=== PATIENT | male | born 1950 | race Caucasian/White ===

== ENCOUNTER 2025-02-03 18:31 | Observation (INO) | payer MEDICARE, SELFPAY ==
--- OUTSIDE RECORDS SUMMARY | 2025-01-26 04:00 | XMS_ITS | Encounter Summary ---
Author Name [facility] Address [address] [place] [address] Care Team Providers Care Manager Process Name Role Phone KARLATHERONKELLE Primary Care Provider Unavailabl e Insurance Providers: All historical and current Section Date Range: From patient's date of to the date document was created. This section includes the names of all active insurance providers for the patient. Insurance Provider Type of Coverage Plan Name Start of Policy Coverage End of Policy Coverage Group Number Member ID Insurance Provider's Telephone Number Policy Terry's Name Patient's Relationship to Policy Terry [facility] (WNR) MEDICARE ADVANTAGE [facility] (WNR) Sep 17, 2020 [facility] [id number] HOLLIE TATE PATIENT Selected Encounter This section includes the information on record at [place] for the Encounter. Date/Time Encounter Type Encounter Description Reason Pro vider Source January 26, 2025 08:00 AM Outpatient Encounter PRIMARY CARE/MEDICINE E Encounter Template Text not used by [place] Plan of Treatment: Future Appointments (+ 6 months) and Future Tests (+/- 45 days) The Plan of Treatment section includes future care activities for the patient from all [place] treatmentfacilities. This section includes future appointments and future orders which are active, pending or scheduled. Future Appointments This section includes appointments that were scheduled to occur 6 months from the date of the Encounter, up to a maximum of 20 appointments. The data comes from all [place] treatment facilities. Appointment Date/Time Appointment Type Appointme nt Facility Name Feb 16, 2025 08:00 AM AMBULATORY - NONE [facility] Jul 27, 2025 08:00 AM AMBULATORY - NONE [facility] Active, Pending, and Scheduled Orders This section includes a listing of several types of active, pending, and scheduled orders, including clinic medications orders, diagnostic test orders, procedure orders and consult orders; where the start date of the order is 45 days before the date of the Encounter or 45 days after the date of theEncounter. The data comes from all [place] treatment facilities. Test Date/Time Test Type Test Details Facility Name January 16, 2025 12:00 AM Laboratory - Chemi stry Order URINALYSIS URINE SP ONCE [facility] Lab Results: +/- 30 days of the encounter This section includes the Chemistry and Hematology Lab Results on record with [place] for the patient. Radiology Reports and Pathology Reports are provided separately, in subsequent sections. Lab Results This section contains the Chemistry/Hematology Results that were resulted 30 days before or 30 daysafter the date of the Encounter. Date/Time Source Result Type Result - Unit Interpretation Reference Range Specimen Type Comment January 19, 2025 08:[address] [facility] COMPREHENSIVE METABOLIC PANEL PLASMA Specimen Type: PLASMA Comment: GLUCOSE The ADA recommends a fasting glucose of 99 mg/dL as the GLUCOSE upper limit of normal. TP Per package insert reference range for recumbent is 6.0 to 7.8 TP g/dL. Plasma samples will generally have higher values (about TP 0.2 to 0.4 g/dL higher) due to presence of fibrinogen. TRIG REFERENCE RANGE: BORDERLINE HIGH: 150-199 mg/dL HIGH: 200-499 TRIG mg/dL VERY HIGH: >=500 mg/dL CHOL REF RANGE: BORDERLINE HIGH: 200-239 mg/dL HIGH: >=240 mg/dL HDLC Values >60 are a negative risk factor for heart disease. DLDL REF RANGE: NEAR OR ABOVE OPTIMAL: 100-129 mg/dL BORDERLINE DLDL HIGH: 130-159 mg/dL HIGH: 160-189 mg/dL VERY HIGH: >=190 Ordering Provider: KELLE ACOSTA Report Released Date/Time: January 19, 2025 08:01 AM Reporting Lab: [facility] [id number] [facility] [id number] Performing Lab: [address] [phone] ALBUMIN 4.0 g/dL 3.5-4.8 ALKALINE PHOSPHATASE 69 U/L 40-150 ALT/SGPT 32 U/L 0-55 AST/SGOT 33 U/L 10-40 BUN 10.1 mg/dL 8.4-25.7 CALCIUM 9.3 mg/dL 8.6-10.3 CREATININE 1.0 mg/dL 0.7-1.3 CO2 25 mmol/L 22-30 GLUCOSE 112 mg/dL H 74-99 PROTEIN, TOTAL 6.4 g/dL 6.4-8.3 SODIUM 133 mmol/L L 134-144 CHLORIDE 100 mmol/L 99-112 BILIRUBIN, TOTAL 1.2 mg/dL 0.2-1.2 POTASSIUM 5.4 mmol/L H 3.5-5.1 ANION GAP 13 mmol/L 10-20 EGFR (CALCULATED) 78 January 19, 2025 08:[address] [facility] CBC BLOOD Specimen Type: BLOOD No comment entered. Ordering Provider: KELLE ACOSTA Report Released Date/Time: January 19, 2025 08:01 AM Reporting Lab: [address] [phone] Performing Lab: [address] [phone] WBC COUNT 3.9 10*3/uL 3.6-11.0 RBC COUNT 4.48 10*6/uL 4.47-5.83 HGB 14.2 g/dL 13.6-17.4 HCT 41.3 40.0-51.0 MCV 92.1 fL 80.0-96.0 MCH 31.7 pg H 27.0-31.0 MCHC 34.4 g/dL 31.5-36.5 PLT 134 10*3/uL L 150-400 LYMPHS % 23.6 21.0-51.0 MONOCYTES % 11.0 H 4.0-8.0 NUCLEATED RBC/100WBC 0.3 /100{WBCs} RDW 14.1 11.2-15.8 NEUTROPHIL % 63.2 54.0-78.0 EOSINOPHIL % 1.6 0.0-3.0 BASOPHIL % 0.6 0.0-3.0 ABSOLUTE LYMPHOCYTE COUNT 0.9 10*3/uL 0. 8-5.0 ABSOLUTE NEUTROPHIL COUNT 2.5 10*3/uL 1. 9-8.6 ABSOLUTE BASOPHIL COUNT 0.0 10*3/uL 0.0- 0.3 ABSOLUTE MONOCYTE COUNT 0.4 10*3/uL 0.1- 0.9 ABSOLUTE EOSINOPHIL COUNT 0.1 10*3/uL 0. 0-0.3 MPV 9.2 fL 7.4-11.4 January 19, 2025 08:[address] [facility] HEMOGLOBIN A1C BLOOD Specimen Type: B LOOD Comment: Values obtained from A1C measurements can vary. For typical A1C assays, a reported value of 7.0 could actually be between 6.72 and 7.28 if measured by a reference method. A reported value of 9.0 could actually be between 8.73 and 9.27. Ref: http://www.ngsp.org/CAPdata.asp Ordering Provider: KELLE ACOSTA Report Released Date/Time: January 19, 2025 08:01 AM Reporting Lab: [address] [phone] Performing Lab: [address] [address] HEMOGLOBIN A1C 4.8 3.6-5.7 January 19, 2025 08:[address] [facility] PROSTATE SPECIFIC ANTIGEN SERUM Speci men Type: SERUM Comment: TPSA Testing males >= 70 y/o is not recommended if there is a TPSA history of previously normal PSA testing. Assay performed on TPSA Unyqe using CMIA methodology. Patient results TPSA determined by assays using different manufacturers or methods TPSA may not be comparable. Ordering Provider: KELLE ACOSTA Report Released Date/Time: January 19, 2025 08:01 AM Reporting Lab: [address] [phone] Performing Lab: [address] [phone] PROSTATE SPECIFIC ANTIGEN 1.533 ng/mL 0. 000-6.500 January 19, 2025 08:[address] [facility] TSH PLASMA Specimen Type: PLASMA Comment: GLUCOSE The ADA recommends a fasting glucose of 99 mg/dL as the GLUCOSE upper limit of normal. TP Per package insert reference range for recumbent is 6.0 to 7.8 TP g/dL. Plasma samples will generally have higher values (about TP 0.2 to 0.4 g/dL higher) due to presence of fibrinogen. TRIG REFERENCE RANGE: BORDERLINE HIGH: 150-199 mg/dL HIGH: 200-499 TRIG mg/dL VERY HIGH: >=500 mg/dL CHOL REF RANGE: BORDERLINE HIGH: 200-239 mg/dL HIGH: >=240 mg/dL HDLC Values >60 are a negative risk factor for heart disease. DLDL REF RANGE: NEAR OR ABOVE OPTIMAL: 100-129 mg/dL BORDERLINE DLDL HIGH: 130-159 mg/dL HIGH: 160-189 mg/dL VERY HIGH: >=190 Ordering Provider: KELLE ACOSTA Report Released Date/Time: January 19, 2025 08:01 AM Reporting Lab: [address] [phone] Performing Lab: [address] [address] TSH 2.835 u[IU]/mL 0.350-4.940 January 19, 2025 08:[address] [facility] LIPID PROFILE PLASMA Specimen Type: P LASMA Comment: GLUCOSE The ADA recommends a fasting glucose of 99 mg/dL as the GLUCOSE upper limit of normal. TP Per package insert reference range for recumbent is 6.0 to 7.8 TP g/dL. Plasma samples will generally have higher values (about TP 0.2 to 0.4 g/dL higher) due to presence of fibrinogen. TRIG REFERENCE RANGE: BORDERLINE HIGH: 150-199 mg/dL HIGH: 200-499 TRIG mg/dL VERY HIGH: >=500 mg/dL CHOL REF RANGE: BORDERLINE HIGH: 200-239 mg/dL HIGH: >=240 mg/dL HDLC Values >60 are a negative risk factor for heart disease. DLDL REF RANGE: NEAR OR ABOVE OPTIMAL: 100-129 mg/dL BORDERLINE DLDL HIGH: 130-159 mg/dL HIGH: 160-189 mg/dL VERY HIGH: >=190 Ordering Provider: KELLE ACOSTA Report Released Date/Time: January 19, 2025 08:01 AM Reporting Lab: [address] [phone] Performing Lab: [address] [address] CHOLESTEROL 105 mg/dL 0-199 LDL CHOLESTEROL 40 mg/dL 0-99 HDL CHOLESTEROL 53 mg/dL >40 TRIGLYCERIDE 34 mg/dL 0-149 Vital Signs: All taken on the encounter date This section contains inpatient and outpatient Vital Signs collected on the date of the Encounter. Date/Time Temperature Pulse Blood Pressure Respiratory Rate SP02 Pain Height Weight Body Mass Index Source January 26, 2025 08:00 AM 98.1 95 160/110 18 96 0 232 34 YURIY CLARITA [facility] Encounter Notes: All associated encounter notes This section contains the clinical notes associated to the Encounter. Date/Time Encounter Note(s) Provider Source January 27, 2025 06:51 AM DISCHARGE NOTE: LOCAL TITLE: AFTER VISIT SUMMARY NOTE STANDARD TITLE: DISCHARGE NOTE DICT DATE: JANUARY 26, 2025@08:00 ENTRY DATE: JANUARY 27, 2025@06:51:58 DICTATED BY: BHUMIKA BELTRÁN COSIGNER: URGENCY: STATUS: COMPLETED If the patient did not receive a copy of the after-visit summary or had a virtual visit, a copy of the after-visit summary will be mailed. The after-visit summary includes information pertaining to the patient's encounter, including diagnoses, vital signs, medications, and new orders, as well as a list of any any upcoming appointments and information regarding the patient's ongoing care. The patient's medications were reviewed with the patient by the provider and were provided to the patient as an updated list of medications. The patient was instructed to inform the provider of any medication changes or discrepancies that were noted. Otherwise, the patient was instructed to continue the medications as prescribed. A copy of the after-visit summary provided to the patient is available in [facility]. SCANNED DOCUMENT SIGNATURE NOT REQUIRED Electronically Filed: 01/27/2025 by: BHUMIKA BOOGIE [facility]
--- OUTSIDE RECORDS SUMMARY | 2025-01-26 04:00 | XMS_ITS | Encounter Summary ---
Author Name [facility] [place] [facility] [place] [facility] [place] [place] Address [address] [place] [id number] Care Team Providers Care Exercise Scientist Name Role Phone KELLE ACOSTA Primary Care Provider Unavailabl e Insurance Providers: [...] Name Patient's Relationship to Policy Terry SEEMA [facility] (WNR) MEDICARE ADVANTAGE [facility] (WNR) Sep 17, 2020 [facility] [id number] HOLLIE TATE PATIENT Selected Encounter This section includes the information on record at [place] for the Encounter. Date/Time Encounter Type Encounter Description Reason Provider Source January 26, 2025 08:00 AM OFFICE O/P EST MOD 30 MIN PRIMARY CARE/MEDICINE ICD-10-CM I25.10 [facility] heart disease of [place] coronary artery w/o KELLE Chen Encounter Template Text not used by [place] Assessments - Encounter Diagnoses This section includes the primary and secondary diagnoses documented for the Encounter. Date/Time Primary/Secondary Diagnosis Diagnosis Name Provider Source January 26, 2025 12:15 PM PRIMARY [facility] heart disease of [place] coronary artery w/o KELLE Chen CB January 26, 2025 12:15 PM SECONDARY Encounter for immunization CONCEPCION ARREDONDO [facility] January 26, 2025 12:15 PM SECONDARY Essential (primary) hypertension KELLE ACOSTA [facility] January 26, 2025 12:15 PM SECONDARY Hyperlipidemia, unspecified KELLE ACOSTA [facility] Plan of Treatment: Future Appointments (+ 6 months) and Future Tests (+/- 45 days) The Plan of Treatment section includes [facility] care activities for the [facility] [place] [facility] This section includes future appointments and future orders which are active, pending or scheduled. Future Appointments This section includes appointments that were scheduled to occur 6 months from the date of the Encounter, up to a maximum of 20 appointments. The data comes from all [place] treatment facilities. Appointment Date/Time Appointment Type Appointme nt Facility Name Feb 16, 2025 08:00 AM AMBULATORY - NONE BRENDAN Boucher [facility] Jul 27, 2025 08:00 AM AMBULATORY - NONE [facility] Active, Pending, and Scheduled Orders This section includes a listing of several types of active, pending, and scheduled orders, including clinic medications orders, diagnostic test orders, procedure orders and consult orders; where the start date of the order is 45 days before the date of the Encounter or 45 days after the date of theEncounter. The data comes from all [place] treatment facilities. Test Date/Time Test Type Test Details Facility Name January 16, 2025 12:00 AM Laboratory - Chemi dolly Order URINALYSIS URINE SP ONCE [facility] Lab Results: +/- 30 days of the encounter This section includes the Chemistry and Hematology Lab Results on record with [place] for the patient. Radiology Reports and Pathology Reports are provided separately, in subsequent sections. Lab Results This section contains the Chemistry/Hematology Results that were resulted 30 days before or 30 daysafter the date of the Encounter. Date/Time Source Result Type Result - Unit Interpretation Reference Range Specimen Type Comment January 19, 2025 08:02 AM [facility] COMPREHENSIVE METABOLIC PANEL PLASMA Specimen Type: PLASMA [...] January 19, 2025 08:01 AM Reporting Lab: [address] [id number] Performing Lab: [address] [address] ALBUMIN 4.0 g/dL 3.5-4.8 ALKALINE PHOSPHATASE 69 [...] (CALCULATED) 78 January 19, 2025 08:02 AM [facility] CBC BLOOD Specimen Type: BLOOD No comment entered. Ordering Provider: KELLE ACOSTA Report Released Date/Time: January 19, 2025 08:01 AM Reporting Lab: [address] [phone] Performing Lab: [address] [address] WBC COUNT 3.9 10*3/uL 3.6-11.0 RBC COUNT [...] fL 7.4-11.4 January 19, 2025 08:02 AM [facility] HEMOGLOBIN A1C BLOOD Specimen Type: B LOOD [...] January 19, 2025 08:01 AM Reporting Lab: [address] [phone] Performing Lab: [address] [address] HEMOGLOBIN A1C 4.8 3.6-5.7 January 19, 2025 08:02 AM [facility] PROSTATE SPECIFIC ANTIGEN SERUM Speci men Type: SERUM Comment: TPSA Testing males >= 70 y/o is not recommended if there is a TPSA history of previously normal PSA testing. Assay performed on TPSA SocialRep using CMIA methodology. Patient results TPSA determined by assays using different manufacturers or methods TPSA may not be comparable. Ordering Provider: KELLE ACOSTA Report Released Date/Time: January 19, 2025 08:01 AM Reporting Lab: [place] [id number] Performing Lab: [place] [id number] PROSTATE SPECIFIC ANTIGEN 1.533 ng/mL 0. 000-6.500 January 19, 2025 08:02 AM [facility] TSH PLASMA Specimen Type: PLASMA Comment: GLUCOSE [...] January 19, 2025 08:01 AM Reporting Lab: [address] [address] Performing Lab: [place] [id number] TSH 2.835 u[IU]/mL 0.350-4.940 January 19, 2025 08:02 AM [facility] LIPID PROFILE PLASMA Specimen Type: P LASMA [...] January 19, 2025 08:01 AM Reporting Lab: [address] [phone] Performing Lab: [facility] [id number] [place] [phone] CHOLESTEROL 105 mg/dL 0-199 LDL CHOLESTEROL 40 mg/dL 0-99 HDL CHOLESTEROL 53 mg/dL >40 TRIGLYCERIDE 34 mg/dL 0-149 Immunizations: All administered on the encounter date This section contains immunizations associated to the Encounter. Immunization Series Date Issued Administered By Site Reaction Lot Number [id number] Code Drug Wholesale Parts Salesperson Comment(s) Source RSV, BIVALENT, PROTEIN SUBUNIT RSVPREF, DILUENT RECONSTITUTED , 0.5 ML, PF January 26, 2025 JUAN DAVID ARREDONDO LEFT DELTO ID [id number] [employer] ADMINISTERE D AT [place] Social History: Smoking Status (Most current) and Tobacco Use (All prior to encounter date) This section includes the most current, and the historical, smoking and tobacco- related health factors from the [place] facility where the Encounter took place. Current Smoking Status This section includes the most current smoking, or tobacco-related health factor, from the [place] facility where the Encounter took place. Date/Time Current Smoking Status Comment Dangelo ity Jul 29, 2024 08:30 AM VA-TOBACCO NEVER USED [facility] Tobacco Use History This section includes a history of the smoking, or tobacco-related health factors, that were collected on or before the date of the Encounter. The data comes from the [place] facility where the Encounter took place. Date/Time Smoking Status/Tobacco Use Comment F acility Jul 31, 2023 03:30 PM VA-TOBACCO NEVER USED [facility] May 17, 2022 08:00 AM VA-TOBACCO NEVER USED [facility] May 17, 2021 09:30 AM VA-TOBACCO NEVER USED [facility] January 15, 2019 10:09 AM VA-TOBACCO NEVER USED [facility] Encounter Notes: All associated encounter notes This section contains the clinical notes associated to the Encounter. Date/Time Encounter Note(s) Provider Source January 26, 2025 08:46 AM NURSING MEDICATION MGT NOTE: LOCAL TITLE: MEDICATION ADMINISTRATION NOTE (T) STANDARD TITLE: NURSING MEDICATION MGT NOTE DATE OF NOTE: JANUARY 26, 2025@08:46 ENTRY DATE: JANUARY 26, 2025@08:46:52 AUTHOR: CONCEPCION ARREDONDO EXP COSIGNER: URGENCY: STATUS: COMPLETED Immunization Documentation: Administered: RSV, BIVALENT, PROTEIN SUBUNIT RSVPREF, DILUENT RECONSTITUTED, 0.5 ML, PF Date Administered: January 26, 2025 08:00 Wholesale Parts Salesperson: [employer] Lot: [id number] Exp Date: Jan 14, 2026 ND: [id number] Admin Route/Site: INTRAMUSCULAR/LEFT DELTOID Dosage: 0.5mL Vaccine Information Statement(s): RSV (RESPIRATORY SYNCYTIAL VIRUS) VACCINE VIS Oct 17, 2024 (TRINIDADIAN) Order By: Policy Administered By: Concepcion Arredondo /jen/ CONCEPCION ARREDONDO LICENSED PRACTICAL NURSE Signed: 01/26/2025 08:47 [facility] January 26, 2025 08:27 AM NURSING NOTE: LOCAL TITLE: NURSING NOTE STANDARD TITLE: NURSING NOTE DATE OF NOTE: JANUARY 26, 2025@08:27 ENTRY DATE: JANUARY 26, 2025@08:28:08 AUTHOR: CONCEPCION ARREDONDO EXP COSIGNER: URGENCY: STATUS: COMPLETED EKG completed per order, results reviewed by pcp /jen/ CONCEPCION ARREDONDO LICENSED PRACTICAL NURSE Signed: 01/26/2025 08:29 [facility] January 26, 2025 08:05 AM INTERNAL MEDICINE OUTPATIENT NOTE: LOCAL TITLE: PRIMARY CARE OUTPATIENT NOTE (T) STANDARD TITLE: INTERNAL MEDICINE OUTPATIENT NOTE DATE OF NOTE: JANUARY 26, 2025@08:05 ENTRY DATE: JANUARY 26, 2025@08:05:55 AUTHOR: KELLE ACOSTA EXP COSIGNER: URGENCY: STATUS: COMPLETED In-person Note 74yo Reason for Visit: Here for follow up visit with his daughter. Daughter notes he is more forgetful. He states he takes his pills everyday, will sometimes forget the second dose. Meds filled last in January 2024. He states in past month his breathing has become more labored. He had 5 vessel by pass 14 years ago and hasn't seen cardiology since. 5 Active Problems PROBLEM LAST MOD PROVIDER Benign prostatic hyperplasia 07/29/2024 KELLE ACOSTA Hyperlipidemia 05/17/2022 KELLE ACOSTA Shoulder pain 01/15/2019 [facility] Coronary arteriosclerosis 07/29/2024 [facility] History of 5 vessel CABG Benign essential hypertension 01/15/2019 [facility] REVIEW OF SYSTEMS: (denies the following unless indicated otherwise): mood concerns headache fatigue/weight loss dysphagia/hoarseness chest pain dyspnea abdominal pain difficult or bloody elimination PATIENT ALLERGIES DETAILED ALLERGIES/ADVERSE REACTIONS No Known Allergies AMRS - MEDS (REC SUCCINCT) Active and Recently Inpatient, Outpatient and Clinic Medications (including Supplies): Active Outpatient Medications Status ========= 1) ATORVASTATIN CALCIUM 20MG TAB TAKE ONE TABLET BY ACTIVE MOUTH EVERY DAY FOR HIGH CHOLESTEROL 2) LABETALOL HCL 100MG TAB TAKE ONE TABLET BY MOUTH ACTIVE TWICE A DAY FOR HIGH BLOOD PRESSURE (WITH FOOD) Active Non-VA Medications Status ========= 1) Non-VA ASPIRIN 81MG EC TAB 81MG MOUTH EVERY DAY ACTIVE 2) Non-VA ATORVASTATIN CALCIUM 40MG TAB 40MG MOUTH EVERY ACTIVE DAY 4 Total Medications Report Released Date/Time: January 19, 2025@18:32 Provider: KELLE ACOSTA Specimen: SERUM. [facility] [id number] Specimen Collection Date: January 19, 2025@08:02 Test name Result units Ref. range Site Code PROSTATE SPECIFIC ANTIGEN 1.533 ng/mL 0.000 - 6.500 [541] Comment: TPSA Testing males >= 70 y/o is not recommended if there is a TPSA history of previously normal PSA testing. Assay performed on TPSA SocialRep using CMIA methodology. Patient results TPSA determined by assays using different manufacturers or methods TPSA may not be comparable. Report Released Date/Time: January 19, 2025@17:58 Provider: KELLE ACOSTA Specimen: BLOOD. [facility] [id number] Specimen Collection Date: January 19, 2025@08:02 Test name Result units Ref. range Site Code HEMOGLOBIN A1C 4.8 % 3.6 - 5.7 [541] Eval: Values obtained from A1C measurements can vary. For typical A1C assays, a Eval: reported value of 7.0 could actually be between 6.72 and 7.28 if measured Eval: by a reference method. A reported value of 9.0 could actually be between Eval: 8.73 and 9.27. Ref: https://ngsp.org/CAPdata.asp WBC COUNT 3.9 K/cmm 3.6 - 11.0 [541] RBC COUNT 4.48 M/cmm 4.47 - 5.83 [541] HGB 14.2 g/dL 13.6 - 17.4 [541] HCT 41.3 % 40.0 - 51.0 [541] MCV 92.1 fL 80.0 - 96.0 [541] MCH 31.7 H pg 27.0 - 31.0 [541] MCHC 34.4 g/dL 31.5 - 36.5 [541] RDW 14.1 % 11.2 - 15.8 [541] PLT 134 L K/cmm 150 - 400 [541] MPV 9.2 fL 7.4 - 11.4 [541] NEUTROPHIL % 63.2 % 54.0 - 78.0 [541] LYMPHS % 23.6 % 21.0 - 51.0 [541] MONOCYTES % 11.0 H % 4.0 - 8.0 [541] EOSINOPHIL % 1.6 % 0.0 - 3.0 [541] BASOPHIL % 0.6 % 0.0 - 3.0 [541] ABSOLUTE NEUTROPHIL COUNT 2.5 K/cmm 1.9 - 8.6 [541] ABSOLUTE LYMPHOCYTE COUNT 0.9 K/cmm 0.8 - 5.0 [541] ABSOLUTE MONOCYTE COUNT 0.4 K/cmm 0.1 - 0.9 [541] ABSOLUTE EOSINOPHIL COUNT 0.1 K/cmm 0.0 - 0.3 [541] ABSOLUTE BASOPHIL COUNT 0.0 K/cmm 0.0 - 0.3 [541] NUCLEATED RBC/100WBC 0.3 /100 WBC None Established - None Established [541] Comment: Values obtained from A1C measurements can vary. For typical A1C assays, a reported value of 7.0 could actually be between 6.72 and 7.28 if measured by a reference method. A reported value of 9.0 could actually be between 8.73 and 9.27. Ref: http://www.ngsp.org/CAPdata.asp Report Released Date/Time: January 19, 2025@18:27 Provider: KELLE ACOSTA Specimen: PLASMA. [facility] [id number] Specimen Collection Date: January 19, 2025@08:02 Test name Result units Ref. range Site Code GLUCOSE 112 H mg/dL 74 - 99 [541] SODIUM 133 L mmol/L 134 - 144 [541] POTASSIUM 5.4 H mmol/L 3.5 - 5.1 [541] CHLORIDE 100 mmol/L 99 - 112 [541] CO2 25 mmol/L 22 - 30 [541] BUN 10.1 mg/dL 8.4 - 25.7 [541] CREATININE 1.0 mg/dL 0.7 - 1.3 [541] CALCIUM 9.3 mg/dL 8.6 - 10.3 [541] EGFR (CALCULATED) 78 mL/min/1.73m2 BSA [541] Eval: eGFR was calculated using the CKD-EPI 2020 equation. No reference range Eval: is defined. Clinical judgement based on patient condition is advised. Eval: eGFR results >60 are imprecise. Many variables affect the calculated Eval: result. Interpretation of eGFR results >60 must be monitored over time. ANION GAP 13 mmol/L 10 - 20 [541] AST/SGOT 33 U/L 10 - 40 [541] ALT/SGPT 32 U/L 0 - 55 [541] ALKALINE PHOSPHATASE 69 U/L 40 - 150 [541] BILIRUBIN, TOTAL 1.2 mg/dL 0.2 - 1.2 [541] PROTEIN, TOTAL 6.4 g/dL 6.4 - 8.3 [541] ALBUMIN 4.0 g/dL 3.5 - 4.8 [541] CHOLESTEROL 105 mg/dL 0 - 199 [541] LDL CHOLESTEROL 40 mg/dL 0 - 99 [541] HDL CHOLESTEROL 53 mg/dL Ref: >=40 [541] TRIGLYCERIDE 34 mg/dL 0 - 149 [541] TSH 2.835 uIU/mL 0.350 - 4.940 [541] Comment: GLUCOSE The ADA recommends a fasting [...] mg/dL HIGH: 160-189 mg/dL VERY HIGH: >=190 PHYSICAL EXAM: Vital Signs: T: 98.1 F [36.7 C] (01/26/2025 08:00) P: 95 (01/26/2025 08:00) R: 18 (01/26/2025 08:00) BP: 160/110 (01/26/2025 08:00) Pain: 0 (01/26/2025 08:00) Height: 69.5 in [176.5 cm] (01/15/2019 10:23) Weight: 232 lb [105.23 kg] (01/26/2025 08:00) Pulse Ox: 96% (01/26/2025 08:00) General: SOB with activity, takes several minutes to recover Head, Ears, Eyes, Nose, and Throat: Neck: no bruit, no JVD Chest/Lungs: clear Cardiovascular: RRR Gastrointestinal: abdomen distended, nontender Extremities: 3+ edema to thighs ASSESSMENT/PLAN: reviewed labs with BP cuff issued to to monitor BP daily. discussed SOB result of strain on heart due to not taking BP meds and unable to pump effectively. He MUST take betablocker twice a day every day. add on lasix daily to help with fluid overload. Lasix to be overnighted He has not been taking statin for prevention of CV event, cholesterol however is at goal. he should be taking nightly sttin EKG with NSR RTC in 2-3 weeks to ensure edema is improving. daughter will ensure he is taking daily meds. next visit will order echo and re-consult cardiology. should SOB increase will need to go to ER. HEALTH MAINTENANCE/CLINICAL REMINDERS: MEDICATION RECONCILIATION Medication Reconciliation report reviewed and discussed with patient/caregiver. VA prescription medications, non-VA prescription medications, OTC and herbal medications reviewed: Patient/caregiver verifies that the list is complete and accurate and voices understanding. Patient/caregiver in possession of printed medication list. FOLLOW-UP: 2-3 weeks I am the Staff Provider. TOTAL TIME SPENT: Spent 45 minutes in care of this patient today including review of records, exam, and placing orders. /jen/ KELLE A KARLA NURSE PRACTITIONER Signed: 01/26/2025 12:16 [facility]STA [facility] January 26, 2025 07:51 AM PRIMARY CARE NURSI STEPHANIE NOTE: LOCAL TITLE: OUTPATIENT NURSING INTAKE NOTE (T) STANDARD TITLE: PRIMARY CARE NURSING NOTE DATE OF NOTE: JANUARY 26, 2025@07:51 ENTRY DATE: JANUARY 26, 2025@07:51:34 AUTHOR: CONCEPCION ARREDONDO COSIGNER: URGENCY: STATUS: COMPLETED Hemoglobin A1C Results: Collection DT Specimen Test Name Result Units Ref Range 01/19/2025 08:02 BLOOD HEMOGLOBIN A1C 4.8 % 3.6 - 5.7 Comment: Values obtained from A1C measurements can vary. For typical A1C Comment: assays, a reported value of 7.0 could actually be between 6.72 and Comment: 7.28 if measured by a reference method. A reported value of 9.0 Comment: could actually be between 8.73 and 9.27. Ref: Comment: http://www.ngsp.org/CAPdata.asp 01/29/2024 08:09 BLOOD HEMOGLOBIN A1C 5.1 % 3.6 - 5.7 Comment: Values obtained from A1C measurements can vary. For typical A1C Comment: assays, a reported value of 7.0 could actually be between 6.72 and Comment: 7.28 if measured by a reference method. A reported value of 9.0 Comment: could actually be between 8.73 and 9.27. Ref: Comment: http://www.ngsp.org/CAPdata.asp 07/24/2023 10:39 BLOOD HEMOGLOBIN A1C 5.0 % 3.6 - 5.7 Comment: Values obtained from A1C measurements can vary. For typical A1C Comment: assays, a reported value of 7.0 could actually be between 6.72 and Comment: 7.28 if measured by a reference method. A reported value of 9.0 Comment: could actually be between 8.73 and 9.27. Ref: Comment: http://www.ngsp.org/CAPdata.asp Comment: Scan agrees with automated differential Comment: No NRBCs observed on scanning Review Allergies Allergies reviewed and updated per protocol. ALLERGIES/ADVERSE REACTIONS No Known Allergies Have you fallen in the last 30 days? NO MEDICATION LIST REVIEW REPORT Patient states no change in documented OTC/Herbals at this visit. 1. Has the patient been feeling sad or distressed? No 2. Has the patient been having personal or family problems? No 3. Has the patient been experiencing worry and/or stress? No 4. Has the patient been having problems with drugs and/or alcohol? No 5. [place] [facility] pocket card was provided to patient. No/patient declined [facility] not documented this visit. Clinical Reminders Activity Homelessness/Food Insecurity Screen: In the past 2 months, have you been living in stable housing that you own, rent, or stay in as part of a household? Yes - Living in stable housing. Are you worried or concerned that in the next 2 months you may NOT have stable housing that you own, rent, or stay in as part of a household? No - Not worried about housing near future The reports the following: Within the past 12 months, you worried whether your food would run out before you got money to buy more. Never true Within the past 12 months, the food you bought just didn't last and you didn't have money to get more. Never true Advance Directive Education Screen: Patient received information regarding Advance Directives: No - Patient declined information at this time. Patient Education Documentation: LEARNING NEEDS ASSESSMENT: The patient/family/significant other reports no changes in learning needs. /jen/ CONCEPCION ARREDONDO LICENSED PRACTICAL NURSE Signed: 01/26/2025 08:06 CONCEPCION ARREDONDO [facility]
--- OUTSIDE RECORDS SUMMARY | 2025-01-30 05:16 | XMS_ITS | Encounter Summary ---
Author Name [facility] Organization [facility] Address [address] [place] [id number] Care Team Providers Care Residential Case Manager Name Role Phone KELLE ACOSTA Primary Care [...] Name Patient's Relationship to Policy Terry SEEMA MCR (WNR) MEDICARE ADVANTAGE [facility] (WNR) Sep 17, 2020 [facility] [id number] [phone] HOLLIE TATE PATIENT Selected Encounter This section includes the information on record at [place] for the Encounter. Date/Time Encounter Type Encounter Description Reason Pro vider Source January 30, 2025 09:16 AM Outpatient Encounter TELEPHONE TRIAGE IHE Encounter Template Text not used by [place] Plan of Treatment: Future Appointments (+ 6 months) and Future Tests (+/- 45 days) The Plan of Treatment section includes future care activities for the patient from all [place] treatmentfacilities. This section includes future appointments and future orders which are active, pending or scheduled. Future Appointments This section includes appointments that were scheduled to occur 6 months from the date of the Encounter, up to a maximum of 20 appointments. The data comes from all [place] treatment facilities. Appointment Date/Time Appointment Type Appointme nt Facility Name Feb 16, 2025 08:00 AM AMBULATORY - NONE BRENDAN Boucher [facility] Jul 27, 2025 08:00 AM AMBULATORY - [...] of theEncounter. The data comes from all [place] treatment facilities. Test Date/Time Test Type Test Details Facility Name January 16, 2025 12:00 AM Laboratory - Chemi stry Order URINALYSIS URINE SP ONCE [facility] Lab Results: +/- 30 days of the encounter This section includes the Chemistry and Hematology Lab Results on record with [place] for the patient. Radiology Reports and Pathology Reports are provided separately, in subsequent sections. Lab Results This section contains the Chemistry/Hematology Results that were resulted 30 days before or 30 daysafter the date of the Encounter. Date/Time Source Result Type Result - Unit Interpretation Reference Range Specimen Type Comment January 19, 2025 08:02 AM [facility] COMPREHENSIVE METABOLIC PANEL PLASMA Specimen Type: [...] January 19, 2025 08:01 AM Reporting Lab: [facility] [address] [facility] [address] Performing Lab: [address] [address] ALBUMIN 4.0 g/dL 3.5-4.8 ALKALINE PHOSPHATASE 69 [...] (CALCULATED) 78 January 19, 2025 08:02 AM [facility] CBC BLOOD Specimen Type: BLOOD No comment entered. Ordering Provider: KELLE ACOSTA Report Released Date/Time: January 19, 2025 08:01 AM Reporting Lab: [facility] [address] [facility] [address] Performing Lab: [facility] [address] [facility] [address] WBC COUNT 3.9 10*3/uL 3.6-11.0 RBC COUNT [...] fL 7.4-11.4 January 19, 2025 08:02 AM [facility] HEMOGLOBIN A1C BLOOD Specimen Type: B [...] January 19, 2025 08:01 AM Reporting Lab: [address] [address] Performing Lab: [address] [address] HEMOGLOBIN A1C 4.8 3.6-5.7 January 19, 2025 08:02 AM [facility] PROSTATE SPECIFIC ANTIGEN SERUM Speci men Type: SERUM Comment: TPSA Testing males >= 70 y/o is not recommended if there is a TPSA history of previously normal PSA testing. Assay performed on TPSA iCrossing using CMIA methodology. Patient results TPSA determined by assays using different manufacturers or methods TPSA may not be comparable. Ordering Provider: KELLE ACOSTA Report Released Date/Time: January 19, 2025 08:01 AM Reporting Lab: [address] [address] Performing Lab: [address] [address] PROSTATE SPECIFIC ANTIGEN 1.533 ng/mL 0. 000-6.500 January 19, 2025 08:02 AM [facility] TSH PLASMA Specimen Type: PLASMA Comment: [...] January 19, 2025 08:01 AM Reporting Lab: [address] [address] Performing Lab: [address] [address] TSH 2.835 u[IU]/mL 0.350-4.940 January 19, 2025 08:02 AM [facility] LIPID PROFILE PLASMA Specimen Type: P [...] January 19, 2025 08:01 AM Reporting Lab: [address] [address] Performing Lab: [address] [address] CHOLESTEROL 105 mg/dL 0-199 LDL CHOLESTEROL 40 mg/dL 0-99 HDL CHOLESTEROL 53 mg/dL >40 TRIGLYCERIDE 34 mg/dL 0-149 Encounter Notes: All associated encounter notes This section contains the clinical notes associated to the Encounter. Date/Time Encounter Note(s) Provider Source January 30, 2025 09:17 AM PHARMACY NOTE: LOCAL TITLE: PHARMACY CONTACT CENTER NOTE STANDARD TITLE: PHARMACY NOTE DATE OF NOTE: JANUARY 30, 2025@09:17 ENTRY DATE: JANUARY 30, 2025@09:17:40 AUTHOR: SONYA VILLA COSIGNER: URGENCY: STATUS: COMPLETED PHARMACIST PRESCRIPTION REFILL EXTENSION: Decision to extend medication(s) listed below is APPROVED per protocol review. Refill extension was pharmacist reviewed per [place] [id number] Pharmacy Contact Center Protocol for the following medications: [id number] ATORVASTATIN CALCIUM 20MG TAB 90 S> 01-30 3 90 The following were reviewed per protocol: Patient has been seen by the prescriber in the past 12 months, and has not missed two or more consecutive appointments since the last visit: Yes Indication per medication: CV prevention Pertinent Labs have been reviewed and are within established guidelines: Yes Labs: Lipid Panel: CHOL: 105 (01/19/25 08:02) PLASMA HDL: 53 (01/19/25 08:02) PLASMA LDL: 40 (01/19/25 08:02) PLASMA [id number] (01/19/25 08:02) PLASMA Liver Panel: ALBUMIN: 4.0 (01/19/25 08:02) PLASMA ALKPHOS: 69 (01/19/25 08:02) PLASMA ALT/SGPT: 32 (01/19/25 08:02) PLASMA AST/SGOT: 33 (01/19/25 08:02) PLASMA BILI DIR: <0.1 (03/10/21 09:12) PLASMA BILI T: 1.2 (01/19/25 08:02) PLASMA T PROTEIN:6.4 (01/19/25 08:02) PLASMA Requested medication is prescribed for a chronic condition and an indication is documented for the medication. Additionally: Medical record (provider's progress note) does not indicate the medication was to be discontinued Medication requested is not on the [facility] refills extension medication exclusions list /es/ SONYA VILLA,PHARM D [address] PHARMACIST Signed: 01/30/2025 09:18 SONYA VILLA [facility]
[2025-02-03] VITALS (8 sets, daily range): BP systolic 159–179; BP diastolic 82–106; PULSE 53–130; TEMP 36.4; O2SAT 91–97; BMI 34.0; BMI 32.3
--- OUTSIDE RECORDS SUMMARY | 2025-02-03 13:35 | XMS_ITS | Continuity of Care Document ---
Author Name [facility] Organization [facility] Care Team Providers Care Pigskin Trimmer Name Role Phone [facility] Unavailable Unavailable Problems Combined list of problems from Department of [facility] and [facility] facilities. It does not include entries that were removed or entered in error. Problem Status Onset Date Problem Type Date of Resolution Comments Source Benign essential hypertension Active Condition [facility] Benign prostatic hyperplasia Active Condition [facility] Coronary artery disease Active Condition Jul 29, 2024 Entered By: AME ACOSTA A Comment: History of 5 vessel CABG [facility] Hyperlipidemia (SCT [id number]) Active Condition [facility] Shoulder pain Active Condition [facility] Diagnosis: ICD-10-CM I25.10 Athscl heart disease [place] coronary artery w/o ang pctrs Active Diagnosis [facility] Diagnosis: ICD-10-CM H52.223 Regular astigmatism, bilateral Active Diagnosis [facility] Diagnosis: ICD-10-CM Y93.9 Activity, unspecified Active Diagnosis [facility] Diagnosis: ICD-10-CM I10 Essential (primary) hypertension Active Diagnosis [facility] Diagnosis: ICD-10-CM E78.5 Hyperlipidemia, unspecified Active Diagnosis [facility] Medications Combined list of outpatient medications from Department of [facility] and [facility] facilities.Medications provided include 1) outpatient medications from the last 15 months, and 2) patient-reported medications. Medication Details Route Status Patient Instructions Prescription Expires Prescription Number Last Dispense Date Ordering Provider Order Date Order Qty Source ASPIRIN 81MG TAB,EC TAKE ONE TABLET BY MOUTH EVERY DAY ORAL ACTIVE SORAIDA ACOSTA BOBY A 2020 [facility] N [place] 20MG TAB TAKE ONE TABLET BY MOUTH EVERY DAY FOR HIGH CHOLESTE ROL ORAL ACTIVE 01/31/2026 [id number] SORAIDA AOCSTA BOBY A 2024 90 [facility] N [place] 20MG TAB TAKE ONE TABLET BY MOUTH EVERY DAY FOR HIGH CHOLESTE ROL ORAL DISCONT INUED 01/29/2025 [id number] 4 KARLARE BOBY A 2023 90 [facility] [place] [place] 40MG TAB TAKE ONE TABLET BY MOUTH EVERY DAY ORAL ACTIVE KARLARE BOBY A 2021 [facility] FUROSEM[facility] 20MG TAB TAKE ONE TABLET BY MOUTH IN THE MORNING FOR VISIBLE WATER RETENTIO N ORAL ACTIVE 01/27/2026 [id number] KARLA,RE BOBY A 2024 90 [facility] LABETALOL HCL 100MG TAB TAKE ONE TABLET BY MOUTH TWICE A DAY FOR HIGH BLOOD PRESSURE (WITH FOOD) ORAL ACTIVE 01/27/2026 [id number] 5 KARLA,RE BOBY A 2024 180 [facility] LABETALOL HCL 100MG TAB TAKE ONE TABLET BY MOUTH TWICE A DAY FOR HIGH BLOOD PRESSURE (WITH FOOD) ORAL DISCONT INUED 01/29/2025 [id number] 4 KARLARE BOBY A 2023 180 [facility] Immunizations Combined list of available immunizations from the Department of Defense and Veterans Affairs facilities. Immunization Series Date Given Administered By Site Reaction Lot Number CVX Code Drug Superintendent Division Status Comments Source RSV, BIVALENT, PROTEIN SUBUNIT RSVPREF, DILUENT RECONSTITUTED , 0.5 ML, PF 2024 JUAN DAVID NATARAJAN LEFT DELTO ID [id number] 305 complet ed [place] [facility] INFLUENZA, HIGH-DOSE, TRIVALENT, PF 2023 JUAN DAVID NATARAJAN LEFT DELTO ID [id number] 135 complet ed [facility] [place], [facility] INFLUENZA, HIGH-DOSE, QUADRIVALENT 2022 KAYA CREWS RIGHT DELTO ID [id number] 197 complet ed [facility] [place], [facility] PNEUMOCOCCAL POLYSACCHARID E PPV23 2021 33 complet ed [facility] OC ZOSTER RECOMBINANT 2021 187 complet ed [facility] OC ZOSTER RECOMBINANT 2020 187 complet ed [facility] PNEUMOCOCCAL CONJUGATE PCV 13 1 2018 133 complet ed HISTORICA L INFORMATI ON - FROM OTHER REGISTRY, [facility] PNEUMOCOCCAL CONJUGATE PCV 13 2018 133 complet ed [facility] TDAP 2018 115 complet ed Paperwork received. [facility] Results Combined list of recent chemistry, hematology and other laboratory results from Department of Defense and Veterans Affairs, ranging from 15 months to all on record, depending upon the facility. Order Name Results Value Reference Range Date Interpretation Specimen Comments Source COMPREHEN SIVE METABOLIC PANEL ALBUMIN [MASS/VOLUM E] IN SERUM OR PLASMA 4.0 g/dL 3.5 - 4.8 01/19 Specimen Type: PLASMA Comment: GLUCOSE The ADA [...] 160-189 mg/dL VERY HIGH: >=190 Ordering Provider: JAYCEE ACOSTA CCA Report Released Date/Time: January 19, 2025 08:01 AM Reporting Lab: [address] [address] Performing Lab: [address] [address] [facility] COMPREHEN SIVE METABOLIC PANEL ALKALINE PHOSPHATASE [ENZYMATIC ACTIVITY/VO LUME] IN SERUM OR PLASMA 69 U/L 40 - 150 01/19 Specimen Type: PLASMA Comment: GLUCOSE The ADA [...] 160-189 mg/dL VERY HIGH: >=190 Ordering Provider: JAYCEE ACOSTA CCA A Report Released Date/Time: January 19, 2025 08:01 AM Reporting Lab: [place] [id number] Performing Lab: [place] [id number] [place] [address] COMPREHEN SIVE METABOLIC PANEL ALANINE AMINOTRANSF ERASE [ENZYMATIC ACTIVITY/VO LUME] IN SERUM OR PLASMA 32 U/L 0 - 55 01/19 Specimen Type: PLASMA Comment: GLUCOSE The ADA [...] 160-189 mg/dL VERY HIGH: >=190 Ordering Provider: JAYCEE ACOSTA CCA A Report Released Date/Time: January 19, 2025 08:01 AM Reporting Lab: [place] [id number] Performing Lab: [place] [id number] [facility] COMPREHEN SIVE METABOLIC PANEL ASPARTATE AMINOTRANSF ERASE [ENZYMATIC ACTIVITY/VO LUME] IN SERUM OR PLASMA 33 U/L 10 - 40 01/19 Specimen Type: PLASMA Comment: GLUCOSE The ADA [...] 160-189 mg/dL VERY HIGH: >=190 Ordering Provider: JAYCEE ACOSTA CCA Report Released Date/Time: January 19, 2025 08:01 AM Reporting Lab: [address] [address] Performing Lab: [address] [address] [facility] METABOLIC PANEL UREA NITROGEN [MASS/VOLUM E] IN SERUM OR PLASMA 10.1 mg/dL 8.4 - 25.7 01/19 Specimen Type: PLASMA Comment: GLUCOSE The ADA [...] 160-189 mg/dL VERY HIGH: >=190 Ordering Provider: JAYCEE ACOSTA CCA Report Released Date/Time: January 19, 2025 08:01 AM Reporting Lab: [place] [id number] Performing Lab: [place] [id number] [facility] COMPREHEN SIVE METABOLIC PANEL CALCIUM [MASS/VOLUM E] IN SERUM OR PLASMA 9.3 mg/dL 8.6 - 10.3 01/19 Specimen Type: PLASMA Comment: GLUCOSE The ADA [...] 160-189 mg/dL VERY HIGH: >=190 Ordering Provider: JAYCEE ACOSTA CCA Report Released Date/Time: January 19, 2025 08:01 AM Reporting Lab: [place] [id number] Performing Lab: [place] [id number] COMPREHEN SIVE METABOLIC PANEL CREATININE [MASS/VOLUM E] IN SERUM OR PLASMA 1.0 mg/dL 0.7 - 1.3 01/19 Specimen Type: PLASMA Comment: GLUCOSE The ADA [...] 160-189 mg/dL VERY HIGH: >=190 Ordering Provider: JAYCEE ACOSTA CCA A Report Released Date/Time: January 19, 2025 08:01 AM Reporting Lab: [address] [address] Performing Lab: [place] [id number] [facility] COMPREHEN SIVE METABOLIC PANEL CARBON DIOXIDE, TOTAL [MOLES/VOLU ME] IN SERUM OR PLASMA 25 mmol/L 22 - 30 01/19 Specimen Type: PLASMA Comment: GLUCOSE The ADA [...] 160-189 mg/dL VERY HIGH: >=190 Ordering Provider: JAYCEE ACOSTA CCA Report Released Date/Time: January 19, 2025 08:01 AM Reporting Lab: [address] [address] Performing Lab: [address] [address] [facility] COMPREHEN SIVE METABOLIC PANEL GLUCOSE [MASS/VOLUM E] IN SERUM OR PLASMA 112 mg/dL 74 - 99 01/19 H Specimen Type: PLASMA Comment: GLUCOSE The ADA [...] 160-189 mg/dL VERY HIGH: >=190 Ordering Provider: JAYCEE ACOSTA CCA A Report Released Date/Time: January 19, 2025 08:01 AM Reporting Lab: [address] [address] Performing Lab: [place] [id number] [facility] COMPREHEN SIVE METABOLIC PANEL PROTEIN [MASS/VOLUM E] IN SERUM OR PLASMA 6.4 g/dL 6.4 - 8.3 01/19 Specimen Type: PLASMA Comment: GLUCOSE The ADA [...] 160-189 mg/dL VERY HIGH: >=190 Ordering Provider: JAYCEE ACOSTA CCA A Report Released Date/Time: January 19, 2025 08:01 AM Reporting Lab: [address] [address] Performing Lab: [address] [address] [facility] COMPREHEN SIVE METABOLIC PANEL SODIUM [MOLES/VOLU ME] IN SERUM OR PLASMA 133 mmol/L 134 - 144 01/19 L Specimen Type: PLASMA Comment: GLUCOSE The ADA [...] 160-189 mg/dL VERY HIGH: >=190 Ordering Provider: JAYCEE ACOSTA CCA Report Released Date/Time: January 19, 2025 08:01 AM Reporting Lab: [place] [id number] Performing Lab: [place] [id number] [facility] METABOLIC PANEL CHLORIDE [MOLES/VOLU ME] IN SERUM OR PLASMA 100 mmol/L 99 - 112 01/19 Specimen Type: PLASMA Comment: GLUCOSE The ADA [...] 160-189 mg/dL VERY HIGH: >=190 Ordering Provider: JAYCEE ACOSTA CCA Report Released Date/Time: January 19, 2025 08:01 AM Reporting Lab: [place] [id number] Performing Lab: [place] [id number] [place] [address] COMPREHEN SIVE METABOLIC PANEL BILIRUBIN.T OTAL [MASS/VOLUM E] IN SERUM OR PLASMA 1.2 mg/dL 0.2 - 1.2 01/19 Specimen Type: PLASMA Comment: GLUCOSE The ADA [...] 160-189 mg/dL VERY HIGH: >=190 Ordering Provider: JAYCEE ACOSTA CCA Report Released Date/Time: January 19, 2025 08:01 AM Reporting Lab: [place] [id number] Performing Lab: [address] COMPREHEN SIVE METABOLIC PANEL POTASSIUM [MOLES/VOLU ME] IN SERUM OR PLASMA 5.4 mmol/L 3.5 - 5.1 01/19 H Specimen Type: PLASMA Comment: GLUCOSE The ADA [...] 160-189 mg/dL VERY HIGH: >=190 Ordering Provider: JAYCEE ACOSTA CCA Report Released Date/Time: January 19, 2025 08:01 AM Reporting Lab: [address] [address] Performing Lab: [address] [address] [facility] COMPREHEN SIVE METABOLIC PANEL ANION GAP IN SERUM OR PLASMA 13 mmol/L 10 - 20 01/19 Specimen Type: PLASMA Comment: GLUCOSE The ADA [...] 160-189 mg/dL VERY HIGH: >=190 Ordering Provider: JAYCEE ACOSTA CCA Report Released Date/Time: January 19, 2025 08:01 AM Reporting Lab: [address] [address] Performing Lab: [address] [address] [facility] COMPREHEN SIVE METABOLIC PANEL GLOMERULAR FILTRATION RATE/1.73 SQ M.PREDICTED [VOLUME RATE/AREA] IN SERUM, PLASMA OR BLOOD BY CREATININE- BASED FORMULA (CKD-EPI 2020) 78 01/19 Specimen Type: PLASMA Comment: GLUCOSE The ADA [...] 160-189 mg/dL VERY HIGH: >=190 Ordering Provider: JAYCEE ACOSTA CCA A Report Released Date/Time: January 19, 2025 08:01 AM Reporting Lab: [place] [id number] Performing Lab: [place] [id number] CBC LEUKOCYTES [#/VOLUME] IN BLOOD BY AUTOMATED COUNT 3.9 10*3/u L 3.6 - 11.0 01/19 Specimen Type: BLOOD No comment entered. Ordering Provider: JAYCEE ACOSTA CCA A Report Released Date/Time: January 19, 2025 08:01 AM Reporting Lab: [place] [id number] Performing Lab: [place] [id number] CBC ERYTHROCYTE S [#/VOLUME] IN BLOOD BY AUTOMATED COUNT 4.48 10*6/u L 4.47 - 5.83 01/19 Specimen Type: BLOOD No comment entered. Ordering Provider: JAYCEE ACOSTA CCA A Report Released Date/Time: January 19, 2025 08:01 AM Reporting Lab: [place] [id number] Performing Lab: [place] [id number] [place] [address] CBC HEMOGLOBIN [MASS/VOLUM E] IN BLOOD 14.2 g/dL 13.6 - 17.4 01/19 Specimen Type: BLOOD No comment entered. Ordering Provider: JAYCEE ACOSTA CCA A Report Released Date/Time: January 19, 2025 08:01 AM Reporting Lab: [place] [id number] Performing Lab: [address] [address] [facility] CBC HEMATOCRIT [VOLUME FRACTION] OF BLOOD BY AUTOMATED COUNT 41.3 40.0 - 51.0 01/19 Specimen Type: BLOOD No comment entered. Ordering Provider: JAYCEE ACOSTA CCA A Report Released Date/Time: January 19, 2025 08:01 AM Reporting Lab: [address] [address] Performing Lab: [place] [id number] [facility] CBC MCV [ENTITIC VOLUME] BY AUTOMATED COUNT 92.1 fL 80.0 - 96.0 01/19 Specimen Type: BLOOD No comment entered. Ordering Provider: JAYCEE ACOSTA CCA A Report Released Date/Time: January 19, 2025 08:01 AM Reporting Lab: [place] [id number] Performing Lab: [place] [id number] [place] [address] CBC MCH [ENTITIC MASS] BY AUTOMATED COUNT 31.7 pg 27.0 - 31.0 01/19 H Specimen Type: BLOOD No comment entered. Ordering Provider: JAYCEE ACOSTA CCA A Report Released Date/Time: January 19, 2025 08:01 AM Reporting Lab: [place] [id number] Performing Lab: [place] [id number] [facility] CBC MCHC [MASS/VOLUM E] BY AUTOMATED COUNT 34.4 g/dL 31.5 - 36.5 01/19 Specimen Type: BLOOD No comment entered. Ordering Provider: JAYCEE ACOSTA CCA A Report Released Date/Time: January 19, 2025 08:01 AM Reporting Lab: [address] [address] Performing Lab: [place] [id number] [facility] CBC PLATELETS [#/VOLUME] IN BLOOD BY AUTOMATED COUNT 134 10*3/u L 150 - 400 01/19 L Specimen Type: BLOOD No comment entered. Ordering Provider: JAYCEE ACOSTA CCA A Report Released Date/Time: January 19, 2025 08:01 AM Reporting Lab: [address] [address] Performing Lab: [address] [address] [facility] CBC LYMPHOCYTES /100 LEUKOCYTES IN BLOOD BY AUTOMATED COUNT 23.6 21.0 - 51.0 01/19 Specimen Type: BLOOD No comment entered. Ordering Provider: JAYCEE ACOSTA CCA A Report Released Date/Time: January 19, 2025 08:01 AM Reporting Lab: [address] [address] Performing Lab: [place] [id number] [facility] CBC MONOCYTES/1 00 LEUKOCYTES IN BLOOD BY AUTOMATED COUNT 11.0 4.0 - 8.0 01/19 H Specimen Type: BLOOD No comment entered. Ordering Provider: JAYCEE ACOSTA CCA A Report Released Date/Time: January 19, 2025 08:01 AM Reporting Lab: [place] [id number] Performing Lab: [place] [id number] [place] [address] CBC NUCLEATED ERYTHROCYTE S/100 LEUKOCYTES [RATIO] IN BLOOD BY MANUAL COUNT 0.3 /100{W BCs} 01/19 Specimen Type: BLOOD No comment entered. Ordering Provider: JAYCEE ACOSTA CCA A Report Released Date/Time: January 19, 2025 08:01 AM Reporting Lab: [address] [address] Performing Lab: [place] [id number] [place] [address] CBC ERYTHROCYTE DISTRIBUTIO N WIDTH [RATIO] BY AUTOMATED COUNT 14.1 11.2 - 15.8 01/19 Specimen Type: BLOOD No comment entered. Ordering Provider: JAYCEE ACOSTA CCA A Report Released Date/Time: January 19, 2025 08:01 AM Reporting Lab: [place] [id number] Performing Lab: [place] [id number] [place] [address] CBC NEUTROPHILS /100 LEUKOCYTES IN BLOOD BY AUTOMATED COUNT 63.2 54.0 - 78.0 01/19 Specimen Type: BLOOD No comment entered. Ordering Provider: JAYCEE ACOSTA CCA A Report Released Date/Time: January 19, 2025 08:01 AM Reporting Lab: [place] [id number] Performing Lab: [place] [id number] [place] [address] CBC EOSINOPHILS /100 LEUKOCYTES IN BLOOD BY AUTOMATED COUNT 1.6 0.0 - 3.0 01/19 Specimen Type: BLOOD No comment entered. Ordering Provider: JAYCEE ACOSTA CCA A Report Released Date/Time: January 19, 2025 08:01 AM Reporting Lab: [place] [id number] Performing Lab: [place] [id number] CBC BASOPHILS/1 00 LEUKOCYTES IN BLOOD BY AUTOMATED COUNT 0.6 0.0 - 3.0 01/19 Specimen Type: BLOOD No comment entered. Ordering Provider: JAYCEE ACOSTA CCA A Report Released Date/Time: January 19, 2025 08:01 AM Reporting Lab: [place] [id number] Performing Lab: [place] [phone] [place] [address] CBC LYMPHOCYTES [#/VOLUME] IN BLOOD BY AUTOMATED COUNT 0.9 10*3/u L 0.8 - 5.0 01/19 Specimen Type: BLOOD No comment entered. Ordering Provider: JAYCEE ACOSTA CCA A Report Released Date/Time: January 19, 2025 08:01 AM Reporting Lab: [place] [id number] Performing Lab: [place] [id number] [place] [address] CBC NEUTROPHILS [#/VOLUME] IN BLOOD 2.5 10*3/u L 1.9 - 8.6 01/19 Specimen Type: BLOOD No comment entered. Ordering Provider: JAYCEE ACOSTA CCA A Report Released Date/Time: January 19, 2025 08:01 AM Reporting Lab: [place] [id number] Performing Lab: [place] [id number] [facility] CBC BASOPHILS [#/VOLUME] IN BLOOD BY AUTOMATED COUNT 0.0 10*3/u L 0.0 - 0.3 01/19 Specimen Type: BLOOD No comment entered. Ordering Provider: JAYCEE ACOSTA CCA A Report Released Date/Time: January 19, 2025 08:01 AM Reporting Lab: [place] [id number] Performing Lab: [place] [id number] CBC MONOCYTES [#/VOLUME] IN BLOOD BY AUTOMATED COUNT 0.4 10*3/u L 0.1 - 0.9 01/19 Specimen Type: BLOOD No comment entered. Ordering Provider: JAYCEE ACOSTA CCA A Report Released Date/Time: January 19, 2025 08:01 AM Reporting Lab: [place] [id number] Performing Lab: [address] CBC EOSINOPHILS [#/VOLUME] IN BLOOD BY AUTOMATED COUNT 0.1 10*3/u L 0.0 - 0.3 01/19 Specimen Type: BLOOD No comment entered. Ordering Provider: JAYCEE ACOSTA CCA A Report Released Date/Time: January 19, 2025 08:01 AM Reporting Lab: [place] [id number] Performing Lab: [address] CBC PLATELET MEAN VOLUME [ENTITIC VOLUME] IN BLOOD BY AUTOMATED COUNT 9.2 fL 7.4 - 11.4 01/19 Specimen Type: BLOOD No comment entered. Ordering Provider: JAYCEE ACOSTA CCA A Report Released Date/Time: January 19, 2025 08:01 AM Reporting Lab: [place] [id number] Performing Lab: [place] [id number] HEMOGLOBI N A1C HEMOGLOBIN A1C/HEMOGLO BIN.TOTAL IN BLOOD 4.8 3.6 - 5.7 01/19 Specimen Type: BLOOD Comment: Values obtained from A1C measurement s can vary. For typical A1C assays, a reported value of 7.0 could actually be between 6.72 and 7.28 if measured by a reference method. A reported value of 9.0 could actually be between 8.73 and 9.27. Ref: http://www. ngsp.org/[place] Pdata.asp Ordering Provider: JAYCEE ACOSTA CCA Report Released Date/Time: January 19, 2025 08:01 AM Reporting Lab: [place] [id number] Performing Lab: [place] [id number] [facility] PROSTATE SPECIFIC ANTIGEN PROSTATE SPECIFIC AG [MASS/VOLUM E] IN SERUM OR PLASMA 1.533 ng/mL 0.000 - 6.500 01/19 Specimen Type: SERUM Comment: TPSA Testing males >= 70 y/o is not recommended if there is a TPSA history of previously normal PSA testing. Assay performed on TPSA Everlater using CMIA methodology . Patient results TPSA determined by assays using different manufacture rs or methods TPSA may not be comparable. Ordering Provider: JAYCEE ACOSTA CCA Report Released Date/Time: January 19, 2025 08:01 AM Reporting Lab: [place] [id number] Performing Lab: [place] [id number] [facility] TSH THYROTROPIN [UNITS/VOLU ME] IN SERUM OR PLASMA BY DETECTION LIMIT <= 0.005 MIU/L 2.835 u[IU]/ mL 0.350 - 4.940 01/19 Specimen Type: PLASMA Comment: GLUCOSE The ADA [...] 160-189 mg/dL VERY HIGH: >=190 Ordering Provider: JAYCEE ACOSTA CCA Report Released Date/Time: January 19, 2025 08:01 AM Reporting Lab: [place] [id number] Performing Lab: [place] [id number] [facility] LIPID PROFILE CHOLESTEROL [MASS/VOLUM E] IN SERUM OR PLASMA 105 mg/dL 0 - 199 01/19 Specimen Type: PLASMA Comment: GLUCOSE The ADA [...] 160-189 mg/dL VERY HIGH: >=190 Ordering Provider: JAYCEE ACOSTA CCA Report Released Date/Time: January 19, 2025 08:01 AM Reporting Lab: [place] [id number] Performing Lab: [place] [phone] [facility] LIPID PROFILE CHOLESTEROL IN LDL [MASS/VOLUM E] IN SERUM OR PLASMA BY DIRECT ASSAY 40 mg/dL 0 - 99 01/19 Specimen Type: PLASMA Comment: GLUCOSE The ADA [...] 160-189 mg/dL VERY HIGH: >=190 Ordering Provider: JAYCEE ACOSTA CCA Report Released Date/Time: January 19, 2025 08:01 AM Reporting Lab: [place] [id number] Performing Lab: [place] [phone] [facility] LIPID PROFILE CHOLESTEROL IN HDL [MASS/VOLUM E] IN SERUM OR PLASMA 53 mg/dL 40 01/19 Specimen Type: PLASMA Comment: GLUCOSE The ADA [...] 160-189 mg/dL VERY HIGH: >=190 Ordering Provider: JAYCEE ACOSTA CCA Report Released Date/Time: January 19, 2025 08:01 AM Reporting Lab: [address] [address] Performing Lab: [place] [id number] [facility] LIPID PROFILE TRIGLYCERID E [MASS/VOLUM E] IN SERUM OR PLASMA 34 mg/dL 0 - 149 01/19 Specimen Type: PLASMA Comment: GLUCOSE The ADA [...] 160-189 mg/dL VERY HIGH: >=190 Ordering Provider: JAYCEE ACOSTA CCA A Report Released Date/Time: January 19, 2025 08:01 AM Reporting Lab: [place] [address] Performing Lab: [address] COMPREHEN SIVE METABOLIC PANEL ALBUMIN [MASS/VOLUM E] IN SERUM OR PLASMA 4.1 g/dL 3.2 - 4.8 01/28 Specimen Type: PLASMA Comment: TRIGLYCERID E REF RANGE: NORMAL <150 mg/dL BORDERLINE HIGH: 150-199 TRIGLYCERID E mg/dL HIGH: 200-499 mg/dL VERY HIGH: >=500 mg/dL CREATININE eGFR was calculated using the CKD-EPI 2020 equation. Ordering Provider: JAYCEE ACOSTA CCA A Report Released Date/Time: Jul 31, 2023 04:00 PM Reporting Lab: [place] [address] Performing Lab: [address] COMPREHEN SIVE METABOLIC PANEL ALKALINE PHOSPHATASE [ENZYMATIC ACTIVITY/VO LUME] IN SERUM OR PLASMA 54 U/L 46 - 116 01/28 Specimen Type: PLASMA Comment: TRIGLYCERID E REF RANGE: NORMAL <150 mg/dL BORDERLINE HIGH: 150-199 TRIGLYCERID E mg/dL HIGH: 200-499 mg/dL VERY HIGH: >=500 mg/dL CREATININE eGFR was calculated using the CKD-EPI 2020 equation. Ordering Provider: JAYCEE ACOSTA CCA A Report Released Date/Time: Jul 31, 2023 04:00 PM Reporting Lab: [place] [id number] Performing Lab: [place] [id number] [facility] COMPREHEN SIVE METABOLIC PANEL ALANINE AMINOTRANSF ERASE [ENZYMATIC ACTIVITY/VO LUME] IN SERUM OR PLASMA 56 U/L 10 - 45 01/28 H Specimen Type: PLASMA Comment: TRIGLYCERID E REF RANGE: NORMAL <150 mg/dL BORDERLINE HIGH: 150-199 TRIGLYCERID E mg/dL HIGH: 200-499 mg/dL VERY HIGH: >=500 mg/dL CREATININE eGFR was calculated using the CKD-EPI 2020 equation. Ordering Provider: JAYCEE ACOSTA CCA A Report Released Date/Time: Jul 31, 2023 04:00 PM Reporting Lab: [place] [id number] Performing Lab: [address] COMPREHEN SIVE METABOLIC PANEL ASPARTATE AMINOTRANSF ERASE [ENZYMATIC ACTIVITY/VO LUME] IN SERUM OR PLASMA 51 U/L 0 - 33.9 01/28 H Specimen Type: PLASMA Comment: TRIGLYCERID E REF RANGE: NORMAL <150 mg/dL BORDERLINE HIGH: 150-199 TRIGLYCERID E mg/dL HIGH: 200-499 mg/dL VERY HIGH: >=500 mg/dL CREATININE eGFR was calculated using the CKD-EPI 2020 equation. Ordering Provider: JAYCEE ACOSTA CCA A Report Released Date/Time: Jul 31, 2023 04:00 PM Reporting Lab: [place] [id number] Performing Lab: [place] [id number] [place] [address] COMPREHEN SIVE METABOLIC PANEL UREA NITROGEN [MASS/VOLUM E] IN SERUM OR PLASMA 5 mg/dL 9 - 01/28 L Specimen Type: PLASMA Comment: TRIGLYCERID E REF RANGE: NORMAL <150 mg/dL BORDERLINE HIGH: 150-199 TRIGLYCERID E mg/dL HIGH: 200-499 mg/dL VERY HIGH: >=500 mg/dL CREATININE eGFR was calculated using the CKD-EPI 2020 equation. Ordering Provider: JAYCEE ACOSTA CCA A Report Released Date/Time: Jul 31, 2023 04:00 PM Reporting Lab: [facility] [id number] Performing Lab: [id number] [place] [address] COMPREHEN SIVE METABOLIC PANEL CALCIUM [MASS/VOLUM E] IN SERUM OR PLASMA 9.1 mg/dL 8.7 - 10.4 01/28 Specimen Type: PLASMA Comment: TRIGLYCERID E REF RANGE: NORMAL <150 mg/dL BORDERLINE HIGH: 150-199 TRIGLYCERID E mg/dL HIGH: 200-499 mg/dL VERY HIGH: >=500 mg/dL CREATININE eGFR was calculated using the CKD-EPI 2020 equation. Ordering Provider: JAYCEE ACOSTA CCA A Report Released Date/Time: Jul 31, 2023 04:00 PM Reporting Lab: [place] [id number] Performing Lab: [address] COMPREHEN SIVE METABOLIC PANEL CREATININE [MASS/VOLUM E] IN SERUM OR PLASMA 1.0 mg/dL 0.70 - 1.30 01/28 Specimen Type: PLASMA Comment: TRIGLYCERID E REF RANGE: NORMAL <150 mg/dL BORDERLINE HIGH: 150-199 TRIGLYCERID E mg/dL HIGH: 200-499 mg/dL VERY HIGH: >=500 mg/dL CREATININE eGFR was calculated using the CKD-EPI 2020 equation. Ordering Provider: JAYCEE ACOSTA CCA A Report Released Date/Time: Jul 31, 2023 04:00 PM Reporting Lab: [place] [id number] Performing Lab: [place] [id number] COMPREHEN SIVE METABOLIC PANEL [place] DIOXIDE, TOTAL [MOLES/VOLU ME] IN SERUM OR PLASMA 30 mmol/L - 01/28 Specimen Type: PLASMA Comment: TRIGLYCERID E REF RANGE: NORMAL <150 mg/dL BORDERLINE HIGH: 150-199 TRIGLYCERID E mg/dL HIGH: 200-499 mg/dL VERY HIGH: >=500 mg/dL CREATININE eGFR was calculated using the CKD-EPI 2020 equation. Ordering Provider: JAYCEE ACOSAT CCA A Report Released Date/Time: Jul 31, 2023 04:00 PM Reporting Lab: [place] [id number] Performing Lab: [place] [id number] COMPREHEN SIVE METABOLIC PANEL GLUCOSE [MASS/VOLUM E] IN SERUM OR PLASMA 92 mg/dL 74 - 106 01/28 Specimen Type: PLASMA Comment: TRIGLYCERID E REF RANGE: NORMAL <150 mg/dL BORDERLINE HIGH: 150-199 TRIGLYCERID E mg/dL HIGH: 200-499 mg/dL VERY HIGH: >=500 mg/dL CREATININE eGFR was calculated using the CKD-EPI 2020 equation. Ordering Provider: JAYCEE ACOSTA CCA A Report Released Date/Time: Jul 31, 2023 04:00 PM Reporting Lab: [place] [id number] Performing Lab: [place] [id number] [place] [address] COMPREHEN SIVE METABOLIC PANEL PROTEIN [MASS/VOLUM E] IN SERUM OR PLASMA 6.7 g/dL 6.4 - 8.5 01/28 Specimen Type: PLASMA Comment: TRIGLYCERID E REF RANGE: NORMAL <150 mg/dL BORDERLINE HIGH: 150-199 TRIGLYCERID E mg/dL HIGH: 200-499 mg/dL VERY HIGH: >=500 mg/dL CREATININE eGFR was calculated using the CKD-EPI 2020 equation. Ordering Provider: JAYCEE ACOSTA CCA A Report Released Date/Time: Jul 31, 2023 04:00 PM Reporting Lab: [place] [id number] Performing Lab: [place] [id number] [place] [address] COMPREHEN SIVE METABOLIC PANEL SODIUM [MOLES/VOLU ME] IN SERUM OR PLASMA 134 mmol/L 136 - 148 01/28 L Specimen Type: PLASMA Comment: TRIGLYCERID E REF RANGE: NORMAL <150 mg/dL BORDERLINE HIGH: 150-199 TRIGLYCERID E mg/dL HIGH: 200-499 mg/dL VERY HIGH: >=500 mg/dL CREATININE eGFR was calculated using the CKD-EPI 2020 equation. Ordering Provider: JAYCEE ACOSTA CCA A Report Released Date/Time: Jul 31, 2023 04:00 PM Reporting Lab: [place] [id number] Performing Lab: [place] [id number] [facility] COMPREHEN SIVE METABOLIC PANEL CHLORIDE [MOLES/VOLU ME] IN SERUM OR PLASMA 100 mmol/L 98 - 107 01/28 Specimen Type: PLASMA Comment: TRIGLYCERID E REF RANGE: NORMAL <150 mg/dL BORDERLINE HIGH: 150-199 TRIGLYCERID E mg/dL HIGH: 200-499 mg/dL VERY HIGH: >=500 mg/dL CREATININE eGFR was calculated using the CKD-EPI 2020 equation. Ordering Provider: JAYCEE ACOSTA CCA A Report Released Date/Time: Jul 31, 2023 04:00 PM Reporting Lab: [place] [address] Performing Lab: [address] COMPREHEN SIVE METABOLIC PANEL BILIRUBIN.T OTAL [MASS/VOLUM E] IN SERUM OR PLASMA 0.7 mg/dL 0.3 - 1.2 01/28 Specimen Type: PLASMA Comment: TRIGLYCERID E REF RANGE: NORMAL <150 mg/dL BORDERLINE HIGH: 150-199 TRIGLYCERID E mg/dL HIGH: 200-499 mg/dL VERY HIGH: >=500 mg/dL CREATININE eGFR was calculated using the CKD-EPI 2020 equation. Ordering Provider: JAYCEE ACOSTA CCA A Report Released Date/Time: Jul 31, 2023 04:00 PM Reporting Lab: [place] [address] Performing Lab: [address] COMPREHEN SIVE METABOLIC PANEL POTASSIUM [MOLES/VOLU ME] IN SERUM OR PLASMA 5.0 mmol/L 3.5 - 5.1 01/28 Specimen Type: PLASMA Comment: TRIGLYCERID E REF RANGE: NORMAL <150 mg/dL BORDERLINE HIGH: 150-199 TRIGLYCERID E mg/dL HIGH: 200-499 mg/dL VERY HIGH: >=500 mg/dL CREATININE eGFR was calculated using the CKD-EPI 2020 equation. Ordering Provider: JAYCEE ACOSTA CCA A Report Released Date/Time: Jul 31, 2023 04:00 PM Reporting Lab: [place] [id number] Performing Lab: [address] COMPREHEN SIVE METABOLIC PANEL ANION GAP IN SERUM OR PLASMA 9.0 mmol/L 10 - 20 01/28 L Specimen Type: PLASMA Comment: TRIGLYCERID E REF RANGE: NORMAL <150 mg/dL BORDERLINE HIGH: 150-199 TRIGLYCERID E mg/dL HIGH: 200-499 mg/dL VERY HIGH: >=500 mg/dL CREATININE eGFR was calculated using the CKD-EPI 2020 equation. Ordering Provider: JAYCEE ACOSTA CCA A Report Released Date/Time: Jul 31, 2023 04:00 PM Reporting Lab: [place] [address] Performing Lab: [place] [id number] METABOLIC PANEL GLOMERULAR FILTRATION RATE/1.73 SQ M.PREDICTED [VOLUME RATE/AREA] IN SERUM, PLASMA OR BLOOD BY CREATININE- BASED FORMULA (CKD-EPI 2020) 79 mL/min 01/28 Specimen Type: PLASMA Comment: TRIGLYCERID E REF RANGE: NORMAL <150 mg/dL BORDERLINE HIGH: 150-199 TRIGLYCERID E mg/dL HIGH: 200-499 mg/dL VERY HIGH: >=500 mg/dL CREATININE eGFR was calculated using the CKD-EPI 2020 equation. Ordering Provider: JAYCEE ACOSTA CCA A Report Released Date/Time: Jul 31, 2023 04:00 PM Reporting Lab: [place] [id number] Performing Lab: [address] LIPID PROFILE CHOLESTEROL [MASS/VOLUM E] IN SERUM OR PLASMA 168 mg/dL 135 - 200 01/28 Specimen Type: PLASMA Comment: TRIGLYCERID E REF RANGE: NORMAL <150 mg/dL BORDERLINE HIGH: 150-199 TRIGLYCERID E mg/dL HIGH: 200-499 mg/dL VERY HIGH: >=500 mg/dL CREATININE eGFR was calculated using the CKD-EPI 2020 equation. Ordering Provider: JAYCEE ACOSTA CCA A Report Released Date/Time: Jul 31, 2023 04:00 PM Reporting Lab: [place] [id number] Performing Lab: [place] [id number] LIPID PROFILE CHOLESTEROL IN LDL [MASS/VOLUM E] IN SERUM OR PLASMA BY DIRECT ASSAY 64.0 mg/dL 0 - 110 01/28 Specimen Type: PLASMA Comment: TRIGLYCERID E REF RANGE: NORMAL <150 mg/dL BORDERLINE HIGH: 150-199 TRIGLYCERID E mg/dL HIGH: 200-499 mg/dL VERY HIGH: >=500 mg/dL CREATININE eGFR was calculated using the CKD-EPI 2020 equation. Ordering Provider: JAYCEE ACOSTA CCA A Report Released Date/Time: Jul 31, 2023 04:00 PM Reporting Lab: [place] [address] Performing Lab: [address] LIPID PROFILE CHOLESTEROL IN HDL [MASS/VOLUM E] IN SERUM OR PLASMA 80 mg/dL 40 - 60 01/28 H Specimen Type: PLASMA Comment: TRIGLYCERID E REF RANGE: NORMAL <150 mg/dL BORDERLINE HIGH: 150-199 TRIGLYCERID E mg/dL HIGH: 200-499 mg/dL VERY HIGH: >=500 mg/dL CREATININE eGFR was calculated using the CKD-EPI 2020 equation. Ordering Provider: JAYCEE ACOSTA CCA A Report Released Date/Time: Jul 31, 2023 04:00 PM Reporting Lab: [place] [id number] Performing Lab: [address] LIPID PROFILE TRIGLYCERID E [MASS/VOLUM E] IN SERUM OR PLASMA 75 mg/dL 0 - 149 01/28 Specimen Type: PLASMA Comment: TRIGLYCERID E REF RANGE: NORMAL <150 mg/dL BORDERLINE HIGH: 150-199 TRIGLYCERID E mg/dL HIGH: 200-499 mg/dL VERY HIGH: >=500 mg/dL CREATININE eGFR was calculated using the CKD-EPI 2020 equation. Ordering Provider: JAYCEE ACOSTA CCA A Report Released Date/Time: Jul 31, 2023 04:00 PM Reporting Lab: [place] [id number] Performing Lab: [address] HEMOGLOBI N A1C HEMOGLOBIN A1C/HEMOGLO BIN.TOTAL IN BLOOD 5.1 3.6 - 5.7 01/28 Specimen Type: BLOOD Comment: Values obtained from A1C measurement s can vary. For typical A1C assays, a reported value of 7.0 could actually be between 6.72 and 7.28 if measured by a reference method. A reported value of 9.0 could actually be between 8.73 and 9.27. Ref: http://www. ngsp.org/[place] Pdata.asp Ordering Provider: JAYCEE ACOSTA CCA A Report Released Date/Time: Jul 31, 2023 04:00 PM Reporting Lab: [place] [id number] Performing Lab: [place] [id number] CBC LEUKOCYTES [#/VOLUME] IN BLOOD BY AUTOMATED COUNT 3.4 10*3/u L 3.6 - 11.0 01/28 L Specimen Type: BLOOD No comment entered. Ordering Provider: JAYCEE ACOSTA CCA A Report Released Date/Time: Jul 31, 2023 04:00 PM Reporting Lab: [place] [id number] Performing Lab: [address] CBC ERYTHROCYTE S [#/VOLUME] IN BLOOD BY AUTOMATED COUNT 5.00 10*6/u L 4.47 - 5.83 01/28 Specimen Type: BLOOD No comment entered. Ordering Provider: JAYCEE ACOSTA CCA A Report Released Date/Time: Jul 31, 2023 04:00 PM Reporting Lab: [place] [id number] Performing Lab: [address] CBC HEMOGLOBIN [MASS/VOLUM E] IN BLOOD 15.9 g/dL 13.6 - 17.4 01/28 Specimen Type: BLOOD No comment entered. Ordering Provider: JAYCEE ACOSTA CCA A Report Released Date/Time: Jul 31, 2023 04:00 PM Reporting Lab: [place] [address] Performing Lab: [address] CBC HEMATOCRIT [VOLUME FRACTION] OF BLOOD BY AUTOMATED COUNT 46.2 40.0 - 51.0 01/28 Specimen Type: BLOOD No comment entered. Ordering Provider: JAYCEE ACOSTA CCA A Report Released Date/Time: Jul 31, 2023 04:00 PM Reporting Lab: [place] [id number] Performing Lab: [place] [phone] [place] [address] CBC MCV [ENTITIC VOLUME] BY AUTOMATED COUNT 92.4 fL 80.0 - 96.0 01/28 Specimen Type: BLOOD No comment entered. Ordering Provider: JAYCEE ACOSTA CCA A Report Released Date/Time: Jul 31, 2023 04:00 PM Reporting Lab: [place] [id number] Performing Lab: [place] [phone] [place] [address] CBC MCH [ENTITIC MASS] BY AUTOMATED COUNT 31.7 pg 27.0 - 31.0 01/28 H Specimen Type: BLOOD No comment entered. Ordering Provider: JAYCEE ACOSTA CCA A Report Released Date/Time: Jul 31, 2023 04:00 PM Reporting Lab: [place] [id number] Performing Lab: [place] [phone] [place] [address] CBC MCHC [MASS/VOLUM E] BY AUTOMATED COUNT 34.3 g/dL 31.5 - 36.5 01/28 Specimen Type: BLOOD No comment entered. Ordering Provider: JAYCEE ACOSTA CCA A Report Released Date/Time: Jul 31, 2023 04:00 PM Reporting Lab: [place] [id number] Performing Lab: [place] [phone] [place] [address] CBC PLATELETS [#/VOLUME] IN BLOOD BY AUTOMATED COUNT 131 10*3/u L 150 - 400 01/28 L Specimen Type: BLOOD No comment entered. Ordering Provider: JAYCEE ACOSTA CCA A Report Released Date/Time: Jul 31, 2023 04:00 PM Reporting Lab: [address] [address] Performing Lab: [place] [id number] [facility] CBC LYMPHOCYTES /100 LEUKOCYTES IN BLOOD BY AUTOMATED COUNT 41.6 21.0 - 51.0 01/28 Specimen Type: BLOOD No comment entered. Ordering Provider: JAYCEE ACOSTA CCA A Report Released Date/Time: Jul 31, 2023 04:00 PM Reporting Lab: [address] [address] Performing Lab: [phone] [place] [address] CBC MONOCYTES/1 00 LEUKOCYTES IN BLOOD BY AUTOMATED COUNT 9.9 4.0 - 8.0 01/28 H Specimen Type: BLOOD No comment entered. Ordering Provider: JAYCEE ACOSTA CCA A Report Released Date/Time: Jul 31, 2023 04:00 PM Reporting Lab: [address] [address] Performing Lab: [place] [id number] CBC NUCLEATED ERYTHROCYTE S/100 LEUKOCYTES [RATIO] IN BLOOD BY MANUAL COUNT 0.4 /100{W BCs} 01/28 Specimen Type: BLOOD No comment entered. Ordering Provider: JAYCEE ACOSTA CCA A Report Released Date/Time: Jul 31, 2023 04:00 PM Reporting Lab: [address] [address] Performing Lab: [place] [phone] [place] [address] CBC ERYTHROCYTE DISTRIBUTIO N WIDTH [RATIO] BY AUTOMATED COUNT 14.5 11.2 - 15.8 01/28 Specimen Type: BLOOD No comment entered. Ordering Provider: JAYCEE ACOSTA CCA A Report Released Date/Time: Jul 31, 2023 04:00 PM Reporting Lab: [address] [address] Performing Lab: [phone] [place] [address] CBC NEUTROPHILS /100 LEUKOCYTES IN BLOOD BY AUTOMATED COUNT 45.6 54.0 - 78.0 01/28 L Specimen Type: BLOOD No comment entered. Ordering Provider: JAYCEE ACOSTA CCA A Report Released Date/Time: Jul 31, 2023 04:00 PM Reporting Lab: [address] [address] Performing Lab: [address] [address] [facility] CBC EOSINOPHILS /100 LEUKOCYTES IN BLOOD BY AUTOMATED COUNT 2.3 0.0 - 3.0 01/28 Specimen Type: BLOOD No comment entered. Ordering Provider: JAYCEE ACOSTA CCA A Report Released Date/Time: Jul 31, 2023 04:00 PM Reporting Lab: [place] [id number] Performing Lab: [place] [id number] CBC BASOPHILS/1 00 LEUKOCYTES IN BLOOD BY AUTOMATED COUNT 0.6 0.0 - 3.0 01/28 Specimen Type: BLOOD No comment entered. Ordering Provider: JAYCEE ACOSTA CCA A Report Released Date/Time: Jul 31, 2023 04:00 PM Reporting Lab: [place] [address] Performing Lab: [address] CBC LYMPHOCYTES [#/VOLUME] IN BLOOD BY AUTOMATED COUNT 1.4 10*3/u L 0.8 - 5.0 01/28 Specimen Type: BLOOD No comment entered. Ordering Provider: JAYCEE ACOSTA CCA A Report Released Date/Time: Jul 31, 2023 04:00 PM Reporting Lab: [place] [id number] Performing Lab: [place] [id number] CBC NEUTROPHILS [#/VOLUME] IN BLOOD 1.6 10*3/u L 1.9 - 8.6 01/28 L Specimen Type: BLOOD No comment entered. Ordering Provider: JAYCEE ACOSTA CCA A Report Released Date/Time: Jul 31, 2023 04:00 PM Reporting Lab: [place] [id number] Performing Lab: [place] [id number] CBC BASOPHILS [#/VOLUME] IN BLOOD BY AUTOMATED COUNT 0.0 10*3/u L 0.0 - 0.3 01/28 Specimen Type: BLOOD No comment entered. Ordering Provider: JAYCEE ACOSTA CCA A Report Released Date/Time: Jul 31, 2023 04:00 PM Reporting Lab: [place] [id number] Performing Lab: [place] [id number] [facility] CBC MONOCYTES [#/VOLUME] IN BLOOD BY AUTOMATED COUNT 0.3 10*3/u L 0.1 - 0.9 01/28 Specimen Type: BLOOD No comment entered. Ordering Provider: JAYCEE ACOSTA CCA A Report Released Date/Time: Jul 31, 2023 04:00 PM Reporting Lab: [place] [id number] Performing Lab: [place] [id number] [facility] CBC EOSINOPHILS [#/VOLUME] IN BLOOD BY AUTOMATED COUNT 0.1 10*3/u L 0.0 - 0.3 01/28 Specimen Type: BLOOD No comment entered. Ordering Provider: JAYCEE ACOSTA CCA A Report Released Date/Time: Jul 31, 2023 04:00 PM Reporting Lab: [place] [id number] Performing Lab: [place] [id number] [place] [address] CBC PLATELET MEAN VOLUME [ENTITIC VOLUME] IN BLOOD BY AUTOMATED COUNT 7.4 fL 7.4 - 11.4 01/28 Specimen Type: BLOOD No comment entered. Ordering Provider: JAYCEE ACOSTA CCA A Report Released Date/Time: Jul 31, 2023 04:00 PM Reporting Lab: [place] [id number] Performing Lab: [place] [id number] Vital Signs Combined list of inpatient and outpatient Vital Signs from Department of Defense and Veterans Affairs, ranging from 12 months to all on record, depending upon the facility. Vital Sign Value Date Comments Source SYSTOLIC BLOOD PRESSURE 160 01/26/2025 08:00:51 [facility] DIASTOLIC BLOOD PRESSURE 110 01/26/2025 08:00:51 [facility] PULSE OXIMETRY 96 01/26/2025 08:00:51 [place] [facility] WEIGHT 232 01/26/2025 08:00:51 [facility] BMI 34 kg/m2 01/26/2025 08:00:51 [facility] PAIN 0 01/26/2025 08:00:51 [facility] TEMPERATURE 98.1 01/26/2025 08:00:51 [facility] PULSE 95 01/26/2025 08:00:51 [place] RESPIRATION 18 01/26/2025 08:00:51 [facility] SYSTOLIC BLOOD PRESSURE 158 07/29/2024 08:16:18 [facility] DIASTOLIC BLOOD PRESSURE 88 07/29/2024 08:16:18 [facility] PULSE OXIMETRY 95 07/29/2024 08:16:18 [facility] 208 07/29/2024 08[facility]16:18 [facility] BMI 30 kg/m2 07/29/2024 08:16:18 [facility] PAIN 0 07/29/2024 08:16:18 [facility] TEMPERATURE 98.3 07/29/2024 08:16:18 [facility] PULSE 69 07/29/2024 08:16:18 [facility] RESPIRATION 16 07/29/2024 08:16:18 [facility] Encounters Combined list of: 1) Encounters from Department of Veterans Affairs facilities going backup to the last 18 months, not all [place] inpatient encounters are included; 2) Encounters from the Department of Defense facilities going backup to 280 months. 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 Outpatient Encounter [id number] 07/29 [facility] EST MOD 30 MIN [id number] Diagnos is: ICD-10- CM I10 Essenti al (primar y) hyperte nsion KARLA,THERON ECCA A 07/29 [facility] [facility] En[facility] [id number] 10/14 [facility] En[facility] [id number] Diagnos is: ICD-10- CM Y93.9 Activit y, unspeci AMITA Eller K 10/15 [place] [facility] COMPRE [place] 1/ [id number] Diagnos is: ICD-10- CM 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 Social History Type Response Date Comment Sourc e Tobacco smoking status NHIS VA-TOBACCO NEVER USED 07/29/20 [facility] History of tobacco use VA-TOBACCO NEVER USED 07/31/2023 [facility] History of tobacco use VA-TOBACCO NEVER USED 05/17/2022 [facility] History of tobacco use VA-TOBACCO NEVER USED 05/17/2021 [facility] History of tobacco use VA-TOBACCO NEVER USED 01/15/2019 [facility] Plan of Care List of future care activities from Department of Veterans Affairs facilities. Additional future care activities may be listed in the Assessment and Plan section. Date/Time Care Activity Care Activity Detail Facili ty 02/16/2025 AMBULATORY - NONE AMBULATORY - NONE [facility]
--- NOTE | 2025-02-03 18:59 | ECG_ITS ---
[facility] Test Date: 2025-02-03 Pat Name: HOLLIE TATE Department: Room: - Gender: Male Obstetrician/Gynecologist: : 1950 Requested By: [id number] Order Number: [id number] Reading MD: JEWEL CHAN M.D. Measurements Intervals [place] Rate: 87 P: -20363 CT: -42878 QRS: 10 QRSD: 196 T: 172 QT: 462 QTc: 506 Interpretive Statements Atrial flutter with aberrant conduction, or ventricular premature complexes 2450 Right bundle branch block 3532 Lateral myocardial infarction, probably recent [address] depression, consistent with subendocardial injury 9150 abnormal ECG Compared to ECG 11/03/2018 19:08:24 Atrial flutter has replaced sinus rhythm Ventricular premature complex(es) now present Aberrant conduction of supraventricular beat(s) now present Right bundle-branch block now present Myocardial infarct finding now present ST (T wave) deviation now present Electronically Signed On 02-04-2025 21:41:09 EDT by JEWEL CHAN M.D.
--- NOTE | 2025-02-03 19:04 | ED.GENADUL1 ---
HPI HPI - General Adult General Chief complaint: Extremity Problem, Nontraumatic Stated complaint: BILATERAL SWOLLEN LEGS, HIGH BP Time Seen by Provider: 02/03/25 18:53 Mode of arrival: walk-in History of Present Illness HPI narrative: The patient is a 74-year-old male who presents to the emergency department today for evaluation concerns for lower extremity edema and shortness of breath. He is somewhat a vague historian but believes over the past month he has had worsening exertional dyspnea and peripheral edema. He states he saw his primary care provider within the last week and was started on low-dose of Lasix of 20 mg daily. He states he has not noticed much difference in his lower extremity swelling. He does endorse some orthopnea and feeling bloated. He reports exertional dyspnea with walking minimal distance in his home no fever/chills or cough/cold symptoms. Denies any history of CHF. He does endorse a history of CAD with subsequent CABG in 2010. No history of arrhythmia/not on any anticoagulation. Related Data Home Medications ?Medication ?Instructions ?Recorded ?Confirmed aspirin 81 mg capsule 81 mg PO DAILY 02/03/25 02/03/25 atorvastatin 40 mg tablet 40 mg PO DAILY 02/03/25 02/03/25 furosemide 20 mg tablet (Lasix) 20 mg PO DAILY 02/03/25 02/03/25 labetalol 100 mg tablet 100 mg PO BID 02/03/25 02/03/25 Allergies Allergy/AdvReac Type Severity Reaction Status Date / Time No Known Drug Allergies Allergy Verified 02/03/25 18:38 Review of Systems ROS Status of ROS 10 or more systems reviewed and unremarkable except as noted in history and below PFSH PFSH Social History Little interest or pleasure in doing things: not at all Feeling down, depressed, or hopeless: not at all Exam Narrative Exam Narrative: Constituational: Awake/ alert, no apparent distress, well hydrated HENMT: normocephalic, external ears normal, moist oral mucous membranes and oropharynx normal Eyes: EOMI and conjunctivae normal Neck: + JVD Chest: inspection of chest normal Respiratory: Normal respiratory effort, diminished breath sounds to posterior lower lobes no rhonchi or wheezing Cardio: regular rate and irregular rhythm GI: soft to palpation and non-tender Back: nontender MSK: +3-4 pitting edema to B/L LE, +NVI Skin: no rashes or petechiae Neuro: no focal deficits Psych: mental status grossly normal Constitutional Vital Signs, click to edit/add: Last Vital Signs Temp 97.5 F L 02/03/25 18:39 Pulse 94 H 02/03/25 18:39 Resp 20 02/03/25 18:39 BP 165/106 H 02/03/25 19:29 Pulse Ox 97 02/03/25 18:39 O2 Del Method Room Air 02/03/25 18:39 Course Vital Signs Vital signs: Vital Signs Temperature 97.5 F L 02/03/25 18:39 Pulse Rate 94 H 02/03/25 18:39 Respiratory Rate 02/03/25 18:39 Blood Pressure 178/100 H 02/03/25 18:39 Pulse Oximetry 97 02/03/25 18:39 Oxygen Delivery Method Room Air 02/03/25 18:39 Temperature 97.5 F L 02/03/25 18:39 Pulse Rate 94 H 02/03/25 18:39 Respiratory Rate 02/03/25 18:39 Blood Pressure 165/106 H 02/03/25 19:29 Pulse Oximetry 97 02/03/25 18:39 Oxygen Delivery Method Room Air 02/03/25 18:39 Medical Decision Making MDM Narrative Medical decision making narrative: Patient is a nontoxic-appearing 74-year-old male who presented to the emergency department today for evaluation concerns for peripheral edema and exertional dyspnea. Initial examination patient appears obviously volume expanded as evidenced by peripheral edema, orthopnea, JVD. Historically he had endorsed exertional dyspnea with ambulation of 3 to 4 feet which has been ongoing over the past month. No improvement over the past few days with taking Lasix historically. Otherwise does not obviously appear to be exhibiting any ischemic symptoms EKG does show A-fib/? A flutter with PVCs. Patient with no reported history of atrial arrhythmia. Troponin X 1. Chest x-ray does show some pulmonary vascular congestion. BNP 9366. Patient did receive supportive measures of IVP Lasix x 1 dose and single dose of therapeutic Lovenox x 1. Labs otherwise stable and showed no significant leukocytosis, anemia, thrombocytopenia. Electrolytes including renal and hepatic function stable. Normal coags. Clinical impression new onset CHF and A-fib with controlled ventricular rate. Spoke with Malena (ARCHITECTURE DRAFTER?hospitalist) 1951 patient's condition, labs, image results, treatments provided by the emergency department -> left the patient for admission. Discussed the above findings and recommendations with the patient and his family who was present at the bedside. All are agreeable with the plan to be mated for further care of the above. Medical Records Medical records reviewed: Yes I reviewed the patient's medical records Lab Data Lab results reviewed: Yes I reviewed the patient's lab results Labs: Lab Results 02/03/25 Range/Units 18:57 WBC 5.0 (4.0-11.0) 10^3/uL RBC 4.46 L (4.70-6.10) 10^6/uL Hgb 14.0 (14.0-18.0) g/dL Hct 42.4 (42.0-54.0) % MCV 95.1 H (80.0-94.0) fL MCH 31.4 (25.9-34.0) pg MCHC 33.0 (29.9-35.2) g/dL RDW 12.8 (11.0-15.0) % Plt Count 124 L (150-450) 10^3/uL MPV 10.6 (9.5-13.5) fL Neut % (Auto) 61.1 (43.0-75.0) % Lymph % (Auto) 29.3 (20.5-60.0) % Wayne % (Auto) 6.4 (1.7-12.0) % Eos % (Auto) 2.6 (0.9-7.0) % Baso % (Auto) 0.4 (0.2-2.0) % Neut # (Auto) 3.1 (1.4-6.5) 10^3/uL Lymph # (Auto) 1.5 (1.2-3.8) 10^3/uL [place] # (Auto) 0.3 (0.3-0.8) 10^3/uL Eos # (Auto) 0.1 (0.0-0.7) 10^3/uL Baso # (Auto) 0.0 (0.0-0.1) 10^3/uL Abs Immat Gran (auto) 0.01 (0.00-0.03) 10^3/uL Imm/Tot Granulo (auto) 0.2 (0.0-0.5) % PT 12.1 H (9.0-11.6) sec INR 1.16 APTT 26.8 (22.3-36.2) sec Sodium 139 (136-145) mmol/L Potassium 4.2 (3.5-5.1) mmol/L Chloride 100 (98-107) mmol/L Carbon Dioxide 31.2 (21.0-32.0) mmol/L Anion Gap 12.0 BUN 17.0 (7.0-18.0) mg/dL Creatinine 1.35 H (0.70-1.30) mg/dL Est GFR ( Amer) >60 (>=60 mL/min/1.73m^2) Est GFR (Non-Af Amer) 52 L (>=60 mL/min/1.73m^2) BUN/Creatinine Ratio 12.6 Glucose 111 H (74-106) mg/dL Calcium 9.1 (8.5-10.1) mg/dL Total Bilirubin 1.0 (0.2-1.0) mg/dL AST 25 (15-37) U/L ALT 29 (16-63) U/L Alkaline Phosphatase 74 (46-116) U/L Troponin I High Sens 35.8 (4.0-76.1) pg/mL NT-Pro-B Natriuret Pep 9366.0 H* (<=1800.0) pg/mL Total Protein 6.8 (6.4-8.2) g/dL Albumin 3.9 (3.4-5.0) g/dL Globulin 2.9 g/dL Albumin/Globulin Ratio 1.3 Imaging Data Chest x-ray: Attestation: I have reviewed the pertinent imaging results. Radiologist's impression: Mild pulmonary vascular congestion ECG Data Attestation: I personally reviewed and interpreted this ECG as follows: (A-fib/a flutter with PVCs HR 87, No STEMI) Discharge Plan Discharge Chief Complaint: Extremity Problem, Nontraumatic Clinical Impression: Acute exacerbation of CHF (congestive heart failure), Atrial fibrillation, new onset Patient Disposition: Admitted As Inpatient Time of Disposition Decision: 19:50
[2025-02-03 19:07] LABS: Basophils Percent Auto 0.4 % (0.2-2.0); Eosinophils Absolute Auto 0.1 10^3/uL (0.0-0.7); Eosinophils Percent Auto 2.6 % (0.9-7.0); Hematocrit 42.4 % (42.0-54.0); Immature Granulocytes Abs Auto 0.01 10^3/uL (0.00-0.03); Immature Granulocytes Pct Auto 0.2 % (0.0-0.5); Lymphocytes Absolute Auto 1.5 10^3/uL (1.2-3.8); Lymphocytes Percent Auto 29.3 % (20.5-60.0); Mean Corpuscular Hemoglobin 31.4 pg (25.9-34.0); Mean Corpuscular Volume 95.1 fL (80.0-94.0); Mean Platelet Volume 10.6 fL (9.5-13.5); Monocytes Absolute Auto 0.3 10^3/uL (0.3-0.8); Monocytes Percent Auto 6.4 % (1.7-12.0); Neutrophils Absolute Auto 3.1 10^3/uL (1.4-6.5); Neutrophils Percent Auto 61.1 % (43.0-75.0); Platelet Count 124 10^3/uL (150-450); Red Blood Count 4.46 10^6/uL (4.70-6.10); Red Cell Distribution Width 12.8 % (11.0-15.0)
[2025-02-03 19:19] LABS: INR 1.16; Partial Thromboplastin Time 26.8 sec (22.3-36.2); Prothrombin Time 12.1 sec (9.0-11.6)
[2025-02-03 19:27] LABS: Alanine Aminotransferase 29 U/L (16-63); Albumin Globulin Ratio 1.3; Albumin Level 3.9 g/dL (3.4-5.0); Alkaline Phosphatase 74 U/L (46-116); Aspartate Amino Transferase 25 U/L (15-37); BUN Creatinine Ratio 12.6; Calcium 9.1 mg/dL (8.5-10.1); Carbon Dioxide 31.2 mmol/L (21.0-32.0); Chloride 100 mmol/L (98-107); Estimated GFR (African America >60 (>=60 mL/min/1.73m^2); Estimated GFR (Non-African Ame 52 (>=60 mL/min/1.73m^2); Globulin 2.9 g/dL; Glucose 111 mg/dL (74-106); Potassium 4.2 mmol/L (3.5-5.1); Sodium 139 mmol/L (136-145); Total Protein 6.8 g/dL (6.4-8.2); Troponin I High Sensitivity 35.8 pg/mL (4.0-76.1)
[2025-02-03] MEDS: ENOXAPARIN SODIUM 120 MG/0.8 ML SYRINGE 105 MG SUBQ (19:55)
[2025-02-03] MEDS: FUROSEMIDE 40 MG/4 ML VIAL IVP (19:55)
[2025-02-03] MEDS: FOLIC ACID 1 MG TABLET PO (21:33)
[2025-02-03] MEDS: MULTIVITAMIN TABLET 1 TAB PO (21:33)
[2025-02-03] MEDS: LISINOPRIL 5 MG TABLET PO (21:33)
[2025-02-03] MEDS: SPIRONOLACTONE 25 MG TABLET PO (21:33)
[2025-02-03] MEDS: CARVEDILOL 3.125 MG TABLET PO (21:33)
[2025-02-03] MEDS: THIAMINE HCL 200 MG/2 ML VIAL 100 MG IM (21:35)
[2025-02-03 21:41] LABS: INR 1.17; Prothrombin Time 12.2 sec (9.0-11.6)
[2025-02-03 21:49] LABS: Troponin I High Sensitivity 37.3 pg/mL (4.0-76.1)
[2025-02-03 21:50] LABS: Ethanol <3 mg/dL
[2025-02-04] VITALS (19 sets, daily range): BP systolic 123–164; BP diastolic 71–84; PULSE 43–90; TEMP 36.2–36.6; O2SAT 91–95
[2025-02-04 05:39] LABS: Basophils Percent Auto 0.5 % (0.2-2.0); Eosinophils Absolute Auto 0.1 10^3/uL (0.0-0.7); Eosinophils Percent Auto 2.1 % (0.9-7.0); Hematocrit 40.3 % (42.0-54.0); Hemoglobin 13.2 g/dL (14.0-18.0); Immature Granulocytes Abs Auto 0.01 10^3/uL (0.00-0.03); Immature Granulocytes Pct Auto 0.2 % (0.0-0.5); Lymphocytes Absolute Auto 1.2 10^3/uL (1.2-3.8); Lymphocytes Percent Auto 29.1 % (20.5-60.0); Mean Corpuscular HGB Conc 32.8 g/dL (29.9-35.2); Mean Corpuscular Hemoglobin 30.6 pg (25.9-34.0); Mean Corpuscular Volume 93.5 fL (80.0-94.0); Mean Platelet Volume 10.9 fL (9.5-13.5); Monocytes Absolute Auto 0.4 10^3/uL (0.3-0.8); Monocytes Percent Auto 9.5 % (1.7-12.0); Neutrophils Absolute Auto 2.5 10^3/uL (1.4-6.5); Neutrophils Percent Auto 58.6 % (43.0-75.0); Platelet Count 106 10^3/uL (150-450); Red Blood Count 4.31 10^6/uL (4.70-6.10); Red Cell Distribution Width 12.7 % (11.0-15.0); White Blood Count 4.2 10^3/uL (4.0-11.0)
[2025-02-04 05:57] LABS: INR 1.25; Partial Thromboplastin Time 34.5 sec (22.3-36.2)
[2025-02-04 05:59] LABS: Phosphorus 4.2 mg/dL (2.6-4.7)
[2025-02-04 06:24] LABS: Alanine Aminotransferase 30 U/L (16-63); Albumin Globulin Ratio 1.3; Albumin Level 3.6 g/dL (3.4-5.0); Alkaline Phosphatase 72 U/L (46-116); Anion Gap 16.7; Aspartate Amino Transferase 22 U/L (15-37); BUN Creatinine Ratio 11.7; Bilirubin Total 1.3 mg/dL (0.2-1.0); Calcium 9.4 mg/dL (8.5-10.1); Carbon Dioxide 27.5 mmol/L (21.0-32.0); Chloride 99 mmol/L (98-107); Estimated GFR (African America >60 (>=60 mL/min/1.73m^2); Estimated GFR (Non-African Ame 51 (>=60 mL/min/1.73m^2); Globulin 2.7 g/dL; Glucose 97 mg/dL (74-106); Magnesium 1.8 mg/dL (1.8-2.4); Potassium 4.2 mmol/L (3.5-5.1); Sodium 139 mmol/L (136-145); Thyroid Stimulating Hormone 3.368 uIU/mL (0.358-3.740); Total Protein 6.3 g/dL (6.4-8.2); Troponin I High Sensitivity 35.3 pg/mL (4.0-76.1)
--- NOTE | 2025-02-04 06:37 | CA_ITS ---
Patient Name: HOLLIE TATE MR#: [id number] : 1950 Exam Date: 02/04/2025 Ordering Doctor: DR EKTA CHO . ECHOCARDIOGRAM REPORT PROCEDURE: CA ECHO DOPPLER COMPLETE INDICATIONS: Dyspnea, elevated BNP, CABG, hypertension COMPARISON: None. DESCRIPTION: COMPLETE ECHOCARDIOGRAM Real-time transthoracic echocardiography with 2D, M-mode, spectral and color flow Doppler performed. QUALITY: Technical quality was good. LEFT VENTRICLE: Normal chamber size. Moderate concentric left ventricular hypertrophy. The septum is abnormal and motion likely due to bundle branch block. Systolic function is mildly reduced. Moderately thickened septal wall. LV EF: Mildly reduced left ventricular ejection fraction, (45%). DIASTOLIC: Not adequately assessed due to heart rhythm. ATRIAL SEPTUM: LEFT ATRIUM: Severe dilatation. RIGHT ATRIUM: Moderate dilatation. RIGHT VENTRICLE: Mild chamber dilatation. Mildly decreased right ventricular systolic function. TRICUSPID VALVE: Normal mobility and thickness. No stenosis with trivial regurgitation. Doppler studies reveal mildly (35-45) elevated right sided pressures. RVSP 37 mmHg MITRAL VALVE: Normal mobility and thickness. No evidence of mitral valve stenosis. Mild mitral annular calcification. Mild mitral regurgitation. AORTIC VALVE: Normal trileaflet appearance. Mildly calcified aortic valve. Normal leaflet mobility. No evidence of aortic valve stenosis. Mild aortic regurgitation. AORTIC ROOT: Normal diameter and appearance, measuring 3.6 cm. Ascending aorta is normal in size. PULMONIC VALVE: Normal thickness and mobility. No stenosis. Trivial regurgitation. PERICARDIUM: No evidence of pericardial effusion. IVC: Not well visualized. PLEURA: CONCLUSION: 1. Moderate concentric left ventricular hypertrophy with mildly reduced systolic function. LVEF is estimated at 45%. 2. Mildly dilated right ventricle with mildly reduced systolic function. 3. Moderate to severe biatrial dilatation. 4. Mild mitral and aortic regurgitation. 5. Mildly elevated right-sided pressures. Adult Echocardiography Procedure Report Left Ventricle LVEDD (3.7 - 5.6 cm): 5.12 cm LVESD (2.2 - 4.0 cm): 4.54 cm LVIVS thickness (0.6 - 1.2 cm): 1.51 cm LVPW thickness (0.5 - 1.0 cm): 1.24 cm LVOT Max Gradient: 1.37 mm[Hg], 1.73 mm[Hg] LVOT Area (cm2): 0.62 m/s Peak Velocity (LVOT): 0.59 m/s, 0.66 m/s LVOT Diameter 2.49 cm Left Atrium LA Volume Index (2D A2C): 54.54 ml/m2 Left Atrium Systolic Dimension: 5.07 cm Mitral Valve Mitral Valve E-Wave Peak Velocity: 0.83 m/s Right Ventricle Aorta AO Root Diam: 3.63 cm Ascending Ao Diam: 2.93 cm Aortic Valve AoV Area (Peak Jemal): 2.34 cm2, 1.81 cm2, 3.07 cm2 Peak Velocity(Antegrade Flow): 1.57 m/s, 1.04 m/s, 1.26 m/s Peak Gradient(Antegrade Flow): 9.80 mm[Hg], 4.31 mm[Hg], 6.33 mm[Hg] Tricuspid Valve Peak Velocity (Regurgitant Flow): 2.70 m/s Pulmonic Valve Peak Velocity: 0.64 m/s Peak Gradient: 1.63 mm[Hg], 1.96 mm[Hg], 1.36 mm[Hg] Right Atrium Right Atrium Systolic Pressure: 50.48 ml, 50.48 ml Dictated by: Matthew Jeter M.D. on 02/04/2025 at 19:08 Approved by: Matthew Jeter M.D. on 02/04/2025 at 19:17
--- NOTE | 2025-02-04 06:39 | P.HP_ITS ---
HPI H&P: HPI History of Present Illness Chief complaint: BILATERAL SWOLLEN LEGS, HIGH BP, chf afib Narrative: Patient is seen and evaluated in the emergency room increasing swelling in his legs and shortness of breath. Recently started on oral Lasix by PCP, no improvement in swelling or shortness of breath. Denies chest pain or pressure, no episodes of diaphoresis does describe orthopnea When I saw patient up in the medical surgical floor, resting comfortably in bed only complaint related to the swelling in his lower extremities and shortness of breath Opioid HPI Opioid Management Most Recent Pain and Opioid Data: Last Pain Assessment 02/03/25, 21:42 Last ORT Total Score 0 02/03/25, 20:35 Last ORT Risk Category Low Risk 02/03/25, 20:35 Review of Systems ROS Status of ROS 10 or more systems reviewed and unremark able except as noted in history and below [facility] Medical History (Updated 02/04/25 @ 08:19 by Ricardo Flores MD) CAD (coronary artery disease) ?I25.10 - Atherosclerotic heart disease of [place] coronary artery without angina pectoris (ICD-10) Hypercholesteremia ?E78.00 - Pure hypercholesterolemia, unspecified (ICD-10) Hypertension ?I10 - Essential (primary) hypertension (ICD-10) Surgical History (Updated 02/03/25 @ 21:10 by Zayra Davey RN) S/P CABG x 5 ?Z95.1 - Presence of aortocoronary bypass graft (ICD-10) Family History (Updated 02/03/25 @ 21:10 by Zayra Davey RN) Mother Heart disease Social History (Updated 02/03/25 @ 21:10 by Zayra Davey RN) Within the past year, how often did you have a drink containing alcohol: 4 or more times a week Smoking status: Never smoker Second hand tobacco smoke exposure: No Non-prescribed substance use: denies use Known occupational exposures/hazards: No Highest level of school completed/degree received: high school graduate Do you want help with school or training: No Little interest or pleasure in doing things: not at all Feeling down, depressed, or hopeless: not at all Feel stressed/tense/nervous/anxious/difficulty sleeping: not at all Meds Home Medications and Allergies Home Medications ?Medication ?Instructions ?Recorded ?Confirmed ?Type aspirin 81 mg capsule 81 mg PO DAILY 02/03/2501/16 History atorvastatin 40 mg tablet 40 mg PO DAILY 02/03/2501/16 History furosemide 20 mg tablet (Lasix) 20 mg PO DAILY 5 02/03/25 History labetalol 100 mg tablet 100 mg PO BID 02/03/2502/03 History Allergies Allergy/AdvReac Type Severity Reaction Status Date / Time No Known Drug Allergies Allergy Verified 02/03/25 18:38 Exam Constitutional Vital Signs, click to edit/add: Last Vital Signs Temp 97.2 F L 02/04/25 04:18 Pulse 88 02/04/25 06:02 Resp 18 02/04/25 04:18 BP 164/82 H 02/04/25 04:18 Pulse Ox 95 02/04/25 04:18 O2 Del Method Room Air 02/04/25 04:18 Documenting provider has reviewed patient's vital signs: yes Common normals: no apparent distress Chest Common normals: inspection of chest normal Respiratory Auscultation: rales (Rales in lower quarter lung lopez) Cardio Rate: tachycardic Rhythm: abnormal rhythm GI Common normals: Normal to inspection, nondistended, normoactive bowel sounds present, soft to palpation and non-tender Extremity Common normals: abnormal to inspection (3+ edema bilateral lower extremities without calf tenderness) Neuro Common normals: oriented x3, CN's II-XII intact bilaterally and moves all extremities Results Labs Labs: Short CBC 02/03/25 02/04/25 Range/Units 18:57 05:16 WBC 5.0 4.2 (4.0-11.0) 10^3/uL Hgb 14.0 13.2 L (14.0-18.0) g/dL Hct 42.4 40.3 L (42.0-54.0) % Plt Count 124 L 106 L (150-450) 10^3/uL BMP 02/03/25 02/04/25 18:57 05:16 Sodium 139 139 Potassium 4.2 4.2 Chloride 100 99 Carbon Dioxide 31.2 27.5 BUN 17.0 16.0 Creatinine 1.35 H 1.37 H Glucose 111 H 97 Calcium 9.1 9.4 Liver Function 05/20/25 05/21/25 Range/Units 18:57 05:16 Total Bilirubin 1.0 1.3 H (0.2-1.0) mg/dL AST 25 22 (15-37) U/L ALT 29 30 (16-63) U/L Alkaline Phosphatase 74 72 (46-116) U/L Albumin 3.9 3.6 (3.4-5.0) g/dL Assessment and Plan Assessment and Plan (1) Atrial fibrillation, new onset: (2) Acute exacerbation of CHF (congestive heart failure): (3) CAD (coronary artery disease): (4) Hypercholesteremia: (5) Hypertension: (6) Alcohol abuse: (7) Thrombocytopenia: (8) Elevated serum creatinine: (9) Hyperbilirubinemia: Plan Admission findings: Tachycardia, uncontrolled hypertension, elevated BNP, elevated creatinine, thrombocytopenia, chest x-ray consistent with the acute systolic heart failure extremities consistent with acute diastolic heart failure with EKG findings of atrial fibrillation, new onset Acute combined congestive heart failure possibly secondary to acute onset of atrial fibrillation-anticoagulate with Eliquis, check echocardiogram, diurese with Bumex drip today, no significant improvement with IV Lasix Alcohol abuse-patient placed on CIWA scale, as needed Librium Iron deficiency anemia likely related to alcohol abuse with decreased intake Thrombocytopenia likely secondary to bone marrow suppression from alcohol abuse-monitor Hyperbilirubinemia-likely secondary to the alcohol abuse-no abdominal tenderness Hypertension-adjusting medications, changed to metoprolol for better heart rate coverage added lisinopril for heart failure and blood pressure control Coronary artery disease secondary to hypercholesterolemia status post bypass 2010-no chest pain, checking echocardiogram Admission status: Patient with the acute onset of acute combined congestive heart failure likely related to acute new onset atrial fibrillation with rapid ventricular response, no improvement with diuresis given in ER, medically n ecessary treatment will span 2 midnights. Inpatient status.
--- NOTE | 2025-02-04 07:30 | ECG_ITS ---
[facility] Test Date: 2025-02-04 Pat Name: HOLLIE TATE Department: Room: 2181 Gender: Male [place] Technician: : 1950 Requested By: [id number] Order Number: [id number] Reading MD: JEWEL CHAN M.D. Measurements Intervals [place] Rate: 84 P: OR: QRS: 163 QRSD: 193 T: -14 QT: 448 QTc: 530 Interpretive Statements ATRIAL FLUTTER WITH ABERRANT CONDUCTION OR VENTRICULAR PREMATURE COMPLEXES RIGHT BUNDLE BRANCH BLOCK AND POSSIBLE RIGHT VENTRICULAR HYPERTROPHY [RBBB, 1.5 mV R IN V1, RAD] LEFT POSTERIOR FASCICULAR BLOCK [QRS AXIS > 109, INFERIOR Q] Compared to ECG 02/03/2025 18:47:32 Left posterior fascicular block now present No significant changes Electronically Signed On 02-04-2025 21:44:49 EDT by JEWEL CHAN M.D.
[2025-02-04] MEDS: ATORVASTATIN CALCIUM 40 MG TABLET PO (08:27)
[2025-02-04] MEDS: BUMETANIDE 10 MG in 0.9 % SODIUM CHLORIDE 160 ML 20 MG IV (08:27)
[2025-02-04] MEDS: METOPROLOL TARTRATE 50 MG TABLET PO ×2 (08:27→21:01)
[2025-02-04] MEDS: LISINOPRIL 5 MG TABLET PO (08:28)
[2025-02-04] MEDS: APIXABAN 5 MG TABLET PO ×2 (08:28→21:01)
[2025-02-04] MEDS: THIAMINE MONONITRATE (VIT B1) 100 MG TABLET PO (08:28)
[2025-02-04] MEDS: MULTIVITAMIN TABLET 1 TAB PO (08:28)
[2025-02-04] MEDS: FOLIC ACID 1 MG TABLET PO (08:28)
[2025-02-04] MEDS: ASPIRIN 81 MG TABLET.DR PO (08:28)
--- NOTE | 2025-02-04 08:28 | CM.NOTE ---
Rounds made with Dr. Flores, discussed with pt lab findings and reason for admission. Dr. Flores will start patient on Bumex drip today, no discharge.
[2025-02-04 09:41] LABS: Troponin I High Sensitivity 35.4 pg/mL (4.0-76.1)
--- NOTE | 2025-02-04 10:16 | SWNOTE1 ---
SW met with pt in room. Daughter and granddaughter in room as well. Pt is temporarily living with daughters with plans of transition to condo within next 30 days. Pt is independent, still driving, does not use any DME. Pt has no anticipated dc needs. SW to follow as needed.
--- NOTE | 2025-02-04 11:11 | CM.NOTE ---
Important message From [employer] discussed with pt, pt verbalizes understanding and signs paper. Original given to pt and copy placed on pt's chart.
[2025-02-04 16:19] LABS: Bilirubin Urine NEGATIVE (NEGATIVE); Blood Urine NEGATIVE (NEGATIVE); Clarity Urine CLEAR (CLEAR); Color Urine LT. YELLOW (YELLOW); Glucose Urine UA NEGATIVE (NEGATIVE); Ketones Urine NEGATIVE (NEGATIVE); Leukocyte Esterase Urine SMALL (NEGATIVE); Nitrite Urine NEGATIVE (NEGATIVE); Protein Urine NEGATIVE (NEG/TRACE); Specific Gravity Urine <=1.005 (1.005-1.025); Urobilinogen Urine 0.2 EU/dL (0.2-1.0)
[2025-02-04 16:25] LABS: Urine Microscopic Indicated YES
[2025-02-04 16:31] LABS: Amphetamine Screen Urine NEGATIVE (NEGATIVE); Barbiturates Screen Urine NEGATIVE (NEGATIVE); Benzodiazepines Screen Urine NEGATIVE (NEGATIVE); Buprenorphine Screen Urine NEGATIVE (NEGATIVE); Cannabinoid Screen Urine NEGATIVE (NEGATIVE); Cocaine Screen Urine NEGATIVE (NEGATIVE); Methadone Screen Urine NEGATIVE (NEGATIVE); Methamphetamines Screen Urine NEGATIVE (NEGATIVE); Opiate Screen Urine NEGATIVE (NEGATIVE); Oxycodone Screen Urine NEGATIVE (NEGATIVE); Phencyclidine Screen Urine NEGATIVE (NEGATIVE); Tricyclic Antidepressant Urine NEGATIVE (NEGATIVE)
[2025-02-04 16:33] LABS: Bacteria Urine SMALL #/HPF (NONE SEEN); Cast Seen? NONE SEEN #/LPF (NONE SEEN); Crystals Seen? None Seen #/HPF (None Seen); Mucus Urine NONE SEEN (NONE SEEN); RBC Urine 0-2 #/HPF (0-2); Squamous Epithelial Cell Urine RARE #/LPF (NONE/RARE); Urine Culture Indicated YES-FRMC
[2025-02-04] MEDS: CEFDINIR 300 MG CAPSULE 600 MG PO (19:04)
[2025-02-05] VITALS (19 sets, daily range): BP systolic 116–158; BP diastolic 63–79; PULSE 52–91; TEMP 36.3–36.7; O2SAT 90–95
[2025-02-05 05:21] LABS: Basophils Percent Auto 0.5 % (0.2-2.0); Eosinophils Absolute Auto 0.1 10^3/uL (0.0-0.7); Eosinophils Percent Auto 2.5 % (0.9-7.0); Hemoglobin 13.9 g/dL (14.0-18.0); Immature Granulocytes Abs Auto 0.01 10^3/uL (0.00-0.03); Immature Granulocytes Pct Auto 0.2 % (0.0-0.5); Lymphocytes Absolute Auto 1.3 10^3/uL (1.2-3.8); Lymphocytes Percent Auto 30.1 % (20.5-60.0); Mean Corpuscular HGB Conc 33.1 g/dL (29.9-35.2); Mean Corpuscular Hemoglobin 31.2 pg (25.9-34.0); Mean Corpuscular Volume 94.4 fL (80.0-94.0); Mean Platelet Volume 10.7 fL (9.5-13.5); Monocytes Absolute Auto 0.5 10^3/uL (0.3-0.8); Monocytes Percent Auto 10.8 % (1.7-12.0); Neutrophils Absolute Auto 2.4 10^3/uL (1.4-6.5); Neutrophils Percent Auto 55.9 % (43.0-75.0); Platelet Count 124 10^3/uL (150-450); Red Blood Count 4.45 10^6/uL (4.70-6.10); Red Cell Distribution Width 12.9 % (11.0-15.0); White Blood Count 4.4 10^3/uL (4.0-11.0)
[2025-02-05 05:33] LABS: Alanine Aminotransferase 25 U/L (16-63); Albumin Globulin Ratio 1.3; Albumin Level 3.6 g/dL (3.4-5.0); Alkaline Phosphatase 70 U/L (46-116); Anion Gap 13.6; Aspartate Amino Transferase 21 U/L (15-37); BUN Creatinine Ratio 11.5; Bilirubin Total 1.2 mg/dL (0.2-1.0); Calcium 9.1 mg/dL (8.5-10.1); Carbon Dioxide 32.1 mmol/L (21.0-32.0); Chloride 99 mmol/L (98-107); Estimated GFR (African America 56 (>=60 mL/min/1.73m^2); Estimated GFR (Non-African Ame 46 (>=60 mL/min/1.73m^2); Globulin 2.7 g/dL; Glucose 86 mg/dL (74-106); Potassium 3.7 mmol/L (3.5-5.1); Sodium 141 mmol/L (136-145); Total Protein 6.3 g/dL (6.4-8.2)
[2025-02-05 05:45] LABS: Troponin I High Sensitivity 30.8 pg/mL (4.0-76.1)
--- NOTE | 2025-02-05 08:01 | P.PN_ITS ---
Progress Note: Subjective Subjective Interval history: Patient still with significant dyspnea with any activity, still feels tightness in his legs, cannot really say he feels better yet Exam Constitutional Vital Signs, click to edit/add: Last Vital Signs Temp 97.7 F 02/05/25 04:00 Pulse 76 02/05/25 06:00 Resp 20 02/05/25 04:00 BP 158/78 H 02/05/25 04:00 Pulse Ox 90 L 02/05/25 04:00 O2 Del Method Room Air 02/05/25 04:00 Documenting provider has reviewed patient's vital signs: yes Common normals: no apparent distress Chest Common normals: inspection of chest normal Respiratory Common normals: normal respiratory effort, no retractions and no use of accessory muscles Auscultation: rales (Rales in lower quarter lung lopez -may be slightly improved) Cardio Rate: tachycardic Rhythm: abnormal rhythm GI Common normals: Normal to inspection, nondistended, normoactive bowel sounds present, soft to palpation and non-tender Extremity Common normals: abnormal to inspection (3+ edema bilateral lower extremities wi thout calf tenderness -sl improved) Neuro Common normals: oriented x3, CN's II-XII intact bilaterally and moves all extremities Progress Note: Objective Labs Labs: Short CBC 02/05/25 Range/Units 04:39 WBC 4.4 (4.0-11.0) 10^3/uL Hgb 13.9 L (14.0-18.0) g/dL Hct 42.0 (42.0-54.0) % Plt Count 124 L (150-450) 10^3/uL BMP 02/05/25 04:39 Sodium 141 Potassium 3.7 Chloride 99 Carbon Dioxide 32.1 H BUN 17.0 Creatinine 1.48 H Glucose 86 Calcium 9.1 Liver Function 02/05/25 Range/Units 04:39 Total Bilirubin 1.2 H (0.2-1.0) mg/dL AST 21 (15-37) U/L ALT 25 (16-63) U/L Alkaline Phosphatase 70 (46-116) U/L Albumin 3.6 (3.4-5.0) g/dL Urine 02/03/25 Range/Units 16:00 Urine Color Lt. yellow (YELLOW) Urine Clarity Clear (CLEAR) Urine pH 6.0 (5.0-9.0) Ur Specific [place] <=1.005 A (1.005-1.025) Urine Protein Negative (NEG/TRACE) mg/dL Urine Glucose (UA) Negative (NEGATIVE) mg/dL Progress Note: A&P Assessment and Plan (1) Atrial fibrillation, new onset: (2) Acute exacerbation of CHF (congestive heart failure): (3) CAD (coronary artery disease): (4) Hypercholesteremia: (5) Hypertension: (6) Alcohol abuse: (7) Thrombocytopenia: (8) Elevated serum creatinine: (9) Hyperbilirubinemia: Plan Admission findings: Tachycardia, uncontrolled hypertension, elevated BNP, elevated creatinine, thrombocytopenia, chest x-ray consistent with the acute systolic heart failure extremities consistent with acute diastolic heart failure with EKG findings of atrial fibrillation, new onset Acute combined congestive heart failure-with reduced ejection fraction with biatrial enlargement secondary to acute onset of atrial fibrillation- anticoagulate with Eliquis, echo with slightly reduced ejection fraction of 45%, increase beta-franchesca, increase lisinopril, consult to cardiology repeat Bumex drip but with elevation in BUN we will do it over the longer period of time, BNP is improved Alcohol abuse-patient placed on CIWA scale, as needed Librium-stable no withdrawal symptoms Iron deficiency anemia likely related to alcohol abuse with decreased intake Thrombocytopenia likely secondary to bone marrow suppression from alcohol [id number] improved Hyperbilirubinemia-likely secondary to the alcohol abuse-no abdominal tenderness stable Hypertension-adjusting medications, as outlined above Acute UTI-positive white blood cells in urine sample and leukocyte Estrace- started on p.o. antibiotics yesterday Coronary artery disease secondary to hypercholesterolemia status post bypass 2011-no chest pain, checking echocardiogram with ejection fraction 45% increased atrial size I would suspect they have Wi-Fi Admission status: Patient with the acute onset of acute combined congestive heart failure likely related to acute new onset atrial fibrillation with rapid ventricular response, no improvement with diuresis given in ER, medically necess dre treatment will span 2 midnights. Inpatient status.
--- NOTE | 2025-02-05 08:19 | CM.NOTE ---
Rounds made with Dr. Flores. Dr. Flores reviews plan of care for the day. Awaiting Cardiology Consult today. No discharge today.
[2025-02-05] MEDS: MULTIVITAMIN TABLET 1 TAB PO (09:49)
[2025-02-05] MEDS: LISINOPRIL 5 MG TABLET 10 MG PO (09:49)
[2025-02-05] MEDS: BUMETANIDE 10 MG in 0.9 % SODIUM CHLORIDE 160 ML IV (09:49)
[2025-02-05] MEDS: CEFDINIR 300 MG CAPSULE 600 MG PO (09:49)
[2025-02-05] MEDS: APIXABAN 5 MG TABLET PO (09:49)
[2025-02-05] MEDS: ATORVASTATIN CALCIUM 20 MG TABLET PO (09:49)
[2025-02-05] MEDS: ASPIRIN 81 MG TABLET.DR PO (09:49)
[2025-02-05] MEDS: THIAMINE MONONITRATE (VIT B1) 100 MG TABLET PO (09:50)
[2025-02-05] MEDS: FOLIC ACID 1 MG TABLET PO (09:50)
[2025-02-05] MEDS: METOPROLOL TARTRATE 50 MG TABLET 75 MG PO ×2 (10:17→20:11)
--- NOTE | 2025-02-05 18:10 | P.DS_ITS ---
DS: Providers Provider Date of admission: 02/03/25 20:27 Primary care physician: Ricardo Flores MD Consults: 02/04/25 06:35 Consult to Pharmacy Routine Consulting Provider: Reason for consultation: Please Curtiss me when Med Rec is Updated Has provider been notified: No Occupational Therapy Eval and Treat Routine Reason for consultation: Only if needed for Rehab Has provider been notified: No Physical Therapy Eval and Treat Routine Reason for consultation: Eval and Treat Has provider been notified: No 02/04/25 06:37 Consult to Cardiology Routine Reason for consultation: new onset afib, chf Has provider been notified: No DS: Diagnosis Discharge Diagnosis (1) Atrial fibrillation, new onset: (2) Acute exacerbation of CHF (congestive heart failure): (3) CAD (coronary artery disease): (4) Hypercholesteremia: (5) Hypertension: (6) Alcohol abuse: (7) Thrombocytopenia: (8) Elevated serum creatinine: (9) Hyperbilirubinemia: Plan Admission findings: Tachycardia, uncontrolled hypertension, elevated BNP, elevated creatinine, thrombocytopenia, chest x-ray consistent with the acute systolic heart failure extremities consistent with acute diastolic heart failure with EKG findings of atrial fibrillation, new onset Acute combined congestive heart failure-with reduced ejection fraction with biatrial enlargement secondary to acute onset of atrial fibrillation- anticoagulate with Eliquis, echo with slightly reduced ejection fraction of 45%, increase beta-franchesca, increase lisinopril, consult to cardiology repeat Bumex drip but with elevation in BUN we will do it over the longer period of time, BNP is improved Alcohol abuse-patient placed on CIWA scale, as needed Librium-stable no withdrawal symptoms Iron deficiency anemia likely related to alcohol abuse with decreased intake Thrombocytopenia likely secondary to bone marrow suppression from alcohol uwfvv-yrebiaz-mlcomsyi improved Hyperbilirubinemia-likely secondary to the alcohol abuse-no abdominal tenderness stable Hypertension-adjusting medications, as outlined above Acute UTI-positive white blood cells in urine sample and leukocyte Estrace- started on p.o. antibiotics yesterday Coronary artery disease secondary to hypercholesterolemia status post bypass 2011-no chest pain, checking echocardiogram with ejection fraction 45% increased atrial size I would suspect they have Wi-Fi Admission status: Patient with the acute onset of acute combined congestive heart failure likely related to acute new onset atrial fibrillation with rapid ventricular response, no improvement with diuresis given in ER, medically necessary treatment will span 2 midnights. Inpatient status. ? DS: Summary Hospital Course Hospital Course: Patient evaluated in the emergency room with increasing cough and shortness of breath and peripheral edema, he started having some shortness of breath at rest but still mostly with activity, was given low-dose Lasix by his PCP, swelling and shortness of breath persisted so he presented to the emergency room found to have acute combined congestive heart failure secondary to acute atrial fibrillation with rapid ventricular response, echocardiogram was obtained which showed reduced to fraction fraction resulting in the categorization of acute combined congestive heart failure with reduced ejection fraction. Medications were adjusted including beta-blockers and DANAY inhibitors, consultation with cardiology and recommended because of the reduced ejection fraction and the new onset atrial fibrillation that he could benefit from cardioversion and transferred to a tertiary care facility. Discussed with family and they requested being transferred to [facility] in [facility]. Only other thing that was found was an acute UTI, mild thrombocytopenia but that was improving today, BNP was also improving today. Currently finishing up a 20-hour Bumex drip. Patient will be transferred to [facility] for continued interventional cardiac procedures depending on how well he does overnight. Time Spent with Patient Time attestation: Total time spent providing and/or coordinating discharge services: Exam Constitutional Vital Signs, click to edit/add: Last Vital Signs Temp 97.3 F L 02/05/25 16:38 Pulse 66 02/05/25 18:00 Resp 18 02/05/25 16:38 BP 121/69 02/05/25 16:38 Pulse Ox 91 L 02/05/25 16:38 O2 Del Method Room Air 02/05/25 16:38 Documenting provider has reviewed patient's vital signs: yes Common normals: no apparent distress Chest Common normals: inspection of chest normal Respiratory Common normals: normal respiratory effort, no retractions and no use of accessory muscles Auscultation: rales (Rales in lower quarter lung lopez -may be slightly i mproved) Cardio Rate: tachycardic Rhythm: abnormal rhythm GI Common normals: Normal to inspection, nondistended, normoactive bowel sounds present, soft to palpation and non-tender Extremity Common normals: abnormal to inspection (3+ edema bilateral lower extremities without calf tenderness -sl improved) Neuro Common normals: oriented x3, CN's II-XII intact bilaterally and moves all extremities DS: Data Data Completed and Pending Labs on day of discharge: Labs from last 24 hours 02/05/25 04:39 WBC 4.4 RBC 4.45 L Hgb 13.9 L Hct 42.0 MCV 94.4 H MCH 31.2 MCHC 33.1 RDW 12.9 Plt Count 124 L MPV 10.7 Neut % (Auto) 55.9 Lymph % (Auto) 30.1 [place] % (Auto) 10.8 Eos % (Auto) 2.5 Baso % (Auto) 0.5 Neut # (Auto) 2.4 Lymph # (Auto) 1.3 [place] # (Auto) 0.5 Eos # (Auto) 0.1 Baso # (Auto) 0.0 Abs Immat Gran (auto) 0.01 Imm/Tot Granulo (auto) 0.2 Sodium 141 Potassium 3.7 Chloride 99 Carbon Dioxide 32.1 H Anion Gap 13.6 BUN 17.0 Creatinine 1.48 H Est GFR ( Amer) 56 L Est GFR (Non-Af Amer) 46 L BUN/Creatinine Ratio 11.5 Glucose 86 Calcium 9.1 Total Bilirubin 1.2 H AST 21 ALT 25 Alkaline Phosphatase 70 Troponin I High Sens 30.8 NT-Pro-B Natriuret Pep 8699.0 H* Total Protein 6.3 L Albumin 3.6 Globulin 2.7 Albumin/Globulin Ratio 1.3 Preliminary micro results at discharge 02/03/25 16:00 Urine Culture - Preliminary Urine,Clean Catch Pending - Specimen sent to [facility] Discharge Plan Discharge Disposition: [facility]
[2025-02-05] MEDS: ENOXAPARIN SODIUM 100 MG/ML SYRINGE SUBQ (20:11)
--- NOTE | 2025-02-05 22:54 | PC.NURSE ---
report given to [facility]. Pt taken off telemetry and placed on transports monitors. [facility] RNCarmela, was called and report was given. RN attempted to call patient's daughter, but phone went to voicemail and unable to leave a message.
--- OUTSIDE RECORDS SUMMARY | 2025-02-09 11:43 | XMS_ITS ---
Author Organization [facility] in [place] Address [address] [place] [address] Care Team Providers Care Transit Vehicle Inspector Name Role Phone Phillip Coy DO Primary Care Provider UnavailSaw Drummond Unavailable [phone] REASON FOR VISIT ua cx Medications Medication SIG (Take, Route, Frequency, Duration) Notes Start Date End Date Status Magnesium 400 MG take one tablet Oral ly BID for 30 days 02/17/2025 Active Ciprofloxacin HCl 500 MG 1 tablet Orally BID for 10 days 02/17/2025 Active Encounters Encounter Location Date Provider Diagnosis [facility] [address] [place] [address] 02/09/2025 Saw Flores Plan Of Treatment Medication Medication Name Sig Start Date Stop Date Notes Magnesium 400 MG take one tablet Oral ly BID for 30 days 02/17/2025 Ciprofloxacin HCl 500 MG 1 tablet Orally BID for 10 days 0 02/17/2025 Next Appt Details Provider Name:Saw Flores, 03:30:00 PM, [address] [place], [address], Progress Notes * Isauro TATE WDOB: [birth year] (74 yo M)Acc No.[id number]:02/09/2025 Patient: Isabella GERTRUDISNEFTALIIsauro Cervantes :1950 A ge:74 Y S ex:Male Address:[address], [facility] [address] * Refills Start Ciprofloxacin HCl Tablet, 500 MG, Orally, 20 Tablet, 1 tablet, BID, 10 days, Refills=0 Start Magnesium Tablet, 400 MG, Orally, 60 Tablet, take one tablet, BID, 30 days, Refills=11 * true * Date: Generated for Nish toro/Suellen/Naldo on: 0 02/20/2025 12:09 PM EDT
--- OUTSIDE RECORDS SUMMARY | 2025-02-13 03:43 | XMS_ITS | Continuity of Care Document ---
Author Organization [facility] Address [address] [place] [address] Phone Care Team Providers Care Bench Repair Technician Name Role Phone Ricardo Flores MD Attending Provider Leonid Gaspar DO Admit Provider Holly Crandall RN Other Provider Unavailable Isabella Brooks DO Other Provider Genny Mcmillan MD Other Provider Charles Medina MD Other Provider Elizabeth Weller MD Other Provider Bryce Norwood MD Other Provider Mabel Ziegler APRN Other Provider Alanis Murillo MD Other Provider An Wilson MD Other Provider Ida Loja MD Other Provider Abby Lopez [facility] Other Provider Topher Jewell DO Attending Provider [phone] Tenisha Banks APRN Primary Care Provider Care Teams Patient Care Team Team Status: Active Member Role Status Dates Tenisha Banks APRN [employer] Primary Care Provider Activ e Visit Care Team Team Status: Inactive Member Role Status Dates Ricardo Flores MD Attending Provider Active Sta rt: February 04, 2025 End: February 04, 2025 Visit Care Team Team Status: Inactive Member Role Status Dates Leonid Gaspar DO Admit Provider Active Start: February 05, 2025 End: February 10, 2025 Holly Crandall RN Other Provider Active Star t: February 05, 2025 End: February 10, 2025 Holly Crandall RN Other Provider Active Star t: February 05, 2025 End: February 10, 2025 Isabella Brooks DO Other Provider Active Start : February 05, 2025 End: February 10, 2025 Genny Mcmillan MD Other Provider Active Start: February 05, 2025 End: February 10, 2025 Charles Medina MD Other Provider Active Start: February 05, 2025 End: February 10, 2025 Elizabeth Weller MD Other Provider Active St art: February 05, 2025 End: February 10, 2025 Bryce Norwood MD Other Provider Active Start: February 05, 2025 End: February 10, 2025 Mabel Ziegler APRN Other Provider Active Start : February 05, 2025 End: February 10, 2025 Alanis Murillo MD Other Provider Active Start: M ay 2024 End: February 10, 2025 An Wilson MD Other Provider Active Start: February 05, 2025 End: February 10, 2025 Ida Loja MD Other Provider Active Start: M ay 2024 End: February 10, 2025 Abby Lopez [facility]- Other Provider Active Sta rt: February 05, 2025 End: February 10, 2025 Topher Jewell DO Attending Provider Active Start: February 05, 2025 End: February 10, 2025 Tenisha Banks APRN [employer] Primary Care Provider Activ e Start: February 05, 2025 End: February 10, 2025 Chief Complaint and Reason for Visit Chief Complaint Admit Date Unknown February 04, 2025 4:00p m Congestive Heart Failure February 05, 2025 11:17pm Reason for Visit Admit Date ARLET (acute kidney injury) February 05, 2025 11:17pm Alcohol dependence February 05, 2025 11:17 pm Atrial flutter February 05, 2025 11:17 pm Bacteriuria February 05, 2025 11:17 pm CKD (chronic kidney disease) February 05, 025 11:17pm Hydronephrosis February 05, 2025 11:17 pm Hypokalemia February 05, 2025 11:17 pm Hypomagnesemia February 05, 2025 11:17 pm Pulmonary hypertension February 05, 2025 11 :17pm Systolic heart failure February 05, 2025 11 :17pm Health Concerns Concerns A [facility] screening has identified you as FRAIL or AT RISK FOR FRAILTY. This puts you at a higher risk for infection, illness, falls, and other injuries. Here are four ways to help you reduce your risk of frailty: 1. IDENTIFY EARLY SIGNS OF FRAILTY Discuss contributing factors and concerns with your doctor 2. BE ACTIVE Walking and light strengthening exercises will help reduce weakness 3. EAT WELL Aim for three healthy meals a day that are high in protein 4. THINK POSITIVE Keep your mind active by being sociable and continuing to learn References: Stay Strong: Four Ways to Beat the Frailty Risk [email or web address]/[email or web address]-cgt-zspxihjpdj/yxqc-lbdhfc-jrot- ways- xg-cweu-hbg-fra ilty-risk Allergies, Adverse Reactions, Alerts No known allergies Social History Smoking Status Status Start Date End Date Date of Observa tion Never smoked tobacco (finding) February 06, 2025 2:28pm Observation Status Observation Response Date of Response Patient Sex Male February 10, 2025 7 :04pm Assigned Sex Male 1950 Family History Relationship Condition Age at Onset Recorded Date/T evita father Malignant neoplasm Unknown Problems Active Problems Medical Problem Onset Date Status ARLET (acute kidney injury) Active Hydronephrosis Active Alcohol dependence Active Bacteriuria Active Atrial flutter Active Pulmonary hypertension Active Systolic heart failure Active CKD (chronic kidney disease) Act altaf Gross hematuria Active Bladder outlet obstruction Activ e Hypokalemia Active Hypomagnesemia Active Medications Medication Status Dose Units Route Directions Qty Days St art Date Stop Date End Date Instructions Aspirin 81 mg tablet Active 81 MG PO Daily February 06, 2025 12:00a m On Hold: Hold this until you get all of the urology work done on your bladder and prostate. Atorvastatin 40 mg tablet Active 40 MG PO Daily February 06, 2025 12:00a m Furosemide 20 mg tablet Discont inued 20 MG PO Daily February 06, 2025 12:00a m February 10, 2025 2:14p m Labetalol 100 mg tablet Discont inued 100 MG PO Twice daily February 06, 2025 12:00a m February 10, 2025 2:14p m Furosemide 40 mg Tablet Active 40 MG PO Daily at 0800 30 February 10, 2025 12:00a m Carvedilol 25 mg Tablet Active 25 MG PO Twice daily with meals 60 February 10, 2025 12:00a m Spironolacto ne 50 mg Tablet Active 50 MG PO Daily 30 February 10, 2025 12:00a m Tamsulosin 0.4 mg Capsule Active 0.4 MG PO Daily 30 February 10, 2025 12:00a m Apixaban (Eliquis) 5 mg Tablet Active 5 MG PO Twice daily 60 February 10, 2025 12:00a m Start taking this after you have seen Urology for prostate treatment. Magnesium 250 mg tablet Active 250 MG PO Daily 90 90 February 10, 2025 12:00a m Procedures Procedure Date Performed Status Urine Culture February 04, 2025 completed XR chest 1V portable February 06, 2025 8:50am compl eted US renal BI February 06, 2025 8:50am completed US venous duplex LE BI February 06, 2025 8:50am com pleted Relevant Diagnostic Tests and/or Laboratory Data Laboratory Results Test Date/Time Result Interpretation Reference Range Result Comment Performing Site Corrected White Blood Count February 09, 2025 7:05am 4.1 10*3/uL 4.1-10.5 [facility] [id number] [address] [facility] [address] Uncorrected WBC Count February 09, 2025 7:05am 4.1 10*3/uL 4.1-10.5 [facility] [id number] [address] [facility] [address] Red Blood Count February 09, 2025 7:05am 4.21 10*6/uL 3.90-5.60 [facility] [id number] [address] [facility] [address] Hemoglobin February 09, 2025 7:05am 13.0 g/dL 13.0-17.0 [facility] [id number] [address] [facility] [address] Hematocrit February 09, 2025 7:05am 38.4 % Below low normal 38.8-50.0 [facility] [id number] [address] [facility] [address] Mean Corpuscular Volume February 09, 2025 7:05am 91.2 fL 83.5-101 [facility] [id number] [address] [facility] [address] Mean Corpuscular Hemoglobin February 09, 2025 7:05am 30.9 pg 27.5-35.2 [facility] [id number] [address] [facility] [address] Mean Corpuscular Hemoglobin Concent February 09, 2025 7:05am 33.8 g/dL 32.5-35.6 [facility] [id number] [address] [facility] [address] Red Cell Distribution Width February 09, 2025 7:05am 13.6 % 12.0-14.8 [facility] [id number] [address] [facility] [address] Platelet Count February 09, 2025 7:05am 91 10*3/uL Below low normal 150-450 [facility] [id number] [address] [facility] [address] Mean Platelet Volume February 09, 2025 7:05am 8.7 fL 6.6-10.1 [facility] [id number] [address] [facility] [address] Neutrophils (%) (Auto) February 09, 2025 7:05am 57.5 % . [facility] [id number] [address] [facility] [address] Lymphocytes (%) (Auto) February 09, 2025 7:05am 27.7 % . [facility] [id number] [address] [facility] [address] Monocytes (%) (Auto) February 09, 2025 7:05am 9.9 % . [facility] [id number] [address] [facility] [address] Eosinophils (%) (Auto) February 09, 2025 7:05am 3.9 % . [facility] [id number] [address] [place] 0213970 Basophils (%) (Auto) February 09, 2025 7:05am 1.0 % . [facility] [id number] [address] [place] 0213970 Nucleated RBC Relative Count (auto) February 09, 2025 7:05am 0.1 /100{WBC} 0-0.5 [facility] [id number] [address] [place] 0213970 Neutrophils # (Auto) February 09, 2025 7:05am 2.3 10*3/uL 1.8-7.7 [facility] [id number] [address] [place], [place] [address] Lymphocytes # (Auto) February 09, 2025 7:05am 1.1 10*3/uL 1.00-4.8 [facility] [id number] [address] [place] 0213970 Monocytes # (Auto) February 09, 2025 7:05am 0.4 10*3/uL 0.0-0.8 [facility] [id number] [address] [place] 0213970 Eosinophils # (Auto) February 09, 2025 7:05am 0.2 10*3/uL 0.0-0.45 [facility] [id number] [address] [place] 02[address]70 Basophils # (Auto) February 09, 2025 7:05am 0.0 10*3/uL 0.0-0.2 [facility] [id number] [address] [place] [address]70 Urine Color February 06, 2025 11:20am Colorless Yellow [facility] [id number] [address] [place], [place] [address] Urine Appearance February 06, 2025 11:20am Clear Clear [facility] [id number] [address] [place], [place] [address] Urine Specific Pavilion February 06, 2025 11:20am 1.007 1.001-1.03 0 [facility] [id number] [address] [place], [place] [address] Urine pH February 06, 2025 11:20am 7.0 5.0-9.0 [facility] [id number] [address] [facility] [address] Urine Leukocyte Esterase February 06, 2025 11:20am Negative Negative [facility] [id number] [address] [facility] [address] Urine Nitrite February 06, 2025 11:20am Negative Negative [facility] [id number] [address] [facility] [address] Urine Protein February 06, 2025 11:20am Negative mg/dL Negative [facility] [id number] [address] [facility] [address] Urine Glucose (UA) February 06, 2025 11:20am Normal mg/dL Normal [facility] [id number] [address] [facility] [address] Urine Ketones February 06, 2025 11:20am Negative Negative [facility] [id number] [address] [facility] [address] Urine Urobilinogen February 06, 2025 11:20am Normal mg/dL Normal [facility] [id number] [address] [facility] [address] Urine Bilirubin February 06, 2025 11:20am Negative Negative [facility] [id number] [address] [facility] [address] Urine Occult Blood February 06, 2025 11:20am Negative Negative [facility] [id number] [address] [place] [address] Glucose Level February 10, 2025 7:07am 86 mg/dL 70-100 ADA recommended reference rangeRandom Glucose Reference Range is dependent on time and content of last meal. Glucose of more than 200 mg/dL in a nonstressed, ambulatory subject supports the diagnosis of Diabetes Mellitus. [facility] [id number] [address] [place] [address] Blood Urea Nitrogen February 10, 2025 7:07am 21 mg/dL 7-25 [facility] [id number] [address] [place] 02[address]70 Creatinine February 10, 2025 7:07am 1.23 mg/dL 0.70-1.30 [facility] [id number] [address] [facility] [address] Estimated GFR (CKD-EPI) February 10, 2025 7:07am > 60.0 mL/Min [facility] [id number] [address] [facility] [address] Sodium Level February 10, 2025 7:07am 139 mmol/L 136-145 [facility] [id number] [address] [facility] [address] Potassium Level February 10, 2025 2:56pm 3.5 mmol/L 3.5-5.1 [facility] [id number] [address] [facility] [address] Chloride Level February 10, 2025 7:07am 97 mmol/L Below low normal 98-107 [facility] [id number] [address] [facility] [address] Carbon Dioxide Level February 10, 2025 7:07am 36.1 mmol/L Above high normal 21.0-31.0 [facility] [id number] [address] [facility] [address] Anion Gap February 10, 2025 7:07am 9.0 mEq/L 6.0-15.0 [facility] [id number] [address] [facility] [address] Calcium Level February 10, 2025 7:07am 8.6 mg/dL 8.6-10.3 [facility] [id number] [address] [facility] [address] Phosphorus Level February 08, 2025 6:36am 4.1 mg/dL 2.5-4.5 [facility] [id number] [address] [facility] [address] Magnesium Level February 10, 2025 2:56pm 1.9 mg/dL 1.9-2.7 [facility] [id number] [address] [facility] [address] Total Protein February 07, 2025 5:42am 6.0 g/dL Below low normal 6.4-8.9 [facility] [id number] [address] [facility] [address] Albumin February 07, 2025 5:42am 4.0 g/dL 3.5-5.7 [facility] [id number] [address] [facility] [address] Globulin February 07, 2025 5:42am 2.0 g/dL [facility] [id number] [address] [facility] [address] Albumin/Globu sapphire Ratio February 07, 2025 5:42am 2.0 [facility] [id number] [address] [place], [place] [address] Total Bilirubin February 07, 2025 5:42am 1.2 mg/dL Above high normal 0.3-1.0 [facility] [id number] [address] [place] [address] Direct Bilirubin February 06, 2025 4:25am 0.30 mg/dL Above high normal 0.03-0.18 [facility] [id number] [address] [place] [address] Indirect Bilirubin February 06, 2025 4:25am 1.0 mg/dL [facility] [id number] [address] [place], [place] [address] Aspartate Amino Transf (AST/SGOT) February 07, 2025 5:42am 18 U/L 13-39 [facility] [id number] [address] [place], [place] [address] Alanine Aminotransfer ase (ALT/SGPT) February 07, 2025 5:42am 15 U/L 7-52 [facility] [id number] [address] [place] [address] Alkaline Phosphatase February 07, 2025 5:42am 57 U/L 34-104 [facility] [id number] [address] [place], [place] [address] Troponin I High Sensitivity February 06, 2025 9:33am 26 ng/L Above high normal 0-20 The Troponin units of report have been changed to meet the Chest Pain Accreditation requirement, element EC5.M1l2. Troponin units are changed from pg/ml to ng/L. Also, the decimal is removed and results are in whole numbers. [facility] [id number] [address] [place] [address] B-Type Natriuretic Peptide February 07, 2025 5:42am 706.0 pg/mL Above high normal 5-100 [facility] [id number] [address] [place], [place] [address] Cholesterol Level February 06, 2025 4:25am 110 mg/dL Below low normal 140-200 Chol less than 200 mg/dl low riskChol 201-239 mg/dl borderline riskChol 240 mg/dl and greater high risk [facility] [id number] [address] [facility] [address] HDL Cholesterol February 06, 2025 4:25am 48 mg/dL 23-92 HDL CHOL ATP-III CLASSIFICATION Cardiovascular RiskHDL > or equal to 60 mg/dL LOWHDL < 40 mg/dL HIGH [facility] [id number] [address] [place] [address] Triglycerides Level February 06, 2025 4:25am 42 mg/dL 0-149 TRIG ATP III CLASSIFICATIONTR IG less than 150 mg/dL NormalTRIG 150-199 mg/dL Borderline highTRIG 200-500 mg/dL High TRIG greater than 500 mg/dL Very highStandard traceable to the Center for Disease Conrtrol and Prevention (CDC) test method. [facility] [id number] [address] [place] [address] LDL Cholesterol, Calculated February 06, 2025 4:25am 54 mg/dL 0-100 LDL ATP III CLASSIFICATIONLD L less than 100 mg/dL OptimalLDL 100-129 mg/dL Near or above optimalLDL 130-159 mg/dL Borderline highLDL 160-189 mg/dL HighLDL greater than 189 mg/dL Very high [facility] [id number] [address] [place] [address] VLDL Cholesterol February 06, 2025 4:25am 8 mg/dL [facility] [id number] [address] [place], [place] [address] Cholesterol/H DL Ratio February 06, 2025 4:25am 2.3 <5.0 [facility] [id number] [address] [place] [address] Pharmacy Creatinine Clearance (Chem February 10, 2025 7:07am 58.23 [facility] [id number] [address] [place] [address] Hepatitis A IgM Antibody February 06, 2025 9:33am Negative Negative A negative anti-HAV IgM result suggests no recent orcurrent HAV infection. [facility] 00 Hepatitis B Core IgM Antibody February 06, 2025 9:33am Negative Negative [facility] 00 Hepatitis B Surface Antigen February 06, 2025 9:33am Negative Negative [facility] 00 Hepatitis C Antibody (EIA) February 06, 2025 9:33am Non reactive Non Reactive [facility] 00 Hepatitis C RNA (PCR) IU/mL February 06, 2025 9:33am N/A [facility] 00 Hepatitis C RNA (PCR) copies log10 February 06, 2025 9:33am N/A [facility] 00 Hepatitis C Interpretatio n February 06, 2025 9:33am Comment . Not infected with HCV unless early or acute infection issuspected (which may be delayed in an immunocompromise dindividual), or other evidence exists to indicate HCVinfection.Per formed at: [facility] [id number] Director: Ian Paulson PhD, Phone: [phone] [facility] Microbiology Results Procedure Source Result Collection Date/Time Result Date/Time Result Comment Performing Site Urine Culture Urine Klebsiella oxytoca February 04, 2025 4:00pm February 07, 2025 8:57am [facility] [id number] [address] [place], [place] [address] Diagnostic Imaging Reports Author Harshal Tejada [facility] Report Date/Time February 06, 2025 2:55p m [facility] [place] [address] [place] [address] XRay Report Signed Patient: Isauro Saldivar MR#: [id number] : 1950 Acct:[id number] Age/Sex: 74 / M ADM Date: 5 Loc: Room: [address] [place] [address] Type: ADM IN Attending Dr: Vonda Kasper MD Copies to: Vonda Kasper MD~ Ordering Provider: Vonda Kasper MD Date of Service: 02/06/25 XR/XR chest 1V portable: Cough SINGLE VIEW CHEST CLINICAL HISTORY: Cough COMPARISON: None FINDINGS: Sternotomy wires. Mildly prominent cardiac silhouette with mild perihilar congestion. Hazy opacity left lung base. Elevation right hemidiaphragm likely related right basilar atelectasis or scarring. No pneumothorax XR/XR chest 1V portable IMPRESSION: ELEVATION RIGHT HEMIDIAPHRAGM. OTHERWISE MILD PATCHY BIBASILAR ATELECTASIS AND OR SCARRING. Impression dictated by: Harshal Tejada M.D. 02/06/2025 2:55 PM Dictation Location: [facility]--23 Transcribed By: ARETHA 02/06/251454 Dictated By: Harshal Tejada MD 02/06/251453 Signed By: <Electronically signed by Harshal Tejada MD in OV> 02/06/251454 Author Marko Scott [facility] Report Date/Time February 06, 2025 3:58p m [facility] [place] [address] Ultrasound Report Signed Patient: Isauro Saldivar MR#: [id number] : 1950 Acct:[id number] Age/Sex: 74 / M ADM Date: 5 Loc: Room: [address] [place] [address] Type: ADM IN Attending Dr: Vonda Kasper MD Ordering Provider: Vonda Kasper MD Date of Service: 02/06/25 US/US renal BI: ARLET r/o obstructive uropathy Copies to: Vonda Kasper MD~ US renal BI 02/06/2025 8:52 AM SIGNS AND SYMPTOMS: ^ARLET r/o obstructive uropathy COMPARISON: None. FINDINGS: Right kidney measures 11.21 cm x 6.12 cm x 6.28 cm . There is hydronephrosis Left kidney measures 11.61 cm x 5.79 cm x 6.21 cm . There is hydronephrosis The urinary bladder demonstrates multiple diverticula. No free fluid is seen in the pelvis. Before voiding, the bladder measures 13.06 cm x 7.28 cm x 10.28 cm , which corresponds to an estimated volume of 511.76 mL . The ureters are dilated bilaterally, right greater than left measuring up to 1.2 cm in dimension on the right distally. US/US renal BI IMPRESSION: Bilateral hydronephrosis and hydroureter is noted. Bladder demonstrates multiple bladder diverticula. Impression dictated by: Marko Scott M.D. 02/06/2025 3:58 PM Dictation Location: [facility]--24 Tech: Zena Dutta Transcribed By: ARETHA 02/06/25 1558 Dictated By: Marko Scott II, MD 02/06/25 1550 Signed By: <Electronically signed by Marko Scott II, MD in OV> 02/06/25 1558 Author Randall Cerna [facility] Report Date/Time February 07, 2025 10:42 am [facility] [place] [address] Ultrasound Report Signed Patient: Isauro Saldivar MR#: [id number] : 1950 Acct:[id number] Age/Sex: 74 / M ADM Date: 5 Loc: Room: [address] [place] [address] Type: ADM IN Attending Dr: Vonda Kasper MD Ordering Provider: Vonda Kasper MD Date of Service: 02/06/25 US/US venous duplex LE BI: Edema r/o DVT Copies to: Vonda Kasper MD~ BILATERAL LOWER EXTREMITY VENOUS DUPLEX INDICATION: Swollen legs PROCEDURE: Color-flow duplex scanning is used to interrogate the deep venous system of the right and left lower extremities. The common femoral vein, femoral vein and popliteal vein show good compressibility with normal proximal and distal augmentation. The posterior tibial and peroneal veins are compressible. US/US venous duplex LE BI IMPRESSION: NO EVIDENCE FOR DEEP VEIN THROMBOSIS OR PROXIMAL SUPERFICIAL THROMBOPHLEBITIS INTHE RIGHT OR LEFT LOWER EXTREMITY. Impression dictated by: Randall Cerna M.D. 02/07/2025 10:42 AM Dictation Location: [place] [address] Tech: Zena Dutta Transcribed By: ARETHA 02/07/25 1042 Dictated By: Randall Cerna MD 02/07/25 1042 Signed By: <Electronically signed by MD Randall Cerna in OV> 02/07/25 1042 Vital Signs Vital Reading Result Reference Range Collection Date/Time Height 69 [in_i] February 06, 2025 4:07pm Weight 92.30 kg February 10, 2025 6:03am Body Temperature 97.6 [degF] 97.6-99.0 February 10, 2 025 7:40am Heart Rate 60 /min 60-100 February 10, 2025 4:00pm Respiratory rate 18 /min 12-24 February 10, 2 025 4:00pm Oxygen saturation by Pulse oximetry 95 % 95-10 0 February 10, 2025 4:00pm BP Systolic 138 mm[Hg] 100-140 February 10, 2025 4:00pm BP Diastolic 78 mm[Hg] 60-100 February 10, 2025 4:00pm Advance Directives Advance Directive Response Recorded Date/ Time Advance Directives No February 05 5:28pm Insurance Providers Guarantor Isauro Saldivar Address [address] [facility] [phone] Contact Info. Home Phone: Payer Policy Id Coverage Id Subscriber's Name Subscriber Id Effective Date Expiration Date [place] [facility] PFFS [id number] Isauro Saldivar [id number] Encounters Encounter Location(s) Arrival/Admit Date Discharge/Depart Date Provider(s) Departed Referred [facility] February 04, 2025 4:00pm February 04, 2025 4:01pm Ike Wright MD Discharged Inpatient [facility] [place] [facility] February 05, 2025 11:17pm February 10, 2025 7:03pm Topher Jewell DO Recent Diagnosis Onset Date Admit Date ARLET (acute kidney injury) February 052024 11:17pm Alcohol dependence February 05 11:17pm Atrial flutter February 05, 2025 1 1:17pm Bacteriuria February 05, 2025 1 1:17pm CKD (chronic kidney disease) February 05, 2025 11:17pm Hydronephrosis February 05, 2025 1 1:17pm Hypokalemia February 05, 2025 1 1:17pm Hypomagnesemia February 05, 2025 1 1:17pm Pulmonary hypertension February 05, 2025 11:17pm Systolic heart failure February 05, 2025 11:17pm Functional Status Observation Response Date Recorded Dressing Patient at Baseline February 10 7:01pm Eating Patient at Baseline February 10 7:01pm Bathing Patient at Baseline February 10 7:01pm Disability Status Patient at Baseline February 10, 2025 7:01pm Functional Status Assessments Mental Status Observation Response Date Recorded Cognitive Status Patient at Baseline February 10, 2 025 7:01pm Cognitive/Mental Status Assessments Assessments Diagnosis Onset Date Resolution Status Admit Date ARLET (acute kidney injury) acute February 05, 2025 11:17pm Alcohol dependence acute February 052024 11:17pm Atrial flutter acute February 05, 2025 11:17pm Bacteriuria acute February 05 11:17pm CKD (chronic kidney disease) acute February 05, 2025 11:17pm Hydronephrosis acute February 05, 2025 11:17pm Hypokalemia acute February 05 11:17pm Hypomagnesemia acute February 05, 2025 11:17pm Pulmonary hypertension acute Ma y 2024 11:17pm Systolic heart failure acute Ma y 2024 11:17pm Plan of Treatment Future Tests Future scheduled test information is unavailable Pending Tests Pending diagnostic test information is unavailable Future Visits Future appointment information is unavailable Referrals to Other Providers Reason for Referral Referral Start Date Provider Provider Contact Information Provider Address You have been scheduled for a follow up appointment for the following date and time, please call to reschedule if needed. [facility] Work Phone: [facility]5 [facility] [address] [facility] [address] Elizabeth Weller MD Email: [email or web address] Work Phone: [address] [place] [address] [address] [facility] [id number] Previously scheduled appointment. Tenisha Banks APRN CHANGE DIRECTOR Work Phone: [facility] [address] [facility] [id number] Future Procedures Procedure Name Ordered Date Scheduled Date Admit Status Order February 06, 2025 12:18am February 052024 11:35pm Consult to Cardiology February 06, 2025 12:18am February 06, 2025 12:18am Consult to Case Management February 05, 2025 11:49p m February 05, 2025 11:49pm Discharge Order February 10, 2025 2:12pm February 10, 2025 2:12pm Future Medications Future medication information is unavailable Patient Instructions Instruction Admit Date Heart failure in adults - Amy james instructions Know your Meds Drugs, Alcohol & Your Well-Being February 05, 2025 11:17pm Goals Acute Goals Author Authored Date Maintain/increase activity l evels * Understands factors that may lead to activity intolerance * Helps perform self care activities * Maintains maximum range of motion * Increase/regain muscle mass and strength * Maintains VS WNL during activity * Maintain intact skin integrity Updated: 10/30/2022 [facility] February 10, 2025 7:03pm Exhibit optimal tissue perfu wilda * Exhibits adequate oxygenation and ventilation * Exhibits adequate cardiac output * Regains stable cardiac rhythm * Maintains optimal activity level * Maintains balanced intake and output [facility] February 06, 2025 6:06am Fall Prevention 2022 [facility] February 10, 2025 7:03pm Hospital Discharge Instructions Additional Instructions Maintain and perform routine care to carr catheter-- keep in until seen by urology-- may use leg bag as tolerated Consultation Note Author Elizabeth Weller [facility] Note Date/Time February 06, 2025 2:33p m [facility] [address] [place] [address] Cardiology Consult Note Signed Patient: Isauro Saldivar MR#: [id number] : 1950 Acct:[id number] Age/Sex: 74 / M Adm Date: 5 Loc: Room: [address] [place] [address] Type: ADM IN Attending Dr: Vonda Kasper MD Copies to: MD Elizabeth Beaulieu MD Rafik Massouh, MD~ Cardiology HPI History of Present Illness Consult Date: 02/06/25 Reason for Consult: Cardiac consultation requested for evaluation of congestive heart failure and atrial fibrillation HPI: Mr. Saldivar is a 74 year old male whom I am seeing for the first time. Patientreport history of 5 vessel bypass surgery in 2010 in [place]. Patient presented to [facility] complaining of few weeks complaining of increasing shortness of breath and lower extremity edema. [facility] with the [place] but ultimately ended up in [facility] where apparently an echocardiogram was done and suggest ejection fraction around 45% with severe biatrial enlargement patient was transferred over here for further care. Patient denies chest pain. He report after his bypass surgery he followed with his knife glazer few times and has not seen any cardiology for follow-up in years. He has not had any recent ischemic evaluation. At the time of evaluation the patient report he is feelingbetter. His lower extremity edema has improved. The patient report excessive alcohol use drinking 6 beers a day. He denies previous history of DTs. Review of Systems Review of Systems Review of systems: Review of symptoms unremarkable except 1 mentioned above in including weight gain, shortness of breath and bilateral lower extremity edema [facility] Medical History CAD (coronary artery disease) Alcohol dependence HLD (hyperlipidemia) CABG (coronary artery bypass graft) planned 5 vessel in 2010 HTN (hypertension) Family History Father Cancer Social History Smoking Status: Never smoker Substance Use Type: Alcohol (4-6 beers daily) Substance Abuse Comment: 4-6 beers/day Meds Medications and Allergies Allergies No Known Allergies Allergy (Verified 02/05/25 23:49) Home Medications aspirin 81 mg tablet 81 mg PO DAILY 02/06/25 [History Confirmed 02/06/25] atorvastatin 40 mg tablet 40 mg PO DAILY 02/06/25 [History Confirmed 02/06/25] furosemide 20 mg tablet 20 mg PO DAILY 02/06/25 [History Confirmed 02/06/25] labetalol 100 mg tablet 100 mg PO BID 02/06/25 [History Confirmed 02/06/25] Exam Physical Exam Vital Signs: Temp Pulse Resp BP Pulse Ox O2 Del Method 97.8 F 75 20 101/64 96 Room Air 02/06/25 11:58 02/06/25 11:58 02/06/25 11:58 02/06/25 13:18 02/06/25 11:58 02/06/25 11:58 Const General: cooperative, comfortable, no acute distress and well developed HEENT Head: atraumatic Mouth: oral mucosae normal Eyes General: appearance normal, both eyes and all related structures Pupils: PERRL Neck Neck: normal visual inspection, supple and no lymphadenopathy noted Neck mass: No Thyroid: thyroid normal Carotids: normal carotid upstroke Chest Chest palpation & inspection: normal inspection of the chest Resp Effort & Inspection: normal respiratory effort Auscultation: clear to auscultation bilaterally Cardio Palpation: normal PMI Rate: regular rate Rhythm: regular rhythm and abnormal rhythm irregularly irregular Heart Sounds: S1 normal, S2 normal and murmur systolic II/ GI Palpation: soft and no hepatosplenomegaly Percussion: normal to percussion Auscultation: normal bowel sounds Skin General: no rashes or lesions noted and dry skin Neuro General: patient alert, patient awake, patient oriented x3, tone normal and moves all extremities Extrem General: full ROM, capillary refill normal, no clubbing, cyanosis or edema and edema Laterality: bilaterally Severity: 2+ Psych Mental Status: mental status grossly normal Results - Cardiology Labs 02/06/25 04:25 02/06/25 04:25 Lab results: Cardiac Enzymes 02/06/25 Range/Units 04:25 AST 22 (13-39) U/L Lipids 02/06/25 Range/Units 04:25 Triglycerides 42 (0-149) mg/dL Cholesterol 110 L (140-200) mg/dL HDL Cholesterol 48 (23-92) mg/dL Cholesterol/HDL Ratio 2.3 (<5.0) CBC 02/06/25 Range/Units 04:25 RBC 4.40 (3.90-5.60) x10E6/uL Hgb 14.0 (13.0-17.0) g/dL Hct 40.2 (38.8-50.0) % Plt Count 120 L (150-450) x10E3/uL Neut # (Auto) 2.1 (1.8-7.7) x10E3/uL Lymph # (Auto) 1.5 (1.00-4.8) x10E3/uL Cochran # (Auto) 0.5 (0.0-0.8) x10E3/uL Eos # (Auto) 0.2 (0.0-0.45) x10E3/uL Baso # (Auto) 0.0 (0.0-0.2) x10E3/uL Comprehensive Metabolic Panel 02/06/25 Range/Units 04:25 Sodium 139 (136-145) mmol/L Potassium 3.5 (3.5-5.1) mmol/L Chloride 95 L (98-107) mmol/L Carbon Dioxide 35.6 H (21.0-31.0) mmol/L BUN 18 (7-25) mg/dL Creatinine 1.58 H (0.70-1.30) mg/dL Glucose 85 (70-100) mg/dL Calcium 9.3 (8.6-10.3) mg/dL Direct Bilirubin 0.30 H (0.03-0.18) mg/dL Indirect Bilirubin 1.0 mg/dL AST 22 (13-39) U/L ALT 17 (7-52) U/L Alkaline Phosphatase 58 (34-104) U/L Total Protein 6.3 L (6.4-8.9) gm/dL Albumin 4.0 (3.5-5.7) gm/dL Intake and Output 02/05/25 02/06/25 02/06/25 23:59 07:59 15:59 Intake Total 150 / 150 Output Total 1999 Balance -1850 / -1850 Intake: Oral 150 / 150 Output: Urine 1999 Other: Weight 97 kg 97.1 kg Date of Last Bowel Movement 02/05/25 02/05/25 02/05/25 Patient Weight 02/06/25 23:59 Weight 97.1 kg EKG Interpretations EKG Attestation EKG: I reviewed this ECG and interpreted as documented below: (Atrial fibrillation flutter with a right bundle branch block) A&P - Cardiology (1) Systolic heart failure: Code(s): I50.20 - Unspecified systolic (congestive) heart failure Plan Assessment 1. Clinical picture of acute systolic heart failure LVEF reported to be 45% by recent echo at [facility] 2. Atrial fibrillation likely to be longstanding considering recent echo reported severe dilatation of the left atria 3. Coronary artery disease prior 5 vessel bypass surgery back in 2010 in [facility] 4. Excessive alcohol use 5. Mixed hyperlipidemia 6. Hypertension 7. Obesity 8. Patient creatinine is 1.58 Plan 1. Agree with current management including Coreg hydralazine and nitrate for heart failure therapy. If renal function improves will add DANAY and Jardiance 2. Continue IV diuresis with close monitoring of renal function 3. Will repeat his echocardiogram and BNP in a.m. 4. I counseled the patient regarding the need to stop drinking 5. Patient meet the criteria for anticoagulation risk, benefit and alternative discussed with him at length he understood and agreed he is not a candidate for Coumadin considering his alcohol use we will start one of the DOACs will start Eliquis and discontinue Lovenox 6. Will need ischemic evaluation with heart failure improved Documented By: Elizabeth Weller MD 02/06/25 1421 Signed By: <Electronically signed by MD Elizabeth Weller> 02/06/25 1433 Discharge Summary Note Author Topher Jewell [facility] Note Date/Time February 10, 2025 4:11p m [facility] [address] [place] [address] Discharge Summary Signed Patient: Isauro Saldivar MR#: [id number] : 1950 Acct:[id number] Age/Sex: 74 / M Adm Date: 5 Loc: Room: [address] [place] [address]: Topher Jewell DO Copies to: MD Topher Beaulieu DO Rebecca Nelson, APRN, CHANGE DIRECTOR~ Providers Date of Discharge: 02/10/25 Discharging Provider: Topher Jewell Primary Care Provider: Tenisha Banks Consults: 02/05/25 23:49 Consult to Case Management Routine Comment: Reason for Consult: Pharmacist Intern-General 02/06/25 00:18 Consult to Cardiology Routine Comment: Consulting Provider: [facility] Reason For Exam: new onset A-fib/flutter, CHF Has Provider Been Notified: Yes Date of Notification: 02/06/25 Time of Notification: 00:58 Discharge Diagnosis (1) Pulmonary hypertension: (2) Bladder outlet obstruction: (3) ARLET (acute kidney injury): (4) Alcohol dependence: (5) Gross hematuria: (6) Atrial flutter: Final Diagnosis Final Discharge Diagnosis: as per list above. Summary Hospital Course Hospital course: This is a 74-year-old man with a history of a 5 vessel coronary artery bypass graft surgery in the year 2010 in [place]. He presented to the [facility] with increasing shortness of breath and worsening lower extremity edema. [facility] At [facility] and echocardiogram was done that showed an ejection action 45% with severe biatrial enlargement. He was then transferred over to [facility]. The patient does drink alcohol very heavily. During hospital stay he was monitored but did not show signs of acute alcohol withdrawal. He was counseled to stop drinking alcohol. At [facility] cardiology was consulted. Echocardiogram here shows ejection fraction of 50 to 55% with 60 RSVP consistent with severe pulmonary hypertension. He hasmild valvular aortic stenosis, mild mitral regurgitation, mild tricuspid regurgitation, and in atrial fibrillation. The atrial fibrillation is a new diagnosis for this patient. While he was in the hospital for the new atrial fibrillation he was started on Eliquis. He did develop an acute kidney injury. His creatinine jorge from 1.58 up to 2.06. He was found to have massive bladder urinary retention. A Carr catheterwas placed. After the Carr catheter was placed he did develop hematuria. Therefore aspirin 81 mg daily and Eliquis were held. After the Carr catheter was placed his creatinine improved rapidly to 1.63, and then 1.31, and then 1.23. This was going on while he was receiving Lasix to remove his lower extremity edema. While he was here his weight did improve from 97 kg down to 92.3 kg. His cardiology assessment at the time of discharge was as follows: 1. Clinical picture of heart failure appears to be more right-sided. Componentof his edema is related to obstructive uropathy 2. Atrial flutter likely to be longstanding considering echo demonstrated bilateral enlargement 3. Coronary artery disease prior 5 vessel bypass surgery back in 2010 in [facility] 4. Excessive alcohol use 5. Mixed hyperlipidemia 6. Hypertension 7. Obesity 8. Acute on chronic kidney disease but continues to have significant volume overload appears due to bladder neck obstruction and urinary retention improving 9. Mild aortic stenosis Cardiology says that he meets the criteria for anticoagulation risk,, and given his alcohol use he is not a good candidate for Coumadin. Therefore cardiology recommends Eliquis. He needs to take the Carr catheter home with him and see urology in the office. After his hematuria has stopped and urology has done anyprocedures then Eliquis can be used. In the long run he will follow-up with cardiology in their office and consider cardioversion and ischemic evaluation onthe outpatient basis in their office. Condition Condition at Discharge: Stable Status at Discharge Functional status at discharge: uses cane/walker Overall status at discharge: patient is progressing back to baseline Time Spent with Patient Time spent providing/coordinating discharge services (# min): 44 Discharge Plan Discharge Plan Patient Disposition: Home Activity: No Activity Restriction Diet: Low-Sodium Additional Instructions: Maintain and perform routine care to carr catheter-- keep in until seen by urology-- may use leg bag as tolerated Instructions: Heart failure in adults - Discharge instructions, Know your Meds,Drugs, Alcohol & Your Well-Being Prescriptions: New furosemide 40 mg Tablet 40 mg PO DAILY.8A 30 Days Qty: 30 12RF carvedilol 25 mg Tablet 25 mg PO BID.WITH.MEALS 30 Days Qty: 60 12RF spironolactone 50 mg Tablet 50 mg PO DAILY 30 Days Qty: 30 12RF tamsulosin 0.4 mg Capsule 0.4 mg PO DAILY 30 Days Qty: 30 0RF Eliquis 5 mg Tablet 5 mg PO BID Qty: 60 0RF Rx Instructions: Start taking this after you have seen Urology for prostate treatment. magnesium 250 mg tablet 250 mg PO DAILY 90 Days Qty: 90 0RF Continued atorvastatin 40 mg tablet 40 mg PO DAILY Held aspirin 81 mg tablet 81 mg PO DAILY Hold Instructions: Hold this until you get all of the urology work done on your bladder and prostate. Discontinued furosemide 20 mg tablet 20 mg PO DAILY labetalol 100 mg tablet 100 mg PO BID Follow Up: [facility] [Outside] - 02/16/25 12:20 pm (You have been scheduled for a follow up appointment for the following date and time, please call to reschedule if needed.) Elizabeth Weller MD [Active Staff] - 04/02/25 2:30 pm Tenisha Banks APRN, LUMBER PLANER-C [Primary Care Provider] - 02/16/25 8:00 am (Previously scheduled appointment. ) Continuity of Care Document Health Concerns: A [facility] screening has identified you as FRAIL or AT RISK FOR FRAILTY. This puts you at a higher risk for infection, illness, falls,and other injuries. Here are four ways to help you reduce your risk of frailty: 1. IDENTIFY EARLY SIGNS OF FRAILTY Discuss contributing factors and concerns with your doctor 2. BE ACTIVE Walking and light strengthening exercises will help reduce weakness 3. EAT WELL Aim for three healthy meals a day that are high in protein 4. THINK POSITIVE Keep your mind active by being sociable and continuing to learn References: Stay Strong: Four Ways to Beat the Frailty Riskhttps://www.[email or web address]/health/naqbnhld-haq-gnpscedzis/grge-trjckr-r our-w ygx-st-rzhg-hit-msaiifz-ocpr Exam Physical Exam Vital Signs: Temp Pulse Resp BP Pulse Ox O2 Del Method 97.6 F 66 18 146/76 H 93 L Room Air 02/10/25 07:40 02/10/25 07:40 02/10/25 07:40 02/10/25 07:40 02/10/25 07:40 02/10/25 07:40 Narrative: Sitting upright in bed. Watching television. : Carr catheter drains urine which is now a light red. Hematuria is clearingup. No gross clots. Pulm: Diminished in the bases bilaterally. No wheezing. Cardiac: Regular rate and rhythm. No rubs gallops auscultation B-Nexa GI: Bowelsounds are normal. Abdomen is soft and nontender to palpation. Lower extremities: Does have massive 2+ pitting edema from his kneecaps down to his ankles bilaterally but it is clear that this is improved about 60% here during the hospital stay. Diagnostic Studies Completed and Pending Studies Pending studies at discharge: 02/10/25 15:00 Magnesium [CHEM] Timed Potassium [CHEM] Timed Labs on day of discharge: 02/10/25 07:07: PHA Creatinine Clear 58.23, Sodium 139, Potassium 3.1 L, Chloride 97 L, Carbon Dioxide 36.1 H, Anion Gap 9.0, BUN 21, Creatinine 1.23, Est GFR (CKD- EPI) > 60.0, Glucose 86, Calcium 8.6 Documented By: Topher Jewell DO 1414 Signed By: <Electronically signed by Topher Jewell DO> 02/10/25 1611 History & Physical Note Author Elinor Ziegler [facility] Note Date/Time February 06, 2025 2:47a m [facility] [address] [place] [address] Hospitalist H&P Signed Patient: Isauro Saldivar MR#: [id number] : 1950 Acct:[id number] Age/Sex: 74 / M Adm Date: 5 Loc: Room: [address] [place] [address] Type: ADM IN Attending Dr: Leonid Gaspar DO Copies to: MD Leonid Beaulieu, DO Elinor Ziegler, PATIENT'S LIBRARIAN~ HPI DATE OF EXAMINATION: 02/05/25 CHIEF COMPLAINT: both legs are swollen, new onset a-fib, chf HISTORY OF PRESENT ILLNESS: Mr. Saldivar is a 74-year-old male with a PMH of HTN, HLD, 5 vessel CABG in 2010, daily beer drinker 4 -6 a day the presented to [facility] emergency room because both of his legs were swollen and his daughter made him go. He states that he goes to [place] in [place]. His daughter called and to the [place] physician about his leg swelling and they started him on a tiny water pill. Says it was not doing much, he did not notice much of a change in his leg swelling. He does complain of orthopnea, has a cough that is sometimes productive. He denies chest pain, palpitations, shortness of breath, fever or chills, nausea or vomiting. He has never smoked, denies illicit drug use. [facility] chart review- Arrived to [facility] ER for BLE edema and shortness of breath. He received lasix in the ER without much diuresis. Started on a bumex drip x 2 days on the medical floor. Echo on 02/04/25 with an EF 45%, moderate concentric left ventricular hypertrophy, septum abnormal and motion likely due to BBB, moderately thickened septal wall, RVSP 37mmHg, mild right ventricle chamber dilation, mildly decreased right ventricular systolic function, trivial TR, mild MR, mild AR, moderate to severe biatrial dilation. Hewas started on weight based enoxaparin 100mg bid, metoprolol bid. BNP 9366. BUN 12, creatinine 1.35. UA with small amount of leukocytes, 5-10 WBCs, small amt ofbacteria- culture is pending. Drug screen negative. Transferred here to [facility] for cardiology services. Review of Systems Review of Systems Review of systems: A 10 point review of systems was obtained, negative unless noted in the HPI or below. [facility] Medical History (Updated 02/06/25 @ 00:34 by Nola Dias RN) CAD (coronary artery disease) Alcohol dependence HLD (hyperlipidemia) CABG (coronary artery bypass graft) planned 5 vessel in 2010 HTN (hypertension) Family History (Updated 02/06/25 @ 00:30 by Elinor Ziegler APRN) Father Cancer Social History Smoking Status: Never smoker Substance Use Type: Alcohol (4-6 beers daily) Meds Medications and Allergies Allergies No Known Allergies Allergy (Verified 02/05/25 23:49) Home Medications aspirin 81 mg tablet 81 mg PO DAILY 02/06/25 [History Confirmed 02/06/25] atorvastatin 40 mg tablet 40 mg PO DAILY 02/06/25 [History Confirmed 02/06/25] furosemide 20 mg tablet 20 mg PO DAILY 02/06/25 [History Confirmed 02/06/25] labetalol 100 mg tablet 100 mg PO BID 02/06/25 [History Confirmed 02/06/25] Exam Physical Exam Narrative: CONST- Appears well -developed and well nourished. HEAD - Normocephalic and atraumatic EENT-Sclera nonicteric, conjunctive are non-erythemic, moist oral mucosa, pharynx clear NECK-Supple, no cervical lymphadenopathy CARDIAC-normal rate, irregular rhythm, S1 & S2. PULM-diminished without wheeze or rhonchi, RA, no accessory muscle use or cough noted ABD - Soft. Bowel sounds are normal. Softly distended. No tenderness EXTREM- +4 pitting edema BLE calves, ankles and feet, nonpitting edema to trunk and thighs, nontender SKIN- W/D good turgor, scattered ecchymosis MS- MAEX4 spontaneously with equal with equal strength NEURO- A&Ox3 speech clear and tongue midline, equal facial symmetry, no focal motor deficits PSYCH-Mood, affect, and behavior appropriate Assessment & Plan Assessment/Plan (1) Atrial flutter: (2) Systolic heart failure: (3) Alcohol dependence: Plan Systolic heart failure- Echo results from [facility] on chart- EF 45% New onset A-flutter- rate controlled - Consult cardiology - Continue weight based enoxaparin- 100mg bid - Reported little output with Furosemide, can continue Bumex drip for now - EKG - Daily weights, strict I&O - CBC, BMP, hepatic panel, Mag in am - Continue metoprolol 75mg po bid Alcohol dependence - CIWA scale as needed - Thiamine, MVI, folic acid HLD CAD HTN DVT PPx e noxaparin Diet order h eart healthy CODE STATUS f ull code IP vs OBS Justification Based on differential dx, clinical care plan, and risk of adverse events, if untreated, in my clinical judgement this patient requires an acute care setting as: INPATIENT because of an expectation of an over 2 midnight stay. Estimated length of stay (# of days): 3 Documented By: Elinor Ziegler APRN 02/05/25 2348 Signed By: <Electronically signed by MINESH Ziegler> 02/06/25 0045 <Electronically signed by Leonid Gaspar DO> 02/06/25 0247 Progress Note Author Vonda Kasper [facility] Note Date/Time February 06, 2025 8:58a m [facility] [address] [place] [address] Hospitalist Progress Note Signed Patient: Isauro Saldivar MR#: [id number] : 1950 Acct:[id number] Age/Sex: 74 / M Adm Date: 5 Loc: 3T Room: [address] [place] [address] Type: ADM IN Attending Dr: Vonda Kasper MD Copies to: ~ Date of Service: 02/06/2025 Subjective Subjective Narrative: No chest pain, no shortness of breath at rest. Minimal with exertion. No abdominal pain, nausea or vomiting. Exam Physical Exam Vital Signs: Temp Pulse Resp BP Pulse Ox O2 Del Method 97.4 F L 84 20 177/80 H 100 Room Air 02/06/25 08:00 02/06/25 08:06 02/06/25 08:00 02/06/25 08:00 02/06/25 08:00 02/06/25 08:00 Narrative: [pt is awake and alert. oriented to place, time and person HEENT: [employer] conjunctiva and NL buccal mucosa Neck: Supple, no tenderness Endocrine: No Thyromegaly. Vascular: No JVD or carotid bruit. Lymphatic: No cervical lymphadenopathy. Chest: Fine crackles Heart RRR, no extra sound or murmur. Abd: Soft, no tenderness, no rebound and no rigidity. Increase abd girth therefore clinically I could not exclude the possibility of intra abd mass or organomegaly. LE: No cyanosis or clubbing, no varices. +2 pitting edema and hyperpigmentation of both legs Neuro: A A O. Nl speech, comprehension and attention. Nl and symetrical motor and tone examination through out. []] Objective Lab Results 02/06/25 04:25 02/06/25 04:25 Meds Allergies and Active Meds Allergies No Known Allergies Allergy (Verified 02/05/25 23:49) Active Meds: Active Medications Generic Name Dose Route Start Last Admin Trade Name Freq PRN Reason Stop Dose Admin Acetaminophen 650 mg 02/06/25 00:18 Acetaminophen 325 Mg Tablet PO 02/06/26 00:17 Q6HR PRN Pain Scale 1 - 3 or fever Aspirin 81 mg 02/06/25 09:00 Aspirin 81 Mg Tablet. PO 02/06/26 08:59 DAILY [facility] Atorvastatin Calcium 40 mg 02/06/25 09:00 Atorvastatin 40 Mg Tablet PO 02/06/26 08:59 DAILY [facility] Enoxaparin Sodium 100 mg 02/06/25 10:00 Enoxaparin 100 Mg/Ml Syringe SUBCUT 02/06/26 09:59 Q12HR.10A.10P [facility] Folic Acid 1 mg 02/06/25 09:00 Folic Acid 1 Mg Tablet PO 02/06/26 08:59 DAILY [facility] Metoprolol Tartrate 25 mg/ 75 mg 02/06/25 09:00 Metoprolol Tartrate 50 mg PO 02/06/26 08:59 BID [facility] Multivitamins 1 tab 02/06/25 09:00 Multivitamin 1 Tab Tablet PO 02/06/26 08:59 DAILY [facility] Ondansetron HCl 4 mg 02/06/25 00:18 Ondansetron 4 Mg/2 Ml Vial IV-PUSH 02/06/26 00:17 Q6H PRN Nausea And Vomiting Sodium Chloride 0 ml 02/06/25 06:00 02/06/25 06:30 Sodium Chloride 0.9 % 10 Ml Syringe IV-PUSH 02/06/26 05:59 Not Given QSHIFT [facility] A&P - Hospitalist Assessment/Plan (1) Atrial flutter: (2) Systolic heart failure: (3) Alcohol dependence: Plan Acute on chronic systolic heart failure-cardiomyopathy echo results from [facility] on chart- EF 45% New onset A-flutter- rate controlled - Consult cardiology - Continue weight based enoxaparin- 100mg bid. Chads Vasc score is at least 3. - Continue diuretics - Continue beta-franchesca - Hold off on some of the cardiomyopathy GDMT due to kidney failure. Kidney failure stage III, unknown baseline Requested UA and ultrasound rule out obstructive uropathy. Rule out RBC or proteinuria in the urine. Monitor kidney function Lower extremities edema secondary to above Requested venous study rule out DVT Alcohol dependence, 6-8 beers daily - CIWA scale as needed -MVI, folic acid. Thiamine intravenously 200 twice daily. HLD CAD, history of CABG HTN DVT PPx e noxaparin Diet order h eart healthy CODE STATUS f ull code Documented By: Vonda Kasper MD 02/06/25 0854 Signed By: <Electronically signed by Vonda Kasper MD> 02/06/25 0858 Progress Note Author Vonda Kasper [facility] Note Date/Time February 07, 2025 9:02a m [facility] [address] [place] [address] Hospitalist Progress Note Signed Patient: Isauro Saldivar MR#: [id number] : 1950 Acct:[id number] Age/Sex: 74 / M Adm Date: 5 Loc: 3T Room: [address] [place] [address] Type: ADM IN Attending Dr: Vonda Kasper MD Copies to: ~ Date of Service: 02/07/2025 Subjective Subjective Narrative: Patient is feeling better. Less shortness of breath. No cough or congestion. Exam Physical Exam Vital Signs: Temp Pulse Resp BP Pulse Ox O2 Del Method 97.6 F 84 18 130/66 98 Room Air 02/07/25 04:13 02/07/25 04:13 02/07/25 04:13 02/07/25 04:13 02/07/25 04:13 02/07/25 04:13 Narrative: [pt is awake and alert. oriented to place, time and person HEENT: [employer] conjunctiva and NL buccal mucosa Neck: Supple, no tenderness Endocrine: No Thyromegaly. Vascular: No JVD or carotid bruit. Lymphatic: No cervical lymphadenopathy. Chest: Fine crackles Heart RRR, no extra sound or murmur. Abd: Soft, no tenderness, no rebound and no rigidity. Increase abd girth therefore clinically I could not exclude the possibility of intra abd mass or organomegaly. LE: No cyanosis or clubbing, no varices. +2 pitting edema and hyperpigmentation of both legs Neuro: A A O. Nl speech, comprehension and attention. Nl and symetrical motor and tone examination through out. []] Objective Lab Results 02/07/25 05:41 02/07/25 05:42 Meds Allergies and Active Meds Allergies No Known Allergies Allergy (Verified 02/05/25 23:49) Active Meds: Active Medications Generic Name Dose Route Start Last Admin Trade Name Freq PRN Reason Stop Dose Admin Acetaminophen 650 mg 02/06/25 00:18 Acetaminophen 325 Mg Tablet PO 02/06/26 00:17 Q6HR PRN Pain Scale 1 - 3 or fever Apixaban 5 mg 02/06/25 21:00 02/06/25 21:36 Apixaban 5 Mg Tablet PO 02/06/26 20:59 5 mg BID JE Administration Aspirin 81 mg 02/06/25 09:00 02/06/25 09:35 Aspirin 81 Mg Tablet.Dr PO 02/06/26 08:59 81 mg DAILY JE Administration Atorvastatin Calcium 40 mg 02/06/25 09:00 02/06/25 09:35 Atorvastatin 40 Mg Tablet PO 02/06/26 08:59 40 mg DAILY JE Administration Carvedilol 25 mg 02/06/25 11:15 02/06/25 17:10 Carvedilol 25 Mg Tablet PO 02/06/26 11:14 25 mg BID.WITH.MEALS JE Administration Folic Acid 1 mg 02/06/25 09:00 02/06/25 09:34 Folic Acid 1 Mg Tablet PO 02/06/26 08:59 1 mg DAILY JE Administration Furosemide 20 mg 02/07/25 16:00 Furosemide 40 Mg/4 Ml Vial IV-PUSH 02/07/26 15:59 BID@0800,1600 [facility] Hydralazine HCl 25 mg 02/06/25 09:05 02/06/25 21:36 Hydralazine 25 Mg Tablet PO 02/06/26 09:04 25 mg TID JE Administration Ceftriaxone Sodium 1 gm in 50 mls @ 100 mls/hr 02/07/25 09:00 Rocephin IV Q24H JE Isosorbide Dinitrate 10 mg 02/06/25 22:00 02/06/25 21:36 Isosorbide Dinitrate 10 Mg Tablet PO 02/06/26 21:59 10 mg TID JE Administration Multivitamins 1 tab 02/06/25 09:00 02/06/25 09:34 Multivitamin 1 Tab Tablet PO 02/06/26 08:59 1 tab DAILY JE Administration Ondansetron HCl 4 mg 02/06/25 00:18 Ondansetron 4 Mg/2 Ml Vial IV-PUSH 02/06/26 00:17 Q6H PRN Nausea And Vomiting Potassium Chloride 20 meq 02/07/25 08:54 Potassium Chloride Er 20 Meq Tab.Er.Prt PO 02/07/25 08:55 ONCE ONE Sodium Chloride 0 ml 02/06/25 06:00 02/07/25 06:25 Sodium Chloride 0.9 % 10 Ml Syringe IV-PUSH 02/06/26 05:59 10 ml QSHIFT JE Administration Spironolactone 25 mg 02/06/25 09:05 02/06/25 09:35 Spironolactone 25 Mg Tablet PO 02/06/26 09:04 25 mg DAILY JE Administration Thiamine HCl 200 mg 02/07/25 09:00 Thiamine 200 Mg/2 Ml Vial IV-PUSH 02/07/26 08:59 BID [facility] A&P - Hospitalist Assessment/Plan (1) Atrial flutter: (2) Systolic heart failure: (3) Alcohol dependence: (4) Hydronephrosis: (5) CKD (chronic kidney disease): (6) ARLET (acute kidney injury): (7) Bacteriuria: (8) Hypomagnesemia: (9) Hypokalemia: Plan Acute on chronic systolic heart failure-cardiomyopathy echo results from [facility] on chart- EF 45% New onset A-flutter- rate controlled - Patient was seen by knife glazer. Please refer to Dr. Weller's note for details - Continue weight based enoxaparin- 100mg bid. Chads Vasc score is at least 3. Switched to Eliquis by cardiology. - Continue diuretics - Continue beta-franchesca - Hold off on some of the cardiomyopathy GDMT due to kidney failure. ARLET on kidney failure stage III, bilateral hydronephrosis seen on ultrasound. UA is bland. No RBC or protein. No evidence to suggest acute glomerulonephritis Ultrasound showed bilateral hydronephrosis. I suspect that the patient may have bladder distention or prostate disease Requested PVR. If the PVR is high we will insert Carr catheter. If PVR is low would like consult to urology. Bacteriuria with no significant WBC in the urine. 3 days of antibiotic. Lower extremities edema secondary to above Requested venous study rule out DVT that came back negative for DVT. Continue gentle diuresis. Alcohol dependence, 6-8 beers daily - CIWA scale as needed -MVI, folic acid. Thiamine intravenously 200 twice daily. HLD CAD, history of CABG HTN DVT PPx e noxaparin, switch to Eliquis. Diet order h eart healthy CODE STATUS f ull code Documented By: Vonda Kasper MD 02/07/25 0857 Signed By: <Electronically signed by Vonda Kasper MD> 02/07/25 0902 Progress Note Author Vonda Kasper [facility] Note Date/Time February 10, 2025 7:03p m [facility] [address] [place] [address] Progress Note Signed Patient: Isauro Saldivar MR#: [id number] : 1950 Acct:[id number] Age/Sex: 74 / M Adm Date: 5 Loc: Room: [address] [place] [address] Type: ADM IN Attending Dr: Vonda Kasper MD Copies to: ~ Date of Service: 02/07/2025 Progress Narrative Note PROGRESS NOTE Progress Note: Patient had postvoid residual of 450. Will insert Carr catheter. Hopefully that will relieve his hydronephrosis and kidney failure If no improvement of kidney failure by tomorrow we will seek nephrology and/or urology. Documented By: Vonda Kasper MD 02/07/25 1015 Signed By: <Electronically signed by Vonda Kasper MD> 02/07/25 1015 Progress Note Author Elizabeth Weller [facility] Note Date/Time February 07, 2025 3:33p m [facility] [address] [place] [address] Cardiology Progress Note Signed Patient: Isauro Saldivar MR#: [id number] : 1950 Acct:[id number] Age/Sex: 74 / M Adm Date: 5 Loc: Room: [address] [place] [address] Type: ADM IN Attending Dr: Vonda Kasper MD Copies to: ~ Date of Service: 02/07/2025 Subjective Interval history: Patient feels better but remains mildly short of breath. Remains in atrial flutter Exam Physical Exam Vital Signs: Temp Pulse Resp BP Pulse Ox O2 Del Method 97.6 F 67 18 110/58 L 94 L Room Air 02/07/25 13:58 02/07/25 13:58 02/07/25 13:58 02/07/25 13:58 02/07/25 13:58 02/07/25 13:58 HEENT Head: atraumatic Mouth: oral mucosae normal Eyes General: appearance normal, both eyes and all related structures Pupils: PERRL Neck Neck: normal visual inspection, supple and no lymphadenopathy noted Neck mass: No Thyroid: thyroid normal Carotids: normal carotid upstroke Chest Chest palpation & inspection: normal inspection of the chest Resp Effort & Inspection: normal respiratory effort Auscultation: clear to auscultation bilaterally Cardio Palpation: normal PMI Rhythm: abnormal rhythm irregularly irregular Heart Sounds: S1 normal, S2 normal and murmur systolic II/ Skin General: no rashes or lesions noted and dry skin Extrem General: full ROM, capillary refill normal, no clubbing, cyanosis or edema and edema Laterality: bilaterally Severity: 2+ Objective Labs 02/07/25 05:41 02/07/25 05:42 Labs: Laboratory Results - last 24 hr 02/06/25 02/07/25 02/07/25 09:33 05:41 05:42 Corrected WBC 3.3 L Uncorrected WBC Count 3.3 L RBC 4.13 Hgb 12.9 L Hct 37.3 L MCV 90.3 MCH 31.1 MCHC 34.5 RDW 13.8 Plt Count 109 L MPV 8.8 Neut % (Auto) 51.6 Lymph % (Auto) 33.7 Cochran % (Auto) 10.4 Eos % (Auto) 3.5 Baso % (Auto) 0.8 Nucleat RBC Rel Count 0.1 Neut # (Auto) 1.7 L Lymph # (Auto) 1.1 Cochran # (Auto) 0.3 Eos # (Auto) 0.1 Baso # (Auto) 0.0 PHA Creatinine Clear 34.66 Sodium 139 Potassium 3.4 L Chloride 94 L Carbon Dioxide 36.8 H Anion Gap 11.6 BUN 24 Creatinine 2.06 H Est GFR (CKD-EPI) 32.973 Glucose 86 Calcium 9.4 Total Bilirubin 1.2 H AST 18 ALT 15 Alkaline Phosphatase 57 B-Natriuretic Peptide 706.0 H Total Protein 6.0 L Albumin 4.0 Globulin 2.0 Albumin/Globulin Ratio 2.0 Hepatitis A IgM Ab Negative Hep Bs Antigen Negative Hep B Core IgM Ab Negative Hepatitis C Ab (EIA) Non reactive HCV RNA (PCR) IU/mL N/A HCV RNA PCR nuclear spectroscopist log10 N/A Hepatitis C Interp Comment A&P - Cardiology (1) Systolic heart failure: Code(s): I50.20 - Unspecified systolic (congestive) heart failure Plan Assessment 1. Pictures of heart failure. I reviewed the echocardiogram suggestive of ejection fraction at 50-55%. With severe pulmonary hypertension. The picture appear more consistent with right-sided heart failure. 2. Atrial flutter likely to be longstanding considering echo demonstrated bilateral enlargement 3. Coronary artery disease prior 5 vessel bypass surgery back in 2010 in [facility] 4. Excessive alcohol use 5. Mixed hyperlipidemia 6. Hypertension 7. Obesity 8. Acute on chronic kidney disease but continues to have significant volume overload with component of cardiorenal syndrome 9. Mild aortic stenosis Plan 1. Considering it appears that the patient had more right-sided heart failure than left-sided and considering borderline low blood pressure and worsening renal function I will discontinue hydralazine and nitrate to allow effective diuresis 2. Continue IV diuresis with close monitoring of renal function 3. I reviewed echocardiogram 4. I counseled the patient regarding the need to stop drinking 5. Patient meet the criteria for anticoagulation risk, benefit and alternative discussed with him at length he understood and agreed he is not a candidate for Coumadin considering his alcohol use we will start one of the DOACs will start Eliquis and discontinue Lovenox 6. Will need ischemic evaluation 7. Consider renal consultation considering worsening renal function Documented By: Elizabeth Weller MD 02/07/25 1528 Signed By: <Electronically signed by MD Elizabeth Weller> 02/07/25 1533 Progress Note Author Vonda Kasper [facility] Note Date/Time February 08, 2025 9:20a m [facility] [address] [place] [address] Hospitalist Progress Note Signed Patient: Isauro Saldivar MR#: [id number] : 1950 Acct:[id number] Age/Sex: 74 / M Adm Date: 5 Loc: Room: [address] [place] [address] Type: ADM IN Attending Dr: Vonda Kasper MD Copies to: ~ Date of Service: 02/08/2025 Subjective Subjective Narrative: Patient had Carr catheter and drained about a liter of urine. Subsequently patient started having hematuria. Persistent hematuria as of this morning. Exam Physical Exam Vital Signs: Temp Pulse Resp BP Pulse Ox O2 Del Method 97.7 F 84 18 157/79 H 93 L Room Air 02/07/25 20:00 02/08/25 04:40 02/08/25 04:40 02/08/25 04:40 02/08/25 04:40 02/08/25 04:40 Narrative: [pt is awake and alert. oriented to place, time and person HEENT: [employer] conjunctiva and NL buccal mucosa Neck: Supple, no tenderness Endocrine: No Thyromegaly. Vascular: No JVD or carotid bruit. Lymphatic: No cervical lymphadenopathy. Chest: Fine crackles Heart IRRR, no extra sound or murmur. Abd: Soft, no tenderness, no rebound and no rigidity. Increase abd girth therefore clinically I could not exclude the possibility of intra abd mass or organomegaly. LE: No cyanosis or clubbing, no varices. +2 pitting edema and hyperpigmentation of both legs Neuro: A A O. Nl speech, comprehension and attention. Nl and symetrical motor and tone examination through out. []] Objective Lab Results 02/07/25 05:41 02/08/25 06:36 Meds Allergies and Active Meds Allergies No Known Allergies Allergy (Verified 02/05/25 23:49) Active Meds: Active Medications Generic Name Dose Route Start Last Admin Trade Name Emi PRN Reason Stop Dose Admin Acetaminophen 650 mg 02/06/25 00:18 Acetaminophen 325 Mg Tablet PO 02/06/26 00:17 Q6HR PRN Pain Scale 1 - 3 or fever Apixaban 5 mg 02/06/25 21:00 02/07/25 21:30 Apixaban 5 Mg Tablet PO 02/06/26 20:59 5 mg BID JE Administration Aspirin 81 mg 02/06/25 09:00 02/07/25 09:57 Aspirin 81 Mg Tablet.Dr PO 02/06/26 08:59 81 mg DAILY JE Administration Atorvastatin Calcium 40 mg 02/06/25 09:00 02/07/25 09:56 Atorvastatin 40 Mg Tablet PO 02/06/26 08:59 40 mg DAILY JE Administration Carvedilol 25 mg 02/06/25 11:15 02/07/25 16:23 Carvedilol 25 Mg Tablet PO 02/06/26 11:14 25 mg BID.WITH.MEALS JE Administration Folic Acid 1 mg 02/06/25 09:00 02/07/25 09:57 Folic Acid 1 Mg Tablet PO 02/06/26 08:59 1 mg DAILY JE Administration Furosemide 20 mg 02/07/25 16:00 02/07/25 16:22 Furosemide 40 Mg/4 Ml Vial IV-PUSH 02/07/26 15:59 20 mg BID@0800,1600 JE Administration Ceftriaxone Sodium 1 gm in 50 mls @ 100 mls/hr 02/07/25 09:30 02/07/25 09:56 Rocephin IV 100 mls/hr Q24H JE Administration Multivitamins 1 tab 02/06/25 09:00 02/07/25 09:57 Multivitamin 1 Tab Tablet PO 02/06/26 08:59 1 tab DAILY JE Administration Ondansetron HCl 4 mg 02/06/25 00:18 Ondansetron 4 Mg/2 Ml Vial IV-PUSH 02/06/26 00:17 Q6H PRN Nausea And Vomiting Sodium Chloride 0 ml 02/06/25 06:00 02/08/25 06:31 Sodium Chloride 0.9 % 10 Ml Syringe IV-PUSH 02/06/26 05:59 10 ml QSHIFT JE Administration Spironolactone 25 mg 02/06/25 09:05 05/24/25 09:57 Spironolactone 25 Mg Tablet PO 02/06/26 09:04 25 mg DAILY JE Administration Tamsulosin HCl 0.4 mg 02/07/25 10:30 02/07/25 13:57 Tamsulosin 0.4 Mg Cap.Er.24h PO 02/07/26 10:29 0.4 mg DAILY JE Administration Thiamine HCl 200 mg 02/07/25 09:45 02/07/25 21:30 Thiamine 200 Mg/2 Ml Vial IV-PUSH 02/07/26 09:44 200 mg BID JE Administration A&P - Hospitalist Assessment/Plan (1) Atrial flutter: (2) Systolic heart failure: (3) Alcohol dependence: (4) Hydronephrosis: (5) CKD (chronic kidney disease): (6) ARLET (acute kidney injury): (7) Bacteriuria: (8) Hypomagnesemia: (9) Hypokalemia: Plan Acute on chronic systolic heart failure-cardiomyopathy echo results from [facility] on chart- EF 45%. Repeat echocardiogram here showed his EF is 50 to 55%. New onset A-flutter- rate controlled - Patient was seen by knife glazer. Please refer to Dr. Weller's note for details - Continue weight based enoxaparin- 100mg bid. Chads Vasc score is at least 3. Switched to Eliquis by cardiology. - Continue diuretics - Continue beta-franchesca - Hold off on some of the cardiomyopathy GDMT due to kidney failure. ARLET on kidney failure stage III, bilateral hydronephrosis seen on ultrasound. Kidney function improved after Carr catheter insertion draining more than a liter. UA is bland. No RBC or protein. No evidence to suggest acute glomerulonephritis Ultrasound showed bilateral hydronephrosis. I suspect that the patient may have bladder distention or prostate disease Carr catheter was inserted and a liter of urine was drained out. I started patient on Flomax. Patient would need a comprehensive urological evaluation that could be done in the outpatient setting. May need to have a cystoscopy, prostate exam, prostate evaluation and others. Recommend to keep Carr catheter for the next 2 weeks until seen by urology in the outpatient setting. Bacteriuria with no significant WBC in the urine. 3 days of antibiotic. Hematuria which is likely secondary to Carr catheter insertion. On presentation his UA did not have any RBC. Hold Eliquis until his hematuria resolved sepsis Monitor H&H. Lower extremities edema secondary to above Requested venous study rule out DVT that came back negative for DVT. Continue gentle diuresis. Alcohol dependence, 6-8 beers daily - CIWA scale as needed -MVI, folic acid. Thiamine intravenously 200 twice daily. HLD CAD, history of CABG HTN DVT PPx e noxaparin, switch to Eliquis. Diet order h eart healthy CODE STATUS f ull code Documented By: Vonda Kasper MD 02/08/25916 Signed By: <Electronically signed by Vonda Kasper MD> 02/08/25919 Progress Note Author Elizabeth Weller [facility] Note Date/Time February 08, 2025 1:06p m [facility] [address] [place] [address] Cardiology Progress Note Signed Patient: Isauro Saldivar MR#: [id number] : 1950 Acct:[id number] Age/Sex: 74 / M Adm Date: 5 Loc: Room: [address] [place] [address] Type: ADM IN Attending Dr: Vonda Kasper MD Copies to: ~ Date of Service: 02/08/2025 Subjective Interval history: Patient feels better. Shortness of breath has improved. Renal function improving. Reasonable diuresis but still have edema Exam Physical Exam Vital Signs: Temp Pulse Resp BP Pulse Ox O2 Del Method 97.9 F 83 18 135/72 94 L Room Air 02/08/25 10:02/08/25 10:02/08/25 10:02/08/25 10:00 02/08/25 10:00 02/08/25 10:00 Eyes General: appearance normal, both eyes and all related structures Pupils: PERRL Neck Neck: normal visual inspection, supple and no lymphadenopathy noted Neck mass: No Thyroid: thyroid normal Carotids: normal carotid upstroke Chest Chest palpation & inspection: normal inspection of the chest Resp Effort & Inspection: normal respiratory effort Auscultation: clear to auscultation bilaterally Cardio Palpation: normal PMI Rate: regular rate Rhythm: regular rhythm and abnormal rhythm irregularly irregular Heart Sounds: S1 normal, S2 normal and murmur systolic II/ GI Palpation: soft and no hepatosplenomegaly Percussion: normal to percussion Auscultation: normal bowel sounds Skin General: no rashes or lesions noted and dry skin Objective Labs 02/07/25 05:41 02/08/25 06:36 Labs: Laboratory Results - last 24 hr 02/08/25 06:36 PHA Creatinine Clear 43.77 Sodium 141 Potassium 3.3 L Chloride 97 L Carbon Dioxide 34.8 H Anion Gap 12.5 BUN 25 Creatinine 1.63 H Est GFR (CKD-EPI) 43.669 Glucose 91 Calcium 9.1 Phosphorus 4.1 Magnesium 2.0 A&P - Cardiology (1) Systolic heart failure: Code(s): I50.20 - Unspecified systolic (congestive) heart failure Plan Assessment 1. Pictures of heart failure. I reviewed the echocardiogram suggestive of ejection fraction at 50-55%. With severe pulmonary hypertension. The picture appear more consistent with right-sided heart failure. 2. Atrial flutter likely to be longstanding considering echo demonstrated bilateral enlargement 3. Coronary artery disease prior 5 vessel bypass surgery back in 2010 in [facility] 4. Excessive alcohol use 5. Mixed hyperlipidemia 6. Hypertension 7. Obesity 8. Acute on chronic kidney disease but continues to have significant volume overload with component of cardiorenal syndrome. Renal function improving 9. Mild aortic stenosis Plan 1. Considering it appears that the patient had more right-sided heart failure than left-sided and considering borderline low blood pressure and renal function I discontinued hydralazine and nitrate to allow effective diuresis 2. Continue IV diuresis with close monitoring of renal function 3. I reviewed echocardiogram with the patient 4. I counseled the patient regarding the need to stop drinking 5. Patient meet the criteria for anticoagulation risk, benefit and alternative discussed with him at length he understood and agreed he is not a candidate for Coumadin considering his alcohol use we will continue Eliquis 6. Will need ischemic evaluation 7. Continue to monitor renal function Documented By: Elizabeth Weller MD 02/08/25 4789 Signed By: <Electronically signed by MD Elizabeth Weller> 02/08/25 1069 Progress Note Author Elizabeth Weller [facility] Note Date/Time February 09, 2025 10:27 am [facility] [address] [place] [address] Cardiology Progress Note Signed Patient: Isauro Saldivar MR#: [id number] : 1950 Acct:[id number] Age/Sex: 74 / M Adm Date: 5 Loc: 3T Room: [address] [place] [address] Type: ADM IN Attending Dr: Topher Jewell DO Copies to: ~ Date of Service: 02/09/2025 Subjective Interval history: Patient feels better. Shortness of breath has improved. Renal function improving. Reasonable diuresis but still have edema Exam Physical Exam Vital Signs: Temp Pulse Resp BP Pulse Ox O2 Del Method 98.4 F 75 17 129/63 95 Room Air 02/09/25 09:13 02/09/25 09:13 02/09/25 09:13 02/09/25 09:13 02/09/25 09:13 02/09/25 09:13 Eyes General: appearance normal, both eyes and all related structures Pupils: PERRL Neck Neck: normal visual inspection, supple and no lymphadenopathy noted Neck mass: No Thyroid: thyroid normal Carotids: normal carotid upstroke Chest Chest palpation & inspection: normal inspection of the chest Resp Effort & Inspection: normal respiratory effort Auscultation: clear to auscultation bilaterally Cardio Palpation: normal PMI Rate: regular rate Rhythm: regular rhythm and abnormal rhythm irregularly irregular Heart Sounds: S1 normal, S2 normal and murmur systolic II/ GI Palpation: soft and no hepatosplenomegaly Percussion: normal to percussion Auscultation: normal bowel sounds Skin General: no rashes or lesions noted and dry skin Extrem General: full ROM, capillary refill normal, no clubbing, cyanosis or edema and edema Laterality: bilaterally Severity: 2+ Objective Labs 02/09/25 07:05 02/09/25 07:05 Labs: Laboratory Results - last 24 hr 02/08/25 02/09/25 14:46 07:05 Corrected WBC 4.1 Uncorrected WBC Count 4.1 RBC 4.21 Hgb 13.2 13.0 Hct 38.3 L 38.4 L MCV 91.2 MCH 30.9 MCHC 33.8 RDW 13.6 Plt Count 91 L MPV 8.7 Neut % (Auto) 57.5 Lymph % (Auto) 27.7 Cochran % (Auto) 9.9 Eos % (Auto) 3.9 Baso % (Auto) 1.0 Nucleat RBC Rel Count 0.1 Neut # (Auto) 2.3 Lymph # (Auto) 1.1 Cochran # (Auto) 0.4 Eos # (Auto) 0.2 Baso # (Auto) 0.0 PHA Creatinine Clear 54.51 Sodium 141 Potassium 3.2 L Chloride 97 L Carbon Dioxide 35.5 H Anion Gap 11.7 BUN 22 Creatinine 1.31 H Est GFR (CKD-EPI) 56.765 Glucose 86 Calcium 9.1 A&P - Cardiology (1) Systolic heart failure: Code(s): I50.20 - Unspecified systolic (congestive) heart failure Plan Assessment 1. Pictures of heart failure. I reviewed the echocardiogram suggestive of ejection fraction at 50-55%. With severe pulmonary hypertension. The picture appear more consistent with right-sided heart failure. 2. Atrial flutter likely to be longstanding considering echo demonstrated bilateral enlargement 3. Coronary artery disease prior 5 vessel bypass surgery back in 2010 in [facility] 4. Excessive alcohol use 5. Mixed hyperlipidemia 6. Hypertension 7. Obesity 8. Acute on chronic kidney disease but continues to have significant volume overload appears due to bladder neck obstruction and urinary retention 9. Mild aortic stenosis Plan 1. Considering it appears that the patient had more right-sided heart failure than left-sided and considering borderline low blood pressure and renal function I discontinued hydralazine and nitrate to allow effective diuresis 2. Continue IV diuresis with close monitoring of renal function 3. I reviewed echocardiogram with the patient 4. I counseled the patient regarding the need to stop drinking 5. Patient meet the criteria for anticoagulation risk, benefit and alternative discussed with him at length he understood and agreed he is not a candidate for Coumadin considering his alcohol use we will continue Eliquis 6. Will need ischemic evaluation 7. Renal Multaq function continue to improve Documented By: Elizabeth Weller MD 02/09/25 1026 Signed By: <Electronically signed by MD Elizabeth Weller> 02/09/25 1027 Progress Note Author Topher Jewell [facility] Note Date/Time February 09, 2025 3:16p m [facility] [address] [place] [address] Hospitalist Progress Note Signed Patient: Isauro Saldivar MR#: [id number] : 1950 Acct:[id number] Age/Sex: 74 / M Adm Date: 5 Loc: 3T Room: [address] [place] [address] Type: ADM IN Attending Dr: Topher Jewell DO Copies to: ~ Date of Service: 02/09/2025 Subjective Subjective Narrative: Is feeling better. Minimal shortness of breath at this time. He says my legs are always large. But I pointed out that there is a tremendous amount of pitting edema in his legs. The Carr catheter placed yesterday is still producing a moderate amount of hematuria. The patient is not having bladder cramping pain at this time. Exam Physical Exam Vital Signs: Temp Pulse Resp BP Pulse Ox O2 Del Method 98.4 F 57 L 17 132/73 94 L Room Air 02/09/25 09:13 02/09/25 12:35 02/09/25 12:35 02/09/25 12:35 02/09/25 12:35 02/09/25 12:35 Narrative: Sitting upright in bed. Watching television. : Carr catheter drains urine which is bright red. No gross clots. Pulm: Diminished in the bases bilaterally. No wheezing. Cardiac: Regular rate and rhythm. No rubs gallops auscultation B-Nexa GI: Bowelsounds are normal. Abdomen is soft and nontender to palpation. Lower extremities: Does have massive 3+ pitting edema from his kneecaps down to his ankles bilaterally but it is clear that this is improved some here during the hospital stay. Objective Lab Results 02/09/25 07:05 02/09/25 07:05 Meds Allergies and Active Meds Allergies No Known Allergies Allergy (Verified 02/05/25 23:49) Active Meds: Active Medications Generic Name Dose Route Start Last Admin Trade Name Freq PRN Reason Stop Dose Admin Acetaminophen 650 mg 02/06/25 00:18 Acetaminophen 325 Mg Tablet PO 02/06/26 00:17 Q6HR PRN Pain Scale 1 - 3 or fever Apixaban 5 mg 02/06/25 21:00 02/07/25 21:30 Apixaban 5 Mg Tablet PO 02/06/26 20:59 5 mg BID JE Administration Aspirin 81 mg 02/06/25 09:00 02/09/25 09:15 Aspirin 81 Mg Tablet.Dr PO 02/06/26 08:59 81 mg DAILY JE Administration Atorvastatin Calcium 40 mg 02/06/25 09:00 02/09/25 09:15 Atorvastatin 40 Mg Tablet PO 02/06/26 08:59 40 mg DAILY JE Administration Carvedilol 25 mg 02/06/25 11:15 02/09/25 09:16 Carvedilol 25 Mg Tablet PO 02/06/26 11:14 25 mg BID.WITH.MEALS JE Administration Folic Acid 1 mg 02/06/25 09:00 02/09/25 09:15 Folic Acid 1 Mg Tablet PO 02/06/26 08:59 1 mg DAILY JE Administration Furosemide 20 mg 02/07/25 16:00 02/09/25 09:18 Furosemide 40 Mg/4 Ml Vial IV-PUSH 02/07/26 15:59 20 mg BID@0800,1600 JE Administration Ceftriaxone Sodium 1 gm in 50 mls @ 100 mls/hr 02/07/25 09:30 02/09/25 09:15 Rocephin IV 100 mls/hr Q24H JE Administration Multivitamins 1 tab 02/06/25 09:00 02/09/25 09:15 Multivitamin 1 Tab Tablet PO 02/06/26 08:59 1 tab DAILY JE Administration Ondansetron HCl 4 mg 02/06/25 00:18 Ondansetron 4 Mg/2 Ml Vial IV-PUSH 02/06/26 00:17 Q6H PRN Nausea And Vomiting Sodium Chloride 0 ml 02/06/25 06:00 02/09/25 07:46 Sodium Chloride 0.9 % 10 Ml Syringe IV-PUSH 02/06/26 05:59 Not Given QSHIFT JE Spironolactone 25 mg 02/06/25 09:05 02/09/25 09:15 Spironolactone 25 Mg Tablet PO 02/06/26 09:04 25 mg DAILY JE Administration Tamsulosin HCl 0.4 mg 02/07/25 10:30 02/09/25 09:15 Tamsulosin 0.4 Mg Cap.Er.24h PO 02/07/26 10:29 0.4 mg DAILY JE Administration Thiamine HCl 100 mg 02/11/25 09:00 Thiamine 100 Mg Tablet PO 02/11/26 08:59 DAILY JE Thiamine HCl 200 mg 02/08/25 09:45 05/26/25 09:16 Thiamine 100 Mg Tablet PO 02/10/25 09:44 200 mg BID JE Administration A&P - Hospitalist Assessment/Plan (1) Atrial flutter: (2) Alcohol dependence: (3) Hydronephrosis: (4) CKD (chronic kidney disease): (5) ARLET (acute kidney injury): (6) Bacteriuria: (7) Hypomagnesemia: (8) Hypokalemia: (9) Pulmonary hypertension: Plan Acute RIGHT HEART FAILURE with SEVERE PULMONARY HYPERTENSION-cardiomyopathy echoresults from [place] on chart- EF 45%. Repeat echocardiogram here showed his EF is 50 to 55%, but RVSP is 60 mmHg which is severe pulmonary hypertension. New onset A-flutter- rate controlled - Patient was seen by knife glazer. Please refer to Dr. Weller's note for details -Agree with long-term Eliquis anticoagulation, but will hold this for 24 hours to reduce hematuria. - Continue diuretics Acute kidney injury on top of chronic kidney disease stage III, bilateral hydronephrosis seen on ultrasound. Kidney function improved after Carr catheter insertion draining more than a liter. UA is bland. No RBC or protein. No evidence to suggest acute glomerulonephritis Ultrasound showed bilateral hydronephrosis, due to the bladder obstruction I suspect that the patient may have bladder distention or prostate hypertrophy Carr catheter was inserted and a liter of urine was drained out. Newly started on Flomax. Patient would need a comprehensive urological evaluation that we will have to be done in the outpatient setting. May need to have a cystoscopy, prostate exam, prostate evaluation and others. Recommend to keep Carr catheter for the next 2 weeks until seen by urology in the outpatientsetting. Bacteriuria with no significant WBC in the urine. 3 days of antibiotic. Hematuria which is likely secondary to Carr catheter insertion. On presentation his UA did not have any RBC. Hold Eliquis until his hematuria resolved. Monitor H&H. Lower extremities edema secondary to severe pulmonary hypertension. Requested venous study rule out DVT that came back negative for DVT. Continue diuresis. Alcohol dependence, 6-8 beers daily - CIWA scale as needed -MVI, folic acid. Thiamine intravenously 200 twice daily. HLD CAD, history of CABG HTN DVT PPx Eliquis. Diet order h eart healthy CODE STATUS f ull code Documented By: Topher Jewell DO [id number] Signed By: <Electronically signed by Topher Jewell DO> 02/09/25 1516 Progress Note Author Elizabeth Weller [facility] Note Date/Time February 10, 2025 8:27a m [facility] [address] [place] [address] Cardiology Progress Note Signed Patient: Isauro Saldivar MR#: [id number] : 1950 Acct:[id number] Age/Sex: 74 / M Adm Date: 5 Loc: Room: [address] [place] [address] Type: ADM IN Attending Dr: Topher Jewell DO Copies to: ~ Date of Service: 02/10/2025 Subjective Interval history: Patient feels better. Shortness of breath has improved. Renal function improving. Marked improvement of his edema Exam Physical Exam Vital Signs: Temp Pulse Resp BP Pulse Ox O2 Del Method 97.6 F 66 18 146/76 H 93 L Room Air 02/10/25 07:40 02/10/25 07:40 02/10/25 07:40 02/10/25 07:40 02/10/25 07:40 02/10/25 07:40 Eyes General: appearance normal, both eyes and all related structures Pupils: PERRL Neck Neck: normal visual inspection, supple and no lymphadenopathy noted Neck mass: No Thyroid: thyroid normal Carotids: normal carotid upstroke Chest Chest palpation & inspection: normal inspection of the chest Resp Effort & Inspection: normal respiratory effort Auscultation: clear to auscultation bilaterally Cardio Palpation: normal PMI Rate: regular rate Rhythm: regular rhythm and abnormal rhythm irregularly irregular Heart Sounds: S1 normal, S2 normal and murmur systolic II/ GI Palpation: soft and no hepatosplenomegaly Percussion: normal to percussion Auscultation: normal bowel sounds Skin General: no rashes or lesions noted and dry skin Extrem General: full ROM, capillary refill normal, no clubbing, cyanosis or edema and edema Laterality: bilaterally Severity: pitting and 1+ Objective Labs 02/09/25 07:05 02/10/25 07:07 Labs: Laboratory Results - last 24 hr 02/09/25 02/10/25 07:05 07:07 PHA Creatinine Clear 54.51 58.23 Sodium 141 139 Potassium 3.2 L 3.1 L Chloride 97 L 97 L Carbon Dioxide 35.5 H 36.1 H Anion Gap 11.7 9.0 BUN 22 21 Creatinine 1.31 H 1.23 Est GFR (CKD-EPI) 56.765 > 60.0 Glucose 86 86 Calcium 9.1 8.6 A&P - Cardiology (1) Systolic heart failure: Code(s): I50.20 - Unspecified systolic (congestive) heart failure Plan Assessment 1. Clinical picture of heart failure appears to be more right-sided. Componentof his edema is related to obstructive uropathy 2. Atrial flutter likely to be longstanding considering echo demonstrated bilateral enlargement 3. Coronary artery disease prior 5 vessel bypass surgery back in 2010 in [facility] 4. Excessive alcohol use 5. Mixed hyperlipidemia 6. Hypertension 7. Obesity 8. Acute on chronic kidney disease but continues to have significant volume overload appears due to bladder neck obstruction and urinary retention improving 9. Mild aortic stenosis Plan 1. Switch to oral diuretics 2. Patient meet the criteria for anticoagulation risk, benefit and alternative discussed with him at length he understood and agreed he is not a candidate for Coumadin considering his alcohol use we will continue Eliquis 3. Patient can be discharged home cardiac marina 4. Follow-up outpatient for consideration for cardioversion and ischemic evaluation outpatient Documented By: Elizabeth Weller MD 02/10/25 0804 Signed By: <Electronically signed by MD Elizabeth Weller> 02/10/25 0870
--- OUTSIDE RECORDS SUMMARY | 2025-02-20 12:10 | XMS_ITS | Clinical Summary ---
Author Organization [facility] tem Address [id number] [place] [address] Care Team Providers Care Imagery Intelligence Name Role Phone Unavailable Primary Care Provider Unavailabl e Social History Tobacco Use Types Packs/Day Years Used Date Smoking Tobacco: Never Assessed Childcare Answer Date Recorded Childcare Unknown 02/26/2019 Employment Answer Date Recorded Employment Unknown 02/26/2019 Sex and Gender Information Value Date Recorded Sex Assigned at Not on file Legal Sex Male 11:29 AM EDT Gender Identity Not on file Sexual Orientation Not on file Plan of Treatment Not on file Medical Devices Not on file
--- OUTSIDE RECORDS SUMMARY | 2025-02-20 12:10 | XMS_ITS | Clinical Summary ---
Author Organization [facility] Address [address] [place] [address] Care Team Providers Care Shake Backboard Notcher Name Role Phone Unavailable Primary Care Provider Unavailabl e Social History Tobacco Use Types Packs/Day Years Used Date Smoking Tobacco: Never Assessed Sex and Gender Information Value Date Recorded Sex Assigned at Not on file Legal Sex Male 9:28 PM EDT Gender Identity Not on file Sexual Orientation Not on file Last Filed Vital Signs Vital Sign Reading Time Taken Comments Blood Pressure 138/80 10/08/2019 12:00 PM EST Pulse - - Temperature - - Respiratory Rate - - Oxygen Saturation - - Inhaled Oxygen Concentration - - Weight 90.9 kg (200 lb 6.4 oz) 10/08/2019 12:00 PM EST Height 177.8 cm (5' 10 ) 10/08/2019 12:00 PM EST Body Mass Index 28.75 10/08/2019 12:00 PM EST Plan of Treatment Not on file
--- OUTSIDE RECORDS SUMMARY | 2025-02-20 12:10 | XMS_ITS | Encounter Summary ---
Author Organization [facility] Address [address] [place] [address] Phone Care Team Providers Care Orange Picker Name Role Phone Ricardo Flores MD Primary Care Provider [phone] Encounter Details Date Type Department Care Team (Late st Contact Info) Description 02/07/2025 Scanned Document [facility] [address] [place] [address] Scanning, Generic Provider Social History Tobacco Use Types Packs/Day Years Used Date Smoking Tobacco: Never Assessed Sex and Gender Information Value Date Recorded Sex Assigned at Not on file Legal Sex Male 9:20 AM EDT Gender Identity Not on file Sexual Orientation Not on file documented as of this encounter Plan of Treatment Upcoming Encounters Date Type Department Care Team (Late st Contact Info) Description 04/02/2025 2:30 PM EDT Office Visit [place] [id number] [address] Elizabeth Weller MD [address] [facility] [address] [place] [address] documented as of this encounter Procedures Procedure Name Priority Date/Time Associated Diagnosis Comments ECHOCARDIOGRAM 02/07/2025 documented in this encounter Results * Echocardiogram (02/07/2025) Narrative 02/07/2025 Ordered by an unspecified provider. us Generic Provider Scanning CV ECHO PROCEDURES Fin al Result documented in this encounter Visit Diagnoses Not on filedocumented in this encounter Care Teams Orange Picker Relationship Specialty Start Date End Date Ricardo Flores MD [address] [place] [address] PCP - General Family Medicine 02/06/25 documented as of this encounter
--- OUTSIDE RECORDS SUMMARY | 2025-02-20 12:10 | XMS_ITS | Clinical Summary ---
Author Organization [facility] Address [address] [place] [address] Phone Care Team Providers Care Electrical Manager Name Role Phone Ricardo Flores MD Primary Care Provider [phone] Encounters Date Type Department Care Team Description 02/07/2025 Scanned Document [facility] [address] [place] [id number] Scanning, Generic Provider 02/06/2025 Scanned Document [facility] [address] [place] [phone] Scanning, Generic Provider from Last 3 Months Social History Tobacco Use Types Packs/Day Years Used Date Smoking Tobacco: Never Assessed Sex and Gender Information Value Date Recorded Sex Assigned at Not on file Legal Sex Male 9:20 AM EDT Gender Identity Not on file Sexual Orientation Not on file Plan of Treatment Upcoming Encounters Date Type Department Care Team (Late st Contact Info) Description 04/02/2025 2:30 PM EDT Office Visit [facility] [address] [facility] [address] [place] [address] Elizabeth Weller MD [address] [facility] [place] [address] Health Maintenance Due Date Last Done Comments CT Colonography 1949 Colonoscopy 1949 Colorectal Cancer Screening 1950 Creatinine Level 1949 FIT-DNA (Cologuard) 1949 FIT 1949 Lipid Panel 1950 Medicare Annual Wellness Vis it (AWV) 1949 Potassium Level 1949 Sigmoidoscopy 1949 Diabetes Screening 1967 Hepatitis C Screening 1967 Pneumococcal Vaccine (1 of 2 - PCV) 1968 DTaP/Tdap/Td Vaccines (1 - Tdap) 1971 Zoster Vaccines (1 of 2) 1999 RSV High Risk: (Elderly (60+ ) or Population) (1 - 1-dose 75+ series) 2024 COVID-19 Vaccine (1 - 2023-2 5 season) 2024 Influenza Vaccine (Season Ended) 2025 Echocardiogram 02/07/2026 02/07/2025 HIB Vaccines Aged Out No longer eligi ble based on patient's age to complete this topic HPV Vaccines Aged Out No longer eligi ble based on patient's age to complete this topic Hepatitis A Vaccines Aged Out No long er eligible based on patient's age to complete this topic Hepatitis B Vaccines Aged Out No long er eligible based on patient's age to complete this topic IPV Vaccines Aged Out No longer eligi ble based on patient's age to complete this topic Meningococcal Vaccine Aged Out No lorenzo gunnar eligible based on patient's age to complete this topic Rotavirus Vaccines Aged Out No longer eligible based on patient's age to complete this topic Procedures Procedure Name Priority Date/Time Associated Diagnosis Comments ECHOCARDIOGRAM 02/07/2025 from Last 3 Months Results * Echocardiogram (02/07/2025) Narrative 02/07/2025 Ordered by an unspecified provider. us Generic Provider Scanning CV ECHO PROCEDURES Fin al Result from Last 3 Months Insurance ANTHEM MEDICARE ADVANTAGE ANTHEM MEDICARE ADVANTAGE Care Teams Electrical Manager Relationship Specialty Start Date End Date Ricardo Flores MD [address] [place] [address] PCP - General Family Medicine 02/06/25
--- OUTSIDE RECORDS SUMMARY | 2025-02-20 12:10 | XMS_ITS | Encounter Summary ---
Author Organization [facility] Address [address] [place] [address] Phone Care Team Providers Care Kitchen Aide Name Role Phone Ricardo Flores MD Primary Care Provider [phone] Encounter Details Date Type Department Care Team (Late st Contact Info) Description 02/06/2025 Scanned Document [facility] [address] [place] [address] Scanning, Generic Provider Social History [...] Description 04/02/2025 2:30 PM EDT Office Visit [place] [id number] [facility] [address] [place] [address] Elizabeth Weller MD [address] [facility] [address] [place], [place] [id number] documented as of this encounter Visit Diagnoses Not on filedocumented in this encounter Care Teams Kitchen Aide Relationship Specialty Start Date End Date Ricardo Flores MD [address] [facility] [place] [address] PCP - General Family Medicine 02/06/25 documented as of this encounter
--- OUTSIDE RECORDS SUMMARY | 2025-02-20 12:10 | XMS_ITS | Patient Health Record ---
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 Name Role Phone Zbigniew Phillip JONES Primary Care Provider UnavailSaw Drummond [phone] Results Component Value Reference Range Notes DRUG SCREEN RAPID (URINE) Reviewed date:02/04/2025 05:57:29 PM Interpretation: Performing Lab: Notes/Report: [facility] , Cannabinoid Screen Urine NEGATIVE NEGATIVE Phencyclidine Screen Urine NEGATIVE NEGATIVE Cocaine Screen Urine NEGATIVE NEGATIVE Methamphetamines Screen Urine NEGATIVE NEGATIVE Opiate Screen Urine NEGATIVE NEGATIVE Amphetamine Screen Urine NEGATIVE NEGATIVE Benzodiazepines Screen Urine NEGATIVE NEGATIVE Tricyclic Antidepressant Urine NEGATIVE NEGATIVE Methadone Screen Urine NEGATIVE NEGATIVE Barbiturates Screen Urine NEGATIVE NEGATIVE Oxycodone Screen Urine NEGATIVE NEGATIVE Buprenorphine Screen Urine NEGATIVE NEGATIVE TCA (Trycyclic Antidepressants): 300 ng/mL AMP (Amphetamine): 500 ng/mL OPI (Opiates): 100 ng/mL JOSE J (Cocaine): 150 ng/mL OXY (Oxycodone): 100 ng/mL BZO (Benzodiazepines): 150 ng/mL BAR (Barbiturates): 200 ng/mL THC (Cannabinoids): 50 ng/mL BUP (Buprenorphine): 10 ng/mL MTD (Methadone): 200 ng/mL DRUG CLASS TEST SYSTEM CUT-OFF CONCENTRATIONS ARE mAMP (Methamphetamine): 500 ng/mL PCP (Phencyclidine): 25 ng/mL FOLLOWS: Performing Lab: see note ML - [facility] LB UA (CLEAN or CATCH) MICROSCO PIC IF INDICATE Reviewed date:02/04/2025 05:57:29 PM Interpretation: Performing Lab: Notes/Report: [facility] , Color Urine LT. YELLOW YELLOW Clarity Urine CLEAR CLEAR Specific [place] Urine <=1.005 1.005-1.025 pH Urine 6.0 5.0-9.0 Protein Urine NEGATIVE NEG/TRACE mg/dL Glucose Urine UA NEGATIVE NEGATIVE mg/dL Bilirubin Urine NEGATIVE NEGATIVE Ketones Urine NEGATIVE NEGATIVE mg/dL Blood Urine NEGATIVE NEGATIVE Nitrite Urine NEGATIVE NEGATIVE Urobilinogen Urine 0.2 0.2-1.0 EU/dL Leukocyte Esterase Urine SMALL NEGATIVE Urine Microscopic Indicated YES Performing Lab: see note ML - [facility] LB URINE MICROSCOPIC ONLY Reviewed date:02/04/2025 05:57:29 PM Interpretation: Performing Lab: Notes/Report: [facility] , WBC Urine 5-10 NONE SEEN #/HPF RBC Urine 0-2 0-2 #/HPF Bacteria Urine SMALL NONE SEEN #/HPF Mucus Urine NONE SEEN NONE SEEN Squamous Epithelial Cell Urine RARE NONE/RARE #/LPF Crystals Seen? None Seen None Seen #/HPF Cast Seen? NONE SEEN NONE SEEN #/LPF Urine Culture Indicated [place] Performing Lab: see note ML - [facility] LB Urine Culture - [facility] Reviewed date:02/09/2025 03:43:55 PM Interpretation: Performing Lab: Notes/Report: [facility] , Urine Culture - [facility] See Below For Report Urine Culture - FR Organism: 1.1 O:KLEBOX Testing performed at [facility] Count Antibiotic Interpretation DINH Status Isolated Urine Culture - [facility] [place] Culture - [place] [address], [place] [address] Urine Culture - FR Organism: 1.1 O:KLEBOX Testing performed at [facility] Count Antibiotic Interpretation DINH Status Isolated Urine Culture - FR Urine Culture - [facility] See Below For Report Urine Culture - [facility] Organism: 1.1 O:KLEBOX Testing performed at [facility] Count Antibiotic Interpretation DINH Status Isolated Urine Culture - FR Urine Culture - [facility] See Below For Report Urine Culture - [facility] Organism: 1.1 O:KLEBOX Testing performed at [facility] Count Antibiotic Interpretation DINH Status Isolated Urine Culture - FR Urine Culture - FR >100,000 Urine Culture - FR Organism: 1.1 O:KLEBOX Testing performed at [facility] Count Antibiotic Interpretation DINH Status Isolated Urine Culture - [facility] Urine Culture - [facility] See Below For Report Urine Culture - [facility] Organism: 1.1 O:KLEBOX Testing performed at [facility] Count Antibiotic Interpretation DINH Status Isolated Urine Culture - [facility] [place]rine Culture - [facility] Amikacin S F Urine Culture - [facility] Organism: 1.1 O:KLEBOX Testing performed at [facility] Count Antibiotic Interpretation DINH Status Isolated Urine Culture - [facility] [place]rine Culture - [facility] Amoxicillin/Clavula keerthi S F Urine Culture - FR Organism: 1.1 O:KLEBOX Testing performed at [facility] Count Antibiotic Interpretation DINH Status Isolated Urine Culture - [facility] [place]rine Culture - [facility] Aztreonam S F Urine Culture - [facility] Organism: 1.1 O:KLEBOX Testing performed at [facility] Count Antibiotic Interpretation DINH Status Isolated Urine Culture - [facility] [place]rine Culture - [facility] Ceftazidime S F Urine Culture - [facility] Organism: 1.1 O:KLEBOX Testing performed at [facility] Count Antibiotic Interpretation DINH Status Isolated Urine Culture - [facility] [place]rine Culture - [facility] Ceftazidime/Avibactam S F Urine Culture - [facility] Organism: 1.1 O:KLEBOX Testing performed at [facility] Count Antibiotic Interpretation DINH Status Isolated Urine Culture - [facility] [place]rine Culture - [facility] Ceftolozane/Tazobac haney S F Urine Culture - [facility] Organism: 1.1 O:KLEBOX Testing performed at [facility] Count Antibiotic Interpretation DINH Status Isolated Urine Culture - [facility] [place]rine Culture - [facility] Ciprofloxacin S F Urine Culture - [facility] Organism: 1.1 O:KLEBOX Testing performed at [facility] Count Antibiotic Interpretation DINH Status Isolated Urine Culture - [facility] [place]rine Culture - [facility] Ertapenem S F Urine Culture - [facility] Organism: 1.1 O:KLEBOX Testing performed at [facility] Count Antibiotic Interpretation DINH Status Isolated Urine Culture - [facility] [place]rine Culture - [facility] Gentamicin S F Urine Culture - [facility] Organism: 1.1 O:KLEBOX Testing performed at [facility] Count Antibiotic Interpretation DINH Status Isolated Urine Culture - [facility] [place]rine Culture - [facility] Levofloxacin S F Urine Culture - [facility] Organism: 1.1 O:KLEBOX Testing performed at [facility] Count Antibiotic Interpretation DINH Status Isolated Urine Culture - [facility] [place]rine Culture - [facility] Meropenem S F Urine Culture - [facility] Organism: 1.1 O:KLEBOX Testing performed at [facility] Count Antibiotic Interpretation DINH Status Isolated Urine Culture - [facility] [place]rine Culture - [facility] Meropenem/Vaborbact am S F Urine Culture - [facility] Organism: 1.1 O:KLEBOX Testing performed at [facility] Count Antibiotic Interpretation DINH Status Isolated Urine Culture - [facility] [place]rine Culture - [facility] Nitrofurantoin S F Urine Culture - FR Organism: 1.1 O:KLEBOX Testing performed at [facility] Count Antibiotic Interpretation DINH Status Isolated Urine Culture - [facility] [place]rine Culture - [facility] Tetracycline S F Urine Culture - [facility] Organism: 1.1 O:KLEBOX Testing performed at [facility] Count Antibiotic Interpretation DINH Status Isolated Urine Culture - [facility] [place]rine Culture - [facility] Tigecycline S F Urine Culture - [facility] Organism: 1.1 O:KLEBOX Testing performed at [facility] Count Antibiotic Interpretation DINH Status Isolated Urine Culture - [facility] [place]rine Culture - [facility] Tobramycin S F Urine Culture - [facility] Organism: 1.1 O:KLEBOX Testing performed at [facility] Count Antibiotic Interpretation DINH Status Isolated Urine Culture - [facility] [place]rine Culture - [facility] Ampicillin/Sulbactam I F Urine Culture - [facility] Organism: 1.1 O:KLEBOX Testing performed at [facility] Count Antibiotic Interpretation DINH Status Isolated Urine Culture - [facility] [place]rine Culture - [facility] Cefazolin R F Urine Culture - [facility] Organism: 1.1 O:KLEBOX Testing performed at [facility] Count Antibiotic Interpretation DINH Status Isolated Urine Culture - [facility] [place]rine Culture - [facility] Cefepime S F Urine Culture - [facility] Organism: 1.1 O:KLEBOX Testing performed at [facility] Count Antibiotic Interpretation DINH Status Isolated Urine Culture - [facility] [place]rine Culture - [facility] Ceftriaxone S F Urine Culture - [facility] Organism: 1.1 O:KLEBOX Testing performed at [facility] Count Antibiotic Interpretation DINH Status Isolated Urine Culture - [facility] [place]rine Culture - [facility] Cefuroxime S F Urine Culture - [facility] Organism: 1.1 O:KLEBOX Testing performed at [facility] Count Antibiotic Interpretation DINH Status Isolated Urine Culture - [facility] [place]rine Culture - [facility] Piperacillin/Tazoba ctam S F Urine Culture - [facility] Organism: 1.1 O:KLEBOX Testing performed at [facility] Count Antibiotic Interpretation DINH Status Isolated Urine Culture - [facility] Urine Culture - [place] Trimethoprim/Sulfa S F Urine Culture - [facility] Organism: 1.1 O:KLEBOX Testing performed at [facility] Count Antibiotic Interpretation DINH Status Isolated Urine Culture - [facility] Performing Lab: see note SEE REPORT - [employer] Manager Id information not found for OBX-specific cattle producers legend ML - [facility] LB ECG 12 lead Reviewed date:02/05/2025 08:31:49 PM Interpretation: Performing Lab: Notes/Report: Source Facility: [place] [address] Electrocardiograph Report Signed Patient: HOLLIE TATE MR#: [id number] : 1950 Acct:[id number] Age/Sex: 74 / M ADM Date: 02/03/25 Loc: MS 218-[address]: Ekta Cho M.D. Ordering Physician: Jaqui Leon NP Date of Service: 02/03/25 Procedure(s): ECG 12 lead Accession Number(s): [id number] cc: [facility] Test Date: 2025-02-03 Pat Name: HOLLIE TATE Department: Room: - Gender: Male Home Health Aide: : 1950 Requested By: [id number] Order Number: [id number] Reading MD: JEWEL JETER M.D. Measurements Intervals [place] Rate: 87 P: -97939 FL: -58585 QRS: 10 QRSD: 196 T: 172 QT: 462 QTc: 506 Interpretive Statements Atrial flutter with aberrant conduction, or ventricular premature complexes 2450 Right bundle branch block 3532 Lateral myocardial infarction, probably recent [address] depression, consistent with subendocardial injury 9150 abnormal ECG Compared to ECG 11/03/2018 19:08:24 Atrial flutter has replaced sinus rhythm Ventricular premature complex(es) now present Aberrant conduction of supraventricular beat(s) now present Right bundle-branch block now present Myocardial infarct finding now present ST (T wave) deviation now present Electronically Signed On 02-04-2025 21:41:09 EDT by JEWEL JETER M.D. Dictated By: JEWEL JETER Signed By: 02/04/252140 DD/ 46 TD/TT: Bank Sales And Service Manager: [place] [address] Electrocardiograph Report Signed Patient: MARNI TATE MR#: [id number] : 1950 Acct:[id number] Age/Sex: 74 / M ADM Date: 02/03/25 Loc: MS 218-[address]: Chuck Cho M.D. Ordering Physician: Jaqui Leon NP Date of Service: 02/03/25 Procedure(s): ECG 12 lead Accession Number(s): [id number] cc: [facility] Test Date: 2025-02-03 Pat Name: HOLLIE SÁNCHEZ Department: 94 Room: - Gender: Male Home Health Aide: : 1950 Requested By: [id number] Order Number: [id number] Reading MD: JEWEL JETER M.D. Measurements Intervals [place] Rate: 87 P: -48226 FL: -56305 QRS: 10 QRSD: 196 T: 172 QT: 462 QTc: 506 Interpretive Statements Atrial flutter with aberrant conduction, or ventricular premature complexes 2450 Right bundle br anch block 3532 Lateral myocard ial infarction, probably recent [address] depression, consistent with subendocardial injury 9150 abnormal ECG Compared to ECG 11/03/2018 19:08:24 Atrial flutter has replaced sinus rhythm Ventricular prematur e complex(es) now present Aberrant conduction of supraventricular beat(s) now present Right bundle-branch block now present Myocardial infarct finding now present ST (T wave) deviatio n now present Electronically Susy d On 02-04-2025 21:41:09 EDT by JEWEL JETER M.D. Dictated By: JEWEL JETER Signed By: 02/04/252140 DD/ 46 TD/TT: Bank Sales And Service Manager: BNP Reviewed date:02/04/2025 09:13:34 AM Interpretation: Performing Lab: Notes/Report: [facility] , NT Pro B Type Natriuretic Pept 9278.0 <=1800.0 pg/mL at 0625 RESULTS CALLED TO AKILAH BEGUM RN @BY Leatha Abarca Performing Lab: see note ML - [facility] LB CBC AUTO DIFF Reviewed date:02/04/2025 09:13:34 AM Interpretation: Performing Lab: Notes/Report: [facility] , White Blood Count 4.2 4.0-11.0 10 3/uL Red Blood Count 4.31 4.70-6.10 10 6/uL Hemoglobin 13.2 14.0-18.0 g/dL Hematocrit 40.3 42.0-54.0 % Mean Corpuscular Volume 93.5 80.0-94.0 fL Mean Corpuscular Hemoglobin 30.6 25.9-34.0 pg Mean Corpuscular HGB Conc 32.8 29.9-35.2 g/dL Red Cell Distribution Width 12.7 11.0-15.0 % Platelet Count 106 150-450 10 3/uL Mean Platelet Volume 10.9 9.5-13.5 fL Neutrophils Percent Auto 58.6 43.0-75.0 % Lymphocytes Percent Auto 29.1 20.5-60.0 % Monocytes Percent Auto 9.5 1.7-12.0 % Eosinophils Percent Auto 2.1 0.9-7.0 % Basophils Percent Auto 0.5 0.2-2.0 % Immature Granulocytes Pct Auto 0.2 0.0-0.5 % Neutrophils Absolute Auto 2.5 1.4-6.5 10 3/uL Lymphocytes Absolute Auto 1.2 1.2-3.8 10 3/uL Monocytes Absolute Auto 0.4 0.3-0.8 10 3/uL Eosinophils Absolute Auto 0.1 0.0-0.7 10 3/uL Basophils Absolute Auto 0.0 0.0-0.1 10 3/uL Immature Granulocytes Abs Auto 0.01 0.00-0.03 10 3/uL Performing Lab: see note ML - [facility] LB MAGNESIUM Reviewed date:02/04/2025 09:13:34 AM Interpretation: Performing Lab: Notes/Report: [facility] , Magnesium 1.8 1.8-2.4 mg/dL Performing Lab: see note ML - [facility] LB PHOSPHORUS Reviewed date:02/04/2025 09:13:34 AM Interpretation: Performing Lab: Notes/Report: [facility] , Phosphorus 4.2 2.6-4.7 mg/dL Performing Lab: see note ML - [facility] LB PROF 14(COMP METB) Reviewed date:02/04/2025 09:13:34 AM Interpretation: Performing Lab: Notes/Report: [facility] , Sodium 139 136-145 mmol/L Potassium 4.2 3.5-5.1 mmol/L Chloride 99 98-107 mmol/L Carbon Dioxide 27.5 21.0-32.0 mmol/L Anion Gap 16.7 Glucose 97 74-106 mg/dL Blood Urea Nitrogen 16.0 7.0-18.0 mg/dL Creatinine 1.37 0.70-1.30 mg/dL Estimated GFR ( Ирина >60 >=60 mL/min/1.73m 2 Estimated GFR (Non- Devorah 51 >=60 mL/min/1.73m 2 BUN Creatinine Ratio 11.7 Calcium 9.4 8.5-10.1 mg/dL Bilirubin Total 1.3 0.2-1.0 mg/dL Aspartate Amino Transferase 22 15-37 U/L Alanine Aminotransferase 30 16-63 U/L Alkaline Phosphatase 72 46-116 U/L Total Protein 6.3 6.4-8.2 g/dL Albumin Level 3.6 3.4-5.0 g/dL Globulin 2.7 Albumin Globulin Ratio 1.3 Performing Lab: see note ML - [facility] PTT Reviewed date:02/04/2025 09:13:34 AM Interpretation: Performing Lab: Notes/Report: [facility] , Partial Thromboplastin Time 34.5 22.3-36.2 sec Performing Lab: see note ML - [facility] LB T4 Reviewed date:02/04/2025 09:13:34 AM Interpretation: Performing Lab: Notes/Report: [facility] , T4 Thyroxine 8.10 4.50-12.10 ug/dL Performing Lab: see note ML - [facility] LB TSH Reviewed date:02/04/2025 09:13:34 AM Interpretation: Performing Lab: Notes/Report: [facility] , Thyroid Stimulating Hormone 3.368 0.358-3.740 uIU/mL Performing Lab: see note ML - [facility] LB Prothrombin Time INR Reviewed date:02/04/2025 09:13:34 AM Interpretation: Performing Lab: Notes/Report: [facility] , Prothrombin Time 13.0 9.0-11.6 sec INR 1.25 DESIRED INR: 2.5-3.5 RECURRENT THROMBOSIS 2.5-3.5 FOR PROSTHETIC HEART VALVE REPLACEMENT 2.0-3.0 CONDITIONS NOT LISTED BELOW Performing Lab: see note ML - [facility] LB Troponin I High Sensitivity Reviewed date:02/04/2025 09:13:34 AM Interpretation: Performing Lab: Notes/Report: [facility] , Troponin I High Sensitivity 35.3 4.0-76.1 pg/mL USED IN ISOLATION BUT SHOULD BE INTERPRETED IN CONJUNCTION 99TH PERCENTILE = 76.2 PG/ML WITH OTHER DIAGNOSTIC AND CLINICAL INFORMATION. CUT-OFF POINTS HAVE BEEN ESTABLISHED BASED ON THE FOURTH UNIVERSAL DEFINITION OF MYOCARDIAL INFARCTION. THE UPPER PERCENTILE OF cTnI DISTRIBUTION IN A REFERENCE POPULATION, DIAGNOSIS. HAS BEEN CONFIRMED THE DECISION THRESHOLD FOR ME REFERENCE LIMIT (URL) OF TROPONIN, DEFINED THE 99TH NOTE: HIGH-SENSITIVITY TROPONIN ASSAY IS NOT INTENDED TO BE Performing Lab: see note ML - [facility] ECG 12 lead Reviewed date:02/05/2025 08:31:49 PM Interpretation: Performing Lab: Notes/Report: Source Facility: [facility] [place] [address] [place] [address] Electrocardiograph Report Signed Patient: HOLLIE TATE MR#: [id number] : 1950 Acct:[id number] Age/Sex: 74 / M ADM Date: 02/03/25 Loc: MS 218-[address]: Ekta Cho M.D. Ordering Physician: Zayra Lopes NP Date of Service: 02/04/25 Procedure(s): ECG 12 lead Accession Number(s): [id number] cc: [facility] Test Date: 2025-02-04 Pat Name: HOLLIE TATE Department: Room: [facility] Gender: Male Home Health Aide: : 1950 Requested By: [id number] Order Number: [id number] Shawn MD: JEWEL JETER M.D. Measurements Intervals [place] Rate: 84 P: FL: QRS: 163 QRSD: 193 T: -14 QT: 448 QTc: 530 Interpretive Statements ATRIAL FLUTTER WITH ABERRANT CONDUCTION OR VENTRICULAR PREMATURE COMPLEXES RIGHT BUNDLE BRANCH BLOCK AND POSSIBLE RIGHT VENTRICULAR HYPERTROPHY [RBBB, 1.5 mV R IN V1, RAD] LEFT POSTERIOR FASCICULAR BLOCK [QRS AXIS > 109, INFERIOR Q] Compared to ECG 02/03/2025 18:47:32 Left posterior fascicular block now present No significant changes Electronically Signed On 02-04-2025 21:44:49 EDT by JEWEL JETER M.D. Dictated By: JEWEL JETER Signed By: 02/04/255 DD/ 0509 TD/TT: Bank Sales And Service Manager: [place] [address] Electrocardiograph Report Signed Patient: MARNI TATE MR#: [id number] : 1950 Acct:[id number] Age/Sex: 74 / M ADM Date: 02/03/25 Loc: MS 218- Attending Dr: Chuck Cho M.D. Ordering Physician: Zayra Lopes NP Date of Service: 02/04/25 Procedure(s): ECG 12 lead Accession Number(s): [id number] cc: [facility] Test Date: 2025-02-04 Pat Name: HOLLIE SÁNCHEZ Department: 94 Room: [facility] Gender: Male Home Health Aide: : 1950 Requested By: [id number] Order Number: [id number] Reading MD: JEWEL JETER M.D. Measurements Intervals [place] Rate: 84 P: FL: QRS: 163 QRSD: 193 T: -14 QT: 448 QTc: 530 Interpretive Statements ATRIAL FLUTTER WITH ABERRANT CONDUCTION OR VENTRICULAR PREMATURE COMPLEXES RIGHT BUNDLE BRANCH BLOCK AND POSSIBLE RIGHT VENTRICULAR HYPERTROPHY [RBBB, 1.5 mV R IN V1, RAD] LEFT POSTERIOR FASCI CULAR BLOCK [QRS AXIS > 109, INFERIOR Q] Compared to ECG 02/03/2025 18:47:32 Left posterior fasci cular block now present No significant changes Electronically Susy d On 02-04-2025 21:44:49 EDT by JEWEL JETER M.D. Dictated By: JEWEL JETER Signed By: 02/04/25 2145 DD/ 0509 TD/TT: Bank Sales And Service Manager: RAVI echo doppler complete Reviewed date:02/05/2025 08:31:49 PM Interpretation: Performing Lab: Notes/Report: Source Facility: [place] [address] Cardiology Report Signed Patient: HOLLIE TATE MR#: [id number] : 1950 Acct:[id number] Age/Sex: 74 / M ADM Date: 02/03/25 Loc: MS 218-[address]: Ekta Cho M.D. Ordering Physician: Ekta Cho M.D. Date of Service: 02/04/25 Procedure(s): RAVI echo doppler complete Accession Number(s): [id number] cc: Ekta Cho M.D. Patient Name: HOLLIE TATE MR#: [id number] : 1950 Exam Date: 02/04/2025 Ordering Doctor: DR EKTA CHO . ECHOCARDIOGRAM REPORT PROCEDURE: RAVI ECHO DOPPLER COMPLETE INDICATIONS: Dyspnea, elevated BNP, CABG, hypertension COMPARISON: None. DESCRIPTION: COMPLETE ECHOCARDIOGRAM Real-time transthoracic echocardiography with 2D, M-mode, spectral and color flow Doppler performed. QUALITY: Technical quality was good. LEFT VENTRICLE: Normal chamber size. Moderate concentric left ventricular hypertrophy. The septum is abnormal and motion likely due to bundle branch block. Systolic function is mildly reduced. Moderately thickened septal wall. LV EF: Mildly reduced left ventricular ejection fraction, (45%). DIASTOLIC: Not adequately assessed due to heart rhythm. ATRIAL SEPTUM: LEFT ATRIUM: Severe dilatation. RIGHT ATRIUM: Moderate dilatation. RIGHT VENTRICLE: Mild chamber dilatation. Mildly decreased right ventricular systolic function. TRICUSPID VALVE: Normal mobility and thickness. No stenosis with trivial regurgitation. Doppler studies reveal mildly (35-45) elevated right sided pressures. RVSP 37 mmHg MITRAL VALVE: Normal mobility and thickness. No evidence of mitral valve stenosis. Mild mitral annular calcification. Mild mitral regurgitation. AORTIC VALVE: Normal trileaflet appearance. Mildly calcified aortic valve. Normal leaflet mobility. No evidence of aortic valve stenosis. Mild aortic regurgitation. AORTIC ROOT: Normal diameter and appearance, measuring 3.6 cm. Ascending aorta is normal in size. PULMONIC VALVE: Normal thickness and mobility. No stenosis. Trivial regurgitation. PERICARDIUM: No evidence of pericardial effusion. IVC: Not well visualized. PLEURA: CONCLUSION: 1. Moderate concentric left ventricular hypertrophy with mildly reduced systolic function. LVEF is estimated at 45%. 2. Mildly dilated right ventricle with mildly reduced systolic function. 3. Moderate to severe biatrial dilatation. 4. Mild mitral and aortic regurgitation. 5. Mildly elevated right-sided pressures. Adult Echocardiography Procedure Report Left Ventricle LVEDD (3.7 - 5.6 cm): 5.12 cm LVESD (2.2 - 4.0 cm): 4.54 cm LVIVS thickness (0.6 - 1.2 cm): 1.51 cm LVPW thickness (0.5 - 1.0 cm): 1.24 cm LVOT Max Gradient: 1.37 mm[Hg], 1.73 mm[Hg] LVOT Area (cm2): 0.62 m/s Peak Velocity (LVOT): 0.59 m/s, 0.66 m/s LVOT Diameter 2.49 cm Left Atrium LA Volume Index (2D A2C): 54.54 ml/m2 Left Atrium Systolic Dimension: 5.07 cm Mitral Valve Mitral Valve E-Wave Peak Velocity: 0.83 m/s Right Ventricle Aorta AO Root Diam: 3.63 cm Ascending Ao Diam: 2.93 cm Aortic Valve AoV Area (Peak Jemal): 2.34 cm2, 1.81 cm2, 3.07 cm2 Peak Velocity(Antegrade Flow): 1.57 m/s, 1.04 m/s, 1.26 m/s Peak Gradient(Antegrade Flow): 9.80 mm[Hg], 4.31 mm[Hg], 6.33 mm[Hg] Tricuspid Valve Peak Velocity (Regurgitant Flow): 2.70 m/s Pulmonic Valve Peak Velocity: 0.64 m/s Peak Gradient: 1.63 mm[Hg], 1.96 mm[Hg], 1.36 mm[Hg] Right Atrium Right Atrium Systolic Pressure: 50.48 ml, 50.48 ml Dictated by: Jewel Jeter M.D. on 02/04/2025 at 19:08 Approved by: Jewel Jeter M.D. on 02/04/2025 at 19:17 Dictated By: JEWEL JETER Signed By: 02/04/251917 DD/ 16 TD/TT: Bank Sales And Service Manager: The [address] [address] Cardiology Report Signed Patient: MARNI TATE MR#: [id number] : 1950 Acct:[id number] Age/Sex: 74 / M ADM Date: 02/03/25 Loc: MS 218-[address]: Chuck Cho M.D. Ordering Physician: Ekta Cho M.D. Date of Service: 02/04/25 Procedure(s): CA ech o doppler complete Accession Number(s): [id number] cc: Ekta Cho M.D. Patient Name: HOLLIE TATE MR#: [id number] : 1950 Exam Date: 02/04/2025 Ordering Doctor: DR EKTA CHO . ECHOCARDIOGRAM REPORT PROCEDURE: CA ECHO DOPPLER COMPLETE INDICATIONS: Dyspnea , elevated BNP, CABG, hypertension COMPARISON: None. DESCRIPTION: COMPLET E ECHOCARDIOGRAM Real-time transthoracic echocardiography wit h 2D, M-mode, spectral and color flow Doppler performed. QUALITY: Technical quality was good. LEFT VENTRICLE: Norm al chamber size. Moderate concentric left ventricular hypertrophy. The sep boris is abnormal and motion likely due to bundle branch block. Systolic func tion is mildly reduced. Moderately thickened septal wall. LV EF: Mildly reduce d left ventricular ejection fraction, (45%). DIASTOLIC: Not adequ ately assessed due to heart rhythm. ATRIAL SEPTUM: LEFT ATRIUM: Severe dilatation. RIGHT ATRIUM: Modera te dilatation. RIGHT VENTRICLE: Mil d chamber dilatation. Mildly decreased right ventricular systolic function. TRICUSPID VALVE: Nor mal mobility and thickness. No stenosis with trivial regurgitation. Doppl er studies reveal mildly (35-45) elevated right sided pressures. RVSP 37 mmHg MITRAL VALVE: Dolly l mobility and thickness. No evidence of mitral valve stenosis. Mild aman l annular calcification. Mild mitral regurgitation. AORTIC VALVE: Normal trileaflet appearance. Mildly calcified aortic valve. Normal leaflet mobil ity. No evidence of aortic valve stenosis. Mild aortic regurgitation. AORTIC ROOT: Normal diameter and appearance, measuring 3.6 cm. Ascending aorta is normal in size. PULMONIC VALVE: Nor mal thickness and mobility. No stenosis. Trivial regurgitation. PERICARDIUM: No evid ence of pericardial effusion. IVC: Not well visualized. PLEURA: CONCLUSION: 1. Moderate concentr ic left ventricular hypertrophy with mildly reduced systolic function. L VEF is estimated at 45%. 2. Mildly dilated ri ght ventricle with mildly reduced systolic function. 3. Moderate to sever e biatrial dilatation. 4. Mild mitral and a ortic regurgitation. 5. Mildly elevated right-sided pressures. Adult Echocardiograp hy Procedure Report Left Ventricle LVEDD (3.7 - 5.6 cm) : 5.12 cm LVESD (2.2 - 4.0 cm) : 4.54 cm LVIVS thickness (0.6 - 1.2 cm): 1.51 cm LVPW thickness (0.5 - 1.0 cm): 1.24 cm LVOT Max Gradient: 1 .37 mm[Hg], 1.73 mm[Hg] LVOT Area (cm2): 0.62 m/s Peak Velocity (LVOT) : 0.59 m/s, 0.66 m/s LVOT Diameter 2.49 cm Left Atrium LA Volume Index (2D A2C): 54.54 ml/m2 Left Atrium Systolic Dimension: 5.07 cm Mitral Valve Mitral Valve E-Wave Peak Velocity: 0.83 m/s Right Ventricle Aorta AO Root Diam: 3.63 cm Ascending Ao Diam: 2 .93 cm Aortic Valve AoV Area (Peak Jemal): 2.34 cm2, 1.81 cm2, 3.07 cm2 Peak Velocity(Antegr isaias Flow): 1.57 m/s, 1.04 m/s, 1.26 m/s Peak Gradient(Antegr isaias Flow): 9.80 mm[Hg], 4.31 mm[Hg], 6.33 mm[Hg] Tricuspid Valve Peak Velocity (Regurgitant Flow): 2.70 m/s Pulmonic Valve Peak Velocity: 0.64 m/s Peak Gradient: 1.63 mm[Hg], 1.96 mm[Hg], 1.36 mm[Hg] Right Atrium Right Atrium Systoli c Pressure: 50.48 ml, 50.48 ml Dictated by: Jewel Jeter M.D. on 02/04/2025 at 19:08 Approved by: Jewel Jeter M.D. on 02/04/2025 at 19:17 Dictated By: JEWEL JETER Signed By: 02/04/251917 DD/ 16 TD/TT: Bank Sales And Service Manager: Troponin I High Sensitivity Reviewed date:02/04/2025 01:08:35 PM Interpretation: Performing Lab: Notes/Report: [facility] , Troponin I High Sensitivity 35.4 4.0-76.1 pg/mL HAS BEEN CONFIRMED THE DECISION THRESHOLD FOR ME DIAGNOSIS. 99TH PERCENTILE = 76.2 PG/ML NOTE: HIGH-SENSITIVITY TROPONIN ASSAY IS NOT INTENDED TO BE USED IN ISOLATION BUT SHOULD BE INTERPRETED IN CONJUNCTION WITH OTHER DIAGNOSTIC AND CLINICAL INFORMATION. UNIVERSAL DEFINITION OF MYOCARDIAL INFARCTION. THE UPPER CUT-OFF POINTS HAVE BEEN ESTABLISHED BASED ON THE FOURTH PERCENTILE OF cTnI DISTRIBUTION IN A REFERENCE POPULATION, REFERENCE LIMIT (URL) OF TROPONIN, DEFINED THE 99TH Performing Lab: see note ML - [facility] LB CBC AUTO DIFF Reviewed date:02/05/2025 08:31:48 PM Interpretation: Performing Lab: Notes/Report: [facility] , White Blood Count 4.4 4.0-11.0 10 3/uL Red Blood Count 4.45 4.70-6.10 10 6/uL Hemoglobin 13.9 14.0-18.0 g/dL Hematocrit 42.0 42.0-54.0 % Mean Corpuscular Volume 94.4 80.0-94.0 fL Mean Corpuscular Hemoglobin 31.2 25.9-34.0 pg Mean Corpuscular HGB Conc 33.1 29.9-35.2 g/dL Red Cell Distribution Width 12.9 11.0-15.0 % Platelet Count 124 150-450 10 3/uL Mean Platelet Volume 10.7 9.5-13.5 fL Neutrophils Percent Auto 55.9 43.0-75.0 % Lymphocytes Percent Auto 30.1 20.5-60.0 % Monocytes Percent Auto 10.8 1.7-12.0 % Eosinophils Percent Auto 2.5 0.9-7.0 % Basophils Percent Auto 0.5 0.2-2.0 % Immature Granulocytes Pct Auto 0.2 0.0-0.5 % Neutrophils Absolute Auto 2.4 1.4-6.5 10 3/uL Lymphocytes Absolute Auto 1.3 1.2-3.8 10 3/uL Monocytes Absolute Auto 0.5 0.3-0.8 10 3/uL Eosinophils Absolute Auto 0.1 0.0-0.7 10 3/uL Basophils Absolute Auto 0.0 0.0-0.1 10 3/uL Immature Granulocytes Abs Auto 0.01 0.00-0.03 10 3/uL Performing Lab: see note - [facility] LB PROF 14(COMP METB) Reviewed date:02/05/2025 08:31:49 PM Interpretation: Performing Lab: Notes/Report: [facility] , Sodium 141 136-145 mmol/L Potassium 3.7 3.5-5.1 mmol/L Chloride 99 98-107 mmol/L Carbon Dioxide 32.1 21.0-32.0 mmol/L Anion Gap 13.6 Glucose 86 74-106 mg/dL Blood Urea Nitrogen 17.0 7.0-18.0 mg/dL Creatinine 1.48 0.70-1.30 mg/dL Estimated GFR ( Ирина 56 >=60 mL/min/1.73m 2 Estimated GFR (Non- Devorah 46 >=60 mL/min/1.73m 2 BUN Creatinine Ratio 11.5 Calcium 9.1 8.5-10.1 mg/dL Bilirubin Total 1.2 0.2-1.0 mg/dL Aspartate Amino Transferase 21 15-37 U/L Alanine Aminotransferase 25 16-63 U/L Alkaline Phosphatase 70 46-116 U/L Total Protein 6.3 6.4-8.2 g/dL Albumin Level 3.6 3.4-5.0 g/dL Globulin 2.7 Albumin Globulin Ratio 1.3 Performing Lab: see note ML - [facility] LB Troponin I High Sensitivity Reviewed date:02/05/2025 08:31:49 PM Interpretation: Performing Lab: Notes/Report: [facility] , Troponin I High Sensitivity 30.8 4.0-76.1 pg/mL NOTE: HIGH-SENSITIVITY TROPONIN ASSAY IS NOT INTENDED TO BE HAS BEEN CONFIRMED THE DECISION THRESHOLD FOR ME UNIVERSAL DEFINITION OF MYOCARDIAL INFARCTION. THE UPPER 99TH PERCENTILE = 76.2 PG/ML USED IN ISOLATION BUT SHOULD BE INTERPRETED IN CONJUNCTION DIAGNOSIS. WITH OTHER DIAGNOSTIC AND CLINICAL INFORMATION. REFERENCE LIMIT (URL) OF TROPONIN, DEFINED THE 99TH PERCENTILE OF cTnI DISTRIBUTION IN A REFERENCE POPULATION, CUT-OFF POINTS HAVE BEEN ESTABLISHED BASED ON THE FOURTH Performing Lab: see note - [facility] BNP Reviewed date:02/05/2025 08:31:48 PM Interpretation: Performing Lab: Notes/Report: [facility] , NT Pro B Type Natriuretic Pept 8699.0 <=1800.0 pg/mL RESULTS CALLED TO SATURNINO ROSALES RN AT 0551 Performing Lab: see note ML - [facility] Ethanol Reviewed date:02/04/2025 09:13:34 AM Interpretation: Performing Lab: Notes/Report: [facility] , Ethanol <3 NOTE: 80 mg/dl is the legal limit for a blood alcohol level Performing Lab: see note - [facility] Troponin I High Sensitivity Reviewed date:02/04/2025 09:13:34 AM Interpretation: Performing Lab: Notes/Report: [facility] , Troponin I High Sensitivity 37.3 4.0-76.1 pg/mL HAS BEEN CONFIRMED THE DECISION THRESHOLD FOR ME REFERENCE LIMIT (URL) OF TROPONIN, DEFINED THE 99TH UNIVERSAL DEFINITION OF MYOCARDIAL INFARCTION. THE UPPER CUT-OFF POINTS HAVE BEEN ESTABLISHED BASED ON THE FOURTH USED IN ISOLATION BUT SHOULD BE INTERPRETED IN CONJUNCTION DIAGNOSIS. NOTE: HIGH-SENSITIVITY TROPONIN ASSAY IS NOT INTENDED TO BE PERCENTILE OF cTnI DISTRIBUTION IN A REFERENCE POPULATION, 99TH PERCENTILE = 76.2 PG/ML WITH OTHER DIAGNOSTIC AND CLINICAL INFORMATION. Performing Lab: see note ML - [facility] Prothrombin Time INR Reviewed date:02/04/2025 09:13:34 AM Interpretation: Performing Lab: Notes/Report: [facility] , Prothrombin Time 12.2 9.0-11.6 sec INR 1.17 2.5-3.5 RECURRENT THROMBOSIS DESIRED INR: 2.0-3.0 CONDITIONS NOT LISTED BELOW 2.5-3.5 FOR PROSTHETIC HEART VALVE REPLACEMENT Performing Lab: see note - [facility] MAGNESIUM Reviewed date:02/04/2025 09:13:34 AM Interpretation: Performing Lab: Notes/Report: [facility] , Magnesium 2.0 1.8-2.4 mg/dL Performing Lab: see note ML - [facility] Reason For Referral No Information Medications Medication SIG (Take, Route, Frequency, Duration) Notes Start Date End Date Status Magnesium 400 MG take one tablet Oral ly BID for 30 days 02/17/2025 Active Ciprofloxacin HCl 500 MG 1 tablet Orally BID for 10 days 02/17/2025 Active Encounters Encounter Location Date Provider Diagnosis [facility] [address] [facility] [place] [address] 02/09/2025 Saw Cho Plan Of Treatment Next Appt Details Provider Name:Saw Cho, 03:30:00 PM, [address] [place], [address], Insurance Providers Payer Name Payer Address Payer Phone Subscriber Number Group Number Insured Name Patient Relationship to Insured Coverage Start Date Coverage End Date SELF PAY ON PATIENT DEMOGRAPHICS Hollie Tate Self - patient is the insured 0
--- OUTSIDE RECORDS SUMMARY | 2025-02-20 13:04 | XMS_ITS | Encounter Summary ---
Author Organization [facility] Address [address] [place] [address] Phone Care Team Providers Care Rating Specialist Name Role Phone Ricardo Flores MD Primary Care Provider [phone] Encounter Details Date Type Department Care Team (Late st Contact Info) Description 02/06/2025 Scanned Document [facility] [address] [place] [address] Scanning, Generic Provider Social History [...] Description 04/02/2025 2:30 PM EDT Office Visit [place] [address] [facility] [address] [place] [address] Elizabeth Weller MD [address] [facility] [address] [place], [place] [id number] documented as of this encounter Visit Diagnoses Not on filedocumented in this encounter Care Teams Rating Specialist Relationship Specialty Start Date End Date Ricardo Flores MD [address] [facility] [place] [address] PCP - General Family Medicine 02/06/25 documented as of this encounter
--- OUTSIDE RECORDS SUMMARY | 2025-02-20 13:04 | XMS_ITS | Clinical Summary ---
Author Organization [facility] Address [address] [place] [address] Phone Care Team Providers Care Glaucoma Specialist Name Role Phone Ricardo Flores MD Primary Care Provider [phone] Encounters Date Type Department Care Team Description 02/07/2025 Scanned Document [facility] [address] [place] [phone] Scanning, Generic Provider 02/06/2025 Scanned Document [facility] [address] [place] [phone] Scanning, Generic Provider from Last 3 Months [...] Description 04/02/2025 2:30 PM EDT Office Visit [facility] [address] [facility] [address] [place] [address] Elizabeth Weller MD [address] [facility] [address] [place] [address] Health Maintenance Due Date Last [...] MEDICARE ADVANTAGE ANTHEM MEDICARE ADVANTAGE Care Teams Glaucoma Specialist Relationship Specialty Start Date End Date Ricardo Flores MD [address] [place] [address] PCP - General Family Medicine 02/06/25
--- OUTSIDE RECORDS SUMMARY | 2025-02-20 13:04 | XMS_ITS | Clinical Summary ---
Author Organization [facility] Address [address] [place] [address] Care Team Providers Care Hand Painter Name Role Phone Unavailable Primary Care Provider [...]
--- OUTSIDE RECORDS SUMMARY | 2025-02-20 13:04 | XMS_ITS | Encounter Summary ---
Author Organization [facility] Address [address] [place] [address] Phone Care Team Providers Care Bounty Hunter Name Role Phone Ricardo Flores MD Primary Care Provider [phone] Encounter Details Date Type Department Care Team (Late st Contact Info) Description 02/07/2025 Scanned Document [facility] [address] [place] [address] Scanning, Generic Provider Social History [...] Description 04/02/2025 2:30 PM EDT Office Visit [place] [id number] [address] Elizabeth Weller MD [address] [facility] [address] [place] [address] documented as of this encounter Procedures Procedure Name Priority Date/Time Associated Diagnosis Comments ECHOCARDIOGRAM 02/07/2025 documented in this encounter Results * Echocardiogram (02/07/2025) Narrative 02/07/2025 Ordered by an unspecified provider. us Generic Provider Scanning CV ECHO PROCEDURES Fin al Result documented in this encounter Visit Diagnoses Not on filedocumented in this encounter Care Teams Bounty Hunter Relationship Specialty Start Date End Date Ricardo Flores MD [address] [place] [address] PCP - General Family Medicine 02/06/25 documented as of this encounter
--- OUTSIDE RECORDS SUMMARY | 2025-02-20 13:04 | XMS_ITS | Clinical Summary ---
Author Organization [facility] tem Address [id number] [address] [place] [address] Care Team Providers Care [facility] Demonstrator Name Role Phone Unavailable Primary Care Provider [...]
== END 2025-02-05 22:35 | disposition short-term general hospital (02) ==
LOC: ER 20:05 → MS 20:30
PROVIDERS: Nurse Practitioner; Registered Nurse; Admitting Provider Family Medicine; Emergency Provider Emergency Medicine; PCP Family Medicine; Visit Provider Family Medicine
DX: I11.0 Hypertensive heart disease with heart failure (principal); I50.43 Acute on chronic combined systolic (congestive) and diastolic (congestive) heart failure; N39.0 Urinary tract infection, site not specified; I48.91 Unspecified atrial fibrillation; I25.10 Atherosclerotic heart disease of native coronary artery without angina pectoris; Z95.1 Presence of aortocoronary bypass graft; Z79.82 Long term (current) use of aspirin; Z79.899 Other long term (current) drug therapy; E78.00 Pure hypercholesterolemia, unspecified; F10.10 Alcohol abuse, uncomplicated; D69.6 Thrombocytopenia, unspecified; R79.89 Other specified abnormal findings of blood chemistry; E80.6 Other disorders of bilirubin metabolism; D50.9 Iron deficiency anemia, unspecified; R06.09 Other forms of dyspnea; B96.89 Other specified bacterial agents as the cause of diseases classified elsewhere
CPT/HCPCS: 36415; 71045; 80053; 80307; 80320; 81001; 83735; 83880; 84100; 84436; 84443; 84484; 85025; 85610; 85730; 87086; 87088; 87186; 93005; 93306; 94667; 94668; 94761; 96372; 96374; 97161; 97165; 99285; G0378; J1650; J1938; J3411

== ENCOUNTER 2025-02-25 16:27 | Outpatient (OUT) | payer MEDICARE, SELFPAY ==
[2025-02-25 17:10] LABS: Bilirubin Urine NEGATIVE (NEGATIVE); Blood Urine NEGATIVE (NEGATIVE); Clarity Urine CLEAR (CLEAR); Color Urine LT. YELLOW (YELLOW); Glucose Urine UA NEGATIVE (NEGATIVE); Ketones Urine NEGATIVE (NEGATIVE); Leukocyte Esterase Urine NEGATIVE (NEGATIVE); Nitrite Urine NEGATIVE (NEGATIVE); Protein Urine NEGATIVE (NEG/TRACE); Specific Gravity Urine 1.015 (1.005-1.025); Urobilinogen Urine 0.2 EU/dL (0.2-1.0)
[2025-02-25 18:24] LABS: Bacteria Urine TRACE #/HPF (NONE SEEN); Cast Seen? NONE SEEN #/LPF (NONE SEEN); Crystals Seen? None Seen #/HPF (None Seen); Mucus Urine NONE SEEN (NONE SEEN); RBC Urine NONE SEEN #/HPF (0-2); Squamous Epithelial Cell Urine RARE #/LPF (NONE/RARE); WBC Urine 0-2 #/HPF (NONE SEEN)
== END 2025-02-25 16:28 | disposition home or self-care (01) ==
LOC: LAB 16:31
PROVIDERS: PCP Family Medicine; Visit Provider Family Medicine
DX: N39.0 Urinary tract infection, site not specified (principal)
CPT/HCPCS: 81001; 87086

== ENCOUNTER 2025-03-06 15:09 | Inpatient (IN) | payer MEDICARE, SELFPAY ==
[2025-03-06] VITALS (59 sets, daily range): BP systolic 74–177; BP diastolic 46–108; PULSE 65–105; TEMP 36.3; O2SAT 95–98; BMI 27.1; BMI 25.5
[2025-03-06 15:18] LABS: Glucometer 110 mg/dL (74-106)
--- NOTE | 2025-03-06 15:18 | CT_ITS ---
The [address] [address] Patient Name: HOLLIE TATE MRN: [id number] date: 1950 Sex: M Assigned Patient Location: ER Current Patient Location: ER Accession/Order Number: [id number] Exam Date: 03/06/2025 15:31 Report Date: 03/06/2025 15:36 At the request of: MEREDITH BOWERS MD Procedure: CT stroke head/brain wo con Unenhanced head CTstroke alert TECHNIQUE: Contiguous axial imaging of the head. The CT exam was performed using one or more the following dose reduction techniques: Automated exposure control, adjustment of the MA and/or Kv according to patient size, or use of the iterative reconstruction technique. COMPARISON: None HISTORY: Fell. Head injury. VENTRICLES: Within normal limits ATROPHY: Similar atrophy BRAIN PARENCHYMA: Decreased density of the white matter is most consistent with chronic small vessel disease. The bilateral frontal gliosis and encephalomalacia consistent with prior trauma. HEMORRHAGE: None HERNIATION: No mass effect or herniation INFARCTION: No recent vascular distribution infarction is seen. EXTRA-AXIAL FLUID COLLECTIONS None MIDBRAIN: Unremarkable ADELA: Unremarkable MEDULLA: Unremarkable SINUSES: Unremarkable ORBITS: Grossly unremarkable MASTOIDS: Unremarkable BONY STRUCTURES Intact ADDITIONAL FINDINGS: Atherosclerosis of carotid siphons and V4 segments CT/CT stroke head/brain wo con IMPRESSION: No acute findings. Chronic changes. 3:32 PM 03/06/2025 Impression dictated by: Randall Dang M.D. 03/06/2025 3:36 PM Dictation Location: [place] [address] Electronically authenticated by: [id number] Y Date: 03/06/2025 15:36
--- NOTE | 2025-03-06 15:18 | ECG_ITS ---
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 Measurements Intervals Pe Ell Rate: 67 P: -28153 SC: -84604 QRS: -72 QRSD: 176 T: 36 QT: 484 QTc: 500 Interpretive Statements 1250 Atrial flutter 2450 Right bundle branch block 5211 Minimal voltage criteria for LVH, may be normal variant 7200 Abnormal left axis deviation 9150 abnormal ECG Compared to ECG 02/04/2025 05:09:05 Left ventricular hypertrophy now present Left-axis deviation now present Aberrant conduction of supraventricular beat(s) no longer present Left posterior fascicular block no longer present Electronically Signed On 03-06-2025 19:38:06 EDT by JEWEL CHAN M.D.
--- NOTE | 2025-03-06 15:19 | XR_ITS ---
The [address] [address] Patient Name: HOLLIE TATE MRN: [id number] date: 1950 Sex: M Assigned Patient Location: ED.MAIN Current Patient Location: ER Accession/Order Number: [id number] Exam Date: 03/06/2025 15:37 Report Date: 03/06/2025 15:38 At the request of: MEREDITH BOWERS MD Procedure: XR chest 1V Plain film chest Single view HISTORY: Fell. Head injury. COMPARISON: 02/03/2025 FINDINGS: SUPPORT DEVICES: None POSTSURGICAL CHANGES: CABG. HEART: Within normal limits PULMONARY KELSEY: Within normal limits MEDIASTINUM: Unremarkable LUNGS AND PLEURA: No acute lung process, pleural effusion or pneumothorax identified. BONY STRUCTURES: Similar degenerative changes ADDITIONAL FINDINGS moderate right hemidiaphragm elevation unchanged XR/XR chest 1V IMPRESSION: No acute process. Impression dictated by: Randall Dang M.D. 03/06/2025 3:38 PM Dictation Location: [place] [address] Electronically authenticated by: [id number] Y Date: 03/06/2025 15:38
--- NOTE | 2025-03-06 15:24 | CT_ITS ---
The [address] [address] Patient Name: HOLLIE TATE MRN: [id number] date: 1950 Sex: M Assigned Patient Location: ER Current Patient Location: ED.MAIN Accession/Order Number: [id number] Exam Date: 03/06/2025 15:38 Report Date: 03/06/2025 15:41 At the request of: MEREDITH BOWERS MD Procedure: CT cervical spine wo con CT Cervical Spine withoutcontrast TECHNIQUE: Axial imaging with 2-D and 3-D reconstruction. The CT exam was performed using one or more the following dose reduction techniques: Automated exposure control, adjustment of the MA and/or Kv according to patient size, or use of the iterative reconstruction technique. COMPARISON: 11/03/2018 HISTORY: Fell. Head injury. Loss of consciousness. POST SURGERY CHANGES: None BONY ALIGNMENT: Straightening with mild degenerative listhesis. BONY SPINAL CANAL: Patent central bony canal FRACTURE: None BONY LESIONS: None SOFT TISSUES: Unremarkable DEGENERATIVE CHANGES: Similar Extensive multilevel spondylosis and facet degeneration. LUNG APICES: Unremarkable ADDITIONAL FINDINGS: CT/CT cervical spine wo con IMPRESSION: No acute process Impression dictated by: Randall Dang M.D. 03/06/2025 3:41 PM [facility]ictation [facility] Electronically authenticated by: [id number] Y Date: 03/06/2025 15:41
[2025-03-06 15:29] LABS: Basophils Percent Auto 0.4 % (0.2-2.0); Eosinophils Absolute Auto 0.2 10^3/uL (0.0-0.7); Eosinophils Percent Auto 3.5 % (0.9-7.0); Hematocrit 43.4 % (42.0-54.0); Immature Granulocytes Abs Auto 0.03 10^3/uL (0.00-0.03); Immature Granulocytes Pct Auto 0.4 % (0.0-0.5); Lymphocytes Absolute Auto 1.5 10^3/uL (1.2-3.8); Lymphocytes Percent Auto 21.6 % (20.5-60.0); Mean Corpuscular HGB Conc 34.6 g/dL (29.9-35.2); Mean Corpuscular Hemoglobin 30.7 pg (25.9-34.0); Mean Corpuscular Volume 88.9 fL (80.0-94.0); Mean Platelet Volume 10.2 fL (9.5-13.5); Monocytes Absolute Auto 0.6 10^3/uL (0.3-0.8); Monocytes Percent Auto 8.2 % (1.7-12.0); Neutrophils Absolute Auto 4.6 10^3/uL (1.4-6.5); Neutrophils Percent Auto 65.9 % (43.0-75.0); Platelet Count 146 10^3/uL (150-450); Red Blood Count 4.88 10^6/uL (4.70-6.10); Red Cell Distribution Width 12.3 % (11.0-15.0)
--- NOTE | 2025-03-06 15:31 | ED.GENADUL1 ---
Documented by User: Krista Cuellar MD 03/08/25 08:07 HPI HPI - General Adult General Chief complaint: Altered Mental Status Stated complaint: ALTERED MENTAL STATUS Time Seen by Provider: 03/06/25 15:18 Source information: EMS report Mode of arrival: ambulance History of Present Illness HPI narrative: The patient is 74-year-old male with history of recent diagnosis of A-fib on anticoagulation, the patient is coming to the ER after he was standing up when he fell backwards, the patient does not remember that he actually fell down, the patient had passed out for 10 seconds when this happened according to the family at the bedside. The patient at the bedside does not have any acute complaint he does not remember falling backward Denies any acute symptoms of nausea vomiting dizziness or any other concern Related Data Home Medications ?Medication ?Instructions ?Recorded ?Confirmed atorvastatin 20 mg tablet (Lipitor) 40 mg PO DAILY 02/04/25 03/06/25 apixaban 5 mg tablet (Eliquis) 5 mg PO BID 03/06/25 03/06/25 carvedilol 25 mg tablet 25 mg PO Q12H 03/06/25 03/06/25 magnesium oxide 400 mg (241.3 mg 400 mg PO BID 03/06/25 03/07/25 magnesium) tablet spironolactone 50 mg tablet 50 mg PO DAILY 03/06/25 03/06/25 tamsulosin 0.4 mg capsule 0.4 mg PO DAILY 03/06/25 03/06/25 doxazosin 2 mg tablet 2 mg PO DAILY 03/07/25 03/07/25 furosemide 40 mg tablet 40 mg PO DAILY 03/07/25 03/07/25 Allergies Allergy/AdvReac Type Severity Reaction Status Date / Time No Known Drug Allergies Allergy Verified 03/06/25 15:25 Opioid HPI Opioid Management Most Recent Opioid Data: Last Pain Scale 9 Today, 07:46 Last Pain Assessment 03/07/25, 00:00 Last MAR Pain Assessment 03/06/25, 17:49 Last ORT Total Score 3 03/06/25, 23:47 Last ORT Risk Category Low Risk 03/06/25, 23:47 Ur Phencyclidine Scrn, (NEGATIVE) Negative 03/07/25, 03:40 Review of Systems ROS Status of ROS 10 or more systems reviewed and unremarkable except as noted in history and below [facility] Medical History (Updated 03/07/25 @ 11:57 by Ricardo Flores MD) Hyperbilirubinemia ?E80.6 - Other disorders of bilirubin metabolism (ICD-10) Elevated serum creatinine ?R79.89 - Other specified abnormal findings of blood chemistry (ICD-10) Thrombocytopenia ?D69.6 - Thrombocytopenia, unspecified (ICD-10) Alcohol abuse ?F10.10 - Alcohol abuse, uncomplicated (ICD-10) Atrial fibrillation, new onset ?I48.91 - Unspecified atrial fibrillation (ICD-10) Acute exacerbation of CHF (congestive heart failure) ?I50.9 - Heart failure, unspecified (ICD-10) CAD (coronary artery disease) ?I25.10 - Atherosclerotic heart disease of [place] coronary artery without angina pectoris (ICD-10) Hypercholesteremia ?E78.00 - Pure hypercholesterolemia, unspecified (ICD-10) Hypertension ?I10 - Essential (primary) hypertension (ICD-10) Surgical History (Updated 02/03/25 @ 21:10 by Zayra Davey RN) S/P CABG x 5 ?Z95.1 - Presence of aortocoronary bypass graft (ICD-10) Family History (Updated 02/03/25 @ 21:10 by Zayra Davey RN) Mother Heart disease Social History (Updated 03/06/25 @ 23:14 by Leona Casas) Within the past year, how often did you have a drink containing alcohol: 4 or more times a week Smoking status: Never smoker Second hand tobacco smoke exposure: No Non-prescribed substance use: denies use Known occupational exposures/hazards: No Highest level of school completed/degree received: high school graduate Do you want help with school or training: No Are you now , , , , never or living with a partner: don't know Little interest or pleasure in doing things: not at all Feeling down, depressed, or hopeless: not at all Feel stressed/tense/nervous/anxious/difficulty sleeping: not at all Do you think of yourself as: straight/heterosexual Gender Identity: male Exam Narrative Exam Narrative: Nurses notes and vital signs reviewed and patient is not hypoxic. General: Well-appearing and in no apparent distress. Skin: Warm, dry, no pallor noted. No rash. Head: Normocephalic, atraumatic. Neck: Supple, non-tender. Eye: Pupils are equal, round and EOMI. No scleral icterus. Ears, Nose, Mouth, and Throat: TM are clear, no nasal mucosal hypertrophy. Oral mucosa is moist, no posterior oropharynx erythema, uvula is mid-line Cardiovascular: IRRegular and Rhythm without murmur, gallop or rub. Respiratory: No accessory muscle use or respiratory distress. Lungs are clear to auscultation, no wheezing, rales or rhonchi Chest Wall: no tenderness Back: No midline thoracic or lumbar vertebral tenderness. No CVA tenderness Musculoskeletal: normal ROM, no calf or popliteal tenderness, no lower extremity edema/swelling GI: Abdomen is soft, non-distended. Normal bowel sounds. No masses appreciated. No tenderness to palpation. No rebound, guarding, or rigidity noted. Neurological: A&O x4. No cranial nerve dysfunction observed. Constitutional Vital Signs, click to edit/add: Last Vital Signs Temp 97.9 F 03/08/25 07:45 Pulse 89 03/08/25 07:45 Resp 20 03/08/25 07:45 BP 172/91 H 03/08/25 07:45 Pulse Ox 93 L 03/08/25 07:45 O2 Del Method Room Air 03/08/25 07:45 Course Vital Signs Vital signs: Vital Signs Temperature 97.4 F L 03/06/25 15:15 Pulse Rate 75 03/06/25 15:15 Respiratory Rate 16 03/06/25 15:15 Blood Pressure 177/83 H 03/06/25 15:15 Pulse Oximetry 97 03/06/25 15:15 Oxygen Delivery Method Room Air 03/06/25 15:15 Temperature 97.9 F 03/08/25 07:45 Pulse Rate 89 03/08/25 07:45 Respiratory Rate 20 03/08/25 07:45 Blood Pressure 172/91 H 03/08/25 07:45 Pulse Oximetry 93 L 03/08/25 07:45 Oxygen Delivery Method Room Air 03/08/25 07:45 Medical Decision Making MDM Narrative Medical decision making narrative: The patient EKG in the ER showing a flutter with a right bundle branch block The patient CBC and chemistry showed no acute significant pathology Ethanol level is negative CAT scan of the head showed no acute pathology as well as CT of the cervical spine and x-ray of the chest were within normal The patient CBC and chemistry showed no acute significant pathology but he did had orthostatic hypotension especially with standing up with his blood pressure dropping to the 70s systolic from 140 The patient was started on IV fluid with caution after every 500 I did evaluate the patient for any difficulty breathing and if his orthostatic changes improved The patient recently was admitted here and discharged to [facility] because of congestive heart failure and fluid overload after he was started Bumex drip and that why I do not want to overload him with fluid The patient also has pending troponin and urinalysis Lab Data Labs: Lab Results 03/06/25 03/06/25 Range/Units 15:15 18:18 WBC 7.0 (4.0-11.0) 10^3/uL RBC 4.88 (4.70-6.10) 10^6/uL Hgb 15.0 (14.0-18.0) g/dL Hct 43.4 (42.0-54.0) % MCV 88.9 (80.0-94.0) fL MCH 30.7 (25.9-34.0) pg MCHC 34.6 (29.9-35.2) g/dL RDW 12.3 (11.0-15.0) % Plt Count 146 L (150-450) 10^3/uL MPV 10.2 (9.5-13.5) fL Neut % (Auto) 65.9 (43.0-75.0) % Lymph % (Auto) 21.6 (20.5-60.0) % [place] % (Auto) 8.2 (1.7-12.0) % Eos % (Auto) 3.5 (0.9-7.0) % Baso % (Auto) 0.4 (0.2-2.0) % Neut # (Auto) 4.6 (1.4-6.5) 10^3/uL Lymph # (Auto) 1.5 (1.2-3.8) 10^3/uL [place] # (Auto) 0.6 (0.3-0.8) 10^3/uL Eos # (Auto) 0.2 (0.0-0.7) 10^3/uL Baso # (Auto) 0.0 (0.0-0.1) 10^3/uL Abs Immat Gran (auto) 0.03 (0.00-0.03) 10^3/uL Imm/Tot Granulo (auto) 0.4 (0.0-0.5) % PT 11.6 (9.0-11.6) sec INR 1.11 Sodium 139 (136-145) mmol/L Potassium 4.6 (3.5-5.1) mmol/L Chloride 100 (98-107) mmol/L Carbon Dioxide 29.5 (21.0-32.0) mmol/L Anion Gap 14.1 BUN 26.0 H (7.0-18.0) mg/dL Creatinine 1.20 (0.70-1.30) mg/dL Est GFR ( Amer) >60 (>=60 mL/min/1.73m^2) Est GFR (Non-Af Amer) 59 L (>=60 mL/min/1.73m^2) BUN/Creatinine Ratio 21.7 Glucose 120 H (74-106) mg/dL Lactate 1.0 (0.4-2.0) mmol/L Calcium 9.5 (8.5-10.1) mg/dL Magnesium 2.0 (1.8-2.4) mg/dL Total Bilirubin 1.0 (0.2-1.0) mg/dL AST 29 (15-37) U/L ALT 36 (16-63) U/L Alkaline Phosphatase 85 (46-116) U/L Troponin I High Sens 16.5 19.4 (4.0-76.1) pg/mL NT-Pro-B Natriuret Pep 1011.0 (<=1800.0) pg/mL Total Protein 7.2 (6.4-8.2) g/dL Albumin 3.9 (3.4-5.0) g/dL Globulin 3.3 g/dL Albumin/Globulin Ratio 1.2 Ethanol Quant <3 mg/dL POC Glucose 110 H (74-106) mg/dL Discharge Plan Discharge Chief Complaint: Altered Mental Status Clinical Impression: Orthostatic hypotension AMS (altered mental status) Qualifiers: Altered mental status type: unspecified Qualified Code(s): R41.82 - Altered mental status, unspecified Fall Qualifiers: Encounter type: initial encounter Qualified Code(s): W19.XXXA - Unspecified fall, initial encounter Patient Disposition: Admitted as Observation Time of Disposition Decision: 21:19 Condition: Fair Discharge Date/Time: 03/06/25 23:15 Documented by User: Reinier Beltran MD 03/06/25 21:25 HPI HPI - General Adult General Chief complaint: Altered Mental Status Stated complaint: ALTERED MENTAL STATUS Time Seen by Provider: 03/06/25 15:18 Related Data Home Medications ?Medication ?Instructions ?Recorded ?Confirmed atorvastatin 20 mg tablet (Lipitor) 40 mg PO DAILY 02/04/25 03/06/25 apixaban 5 mg tablet (Eliquis) 5 mg PO BID 03/06/25 03/06/25 carvedilol 25 mg tablet 25 mg PO Q12H 03/06/25 03/06/25 magnesium oxide 400 mg (241.3 mg 400 mg PO BID 03/06/25 03/07/25 magnesium) tablet spironolactone 50 mg tablet 50 mg PO DAILY 03/06/25 03/06/25 tamsulosin 0.4 mg capsule 0.4 mg PO DAILY 03/06/25 03/06/25 doxazosin 2 mg tablet 2 mg PO DAILY 03/07/25 03/07/25 furosemide 40 mg tablet 40 mg PO DAILY 03/07/25 03/07/25 Allergies Allergy/AdvReac Type Severity Reaction Status Date / Time No Known Drug Allergies Allergy Verified 03/06/25 15:25 Opioid HPI Opioid Management Most Recent Opioid Data: Last Pain Scale 9 Today, 07:46 Last Pain Assessment 03/07/25, 00:00 Last MAR Pain Assessment 03/06/25, 17:49 Last ORT Total Score 3 03/06/25, 23:47 Last ORT Risk Category Low Risk 03/06/25, 23:47 Ur Phencyclidine Scrn, (NEGATIVE) Negative 03/07/25, 03:40 PFSH PFSH Medical History (Updated 03/07/25 @ 11:57 by Ricardo Flores MD) Hyperbilirubinemia ?E80.6 - Other disorders of bilirubin metabolism (ICD-10) Elevated serum creatinine ?R79.89 - Other specified abnormal findings of blood chemistry (ICD-10) Thrombocytopenia ?D69.6 - Thrombocytopenia, unspecified (ICD-10) Alcohol abuse ?F10.10 - Alcohol abuse, uncomplicated (ICD-10) Atrial fibrillation, new onset ?I48.91 - Unspecified atrial fibrillation (ICD-10) Acute exacerbation of CHF (congestive heart failure) ?I50.9 - Heart failure, unspecified (ICD-10) CAD (coronary artery disease) ?I25.10 - Atherosclerotic heart disease of [place] coronary artery without angina pectoris (ICD-10) Hypercholesteremia ?E78.00 - Pure hypercholesterolemia, unspecified (ICD-10) Hypertension ?I10 - Essential (primary) hypertension (ICD-10) Surgical History (Updated 02/03/25 @ 21:10 by Zayra Davey RN) S/P CABG x 5 ?Z95.1 - Presence of aortocoronary bypass graft (ICD-10) Family History (Updated 02/03/25 @ 21:10 by Zayra Davey, RILEY) Mother Heart disease Social History (Updated 03/06/25 @ 23:14 by Leona Casas) Within the past year, how often did you have a drink containing alcohol: 4 or more times a week Smoking status: Never smoker Second hand tobacco smoke exposure: No Non-prescribed substance use: denies use Known occupational exposures/hazards: No Highest level of school completed/degree received: high school graduate Do you want help with school or training: No Are you now , , , , never or living with a partner: don't know Little interest or pleasure in doing things: not at all Feeling down, depressed, or hopeless: not at all Feel stressed/tense/nervous/anxious/difficulty sleeping: not at all Do you think of yourself as: straight/heterosexual Gender Identity: male Exam Constitutional Vital Signs, click to edit/add: Last Vital Signs Temp 97.9 F 03/08/25 07:45 Pulse 89 03/08/25 07:45 Resp 20 03/08/25 07:45 BP 172/91 H 03/08/25 07:45 Pulse Ox 93 L 03/08/25 07:45 O2 Del Method Room Air 03/08/25 07:45 Course Vital Signs Vital signs: Vital Signs Temperature 97.4 F L 03/06/25 15:15 Pulse Rate 75 03/06/25 15:15 Respiratory Rate 16 03/06/25 15:15 Blood Pressure 177/83 H 03/06/25 15:15 Pulse Oximetry 97 03/06/25 15:15 Oxygen Delivery Method Room Air 03/06/25 15:15 Temperature 97.9 F 03/08/25 07:45 Pulse Rate 89 03/08/25 07:45 Respiratory Rate 20 03/08/25 07:45 Blood Pressure 172/91 H 03/08/25 07:45 Pulse Oximetry 93 L 03/08/25 07:45 Oxygen Delivery Method Room Air 03/08/25 07:45 Medical Decision Making MDM Narrative Medical decision making narrative: The patient EKG in the ER showing a flutter with a right bundle branch block The patient CBC and chemistry showed no acute significant pathology Ethanol level is negative CAT scan of the head showed no acute pathology as well as CT of the cervical spine and x-ray of the chest were within normal The patient CBC and chemistry showed no acute significant pathology but he did had orthostatic hypotension especially with standing up with his blood pressure dropping to the 70s systolic from 140 The patient was started on IV fluid with caution after every 500 I did evaluate the patient for any difficulty breathing and if his orthostatic changes improved The patient recently was admitted here and discharged to [facility] because of congestive heart failure and fluid overload after he was started Bumex drip and that why I do not want to overload him with fluid The patient also has pending troponin and urinalysis Patient's care was transferred to [facility] at change of shift by Dr. Cuellar who performed the initial evaluation. He had a syncopal episode at home when he stood up. Workup does not reveal any intracranial injury or C-spine fracture. He is very profoundly orthostatic likely combination of his diuretic and beta-franchesca therapy. He has received a liter of IV normal saline and he is still symptomatically orthostatic. The plan is to admit him to the hospital to gently hydrate him and adjust his medications so that he does not become orthostatic while managing his heart failure. Findings were discussed with hospitalist MINESH who has accepted him. Lab Data Labs: Lab Results 03/06/25 03/06/25 Range/Units 15:15 18:18 WBC 7.0 (4.0-11.0) 10^3/uL RBC 4.88 (4.70-6.10) 10^6/uL Hgb 15.0 (14.0-18.0) g/dL Hct 43.4 (42.0-54.0) % MCV 88.9 (80.0-94.0) fL MCH 30.7 (25.9-34.0) pg MCHC 34.6 (29.9-35.2) g/dL RDW 12.3 (11.0-15.0) % Plt Count 146 L (150-450) 10^3/uL MPV 10.2 (9.5-13.5) fL Neut % (Auto) 65.9 (43.0-75.0) % Lymph % (Auto) 21.6 (20.5-60.0) % [place] % (Auto) 8.2 (1.7-12.0) % Eos % (Auto) 3.5 (0.9-7.0) % Baso % (Auto) 0.4 (0.2-2.0) % Neut # (Auto) 4.6 (1.4-6.5) 10^3/uL Lymph # (Auto) 1.5 (1.2-3.8) 10^3/uL [place] # (Auto) 0.6 (0.3-0.8) 10^3/uL Eos # (Auto) 0.2 (0.0-0.7) 10^3/uL Baso # (Auto) 0.0 (0.0-0.1) 10^3/uL Abs Immat Gran (auto) 0.03 (0.00-0.03) 10^3/uL Imm/Tot Granulo (auto) 0.4 (0.0-0.5) % PT 11.6 (9.0-11.6) sec INR 1.11 Sodium 139 (136-145) mmol/L Potassium 4.6 (3.5-5.1) mmol/L Chloride 100 (98-107) mmol/L Carbon Dioxide 29.5 (21.0-32.0) mmol/L Anion Gap 14.1 BUN 26.0 H (7.0-18.0) mg/dL Creatinine 1.20 (0.70-1.30) mg/dL Est GFR ( Amer) >60 (>=60 mL/min/1.73m^2) Est GFR (Non-Af Amer) 59 L (>=60 mL/min/1.73m^2) BUN/Creatinine Ratio 21.7 Glucose 120 H (74-106) mg/dL Lactate 1.0 (0.4-2.0) mmol/L Calcium 9.5 (8.5-10.1) mg/dL Magnesium 2.0 (1.8-2.4) mg/dL Total Bilirubin 1.0 (0.2-1.0) mg/dL AST 29 (15-37) U/L ALT 36 (16-63) U/L Alkaline Phosphatase 85 (46-116) U/L Troponin I High Sens 16.5 19.4 (4.0-76.1) pg/mL NT-Pro-B Natriuret Pep 1011.0 (<=1800.0) pg/mL Total Protein 7.2 (6.4-8.2) g/dL Albumin 3.9 (3.4-5.0) g/dL Globulin 3.3 g/dL Albumin/Globulin Ratio 1.2 Ethanol Quant <3 mg/dL POC Glucose 110 H (74-106) mg/dL Discharge Plan Discharge Chief Complaint: Altered Mental Status Clinical Impression: Orthostatic hypotension AMS (altered mental status) Qualifiers: Altered mental status type: unspecified Qualified Code(s): R41.82 - Altered mental status, unspecified Fall Qualifiers: Encounter type: initial encounter Qualified Code(s): W19.XXXA - Unspecified fall, initial encounter Patient Disposition: Admitted as Observation Time of Disposition Decision: 21:19 Condition: Fair Discharge Date/Time: 03/06/25 23:15
[2025-03-06 15:43] LABS: INR 1.11; Prothrombin Time 11.6 sec (9.0-11.6)
[2025-03-06 15:48] LABS: Troponin I High Sensitivity 16.5 pg/mL (4.0-76.1)
[2025-03-06 15:57] LABS: Ethanol <3 mg/dL
[2025-03-06 15:58] LABS: Alanine Aminotransferase 36 U/L (16-63); Albumin Globulin Ratio 1.2; Albumin Level 3.9 g/dL (3.4-5.0); Alkaline Phosphatase 85 U/L (46-116); Anion Gap 14.1; Aspartate Amino Transferase 29 U/L (15-37); BUN Creatinine Ratio 21.7; Calcium 9.5 mg/dL (8.5-10.1); Carbon Dioxide 29.5 mmol/L (21.0-32.0); Chloride 100 mmol/L (98-107); Estimated GFR (African America >60 (>=60 mL/min/1.73m^2); Estimated GFR (Non-African Ame 59 (>=60 mL/min/1.73m^2); Globulin 3.3 g/dL; Glucose 120 mg/dL (74-106); Potassium 4.6 mmol/L (3.5-5.1); Sodium 139 mmol/L (136-145); Total Protein 7.2 g/dL (6.4-8.2)
[2025-03-06] MEDS: 0.9 % SODIUM CHLORIDE 1,000 ML 1000 ML IV (17:49)
[2025-03-06] MEDS: ACETAMINOPHEN 325 MG TABLET 650 MG PO (17:49)
[2025-03-06 18:40] LABS: Troponin I High Sensitivity 19.4 pg/mL (4.0-76.1)
[2025-03-07] VITALS (11 sets, daily range): BP systolic 130–168; BP diastolic 52–86; PULSE 48–100; TEMP 36.6–37; O2SAT 90–94
[2025-03-07] MEDS: CARVEDILOL 25 MG TABLET PO ×3 (00:43→20:53)
[2025-03-07] MEDS: 0.9 % SODIUM CHLORIDE 1,000 ML 75 ML IV (00:43)
[2025-03-07] MEDS: ACETAMINOPHEN 325 MG TABLET 650 MG PO (00:43)
[2025-03-07 03:59] LABS: Bilirubin Urine NEGATIVE (NEGATIVE); Blood Urine NEGATIVE (NEGATIVE); Clarity Urine CLEAR (CLEAR); Color Urine LT. YELLOW (YELLOW); Glucose Urine UA NEGATIVE (NEGATIVE); Ketones Urine NEGATIVE (NEGATIVE); Leukocyte Esterase Urine NEGATIVE (NEGATIVE); Nitrite Urine NEGATIVE (NEGATIVE); Protein Urine NEGATIVE (NEG/TRACE); Urobilinogen Urine 0.2 EU/dL (0.2-1.0); pH Urine 5.5 (5.0-9.0)
[2025-03-07 04:02] LABS: Urine Microscopic Indicated NO
[2025-03-07 04:13] LABS: Amphetamine Screen Urine NEGATIVE (NEGATIVE); Barbiturates Screen Urine NEGATIVE (NEGATIVE); Benzodiazepines Screen Urine NEGATIVE (NEGATIVE); Buprenorphine Screen Urine NEGATIVE (NEGATIVE); Cannabinoid Screen Urine NEGATIVE (NEGATIVE); Cocaine Screen Urine NEGATIVE (NEGATIVE); Methadone Screen Urine NEGATIVE (NEGATIVE); Methamphetamines Screen Urine NEGATIVE (NEGATIVE); Opiate Screen Urine NEGATIVE (NEGATIVE); Oxycodone Screen Urine NEGATIVE (NEGATIVE); Phencyclidine Screen Urine NEGATIVE (NEGATIVE); Tricyclic Antidepressant Urine NEGATIVE (NEGATIVE)
[2025-03-07 06:38] LABS: Basophils Percent Auto 0.2 % (0.2-2.0); Eosinophils Percent Auto 0.4 % (0.9-7.0); Hematocrit 42.9 % (42.0-54.0); Hemoglobin 14.7 g/dL (14.0-18.0); Immature Granulocytes Abs Auto 0.02 10^3/uL (0.00-0.03); Immature Granulocytes Pct Auto 0.2 % (0.0-0.5); Lymphocytes Percent Auto 11.5 % (20.5-60.0); Mean Corpuscular HGB Conc 34.3 g/dL (29.9-35.2); Mean Corpuscular Hemoglobin 30.1 pg (25.9-34.0); Mean Corpuscular Volume 87.7 fL (80.0-94.0); Mean Platelet Volume 10.4 fL (9.5-13.5); Monocytes Absolute Auto 0.6 10^3/uL (0.3-0.8); Monocytes Percent Auto 7.4 % (1.7-12.0); Neutrophils Absolute Auto 6.6 10^3/uL (1.4-6.5); Neutrophils Percent Auto 80.3 % (43.0-75.0); Platelet Count 150 10^3/uL (150-450); Red Blood Count 4.89 10^6/uL (4.70-6.10); Red Cell Distribution Width 12.2 % (11.0-15.0); White Blood Count 8.2 10^3/uL (4.0-11.0)
[2025-03-07 06:55] LABS: Alanine Aminotransferase 37 U/L (16-63); Albumin Globulin Ratio 1.2; Albumin Level 3.7 g/dL (3.4-5.0); Alkaline Phosphatase 84 U/L (46-116); Anion Gap 11.8; Aspartate Amino Transferase 33 U/L (15-37); BUN Creatinine Ratio 25.2; Bilirubin Total 1.4 mg/dL (0.2-1.0); Calcium 9.1 mg/dL (8.5-10.1); Carbon Dioxide 29.8 mmol/L (21.0-32.0); Chloride 101 mmol/L (98-107); Estimated GFR (African America >60 (>=60 mL/min/1.73m^2); Estimated GFR (Non-African Ame >60 (>=60 mL/min/1.73m^2); Globulin 3.2 g/dL; Glucose 122 mg/dL (74-106); Magnesium 1.9 mg/dL (1.8-2.4); Potassium 4.6 mmol/L (3.5-5.1); Sodium 138 mmol/L (136-145); Total Protein 6.9 g/dL (6.4-8.2)
--- NOTE | 2025-03-07 07:00 | P.HP_ITS ---
HPI H&P: HPI History of Present Illness Chief complaint: ALTERED MENTAL STATUS, HYPOVOLEMIA Narrative: Patient presented to the emergency room after syncopal episode, was passed out for approximately 10 seconds, in ER found to have ENT: Fib-flutter, rapid ventricular response, and significant orthostatic hypotension. Recently admitted and discharged and sent to [facility] after found to have acute combined congestive heart failure with reduced ejection fraction due to atrial flutter/fibrillation-patient states was not converted there but not sure he understands all the details I walk into the room, patient resting comfortably in bed, no conversational dyspnea, only complaint is his upper back pain Opioid HPI Opioid Management Most Recent Pain and Opioid Data: Last Pain Scale 7 Today, 07:52 Last Pain Assessment Today, 00:00 Last MAR Pain Assessment 03/06/25, 17:49 Last ORT Total Score 3 03/06/25, 23:47 Last ORT Risk Category Low Risk 03/06/25, 23:47 Ur Phencyclidine Scrn, (NEGATIVE) Negative Today, 03:40 Review of Systems ROS Status of ROS 10 or more systems reviewed and unremark able except as noted in history and below [facility] Medical History (Updated 03/07/25 @ 11:57 by Ricardo Flores MD) Hyperbilirubinemia ?E80.6 - Other disorders of bilirubin metabolism (ICD-10) Elevated serum creatinine ?R79.89 - Other specified abnormal findings of blood chemistry (ICD-10) Thrombocytopenia ?D69.6 - Thrombocytopenia, unspecified (ICD-10) Alcohol abuse ?F10.10 - Alcohol abuse, uncomplicated (ICD-10) Atrial fibrillation, new onset ?I48.91 - Unspecified atrial fibrillation (ICD-10) Acute exacerbation of CHF (congestive heart failure) ?I50.9 - Heart failure, unspecified (ICD-10) CAD (coronary artery disease) ?I25.10 - Atherosclerotic heart disease of [place] coronary artery without angina pectoris (ICD-10) Hypercholesteremia ?E78.00 - Pure hypercholesterolemia, unspecified (ICD-10) Hypertension ?I10 - Essential (primary) hypertension (ICD-10) Surgical History (Updated 02/03/25 @ 21:10 by Zayra Davey RN) S/P CABG x 5 ?Z95.1 - Presence of aortocoronary bypass graft (ICD-10) Family History (Updated 02/03/25 @ 21:10 by Zayra Davey RN) Mother Heart disease Social History (Updated 03/06/25 @ 23:14 by Leona Casas) Within the past year, how often did you have a drink containing alcohol: 4 or more times a week Smoking status: Never smoker Second hand tobacco smoke exposure: No Non-prescribed substance use: denies use Known occupational exposures/hazards: No Highest level of school completed/degree received: high school graduate Do you want help with school or training: No Are you now , , , , never or living with a partner: don't know Little interest or pleasure in doing things: not at all Feeling down, depressed, or hopeless: not at all Feel stressed/tense/nervous/anxious/difficulty sleeping: not at all Do you think of yourself as: straight/heterosexual Gender Identity: male Meds Home Medications and Allergies Home Medications ?Medication ?Instructions ?Recorded ?Confirmed ?Type atorvastatin 20 mg tablet (Lipitor) 40 mg PO DAILY 03/06/25 History apixaban 5 mg tablet (Eliquis) 5 mg PO BID 03/06/25 History carvedilol 25 mg tablet 25 mg PO Q12H 03/06/2503/06 History magnesium oxide 400 mg (241.3 mg 400 mg PO BID 5 03/07/25 History magnesium) tablet spironolactone 50 mg tablet 50 mg PO DAILY 03/06/25 History tamsulosin 0.4 mg capsule 0.4 mg PO DAILY 03/06/25 History doxazosin 2 mg tablet 2 mg PO DAILY 03/07/2503/07 History furosemide 40 mg tablet 40 mg PO DAILY 03/07/2502/16 History Allergies Allergy/AdvReac Type Severity Reaction Status Date / Time No Known Drug Allergies Allergy Verified 03/06/25 15:25 Exam Constitutional Vital Signs, click to edit/add: Last Vital Signs Temp 98.6 F 03/07/25 03:11 Pulse 50 L 03/07/25 03:11 Resp 20 03/07/25 03:11 BP 149/80 H 03/07/25 03:11 Pulse Ox 91 L 03/07/25 03:11 O2 Del Method Room Air 03/07/25 03:11 Documenting provider has reviewed patient's vital signs: yes Common normals: no apparent distress Respiratory Common normals: normal respiratory effort, no use of accessory muscles and clear to auscultation bilaterally Auscultation: no rhonchi Cardio Common normals: regular rhythm and no murmurs; irregular rate Rate: tachycardic Rhythm: abnormal rhythm GI Common normals: Normal to inspection, nondistended, normoactive bowel sounds present Extremity Common normals: full ROM, normal capillary refill and no clubbing, cyanosis or edema Results Labs Labs: Short CBC 03/06/25 03/07/25 Range/Units 15:15 06:19 WBC 7.0 8.2 (4.0-11.0) 10^3/uL Hgb 15.0 14.7 (14.0-18.0) g/dL Hct 43.4 42.9 (42.0-54.0) % Plt Count 146 L 150 (150-450) 10^3/uL BMP 03/06/25 03/07/25 15:15 06:19 Sodium 139 138 Potassium 4.6 4.6 Chloride 100 101 Carbon Dioxide 29.5 29.8 BUN 26.0 H 29.0 H Creatinine 1.20 1.15 Glucose 120 H 122 H Calcium 9.5 9.1 Liver Function 03/06/25 03/07/25 Range/Units 15:15 06:19 Total Bilirubin 1.0 1.4 H (0.2-1.0) mg/dL AST 29 33 (15-37) U/L ALT 36 37 (16-63) U/L Alkaline Phosphatase 85 84 (46-116) U/L Albumin 3.9 3.7 (3.4-5.0) g/dL Urine 03/07/25 Range/Units 03:40 Urine Color Lt. yellow (YELLOW) Urine Clarity Clear (CLEAR) Urine pH 5.5 (5.0-9.0) Ur Specific [place] 1.010 (1.005-1.025) Urine Protein Negative (NEG/TRACE) mg/dL Urine Glucose (UA) Negative (NEGATIVE) mg/dL Assessment and Plan Assessment and Plan (1) Fall: Qualifiers: Encounter type: initial encounter Qualified Code(s): W19.XXXA - Unspecified fall, initial encounter (2) AMS (altered mental status): Qualifiers: Altered mental status type: unspecified Qualified Code(s): R41.82 - A ltered mental status, unspecified (3) Orthostatic hypotension: (4) Atrial fibrillation, new onset: (5) Acute exacerbation of CHF (congestive heart failure): (6) Acute heart failure with reduced ejection fraction and diastolic dysfunction: (7) Hypertension: (8) Hypercholesteremia: (9) CAD (coronary artery disease): Plan Admission findings: Atrial fibrillation with rapid ventricular spots with respiratory distress and uncontrolled hypertension on admission but orthostatic hypotension on testing resulting in syncopal episode Syncope due to orthostatic hypotension-recently placed on 2 different diuretics, will hold off on diuretics today. Taking p.o. so will saline lock as he does have a history of acute combined congestive heart failure. BNP not checked in ER but checked from ER blood this morning and was normal and is elevated today. Chronic combined congestive heart failure-BNP is elevated but his lung exam is clear and no peripheral edema-will saline lock but hold diuretics for today due to orthostatic hypotension as outlined above Thrombocytopenia-improved to normal Elevated BUN consistent with dehydration-monitor daily Thoracic and upper lumbar pain status post fall-check x-rays, 1 dose of Toradol, holding off on narcotics History of hypertension-maintain current medications BPH-maintain current medications Hypomagnesemia-supplement Admission status: Patient is has severe orthostatic hypotension with systolic less than 80, still with persistent symptoms this morning and drop in his systolic blood pressure from laying to sitting by 35 points, unable to do standing secondary to pain, patient failed initial observational time period, with medically necessary treatment spanning 2 midnights he will be changed to inpatient status
[2025-03-07] MEDS: TAMSULOSIN HCL 0.4 MG CAPSULE PO (09:15)
[2025-03-07] MEDS: APIXABAN 5 MG TABLET PO ×2 (09:15→20:53)
[2025-03-07] MEDS: ATORVASTATIN CALCIUM 20 MG TABLET 40 MG PO (09:15)
[2025-03-07] MEDS: KETOROLAC TROMETHAMINE 30 MG/ML VIAL 15 MG IVP (11:14)
[2025-03-07] MEDS: ACETAMINOPHEN 500 MG TABLET 1000 MG PO (20:53)
[2025-03-08] VITALS (10 sets, daily range): BP systolic 137–190; BP diastolic 65–91; PULSE 54–89; TEMP 36.6; O2SAT 91–94
[2025-03-08 05:58] LABS: Basophils Percent Auto 0.3 % (0.2-2.0); Eosinophils Absolute Auto 0.1 10^3/uL (0.0-0.7); Eosinophils Percent Auto 1.8 % (0.9-7.0); Hematocrit 42.1 % (42.0-54.0); Hemoglobin 14.6 g/dL (14.0-18.0); Immature Granulocytes Abs Auto 0.02 10^3/uL (0.00-0.03); Immature Granulocytes Pct Auto 0.3 % (0.0-0.5); Lymphocytes Absolute Auto 1.3 10^3/uL (1.2-3.8); Lymphocytes Percent Auto 19.6 % (20.5-60.0); Mean Corpuscular HGB Conc 34.7 g/dL (29.9-35.2); Mean Corpuscular Hemoglobin 30.9 pg (25.9-34.0); Mean Corpuscular Volume 89.2 fL (80.0-94.0); Mean Platelet Volume 10.5 fL (9.5-13.5); Monocytes Absolute Auto 0.6 10^3/uL (0.3-0.8); Monocytes Percent Auto 8.3 % (1.7-12.0); Neutrophils Absolute Auto 4.6 10^3/uL (1.4-6.5); Neutrophils Percent Auto 69.7 % (43.0-75.0); Platelet Count 137 10^3/uL (150-450); Red Blood Count 4.72 10^6/uL (4.70-6.10); Red Cell Distribution Width 12.2 % (11.0-15.0); White Blood Count 6.6 10^3/uL (4.0-11.0)
[2025-03-08 06:12] LABS: Alanine Aminotransferase 25 U/L (16-63); Albumin Globulin Ratio 1.2; Albumin Level 3.7 g/dL (3.4-5.0); Alkaline Phosphatase 77 U/L (46-116); Anion Gap 13.2; Aspartate Amino Transferase 26 U/L (15-37); Bilirubin Total 1.2 mg/dL (0.2-1.0); Calcium 9.2 mg/dL (8.5-10.1); Carbon Dioxide 28.2 mmol/L (21.0-32.0); Chloride 104 mmol/L (98-107); Estimated GFR (African America >60 (>=60 mL/min/1.73m^2); Estimated GFR (Non-African Ame >60 (>=60 mL/min/1.73m^2); Globulin 3.2 g/dL; Glucose 112 mg/dL (74-106); Magnesium 2.2 mg/dL (1.8-2.4); Potassium 4.4 mmol/L (3.5-5.1); Sodium 141 mmol/L (136-145); Total Protein 6.9 g/dL (6.4-8.2)
[2025-03-08 06:23] LABS: Troponin I High Sensitivity 24.2 pg/mL (4.0-76.1)
--- NOTE | 2025-03-08 07:08 | P.DS_ITS ---
DS: Providers Provider Date of admission: 03/06/25 23:15 Primary care physician: Ricardo Flores MD Consults: 03/07/25 06:57 Consult to Pharmacy Routine Consulting Provider: Reason for consultation: Please [place] me when Med Rec is Updated Has provider been notified: No Occupational Therapy Eval and Treat Routine Reason for consultation: Only if needed for Rehab Has provider been notified: No Physical Therapy Eval and Treat Routine Reason for consultation: Eval and Treat Has provider been notified: No DS: Diagnosis Discharge Diagnosis (1) Fall: Qualifiers: Encounter type: initial encounter Qualified Code(s): W19.XXXA - Unspecified fall, initial encounter (2) AMS (altered mental status): Qualifiers: Altered mental status type: unspecified Qualified Code(s): R41.82 - Altered mental status, unspecified (3) Orthostatic hypotension: (4) Atrial fibrillation, new onset: (5) Acute exacerbation of CHF (congestive heart failure): (6) Acute heart failure with reduced ejection fraction and diastolic dysfunction: (7) Hypertension: (8) Hypercholesteremia: (9) CAD (coronary artery disease): Plan Admission findings: Atrial fibrillation with rapid ventricular spots with respiratory distress and uncontrolled hypertension on admission but orthostatic hypotension on testing resulting in syncopal episode Syncope due to orthostatic hypotension-recently placed on 2 different diuretics, will hold off on diuretics today. Taking p.o. so will saline lock as he does have a history of acute combined congestive heart failure. BNP not checked in ER but checked from ER blood this morning and was normal and is elevated today. Chronic combined congestive heart failure-BNP is elevated but his lung exam is clear and no peripheral edema-will saline lock but hold diuretics for today due to orthostatic hypotension as outlined above Thrombocytopenia-improved to normal Elevated BUN consistent with dehydration-monitor daily Thoracic and upper lumbar pain status post fall-check x-rays, 1 dose of Toradol, holding off on narcotics History of hypertension-maintain current medications BPH-maintain current medications Hypomagnesemia-supplement Admission status: Patient is has severe orthostatic hypotension with systolic less than 80, still with persistent symptoms this morning and drop in his systolic blood pressure from laying to sitting by 35 points, unable to do standing secondary to pain, patient failed initial observational time period, with medically necessary treatment spanning 2 midnights he will be changed to inpatient status ? RashawnalisIsauro W 74, M?1950 MRN#? [id number] ADM MORRIS,?MS??217?-1? 5ft 10in 80.6kg BSA: 1.98m? BMI: 25.5kg/m? Acc#? [id number] Full Code Allergies No Known Drug Allergies Problems ? ONSET Acute heart failure with reduced ejection fraction and diastolic dysfunction Fall AMS (altered mental status) Orthostatic hypotension Home Meds Confirmed Prescription Monitoring Program MEDICATIONS (INSTRUCTIONS) Active apixaban [Eliquis] 5 mgPOBID atorvastatin [Lipitor] 40 mgPODAILY carvedilol 25 [id number] doxazosin 2 mgPODAILY furosemide 40 mgPODAILY magnesium oxide 400 mgPOBID spironolactone 50 mgPODAILY tamsulosin 0.4 mgPODAILY Vital Signs Today 05:31 BP *153/89?H Pulse *83? Resp *18? Temp *97.8 F? O2 Sat 94?L Delivery Room Air? *from earlier documentation Lab Results Current Visit Most Recent Hematology WBC (4.0-11.0) 6.6 10^3/uL?(+) Today 05:20 RBC (4.70-6.10) 4.72 10^6/uL?(+) Today 05:20 Hgb (14.0-18.0) 14.6 g/dL?(+) Today 05:20 Hct (42.0-54.0) 42.1 %?(+) Today 05:20 MCV (80.0-94.0) 89.2 fL?(+) Today 05:20 MCH (25.9-34.0) 30.9 pg?(+) Today 05:20 MCHC (29.9-35.2) 34.7 g/dL?(+) Today 05:20 RDW (11.0-15.0) 12.2 %?(+) Today 05:20 Plt Count (150-450) 137 10^3/uL L?(+) Today 05:20 MPV (9.5-13.5) 10.5 fL?(+) Today 05:20 Neut % (Auto) (43.0-75.0) 69.7 %?(+) Today 05:20 Lymph % (Auto) (20.5-60.0) 19.6 % L?(+) Today 05:20 [place] % (Auto) (1.7-12.0) 8.3 %?(+) Today 05:20 Eos % (Auto) (0.9-7.0) 1.8 %?(+) Today 05:20 Baso % (Auto) (0.2-2.0) 0.3 %?(+) Today 05:20 Neut # (Auto) (1.4-6.5) 4.6 10^3/uL?(+) Today 05:20 Lymph # (Auto) (1.2-3.8) 1.3 10^3/uL?(+) Today 05:20 [place] # (Auto) (0.3-0.8) 0.6 10^3/uL?(+) Today 05:20 Eos # (Auto) (0.0-0.7) 0.1 10^3/uL?(+) Today 05:20 Baso # (Auto) (0.0-0.1) 0.0 10^3/uL?(+) Today 05:20 Abs Immat Gran (auto) (0.00-0.03) 0.02 10^3/uL?(+) Today 05:20 Imm/Tot Granulo (auto) (0.0-0.5) 0.3 %?(+) Today 05:20 Coagulation PT (9.0-11.6) 11.6 sec 03/06/25 15:15 INR 1.11? 03/06/25 15:15 Chemistry Sodium (136-145) 141 mmol/L?(+) Today 05:20 Potassium (3.5-5.1) 4.4 mmol/L?(+) Today 05:20 Chloride (98-107) 104 mmol/L?(+) Today 05:20 Carbon Dioxide (21.0-32.0) 28.2 mmol/L?(+) Today 05:20 Anion Gap 13.2?(+) Today 05:20 BUN (7.0-18.0) 35.0 mg/dL H?(+) Today 05:20 Creatinine (0.70-1.30) 1.13 mg/dL?(+) Today 05:20 Est GFR ( Amer) (>=60 mL/min/1.73m^2) >60?(+) Today 05:20 Est GFR (Non-Af Amer) (>=60 mL/min/1.73m^2) >60?(+) Today 05:20 BUN/Creatinine Ratio 31.0?(+) Today 05:20 Glucose (74-106) 112 mg/dL H?(+) Today 05:20 Lactate (0.4-2.0) 1.0 mmol/L 03/06/25 15:15 Calcium (8.5-10.1) 9.2 mg/dL?(+) Today 05:20 Magnesium (1.8-2.4) 2.2 mg/dL?(+) Today 05:20 Total Bilirubin (0.2-1.0) 1.2 mg/dL H?(+) Today 05:20 AST (15-37) 26 U/L?(+) Today 05:20 ALT (16-63) 25 U/L?(+) Today 05:20 Alkaline Phosphatase (46-116) 77 U/L?(+) Today 05:20 Troponin I High Sens (4.0-76.1) 24.2 pg/mL?(+) Today 05:20 NT-Pro-B Natriuret Pep (<=1800.0) 3435.0 pg/mL H*?(+) Today 05:20 Total Protein (6.4-8.2) 6.9 g/dL?(+) Today 05:20 Albumin (3.4-5.0) 3.7 g/dL?(+) Today 05:20 Globulin 3.2 g/dL?(+) Today 05:20 Albumin/Globulin Ratio 1.2?(+) Today 05:20 Urines Urine Color (YELLOW) Lt. yellow 03/07/25 03:40 Urine Clarity (CLEAR) Clear 03/07/25 03:40 Urine pH (5.0-9.0) 5.5 03/07/25 03:40 Ur Specific [place] (1.005-1.025) 1.010 03/07/25 03:40 Urine Protein (NEG/TRACE) Negative mg/dL 03/07/25 03:40 Urine Glucose (UA) (NEGATIVE) Negative mg/dL 03/07/25 03:40 Urine Ketones (NEGATIVE) Negative mg/dL 03/07/25 03:40 Urine Occult Blood (NEGATIVE) Negative 03/07/25 03:40 Urine Nitrite (NEGATIVE) Negative 03/07/25 03:40 Urine Bilirubin (NEGATIVE) Negative 03/07/25 03:40 Urine Urobilinogen (0.2-1.0) 0.2 EU/dL 03/07/25 03:40 Ur Leukocyte Esterase (NEGATIVE) Negative 03/07/25 03:40 Toxicology Urine Opiates Screen (NEGATIVE) Negative 03/07/25 03:40 Ur Buprenorphine Scrn (NEGATIVE) Negative? 03/07/25 03:40 Ur Oxycodone Screen (NEGATIVE) Negative 03/07/25 03:40 Urine Methadone Screen (NEGATIVE) Negative 03/07/25 03:40 Ur Barbiturates Screen (NEGATIVE) Negative 03/07/25 03:40 U Tricyclic Antidepress (NEGATIVE) Negative 03/07/25 03:40 Ur Phencyclidine Scrn (NEGATIVE) Negative 03/07/25 03:40 Ur Amphetamines Screen (NEGATIVE) Negative 03/07/25 03:40 U Methamphetamines Scrn (NEGATIVE) Negative 03/07/25 03:40 U Benzodiazepines Scrn (NEGATIVE) Negative 03/07/25 03:40 Urine Cocaine Screen (NEGATIVE) Negative 03/07/25 03:40 U Cannabinoids Screen (NEGATIVE) Negative 03/07/25 03:40 Ethanol Quant <3 mg/dL 03/06/25 15:15 Miscellaneous POC Glucose (74-106) 110 mg/dL H 03/06/25 15:15 My Widget Pulse Oximetry 94 L Today Temperature 97.8 F Today Oxygen Delivery Method Room Air Today Intake, Oral Amount 240 03/07/25 Number of Bowel Movements 1 02/05/25 Pain Scale 2 Today Pulse Rate 83 Today Chest X-Ray 03/06/25 POC blood glucose 110 03/06/25 WBC (4.0-11.0) 6.6 10^3/uL Today Hgb (14.0-18.0) 14.6 g/dL Today Hct (42.0-54.0) 42.1 % Today Plt Count (150-450) 137 10^3/uL L Today Neut % (Auto) (43.0-75.0) 69.7 % Today Lymph % (Auto) (20.5-60.0) 19.6 % L Today Est GFR (Non-Af Amer) (>=60 mL/min/1.73m^2) >60 Today Creatinine (0.70-1.30) 1.13 mg/dL Today DS: Summary Time Spent with Patient Time attestation: Total time spent providing and/or coordinating discharge services: Exam Constitutional Vital Signs, click to edit/add: Last Vital Signs Temp 97.8 F 03/08/25 02:58 Pulse 83 03/08/25 02:58 Resp 18 03/08/25 02:58 BP 153/89 H 03/08/25 02:58 Pulse Ox 94 L 03/08/25 05:31 O2 Del Method Room Air 03/08/25 05:31 DS: Data Data Completed and Pending Labs on day of discharge: Labs from last 24 hours 03/08/25 03/07/25 03/06/25 05:20 06:19 15:15 WBC 6.6 RBC 4.72 Hgb 14.6 Hct 42.1 MCV 89.2 MCH 30.9 MCHC 34.7 RDW 12.2 Plt Count 137 L MPV 10.5 Neut % (Auto) 69.7 Lymph % (Auto) 19.6 L [place] % (Auto) 8.3 Eos % (Auto) 1.8 Baso % (Auto) 0.3 Neut # (Auto) 4.6 Lymph # (Auto) 1.3 [place] # (Auto) 0.6 Eos # (Auto) 0.1 Baso # (Auto) 0.0 Abs Immat Gran (auto) 0.02 Imm/Tot Granulo (auto) 0.3 Sodium 141 Potassium 4.4 Chloride 104 Carbon Dioxide 28.2 Anion Gap 13.2 BUN 35.0 H Creatinine 1.13 Est GFR ( Amer) >60 Est GFR (Non-Af Amer) >60 BUN/Creatinine Ratio 31.0 Glucose 112 H Calcium 9.2 Magnesium 2.2 Total Bilirubin 1.2 H AST 26 ALT 25 Alkaline Phosphatase 77 Troponin I High Sens 24.2 NT-Pro-B Natriuret Pep 3435.0 H* 3300.0 H* 1011.0 Total Protein 6.9 Albumin 3.7 Globulin 3.2 Albumin/Globulin Ratio 1.2 Discharge Plan Discharge Condition: Fair Discharge Medications: No Action Eliquis 5 mg tablet 5 mg PO BID carvedilol 25 mg tablet 25 mg PO Q12H magnesium oxide 400 mg (241.3 mg magnesium) tablet 400 mg PO BID spironolactone 50 mg tablet 50 mg PO DAILY tamsulosin 0.4 mg capsule 0.4 mg PO DAILY doxazosin 2 mg tablet 2 mg PO DAILY furosemide 40 mg tablet 40 mg PO DAILY atorvastatin [Lipitor] 20 mg tablet 40 mg PO DAILY Print Language: Japanese
[2025-03-08] MEDS: APIXABAN 5 MG TABLET PO (08:32)
[2025-03-08] MEDS: DOXAZOSIN MESYLATE 2 MG TABLET PO (08:32)
[2025-03-08] MEDS: TAMSULOSIN HCL 0.4 MG CAPSULE PO (08:32)
[2025-03-08] MEDS: CARVEDILOL 25 MG TABLET PO (08:33)
[2025-03-08] MEDS: FUROSEMIDE 40 MG TABLET PO (08:33)
[2025-03-08] MEDS: ATORVASTATIN CALCIUM 20 MG TABLET 40 MG PO (08:33)
[2025-03-08] MEDS: KETOROLAC TROMETHAMINE 30 MG/ML VIAL 15 MG IVP ×3 (09:44→21:16)
[2025-03-08] MEDS: DEXAMETHASONE SOD PHOS 4 MG/ML VIAL 6 MG IV (09:44)
[2025-03-08] MEDS: ORPHENADRINE 60 MG/2 ML VIAL IV (09:44)
--- NOTE | 2025-03-08 10:35 | P.PN_ITS ---
Progress Note: Subjective Subjective Interval history: Patient still with difficulty standing secondary pain in upper thoracic lower cervical spine area, x-rays from yesterday were negative Exam Constitutional Vital Signs, click to edit/add: Last Vital Signs Temp 97.9 F 03/08/25 07:45 Pulse 59 L 03/08/25 09:50 Resp 20 03/08/25 07:45 BP 154/87 H 03/08/25 09:50 Pulse Ox 93 L 03/08/25 07:45 O2 Del Method Room Air 03/08/25 07:45 Documenting provider has reviewed patient's vital signs: yes Common normals: no apparent distress Respiratory Common normals: normal respiratory effort, no use of accessory muscles and clear to auscultation bilaterally Auscultation: no rhonchi Cardio Common normals: regular rhythm and no murmurs; irregular rate Rate: tachycardic Rhythm: abnormal rhythm GI Common normals: Normal to inspection, nondistended, normoactive bowel sounds present Extremity Common normals: full ROM, normal capillary refill and no clubbing, cyanosis or edema Progress Note: Objective Labs Labs: Short CBC 03/08/25 Range/Units 05:20 WBC 6.6 (4.0-11.0) 10^3/uL Hgb 14.6 (14.0-18.0) g/dL Hct 42.1 (42.0-54.0) % Plt Count 137 L (150-450) 10^3/uL BMP 03/08/25 05:20 Sodium 141 Potassium 4.4 Chloride 104 Carbon Dioxide 28.2 BUN 35.0 H Creatinine 1.13 Glucose 112 H Calcium 9.2 Liver Function 03/08/25 Range/Units 05:20 Total Bilirubin 1.2 H (0.2-1.0) mg/dL AST 26 (15-37) U/L ALT 25 (16-63) U/L Alkaline Phosphatase 77 (46-116) U/L Albumin 3.7 (3.4-5.0) g/dL Progress Note: A&P Assessment and Plan (1) Fall: Qualifiers: Encounter type: initial encounter Qualified Code(s): W19.XXXA - Unspecified fall, initial encounter (2) AMS (altered mental status): Qualifiers: Altered mental status type: unspecified Qualified Code(s): R41.82 - Altered mental status, unspecified (3) Orthostatic hypotension: (4) Atrial fibrillation, new onset: (5) Acute exacerbation of CHF (congestive heart failure): (6) Acute heart failure with reduced ejection fraction and diastolic dysfunction: (7) Hypertension: (8) Hypercholesteremia: (9) CAD (coronary artery disease): Plan Admission findings: Atrial fibrillation with rapid ventricular response with respiratory distress and uncontrolled hypertension on admission but orthostatic hypotension on testing resulting in syncopal episode Syncope due to orthostatic hypotension-blood pressure more stable, BNP is now elevated, add back his Lasix today but will hold off on the spironolactone for now., If he is discharged today we will place Holter monitor at discharge Chronic combined congestive heart failure-see above Thrombocytopenia-improved to normal Elevated BUN consistent with dehydration-monitor daily Thoracic and upper lumbar pain status post fall-x-rays negative but patient still having pain, check CT scan thoracic and cervical spine, try muscle relaxer and [id number] Toradol, 4 doses History of hypertension-maintain current medications BPH-maintain current medications Hypomagnesemia-supplement 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
--- NOTE | 2025-03-08 18:35 | PC.NURSE ---
received call from Radiologist reading CTA/CT neck of unstable fx in neck. Dr Flores phone number given to doctor, who then called Dr Flores of CT results. Dr Flores then arrives in room to speak to patient about results. Pt states he agrees to transfer to [facility]. Stripping Machine Operator Jonathan notified and C collar obtained from ER. Patient immediately laid flat, tshirt removed gently, and collar applied.Reyes catheter inserted with return of [address] Flores calls floor back to report transfer to [facility] Dr Shukla accepting physician. Dr Flores also reports that he has notified daughter of ongoing events, and transfer being set up. Pt remained still and calm during this time.
--- NOTE | 2025-03-08 18:45 | P.DS_ITS ---
DS: Providers Provider Date of admission: 03/06/25 23:15 Primary care physician: Ricardo Flores MD Consults: 03/07/25 06:57 Consult to Pharmacy Routine Consulting Provider: Reason for consultation: Please Rickreall me when Med Rec is Updated Has provider been notified: No Occupational Therapy Eval and Treat Routine Reason for consultation: Only if needed for Rehab Has provider been notified: No Physical Therapy Eval and Treat Routine Reason for consultation: Eval and Treat Has provider been notified: No DS: Diagnosis Discharge Diagnosis (1) Fall: Qualifiers: Encounter type: initial encounter Qualified Code(s): W19.XXXA - Unspecified fall, initial encounter (2) AMS (altered mental status): Qualifiers: Altered mental status type: unspecified Qualified Code(s): R41.82 - Altered mental status, unspecified (3) Orthostatic hypotension: (4) Atrial fibrillation, new onset: (5) Acute exacerbation of CHF (congestive heart failure): (6) Acute heart failure with reduced ejection fraction and diastolic dysfunction: (7) Hypertension: (8) Hypercholesteremia: (9) CAD (coronary artery disease): Plan Admission findings: Atrial fibrillation with rapid ventricular response with respiratory distress and uncontrolled hypertension on admission but orthostatic hypotension on testing resulting in syncopal episode Syncope due to orthostatic hypotension-blood pressure more stable, BNP is now elevated, add back his Lasix today but will hold off on the spironolactone for now., If he is discharged today we will place Holter monitor at discharge Neck pain-check CT scan C-spine and T-spine, C-spine fracture at C5 noted on CT scan, unstable, transferring patient to [facility] Chronic combined congestive heart failure-see above Thrombocytopenia-improved to normal Elevated BUN consistent with dehydration-monitor daily History of hypertension-maintain current medications BPH-maintain current medications Hypomagnesemia-supplement 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, 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 therapy not assessed patient yet if not improved and stays till tomorrow have physical therapy evaluate for placement Admission status: Patient is has severe orthostatic hypotension with systolic less than 80, still with persistent symptoms this morning and drop in his systolic blood pressure from laying to sitting by 35 points, unable to do sta nding secondary to pain, patient failed initial observational time period, with medically necessary treatment spanning 2 midnights he will be changed to inpatient status DS: Summary Hospital Course Hospital Course: Patient admitted after syncopal episode, sounded orthostatic, was orthostatic in ER, given some fluids blood pressure improved, still had pain in the neck yesterday so we ordered repeat x-rays of the T-spine, that was unremarkable pain persist today and get CT scan of his C-spine and T-spine, received phone call from radiologist that he has an unstable C5 fracture and patient will be transferred to [facility] trauma service Time Spent with Patient Time attestation: Total time spent providing and/or coordinating discharge services: Exam Constitutional Vital Signs, click to edit/add: Last Vital Signs Temp 97.9 F 03/08/25 15:04 Pulse 71 03/08/25 17:39 Resp 16 03/08/25 17:39 BP 141/65 03/08/25 15:04 Pulse Ox 93 L 03/08/25 17:39 O2 Del Method Room Air 06/22/25 17:39 DS: Data Data Completed and Pending Labs on day of discharge: Labs from last 24 hours 03/08/25 05:20 WBC 6.6 RBC 4.72 Hgb 14.6 Hct 42.1 MCV 89.2 MCH 30.9 MCHC 34.7 RDW 12.2 Plt Count 137 L MPV 10.5 Neut % (Auto) 69.7 Lymph % (Auto) 19.6 L [place] % (Auto) 8.3 Eos % (Auto) 1.8 Baso % (Auto) 0.3 Neut # (Auto) 4.6 Lymph # (Auto) 1.3 [place] # (Auto) 0.6 Eos # (Auto) 0.1 Baso # (Auto) 0.0 Abs Immat Gran (auto) 0.02 Imm/Tot Granulo (auto) 0.3 Sodium 141 Potassium 4.4 Chloride 104 Carbon Dioxide 28.2 Anion Gap 13.2 BUN 35.0 H Creatinine 1.13 Est GFR ( Amer) >60 Est GFR (Non-Af Amer) >60 BUN/Creatinine Ratio 31.0 Glucose 112 H Calcium 9.2 Magnesium 2.2 Total Bilirubin 1.2 H AST 26 ALT 25 Alkaline Phosphatase 77 Troponin I High Sens 24.2 NT-Pro-B Natriuret Pep 3435.0 H* Total Protein 6.9 Albumin 3.7 Globulin 3.2 Albumin/Globulin Ratio 1.2 Discharge Plan Discharge Disposition: Xfer Acute Care Hospital Condition: Fair
[2025-03-08] MEDS: HYDRALAZINE HCL 20 MG/ML VIAL 10 MG IVP (23:03)
[2025-03-09 00:25] VITALS: BP 165/77
--- NOTE | 2025-03-09 02:10 | PC.NURSE ---
Patient found with cervical collar off and twisting in bed to get up. Patient appeared confused and stated he was uncomfortable. C-Collar reapplied and patient educated on importance of collar. Patient acknowledged understanding and calmed down. call light within reach and bed alarm on.
[2025-03-09] MEDS: KETOROLAC TROMETHAMINE 30 MG/ML VIAL 15 MG IVP (03:56)
[2025-03-09 04:00] VITALS: BP 182/73; PULSE 86; O2SAT 92
--- NOTE | 2025-03-09 04:05 | PC.NURSE ---
Transport picked up patient for transfer to [facility] room 6102. Report called to
== END 2025-03-09 04:00 | disposition short-term general hospital (02) | DRG 312 ==
LOC: ER 21:19 → MS 23:27
PROVIDERS: Emergency Medicine; Registered Nurse; Admitting Provider Family Medicine; Emergency Provider Emergency Medicine; PCP Family Medicine; Visit Provider Family Medicine
DX: I95.1 Orthostatic hypotension (principal); I50.43 Acute on chronic combined systolic (congestive) and diastolic (congestive) heart failure; S12.400A Unspecified displaced fracture of fifth cervical vertebra, initial encounter for closed fracture; R41.82 Altered mental status, unspecified; I48.91 Unspecified atrial fibrillation; I25.10 Atherosclerotic heart disease of native coronary artery without angina pectoris; E78.00 Pure hypercholesterolemia, unspecified; Z95.1 Presence of aortocoronary bypass graft; Z79.01 Long term (current) use of anticoagulants; Z79.899 Other long term (current) drug therapy; I11.0 Hypertensive heart disease with heart failure; R06.03 Acute respiratory distress; D69.6 Thrombocytopenia, unspecified; E86.0 Dehydration; M54.50 Low back pain, unspecified; M54.6 Pain in thoracic spine; N40.0 Benign prostatic hyperplasia without lower urinary tract symptoms; E83.42 Hypomagnesemia; W19.XXXA Unspecified fall, initial encounter
CPT/HCPCS: 36415; 51702; 70450; 71045; 72072; 72110; 72125; 72128; 80053; 80307; 80320; 81003; 82948; 83605; 83735; 83880; 84484; 85025; 85610; 93005; 93246; 94667; 94668; 94761; 96361; 96374; 99285; G0378; J0360; J1100; J1885; J2360

== ENCOUNTER 2025-05-12 17:48 | Inpatient (IN) | payer MEDICARE, SELFPAY ==
--- OUTSIDE RECORDS SUMMARY | 2025-02-16 04:00 | XMS_ITS | Encounter Summary ---
Author Name [facility] [place] [facility] [place] Address [address] [place] [id number] Care Team Providers Care Manager Business Information Name Role Phone KELLE ACOSTA Primary Care [...] Name Patient's Relationship to Policy Terry [facility] (WNR) MEDICARE ADVANTAGE [facility] (WNR) Sep 17, 2020 OHRWP [id number] HOLLIE TATE PATIENT Selected Encounter This section includes the information on record at [place] for the Encounter. Date/Time Encounter Type Encounter Description Reason Provider Source Feb 16, 2025 08:00 AM OFFICE O/P EST HI 40 MIN PRIMARY CARE/MEDICINE ICD-10-CM I48.91 Unspecified atrial fibrillation IVON ACOSTA Encounter Template Text not used by [place] Assessments - Encounter Diagnoses This section includes the primary and secondary diagnoses documented for the Encounter. Date/Time Primary/Secondary Diagnosis Diagnosis Name Provider Source Feb 16, 2025 12:51 PM PRIMARY Unspecified atrial fibrillation KELLE ACOSTA CB Feb 16, 2025 12:51 PM SECONDARY [place] heart disease [place] coronary artery w/o ang pctrs [facility] Feb 16, 2025 12:51 PM SECONDARY Benign prostatic hyperplasia with lower urinary tract symp [facility] Feb 16, 2025 12:51 PM SECONDARY Essential (primary) hypertension [facility] Feb 16, 2025 12:51 PM SECONDARY Other obstructive and reflux uropathy [facility] Plan of Treatment: Future Appointments (+ 6 months) and Future Tests (+/- 45 days) The Plan of Treatment section includes future care activities for the patient [facility] [place] [facility] This section includes future appointments and future orders which are active, pending or scheduled. Future Appointments This section includes appointments that were scheduled to occur 6 months from the date of the Encounter, up to a maximum of 20 appointments. The data comes from all [place] treatment facilities. Appointment Date/Time Appointment Type Appointme nt Facility Name Jul 27, 2025 08:00 AM AMBULATORY - NONE [facility] Aug 03, 2025 08:00 AM AMBULATORY - NONE BRENDAN Boucher [facility] Active, Pending, and Scheduled Orders This section includes a listing of several types of active, pending, and scheduled orders, including clinic medications orders, diagnostic test orders, procedure orders and consult orders; where the start date of the order is 45 days before the date of the Encounter or 45 days after the date of theEncounter. The data comes from all [facility] facilities. Test Date/Time Test Type Test Details Facility Name January 16, 2025 12:00 AM Laboratory - Chemi stry Order URINALYSIS URINE SP ONCE [facility] February 13, 2025 12:00 AM Laboratory - Chemi stry Order COMPREHENSIVE METABOLIC PANEL LT GREEN PLASMA SP ONCE [facility] February 13, 2025 12:00 AM Laboratory - Chemi stry Order LIPID PROFILE LT GREEN PLASMA SP ONCE [facility] February 13, 2025 12:00 AM Laboratory - Chemi stry Order CBC LAVENDER BLOOD SP ONCE [facility] February 13, 2025 12:00 AM Laboratory - Chemi stry Order HEMOGLOBIN A1C LAVENDER BLOOD SP ONCE [facility] February 13, 2025 12:00 AM Laboratory - Chemi stry Order URINALYSIS URINE SP ONCE [facility] February 13, 2025 12:00 AM Laboratory - Chemi stry Order TSH LT GREEN PLASMA SP ONCE [facility] Feb 16, 2025 12:00 AM Laboratory - Chemi stry Order COMPREHENSIVE METABOLIC PANEL LT GREEN PLASMA SP [facility] Feb 16, 2025 12:00 AM Laboratory - Chemi stry Order CBC LAVENDER BLOOD SP [facility] Feb 16, 2025 10:09 AM Consult Order S PODIATRY OUTPT [facility] Feb 16, 2025 12:51 PM Consult Order COMMUNITY CARE-CARDIOLOGY [facility] Feb 16, 2025 12:51 PM Consult Order W UROLOGY OUTPT [facility] Lab Results: +/- 30 days of the encounter This section includes the Chemistry and Hematology Lab Results on record with [facility] for the patient. Radiology Reports and Pathology Reports are provided separately, in subsequent sections. Lab Results This section contains the Chemistry/Hematology Results that were resulted 30 days before or 30 daysafter the date of the Encounter. Date/Time Source Result Type Result - Unit Interpretation Reference Range Specimen Type Comment January 19, 2025 08:02 AM [facility] COMPREHENSIVE METABOLIC PANEL PLASMA Specimen Type: [...] January 19, 2025 08:01 AM Reporting Lab: [facility] [id number] [facility] [address] Performing Lab: [address] [address] ALBUMIN 4.0 g/dL 3.5-4.8 ALKALINE PHOSPHATASE 69 [...] ANION GAP 13 mmol/L 10-20 EGFR (CALCULATED) January 19, 2025 08:02 AM [facility] CBC BLOOD Specimen Type: BLOOD No comment entered. Ordering Provider: KELLE ACOSTA Report Released Date/Time: January 19, 2025 08:01 AM Reporting Lab: [address] [address] Performing Lab: [address] [address] WBC COUNT 3.9 10*3/uL 3.6-11.0 RBC COUNT [...] fL 7.4-11.4 January 19, 2025 08:02 AM [facility] HEMOGLOBIN A1C BLOOD Specimen Type: B [...] January 19, 2025 08:01 AM Reporting Lab: [address] [address] Performing Lab: [place] [id number] HEMOGLOBIN A1C 4.8 3.6-5.7 January 19, 2025 08:02 AM [facility] PROSTATE SPECIFIC ANTIGEN SERUM Speci men Type: SERUM Comment: TPSA Testing males >= 70 y/o is not recommended if there is a TPSA history of previously normal PSA testing. Assay performed on TPSA [employer] using CMIA methodology. Patient results TPSA determined by assays using different manufacturers or methods TPSA may not be comparable. Ordering Provider: KELLE ACOSTA Report Released Date/Time: January 19, 2025 08:01 AM Reporting Lab: [address] [address] Performing Lab: [place] [id number] PROSTATE SPECIFIC ANTIGEN 1.533 ng/mL 0. 000-6.500 January 19, 2025 08:02 AM [facility] TSH PLASMA Specimen Type: PLASMA Comment: [...] January 19, 2025 08:01 AM Reporting Lab: [address] [address] Performing Lab: [address] [address] TSH 2.835 u[IU]/mL 0.350-4.940 January 19, 2025 08:02 AM [facility] LIPID PROFILE PLASMA Specimen Type: P LASCHARIS Comment: GLUCOSE The ADA recommends a fasting [...] January 19, 2025 08:01 AM Reporting Lab: [address] [address] Performing Lab: [address] [address] CHOLESTEROL 105 mg/dL 0-199 LDL CHOLESTEROL 40 mg/dL 0-99 HDL CHOLESTEROL 53 mg/dL >40 TRIGLYCERIDE 34 mg/dL 0-149 Social History: Smoking Status (Most current) and Tobacco Use (All prior to encounter date) This section includes the most current, and the historical, smoking and tobacco- related health factors from the [place] facility where the Encounter took place. Current Smoking Status This section includes the most current smoking, or tobacco-related health factor, from the [place] facility where the Encounter took place. Date/Time Current Smoking Status Comment Dangelo ity Jul 29, 2024 08:30 AM [facility]-TOBACCO NEVER USED [facility] Tobacco Use History This section includes a history of the smoking, or tobacco-related health factors, that were collected on or before the date of the Encounter. The data comes from the [place] facility where the Encounter took place. Date/Time [...] the Encounter. Date/Time Encounter Note(s) Provider Source Feb 16, 2025 08:40 AM INTERNAL MEDICINE OUTPATIENT NOTE: LOCAL TITLE: PRIMARY CARE OUTPATIENT NOTE (T) STANDARD TITLE: INTERNAL MEDICINE OUTPATIENT NOTE DATE OF NOTE: FEB 16, 2025@08:40 ENTRY DATE: FEB 16, 2025@08:41 AUTHOR: KELLE ACOSTA COSIGNER: URGENCY: STATUS: COMPLETED In-person Note 74yo Reason for Visit: Here with his daughter for follow up of recent hospitalization. He was seen here on 01/26 with noncompliance of BP meds with elevated BP and peripheral edema. He had agreed to go home and start diuretics and to go to ER with SOB. [place] notes he was taking diuretics and not getting much out. He became SOB and daughter did take him to the ER. He was found to be in atrial flutter and sent from [place] to [facility] ER. He was unable to urinate much due to obstuction and a catheter placed. He had been started on ELiquis for the atrial flutter and cardilogy then had him stop eliquis until seeing urology in case procedure for BPH needed. (Had CABG done over a decade ago and had been lost to follow up with cardiology) His weight today is down 36 ppounds from a few weeks ago but still has edema in his feet and ankles. 6 Active Problems PROBLEM LAST MOD PROVIDER Atrial fibrillation 02/16/2025 KELLE ACOSTA Benign prostatic hyperplasia 07/29/2024 KARLA,KELLE Hyperlipidemia 05/17/2022 KARLAKELLE Shoulder pain 01/15/2019 [facility] Coronary arteriosclerosis [...] MOUTH EVERY DAY FOR HIGH CHOLESTEROL 2) FUROSEMIDE 20MG TAB TAKE ONE TABLET BY MOUTH IN THE ACTIVE MORNING FOR VISIBLE WATER RETENTION 3) LABETALOL HCL 100MG TAB TAKE ONE TABLET BY MOUTH ACTIVE TWICE A DAY FOR HIGH BLOOD PRESSURE (WITH FOOD) Active Non-VA Medications Status ========= 1) Non-VA ASPIRIN 81MG EC TAB 81MG MOUTH EVERY DAY ACTIVE 2) Non-VA ATORVASTATIN CALCIUM 40MG TAB 40MG MOUTH EVERY ACTIVE DAY 5 Total Medications PHYSICAL EXAM: Vital Signs: T: 97.7 F [36.5 C] (02/16/2025 08:10) P: 66 (02/16/2025 08:10) R: 20 (02/16/2025 08:10) BP: 150/78 (02/16/2025 08:10) Pain: 0 (02/16/2025 08:10) Height: 69.5 in [176.5 cm] (01/15/2019 10:23) Weight: 194.4 lb [88.18 kg] (02/16/2025 08:10) Pulse Ox: 96% (02/16/2025 08:10) General: in no distress Head, Ears, Eyes, Nose, and Throat: Neck: Chest/Lungs: CTA Cardiovascular: underlying regular rhythm, occasional irregular beat Gastrointestinal: Extremities: pitting edema bilat to mid calf ASSESSMENT/PLAN: reviewed hospital records f/u with urology and cardiology - community care consults placed - increased lasix and spironolactone doses, he has lost almost 40 pounds but still has quite a bit of fluids present in his legs. SOB has improved. carr still in place, had some hematuria while in hospital, none since discharge. discussed once carr out can change lasix to am as he is currently taking at bedtime. consult placed for eliquis meds updated- new meds ordered, reviewed meds with daughter. is currently holding eliquis due to potential urinary procedure, he does see urology today podiatry consult placed for hygienic care of nails- daughter has not been able to trim nails and take care of callouses, he is now on blood thinner so marina to consult podiatry HEALTH MAINTENANCE/CLINICAL REMINDERS: MEDICATION RECONCILIATION Medication Reconciliation report reviewed and discussed with patient/caregiver. VA prescription medications, non-VA prescription medications, OTC and herbal medications reviewed: Patient/caregiver verifies that the list is complete and accurate and voices understanding. Patient/caregiver in possession of printed medication list. FOLLOW-UP: 6 months with labs I am the Staff Provider. TOTAL TIME SPENT: Spent 48 minutes in care of this patient today including review of records, exam, and placing orders. /jen/ KELLE ACOSTA NURSE PRACTITIONER Signed: 02/16/2025 12:51 [facility] Feb 16, 2025 08:12 AM PRIMARY CARE NURSI STEPHANIE NOTE: LOCAL TITLE: OUTPATIENT NURSING INTAKE NOTE (T) STANDARD TITLE: PRIMARY CARE NURSING NOTE DATE OF NOTE: FEB 16, 2025@08:12 ENTRY DATE: FEB 16, 2025@08:12:30 AUTHOR: HELGA RODRIGUEZ COSIGNER: URGENCY: STATUS: COMPLETED Hemoglobin A1C Results: [...] 30 days? NO MEDICATION LIST REVIEW REPORT Patient's Active Medications were reviewed at this visit. Patient states no change in documented OTC/Herbals at this visit. 1. Has the patient been feeling sad or distressed? No 2. Has the patient been having personal or family problems? No 3. Has the patient been experiencing worry and/or stress? No 4. Has the patient been having problems with drugs and/or alcohol? No 5. Crisis Line pocket card was provided to patient. No/patient declined [facility] not documented this visit. /jen/ HELGA RODRIGUEZ REGISTERED NURSE Signed: 02/16/2025 08:15 HELGA RODRIGUEZ OC
--- OUTSIDE RECORDS SUMMARY | 2025-02-17 04:41 | XMS_ITS ---
Author Name [facility] [place] [facility] [place] Address [address] [place] [address] Care Team Providers Care Image Archivist Name Role Phone KELLE ACOSTA Primary Care Provider Unavaildeepti e Insurance Providers: All historical and current [...] [id number] HOLLIE TATE PATIENT Selected Encounter This section includes the information on record at [place] for the Encounter. Date/Time Encounter Type Encounter Description Reason Provider Source Feb 17, 2025 08:41 AM [facility] OL DIG ASSMT&MGMT 11-20 CLINICAL PHARMACY ICD-10-CM Z51.81 Encounter for therapeutic drug level monitoring SIM MOREJON E Encounter Template Text not used by [place] Assessments - Encounter Diagnoses This section includes the primary and secondary diagnoses documented for the Encounter. Date/Time Primary/Secondary Diagnosis Diagnosis Name Provider Source Feb 17, 2025 08:51 AM PRIMARY Encounter for therapeutic drug level monitoring SIM MOREJON [facility] Plan of Treatment: Future Appointments (+ 6 months) and Future Tests (+/- 45 days) The Plan of Treatment section includes future care activities for the patient from all [place] [facility] This section includes future appointments and future orders which are active, pending or scheduled. Future Appointments This section includes appointments that were scheduled to occur 6 months from the date of the Encounter, up to a maximum of 20 appointments. The data comes from all [place] treatment facilities. Appointment Date/Time Appointment Type Appointme nt Facility Name Jul 27, 2025 08:00 AM AMBULATORY - NONE [facility] Aug 03, 2025 08:00 AM AMBULATORY - NONE BRENDAN Boucher [facility] Active, Pending, and Scheduled Orders This section includes a listing of several types of active, pending, and scheduled orders, including clinic medications orders, diagnostic test orders, procedure orders and consult orders; where the start date of the order is 45 days before the date of the Encounter or 45 days after the date of theEncounter. The data comes from all [place] treatment facilities. Test Date/Time Test Type Test Details Facility Name January 16, 2025 12:00 AM Laboratory - Chemi stry Order URINALYSIS URINE SP ONCE [facility] February 13, 2025 12:00 AM Laboratory - Chemi stry Order COMPREHENSIVE METABOLIC PANEL LT GREEN PLASMA SP ONCE [facility] February 13, 2025 12:00 AM Laboratory - Chemi stry Order LIPID PROFILE LT GREEN PLASMA SP ONCE [facility] February 13, 2025 12:00 AM Laboratory - Chemi stry Order HEMOGLOBIN A1C LAVENDER BLOOD SP ONCE [facility] February 13, 2025 12:00 AM Laboratory - Chemi stry Order CBC LAVENDER BLOOD SP ONCE [facility] February 13, 2025 12:00 AM Laboratory - Chemi stry Order URINALYSIS URINE SP ONCE [facility] February 13, 2025 12:00 AM Laboratory - Chemi stry Order TSH LT GREEN PLASMA SP ONCE [facility] Feb 16, 2025 12:00 AM Laboratory - Chemi stry Order COMPREHENSIVE METABOLIC PANEL LT GREEN PLASMA SP [facility] Feb 16, 2025 12:00 AM Laboratory - Chemi stry Order CBC LAVENDER BLOOD SP [facility] Feb 16, 2025 10:09 AM Consult Order S PODIATRY OUTPT Cons [employer] [facility] Feb 16, 2025 12:51 PM Consult Order COMMUNITY CARE-CARDIOLOGY Cons [employer] Feb 16, 2025 12:51 PM Consult Order W UROLOGY OUTPT Cons [employer] [facility] Lab Results: +/- 30 days of the encounter This section includes the Chemistry and Hematology Lab Results on record with [place] for the patient. Radiology Reports and Pathology Reports are provided separately, in subsequent sections. Lab Results This section contains the Chemistry/Hematology Results that were resulted 30 days before or 30 daysafter the date of the Encounter. Date/Time Source Result Type Result - Unit Interpretation Reference Range Specimen Type Comment January 19, 2025 08:02 AM [facility] COMPREHENSIVE METABOLIC PANEL PLASMA Specimen Type: PLASMA [...] January 19, 2025 08:01 AM Reporting Lab: [facility] [id number] [place] [address] Performing Lab: [facility] [id number] [place] [address] ALBUMIN 4.0 g/dL 3.5-4.8 ALKALINE PHOSPHATASE 69 [...] (CALCULATED) 78 January 19, 2025 08:02 AM [facility] CBC BLOOD Specimen Type: BLOOD No comment entered. Ordering Provider: KELLE ACOSTA Report Released Date/Time: January 19, 2025 08:01 AM Reporting Lab: [address] [address] Performing Lab: [address] [address] WBC COUNT 3.9 10*3/uL 3.6-11.0 RBC COUNT [...] fL 7.4-11.4 January 19, 2025 08:02 AM [facility] HEMOGLOBIN A1C BLOOD Specimen Type: B LOOD [...] January 19, 2025 08:01 AM Reporting Lab: [address] [address] Performing Lab: [address] [address] HEMOGLOBIN A1C 4.8 3.6-5.7 January 19, 2025 08:02 AM [facility] PROSTATE SPECIFIC ANTIGEN SERUM Speci men Type: SERUM Comment: TPSA Testing males >= 70 y/o is not recommended if there is a TPSA history of previously normal PSA testing. Assay performed on TPSA [employer] using CMIA methodology. Patient results TPSA determined by assays using different manufacturers or methods TPSA may not be comparable. Ordering Provider: KELLE ACOSTA Report Released Date/Time: January 19, 2025 08:01 AM Reporting Lab: [address] [address] Performing Lab: [address] [address] PROSTATE SPECIFIC ANTIGEN 1.533 ng/mL 0. 000-6.500 January 19, 2025 08:02 AM [facility] TSH PLASMA Specimen Type: PLASMA Comment: GLUCOSE [...] January 19, 2025 08:01 AM Reporting Lab: [address] [address] Performing Lab: [address] [address] TSH 2.835 u[IU]/mL 0.350-4.940 January 19, 2025 08:02 AM [facility] LIPID PROFILE PLASMA Specimen Type: P MCKAY Comment: GLUCOSE The ADA recommends a fasting [...] January 19, 2025 08:01 AM Reporting Lab: [address] [address] Performing Lab: [address] [address] CHOLESTEROL 105 mg/dL 0-199 LDL CHOLESTEROL 40 mg/dL 0-99 HDL CHOLESTEROL 53 mg/dL >40 TRIGLYCERIDE 34 mg/dL 0-149 Encounter Notes: All associated encounter notes This section contains the clinical notes associated to the Encounter. Date/Time Encounter Note(s) Provider Source Feb 17, 2025 08:42 AM PHARMACY CONSULT: LOCAL TITLE: PRIOR AUTHORIZATION DRUG REQUEST CONSULT NOTE (C) STANDARD TITLE: PHARMACY CONSULT DATE OF NOTE: FEB 17, 2025@08:42 ENTRY DATE: FEB 17, 2025@08:43:02 AUTHOR: SHANTEL MOREJON COSIGNER: URGENCY: STATUS: COMPLETED 2. Approved indefinitely The medical record has been reviewed with regard to this prior authorization drug request. Medication requested: APIXABAN 5MG TAB Medication indication: atrial fibrillation Medical history relevant to this request: 74 YO male diagnosed wih afib and ordered apixaban. 5/5 labs reviewed. H&H Scr and LFTs are WNL. PLT are low but >50. Apixaban 5mg BID is appropriate. Patient needs to agree to VA monitoring and VA labs for DOACs. Labs are due within 3 months and then as needed at least every 6 months for established patients with yearly evaluation for risk vs benefit analysis, which is done for all HIGH risk patient safety medications. [facility] will contact patient for education and to dispense apixaban. The request is approved - No formulary-preferred alternative Time spent on encounter = 30 minutes /jen/ SHANTEL MOREJON CLINICAL FACILITIES MANAGER Signed: 02/17/2025 08:51 SHANTEL MOREJON [facility]
--- OUTSIDE RECORDS SUMMARY | 2025-02-17 08:18 | XMS_ITS | Encounter Summary ---
Author Name [facility] of [place] [place]) Organization [facility] [place] Address [address] [place] [address] Care Team Providers Care Client Solutions Manager Name Role Phone KELLE ACOSTA Primary [...] Name Patient's Relationship to Policy Terry [facility] (WNR) MEDICARE ADVANTAGE [facility] (WNR) Sep 17, 2020 [facility] [id number] HOLLIE TATE PATIENT Selected Encounter This section includes the information on record at [place] for the Encounter. Date/Time Encounter Type Encounter Description Reason Pro vider Source Feb 17, 2025 12:18 PM Outpatient Encounter ADMIN PAT ACTIVTIES (MASNONCT) IHE Encounter Template Text not used by MD Plan of Treatment: Future Appointments (+ 6 months) and Future Tests (+/- 45 days) The Plan of Treatment section includes future care activities for the patient from all [place] treatmentfacilities. This section includes future appointments and future orders which are active, pending or scheduled. Future Appointments This section includes appointments that were scheduled to occur 6 months from the date of the Encounter, up to a maximum of 20 appointments. The data comes from all [place] treatment facilities. Appointment Date/Time Appointment Type Appointme nt Facility Name Jul 27, 2025 08:00 AM AMBULATORY - NONE [facility] Aug 03, 2025 08:00 AM AMBULATORY - NONE BRENDAN Boucher [facility] Active, Pending, and Scheduled Orders This section includes a listing of several types of active, pending, and scheduled orders, including clinic medications orders, diagnostic test orders, procedure orders and consult orders; where the start date of the order is 45 days before the date of the Encounter or 45 days after the date of theEncounter. The data comes from all [facility] facilities. Test Date/Time Test Type Test Details Facility Name January 16, 2025 12:00 AM Laboratory - Chemi stry Order URINALYSIS URINE SP ONCE [facility] February 13, 2025 12:00 AM Laboratory - Chemi stry Order COMPREHENSIVE METABOLIC PANEL LT GREEN PLASMA SP ONCE [facility] February 13, 2025 12:00 AM Laboratory - Chemi stry Order LIPID PROFILE LT GREEN PLASMA SP ONCE [facility] February 13, 2025 12:00 AM Laboratory - Chemi stry Order CBC LAVENDER BLOOD SP ONCE [facility] February 13, 2025 12:00 AM Laboratory - Chemi stry Order HEMOGLOBIN A1C LAVENDER BLOOD SP ONCE [facility] February 13, 2025 12:00 AM Laboratory - Chemi stry Order URINALYSIS URINE SP ONCE [facility] February 13, 2025 12:00 AM Laboratory - Chemi stry Order TSH LT GREEN PLASMA SP ONCE [facility] Feb 16, 2025 12:00 AM Laboratory - Chemi stry Order COMPREHENSIVE METABOLIC PANEL LT GREEN PLASMA SP [facility] Feb 16, 2025 12:00 AM Laboratory - Chemi stry Order CBC LAVENDER BLOOD SP [facility] Feb 16, 2025 10:09 AM Consult Order S PODIATRY OUTPT Cons [employer] [facility] Feb 16, 2025 12:51 PM Consult Order COMMUNITY CARE-CARDIOLOGY Cons [employer] [facility] Feb 16, 2025 12:51 PM Consult Order W UROLOGY OUTPT Cons [employer] [facility] Lab Results: +/- 30 days of the encounter This section includes the Chemistry and Hematology Lab Results on record with [place] for the patient. Radiology Reports and Pathology Reports are provided separately, in subsequent sections. Lab Results This section contains the Chemistry/Hematology Results that were resulted 30 days before or 30 daysafter the date of the Encounter. Date/Time Source Result Type Result - Unit Interpretation Reference Range Specimen Type Comment January 19, 2025 08:02 AM [facility] COMPREHENSIVE METABOLIC PANEL PLASMA Specimen Type: [...] January 19, 2025 08:01 AM Reporting Lab: [place] [id number] [facility] [address] Performing Lab: [address] [address] ALBUMIN 4.0 g/dL 3.5-4.8 ALKALINE PHOSPHATASE 69 [...] January 19, 2025 08:02 AM [facility] CBC BLOOD Specimen Type: BLOOD No comment entered. Ordering Provider: KELLE ACOSTA Report Released Date/Time: January 19, 2025 08:01 AM Reporting Lab: [address] [address] Performing Lab: [address] [address] WBC COUNT 3.9 10*3/uL 3.6-11.0 RBC COUNT [...] January 19, 2025 08:02 AM [facility] HEMOGLOBIN A1C BLOOD Specimen Type: B [...] January 19, 2025 08:01 AM Reporting Lab: [address] [address] Performing Lab: [address] [address] HEMOGLOBIN A1C 4.8 3.6-5.7 January 19, 2025 08:02 AM [facility] PROSTATE SPECIFIC ANTIGEN SERUM Speci men Type: SERUM Comment: TPSA Testing males >= 70 y/o is not recommended if there is a TPSA history of previously normal PSA testing. Assay performed on TPSA [employer] using CMIA methodology. Patient results TPSA determined by assays using different manufacturers or methods TPSA may not be comparable. Ordering Provider: KELLE ACOSTA Report Released Date/Time: January 19, 2025 08:01 AM Reporting Lab: [address] [address] Performing Lab: [address] [address] PROSTATE SPECIFIC ANTIGEN 1.533 ng/mL 0. 000-6.500 January 19, 2025 08:02 AM [facility] TSH PLASMA Specimen Type: PLASMA Comment: [...] January 19, 2025 08:01 AM Reporting Lab: [address] [address] Performing Lab: [address] [address] TSH 2.835 u[IU]/mL 0.350-4.940 January 19, 2025 08:02 AM [facility] LIPID PROFILE PLASMA Specimen Type: P [...] January 19, 2025 08:01 AM Reporting Lab: [address] [address] Performing Lab: [address] [address] CHOLESTEROL 105 mg/dL 0-199 LDL CHOLESTEROL 40 mg/dL 0-99 HDL CHOLESTEROL 53 mg/dL >40 TRIGLYCERIDE 34 mg/dL 0-149 Social History: Smoking Status (Most current) and Tobacco Use (All prior to encounter date) This section includes the most current, and the historical, smoking and tobacco- related health factors from the [place] facility where the Encounter took place. Current Smoking Status This section includes the most current smoking, or tobacco-related health factor, from the [place] facility where the Encounter took place. Date/Time Current Smoking Status Comment Dangelo pedraza Jul 29, 2024 08:30 AM VA-TOBACCO NEVER USED [facility] Tobacco Use History This section includes a history of the smoking, or tobacco-related health factors, that were collected on or before the date of the Encounter. The data comes from the [place] facility where the Encounter took place. Date/Time Smoking Status/Tobacco Use Comment F acleonard Jul 31, 2023 03:30 PM VA-TOBACCO NEVER USED [facility] May 17, 2022 08:00 AM VA-TOBACCO NEVER USED [facility] May 17, 2021 09:30 AM VA-TOBACCO NEVER USED [facility] January 15, 2019 10:09 AM VA-TOBACCO NEVER USED [facility] Encounter Notes: All associated encounter notes This section contains the clinical notes associated to the Encounter. Date/Time Encounter Note(s) Provider Source Feb 17, 2025 12:18 PM ADMINISTRATIVE NOT E: LOCAL TITLE: SCHEDULING CONTACT ATTEMPT NOTE STANDARD TITLE: ADMINISTRATIVE NOTE DATE OF NOTE: FEB 17, 2025@12:18 ENTRY DATE: FEB 17, 2025@12:18:24 AUTHOR: DIANA KRAUSE EXP COSIGNER: URGENCY: STATUS: COMPLETED A scheduling contact attempt was made on 02/17/2025 via telephone for a Return to Clinic Order appointment in the Primary Care clinic . This is my 1st attempt. /es/ DIANA KRAUSE ADVANCED MSA Signed: 02/17/2025 12:18 DIANA KRAUSE CB Feb 17, 2025 12:18 PM LETTERS: LOCAL TITLE: SCHEDULING CONTACT ATTEMPT LETTER STANDARD TITLE: LETTERS DATE OF NOTE: FEB 17, 2025@12:18 ENTRY DATE: FEB 17, 2025@12:18:58 AUTHOR: DIANA KRAUSE EXP COSIGNER: URGENCY: STATUS: COMPLETED [facility] [address] [place] [address] [place] [address] [place], The Primary Care Clinic has received a request to schedule you for a Return to Clinic Order appointment. We attempted to contact you via telephone on and we were unable to reach you. This is our 2nd attempt to reach you. It is important that you contact us by Feb to schedule your appointment. Please call us at [phone] at extension [phone] between the hours of 0800 AM to 400 PM EST, Sunday through Sunday to schedule your appointment. If you already made an appointment, please disregard this notification. We look forward to your call and thank you for your service. [address] [address] DIANA KRAUSE [facility]
--- OUTSIDE RECORDS SUMMARY | 2025-05-01 10:43 | XMS_ITS ---
Author Organization [facility] [place] Address [address] [place] [address] Care Team Providers Care Valve Seater Operator Name Role Phone Saw Flores Primary Care Provider REASON FOR VISIT fell Encounters Encounter Location Date Provider Diagnosis [facility] [address] [facility] [place] [address] 05/01/2025 Saw Mark Plan Of Treatment Next Appt Details Provider Name:Saw Flores, 08:30:00 AM, [address] [facility] [facility], [place], [address], Progress Notes * Isauro TATE WDOB: [birth year] (74 yo M)Acc No.[id number]:05/01/2025 Patient: Isabella CABAJOSS Isauro Mason :1950 A ge:74 Y S ex:Male Address: [address] [facility] [address] * true * Date: Generated for Printi ng/Faxing/eTransmitting on: 0 05/12/2025 06:34 PM EDT
--- OUTSIDE RECORDS SUMMARY | 2025-05-04 05:00 | XMS_ITS | Encounter Summary ---
Author Name [facility] Address [address] [place] [address] Care Team Providers Care Dice Person Name Role Phone KELLE ACOSTA Primary Care [...] Name Patient's Relationship to Policy Terry SEEMA [facility] (WNR) MEDICARE ADVANTAGE [facility] (WNR) Sep 17, 2020 [id number] [phone] HOLLIE TATE PATIENT Selected Encounter This section includes the information on record at [place] for the Encounter. Date/Time Encounter Type Encounter Description Reason Pro vider Source May 04, 2025 09:00 AM Outpatient Encounter TELEPHONE PRIMARY CARE [facility] Encounter Template Text not used by [place] Plan of Treatment: Future Appointments (+ 6 months) and Future Tests (+/- 45 days) The Plan of Treatment section includes future care activities for the patient from all [facility] treatment[facility]ilities. This section includes future appointments and future orders which are active, pending or scheduled. Future Appointments This section includes appointments that were scheduled to occur 6 months from the date of the Encounter, up to a maximum of 20 appointments. The data comes from all [place] treatment facilities. Appointment Date/Time Appointment Type Appointme nt Facility Name Jul 27, 2025 08:00 AM AMBULATORY - NONE [facility] Aug 03, 2025 08:00 AM AMBULATORY - NONE BRENDAN Boucher [facility] Active, Pending, and Scheduled Orders This section includes a listing of several types of active, pending, and scheduled orders, including clinic medications orders, diagnostic test orders, procedure orders and consult orders; where the start date of the order is 45 days before the date of the Encounter or 45 days after the date of theEncounter. The data comes from all [place] treatment facilities. Test Date/Time Test Type Test Details Facility Name May 04, 2025 12:00 AM Laboratory - Chemi stry Order CREATININE (W EGFR) LT GREEN PLASMA [facility] May 04, 2025 12:00 AM Laboratory - Chemi stry Order CBC LAVENDER BLOOD [facility] May 04, 2025 09:09 AM Consult Order PROSTHETIC S REQUEST Cons Layout [facility] Encounter Notes: All associated encounter notes This section contains the clinical notes associated to the Encounter. 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 Will place consult for guardian alert as requested. /jen/ HATTIE DE SOUZA REGISTERED NURSE Signed: 05/04/2025 09:05 Receipt Acknowledged By: 05/04/2025 18:19 /jen/ MICHAEL ALTAMIRANO PHYSICIAN for HATTIE THEODORE [facility]
--- OUTSIDE RECORDS SUMMARY | 2025-05-04 06:38 | XMS_ITS | Encounter Summary ---
Author Name [facility] [place] Address [address] [place] [address] Care Team Providers Care Mobile Phone Salesperson Name Role Phone KELLE ACOSTA Primary Care [...] Name Patient's Relationship to Policy Terry SEEMA [facility] (WNR) MEDICARE ADVANTAGE [facility] (WNR) Sep 17, 2020 OHRWP 0 [id number] HOLLIE TATE PATIENT Selected Encounter This section includes the information on record at [place] for the Encounter. Date/Time Encounter Type Encounter Description Reason Provider Source May 04, 2025 10:38 AM [facility] ASSMT/REASSESSM ENT TELEPHONE PRIMARY CARE ICD-10-CM Z74.1 Need for assistance with personal care IRENE GRIFFIN Encounter Template Text not used by [place] Assessments - Encounter Diagnoses This section includes the primary and secondary diagnoses documented for the Encounter. Date/Time Primary/Secondary Diagnosis Diagnosis Name Provider Source May 04, 2025 10:38 AM PRIMARY Need for assistance with personal care IRENE GRIFFIN CBCHLOE Plan of Treatment: Future Appointments (+ 6 months) and Future Tests (+/- 45 days) The Plan of Treatment section includes future care activities for the patient from [facility] [place] [facility] This section includes future appointments and future orders which are active, pending or scheduled. Future Appointments This section includes appointments that were scheduled to occur 6 months from the date of the Encounter, up to a maximum of 20 appointments. The data comes from all [place] treatment [facility]. Appointment Date/Time Appointment Type Appointme nt Facility Name Jul 27, 2025 08:00 AM AMBULATORY - NONE [facility] Aug 03, 2025 08:00 AM AMBULATORY - NONE [facility] Active, Pending, and Scheduled Orders This section includes a listing of several types of active, pending, and scheduled orders, including clinic medications orders, diagnostic test orders, procedure orders and consult orders; where the start date of the order is 45 days before the date of the Encounter or 45 days after the date of theEncounter. The data comes from all [facility]. Test Date/Time Test Type Test Details Facility Name May 04, 2025 12:00 AM Laboratory - Chemi stry Order CREATININE (W EGFR) LT GREEN PLASMA [facility] May 04, 2025 12:00 AM Laboratory - Chemi stry Order CBC LAVENDER BLOOD [facility] May 04, 2025 09:09 AM Consult Order PROSTHETIC S REQUEST Cons Paediatrician's Choice [facility] Social History: Smoking Status (Most current) and Tobacco Use (All prior to encounter date) This section includes the most current, and the historical, smoking and tobacco- related health factors from the [place] facility where the Encounter took place. Current Smoking Status This section includes the most current smoking, or tobacco-related health factor, from the [place] facility where the Encounter took place. Date/Time Current Smoking Status Comment Facil ity Jul 29, 2024 08:30 AM VA-TOBACCO NEVER USED [facility] Tobacco Use History This section includes a history of the smoking, or tobacco-related health factors, that were collected on or before the date of the Encounter. The data comes from the [place] facility where the Encounter took place. Date/Time [...] Encounter Note(s) Provider Source May 04, 2025 10:38 AM SOCIAL WORK NOTE: LOCAL TITLE: SOCIAL WORK COMPREHENSIVE ASSESSMENT (T) STANDARD TITLE: SOCIAL WORK NOTE DATE OF NOTE: MAY 04, 2025@10:38 ENTRY DATE: MAY 04, 2025@10:42:52 AUTHOR: IRENE GRIFFIN COSIGNER: URGENCY: STATUS: COMPLETED SOCIAL WORK COMPREHENSIVE ASSESSMENT Previously recorded information from the [employer] database: Social Work - Triage Assessment 02/10/2025 Soc Work Referral Source-Family No 'Social Work Presenting Issue(s)' data found REASON FOR REFERRAL: [facility] PATIENT DEMOGRAPHICS: Sex: MALE Age: 74 Ethnicity/Race: RACE UNKNOWN Zoroastrianism preference: None Marital status: Primary language: Iranian Service connection status: 10% [place] service: Branch of service: [employer] Years served: 1969 to 1971 Active Combat/POW/MST/War Zone: Era Insurance information: Medicare EMERGENCY CONTACT/NEXT OF KIN: Primary NOK: MERLINE PARKER Relation: DAUGHTER [id number] [place], [place] [address] PERTINENT MEDICAL/MENTAL HEALTH INFORMATION: Diagnosis: has diagnosis of AF, pulmonary hypertension, hyperlipidemia, CAD and others. Active problems: A Atrial fibrillation (SCT [id number]) (ICD-10-CM I48.91) 02/16/2025 KARLATHERONKELLE A A Pulmonary hypertension (SCT [id number]) (ICD-10-CM I27.20) 02/16/2025 KARLAKELLE A A Benign Prostatic Hypertrophy with Outflow Obstruction (SCT [id number]) (ICD-10-CM N40.1) 02/16/2025 KARLAKELLE A A Hyperlipidemia (SCT [id number]) (ICD-10-CM E78.5) 05/17/2022 KARLAKELLE A A Shoulder pain (SCT [id number]) (ICD-10-CM M25.511) 01/15/2019 JORGE RAPHAEL A Coronary artery disease (SCT [id number]) (ICD-10-CM I25.10) 07/29/2024 JORGE RAPHAEL [+] A Benign essential hypertension (SCT [id number]) (ICD-10-CM I10.) 01/15/2019 JORGE RAPHAEL SOCIAL SUPPORTS/LIVING ARRANGEMENTS: Social Supports: Adult children/child Family Living Arrangements: House Patient lives alone. Does the patient perceive current living situation as adequate? Yes EDUCATION/EMPLOYMENT STATUS: Education Level: Other: Unknown Employment Status: Retired INCOME/FINANCIAL STATUS: Has income from: Service-connected compensation [employer] benefits Total household income: Unknown UNDERSTANDING OF NEED FOR SOCIAL WORK CASE MANAGEMENT: Adequate understanding Family Participates in decision-making Patient Family MENTAL STATUS: PSYCHOSOCIAL PROBLEMS: Functional status Mascot needs assistance with bathing, dressing, toileting, grooming and feeding. Case mix level is ? PSYCHOSOCIAL ACUITY RATING: Access to Care: Level 1 - Patient generally has all personal needs met. Economics: Level 1 - Patient generally has all personal needs met. Housing: Level 1 - Patient generally has all personal needs met. Psychological Status: Level 1 - Patient generally has all personal needs met. Social Supports: Level 1 - Patient generally has all personal needs met. Functional Status: Level 2 - Patient has minor concerns with functional status. SOCIAL WORK CASE MANAGEMENT LEVEL: Level 2 - Supportive Patient has a minor problem with access to care, economics, housing, psychological status, social support or functional status. Monthly-quarterly contact as clinically indicated to ensure sufficient support to meet case management goals. ASSESSMENT: Phone call to 's daughter, Prabha, per [facility] HH request. Mascot is a 74 year-old 10% [place] male. Mascot has diagnosis of AF, pulmonary hypertension, hyperlipidemia, CAD and others. Daughter informed [facility] recommended ANIMAL IMPERSONATOR services as they will end their services soon. Daughter reports is in agreement to ANIMAL IMPERSONATOR services. SW provided education on Home and Community Based Services focusing on ANIMAL IMPERSONATOR services. Daughter is requesting to proceed with ANIMAL IMPERSONATOR services. SW completed CMT. needs assistance with bathing, dressing, toileting, grooming, and feeding. Case Mix level is G. Daughter is requesting 12 hours of ANIMAL IMPERSONATOR services per week. KAYY provided education on the authorization process and informed this policy writer typist will update her once consult is approved and staffing is identified. KAYY inquired as to completion of Advance Directives; KAYY informed this policy writer typist can assist with completing if interested. Mascot has not completed. Daughter inquired as to [facility] and the admission process. SW answered questions and informed of facility wait list. SW provided website to obtain application and facility admission contacts. Mascot served in the [employer] from [phone]. Mascot has Medicare. Family provides all transportation. Daughter denies financial concerns and reports receives [place] pension and shelter income. is LTC copay exempt due to [place]. SW will remain available to as needed. SOCIAL WORK CASE MANAGEMENT FOLLOW-UP PLAN AND INTERVENTIONS: Value: Remain safe in home Goal: To provide ADL and IADL assistance so that can remain in his home. Intervention: SW completed Case Mix and will complete ANIMAL IMPERSONATOR consult. 27 minutes /es/ JANICE THOMAS CLINICAL NEUROPSYCHOLOGIST Signed: 05/04/2025 11:17 [facility]
--- OUTSIDE RECORDS SUMMARY | 2025-05-04 06:59 | XMS_ITS | Encounter Summary ---
Author Name [facility] [place] Address [address] [place] [address] Care Team Providers Care Joint Maker Machine Name Role Phone KELLE ACOSTA Primary Care [...] Name Patient's Relationship to Policy Terry SEEMA [facility] (WNR) MEDICARE ADVANTAGE [facility] (WNR) Sep 17, 2020 [facility] [id number] HOLLIE TATE PATIENT Selected Encounter This section includes the information on record at [place] for the Encounter. Date/Time Encounter Type Encounter Description Reason Provider Source May 04, 2025 10:59 AM Outpatient Encounter PRIMARY CARE/MEDICINE IRENE FARMER Encounter Template Text not used by [place] Plan of Treatment: Future Appointments (+ 6 months) and Future Tests (+/- 45 days) The Plan of Treatment section includes future care activities for the patient from all [place] treatmentfacilities. This section includes future appointments and future orders which are active, pending or scheduled. Future Appointments This section includes appointments that were scheduled to occur 6 months from the date of the Encounter, up to a maximum of 20 appointments. The data comes from all [place] treatment facilities. Appointment Date/Time Appointment Type Appointme nt Facility Name Jul 27, 2025 08:00 AM AMBULATORY - NONE [facility] Aug 03, 2025 08:00 AM AMBULATORY - NONE [facility] Active, Pending, and Scheduled Orders This section includes a listing of several types of active, pending, and scheduled orders, including clinic medications orders, diagnostic test orders, procedure orders and consult orders; where the start date of the order is 45 days before the date of the Encounter or 45 days after the date of theEncounter. The data comes from all [place] treatment facilities. Test Date/Time Test Type Test Details Facility Name May 04, 2025 12:00 AM Laboratory - Chemi stry Order CREATININE (W EGFR) LT GREEN PLASMA [facility] May 04, 2025 12:00 AM Laboratory - Chemi stry Order CBC LAVENDER BLOOD [facility] May 04, 2025 09:09 AM Consult Order PROSTHETIC S REQUEST Cons On Site Wastewater Systems Technician's Choice [facility] Encounter Notes: All associated encounter notes This section contains the clinical notes associated to the Encounter. Date/Time Encounter Note(s) Provider Source May 04, 2025 10:59 AM GERIATRIC MEDICINE NOTE: LOCAL TITLE: PERSONAL CARE SERVICES CASE MIX TOOL STANDARD TITLE: GERIATRIC MEDICINE NOTE DATE OF NOTE: MAY 04, 2025@10:59:26 ENTRY DATE: MAY 04, 2025@10:59:26 AUTHOR: IRENE FARMER EXP COSIGNER: URGENCY: STATUS: COMPLETED HCBS Case Mix & Budget Tool (CASE MIX) Date Given: 05/04/2025 Clinician: Irene Farmer Location: [facility] : Hollie Tate SSN: [id number] : [birth year] ([birth year]) Gender: Man Type of Evaluation: Initial Anticipated Start Date: 05/04/2025 Anticipated Length of Service: 12 months Case Mix Level: G ADL Category: High Questions and Answers: Q1. DRESSING *3 Cannot dress yourself and somebody dresses you. Q2. GROOMING *2 Needs and get daily help from another person. Q3. BATHING *4 Need and get help washing and drying your body. Q4. EATING *2 Need and get help in cutting food, buttering bread or arranging food. Q5. BED MOBILITY *2 Always need and get help to sit up. Q6. TRANSFERRING *2 Need one other person to help you. Q7. WALKING 1 Can walk with help of a cane, walker, crutch, or push wheelchair. Q8. BEHAVIOR 1 Occasional staff intervention / anxious, irritable, lethargic, demanding / responds to cues. Q9. COMMUNICATION 0 Understood. Q10. TOILETING *2 Have accidents sometimes, but not more than once a week. Q11. MDS HC 2.0/CPS Cognitive Skill for Daily Decision Making 1 Modified [place] - some difficulty in new situations only. Q12. MDS 2.0/CPS: Short Term Memory (recall of what was learned or known) 0 Short-term memory okay- seems/appears to recall after 5 minutes Q13. SPECIAL TREATMENTS 2 One or more [place] such as: 9. Wound Care/Decubiti Q14. CLINICAL MONITORING 1 1-2 shifts a day Q15. SPECIAL NURSING No Q16. NEUROMUSCULAR DIAGNOSIS No COMMENTS is a 74 year-old 10% [place] male. has diagnosis of AF, hypertension, CAD and others. [place] is requesting LABOR DELIVERY RN services to assist him in the home. SOURCES 2. Informant, 3. Medical Record /es/ JANICE THOMAS CLINICAL BOILER ERECTOR Signed: 05/04/2025 11:17 IRENE FARMER [facility]
--- OUTSIDE RECORDS SUMMARY | 2025-05-05 04:15 | XMS_ITS | Encounter Summary ---
Author Name [facility] [place] Address [address] [place] [address] Care Team Providers Care Associate Professor Of Sociology Name Role Phone KELLE ACOSTA Primary Care [...] Name Patient's Relationship to Policy Terry SEEMA [facility] (WNR) MEDICARE ADVANTAGE [facility] (WNR) Sep 17, 2020 OHRWP 0 [id number] HOLLIE TATE PATIENT Selected Encounter This section includes the information on record at [place] for the Encounter. Date/Time Encounter Type Encounter Description Reason Provider Source May 05, 2025 08:15 AM Outpatient Encounter ADMIN PAT ACTIVTIES (MASNONCT) ICD-10-CM Y93.9 Activity, unspecified IRENE GRIFFIN Encounter Template Text not used by [place] Assessments - Encounter Diagnoses This section includes the primary and secondary diagnoses documented for the Encounter. Date/Time Primary/Secondary Diagnosis Diagnosis Name Provider Source May 05, 2025 10:44 AM PRIMARY Activity, unspecified [facility] Plan of Treatment: Future Appointments (+ 6 months) and Future Tests (+/- 45 days) The Plan of Treatment section includes future care activities for the patient [facility] [place] [facility] This section includes future appointments and future orders which are active, pending or scheduled. Future Appointments This section includes appointments that were scheduled to occur 6 months from the date of the Encounter, up to a maximum of 20 appointments. The data comes from all [place] treatment facilities. Appointment Date/Time Appointment Type Appointme nt Facility Name Jul 27, 2025 08:00 AM AMBULATORY - NONE [facility] Aug 03, 2025 08:00 AM AMBULATORY - NONE [facility] Active, Pending, and Scheduled Orders This section includes a listing of several types of active, pending, and scheduled orders, including clinic medications orders, diagnostic test orders, procedure orders and consult orders; where the start date of the order is 45 days before the date of the Encounter or 45 days after the date of theEncounter. The data comes from all [facility]. Test Date/Time Test Type Test Details Facility Name May 04, 2025 12:00 AM Laboratory - Chemi stry Order CREATININE (W EGFR) LT GREEN PLASMA [facility] May 04, 2025 12:00 AM Laboratory - Chemi stry Order CBC LAVENDER BLOOD [facility] May 04, 2025 09:09 AM Consult Order PROSTHETIC S REQUEST Cons Post Commander's Choice [facility] Social History: Smoking Status (Most current) and Tobacco Use (All prior to encounter date) This section includes the most current, and the historical, smoking and tobacco- related health factors from the [place] facility where the Encounter took place. Current Smoking Status This section includes the most current smoking, or tobacco-related health factor, from the [place] facility where the Encounter took place. Date/Time Current Smoking Status Comment Facil ity Jul 29, 2024 08:30 AM VA-TOBACCO NEVER USED [facility] Tobacco Use History This section includes a history of the smoking, or tobacco-related health factors, that were collected on or before the date of the Encounter. The data comes from the [place] facility where the Encounter took place. Date/Time [...] Encounter. Date/Time Encounter Note(s) Provider Source May 05, 2025 08:15 AM SOCIAL WORK NOTE: LOCAL TITLE: SOCIAL WORK PROGRESS NOTE STANDARD TITLE: SOCIAL WORK NOTE DATE OF NOTE: MAY 05, 2025@08:15 ENTRY DATE: MAY 05, 2025@08:15:41 AUTHOR: IRENE GRIFFIN EXP COSIGNER: URGENCY: STATUS: COMPLETED Phone call to [facility] kajeet Bin [phone] who reports staffing availability. KAYY sent referral via encrypted email to Malena Malone <[email or web address]>. KAYY requested SOC once identified. Phone call to 's daughterPrabha, to inform of approval of 12 hours per week of WATER OPERATOR services. KAYY informed [facility] will be providing [place] care and will be contacting them to schedule an assessment. SW encouraged daughter to call with any additional needs. Phone from Malena kajeet Bin who reports SOC of 05/06/25. KAYY will update consult. 25 minutes /es/ JANICE THOMAS CLINICAL HOT SAW OPERATOR Signed: 05/05/2025 10:44 [facility]
--- OUTSIDE RECORDS SUMMARY | 2025-05-06 04:15 | XMS_ITS | Encounter Summary ---
Author Name [facility] [place] Organization [place] Address [address] [place] [address] Care Team Providers Care Fleet Technician Name Role Phone KELLE ACOSTA Primary Care [...] Name Patient's Relationship to Policy Terry SEEMA [facility] (WNR) MEDICARE ADVANTAGE [facility] (WNR) Sep 17, 2020 [facility] [id number] HOLLIE TATE PATIENT Selected Encounter This section includes the information on record at [place] for the Encounter. Date/Time Encounter Type Encounter Description Reason Pro vider Source May 06, 2025 08:15 AM Outpatient Encounter COMMUNITY CARE CONSULT IHE Encounter Template Text not used by [place] Plan of Treatment: Future Appointments (+ 6 [...] 20 appointments. The data comes from all [place] treatment facilities. Appointment Date/Time Appointment Type Appointme nt Facility Name Jul 27, 2025 08:00 AM AMBULATORY - NONE [facility] Aug 03, 2025 08:00 AM AMBULATORY - NONE [facility] Active, Pending, and Scheduled Orders This section includes a listing of several types of active, pending, and scheduled orders, including clinic medications orders, diagnostic test orders, procedure orders and consult orders; where the start date of the order is 45 days before the date of the Encounter or 45 days after the date of theEncounter. The data comes from all [place] treatment facilities. Test Date/Time Test Type Test Details Facility Name May 04, 2025 12:00 AM Laboratory - Chemi stry Order CREATININE (W EGFR) LT GREEN PLASMA [facility] May 04, 2025 12:00 AM Laboratory - Chemi stry Order CBC LAVENDER BLOOD [facility] May 04, 2025 09:09 AM Consult Order PROSTHETIC S REQUEST Cons Coil Tester's Choice [facility] Encounter Notes: All associated encounter notes This section contains the clinical notes associated to the Encounter. Date/Time Encounter Note(s) Provider Source May 06, 2025 08:15 AM NONVA CONSULT: LOCAL TITLE: NON VA CARE CONSULT RESULT NOTE STANDARD TITLE: NONVA CONSULT DATE OF NOTE: MAY 06, 2025@08:15 ENTRY DATE: MAY 06, 2025@08:15:29 AUTHOR: HALEY HALEY EXP COSIGNER: URGENCY: STATUS: COMPLETED The following Non VA Care consult has been completed. NON VA Care Consult Results [facility] Comment: Home Health Aid. Approved up to 12 hours/weekly with [facility] ([place]) for 180 days; auth sent to Agency/[facility] Portal. /jen/ HALEY HALEY ASSEMBLY DETAILER Signed: 05/06/2025 08:18 HALEY HALEY [facility]
--- OUTSIDE RECORDS SUMMARY | 2025-05-06 11:15 | XMS_ITS | Encounter Summary ---
Author Organization [facility] Address [address] [place] [address] Care Team Providers Care Screening Specialist Name Role Phone Phillip Coy MD Primary Care Provider [phone] Reason for Visit * Reason Comments Post-op Encounter Details Date Type Department Care Team (Late st Contact Info) Description 05/06/2025 11:15 AM EDT Office Visit [facility] Surgery Clinic [address] [place] [address] Fatou Rider, [employer] [address] [place] [address] Closed displaced fracture of fifth cervical vertebra with routine healing, unspecified fracture morphology, subsequent encounter (Primary Dx); Degenerative cervical spinal stenosis Social History Tobacco Use Types Packs/Day Years Used Date Smoking Tobacco: Never Smokeless Tobacco: Never Alcohol Use Standard Drinks/Week Comments Yes 28 (1 standard drink = 0.6 oz pu re alcohol) 4 beers per day [facility] Utilities Answer Date Recorded In the past 12 months has [employer], oil, or water [employer] threatened to shut off services in your home? No 03/09/2025 Humiliation, Afraid, Rape, a nd Kick questionnaire Answer Date Recorded Within the last year, have y ou been afraid of your partner or ex-partner? Patient unable to answer 05/06/2025 Emotionally Abused Not on file 05/06/2025 Physically Abused Not on file 05/06/2025 Sexually Abused Not on file 05/06/2025 Overall Financial Resource Strain (CARDIA) Answe r Date Recorded How hard is it for you to pa y for the very basics like food, housing, medical care, and heating? Not hard at all 03/09/2025 PHQ-2 Answer Date Recorded Patient Health Questionnaire-2 Score 0 05/06/2025 Transportation Answer Date Recorded In the past 12 months, has l ack of transportation kept you from medical appointments or from getting medications? No 03/09/2025 Lack of Transportation (Non-Medical) Not on file 03/09/2025 Housing Stability Vital Sign Answer Darron e Recorded In the last 12 months, was t here a time when you were not able to pay the mortgage or rent on time? No 03/09/2025 Number of Times Moved in the Last Year Not on fi le 03/09/2025 At any time in the past 12 m [facility], were you homeless or living in a long-term (including now)? No 03/09/2025 Hunger Vital Sign Answer Date Recorded Within the past 12 months, y ou worried that your food would run out before you got the money to buy more. Never true 03/09/20 25 Ran Out of Food in the Last Year Not on file 03/09/2025 Sex and Gender Information Value Date Recorded Sex Assigned at Male 03/12/2025 4:12 PM EDT Legal Sex Male 9:55 PM EDT Gender Identity Male 03/12/2025 4:12 PM EDT Sexual Orientation Choose not to disclose 2024 4:12 PM EDT documented as of this encounter Last Filed Vital Signs Vital Sign Reading Time Taken Comments Blood Pressure 110/68 05/06/2025 11:05 AM EDT Pulse 92 05/06/2025 11:05 AM EDT Temperature 36.2 C (97.2 F) 05/06/2025 11:05 AM EDT Respiratory Rate - - Oxygen Saturation - - Inhaled Oxygen Concentration - - Weight 76.7 kg (169 lb) 05/06/2025 11:05 AM EDT Height 175.3 cm (5' 9 ) 05/06/2025 11:05 AM EDT Body Mass Index 24.96 05/06/2025 11:05 AM EDT documented in this encounter Functional Status documented as of this encounter Patient Instructions * Attachments The following attachments cannot be sent through Care Everywhere. * Fall Prevention in the Home Adult (Turkmen) documented in this encounter Progress Notes * Fatou Rider CNP - 05/06/2025 11:15 AM EDT NEUROSURGERY NOTE SUBJECTIVE: Chief complaint: Postoperative visit for C3-C7 laminectomies, C3-C7 posterior instrumented fusion on 03/11/[address] Shukla for cervical spinal stenosis as well as C5 fracture. History of present illness: Interview of his history, on 03/06/2025, he had sustained a fall from standing related to syncope. He was admitted to a local hospital with presumed diagnosis of orthostatic hypotension. He apparentlyhad been having some neck pain during that admission and underwent CT of his cervical spine, which showed a C5-C6 fracture dislocation. He was transferred to [facility] for further evaluation and treatment. MRI cervical spine demonstrated multilevel degenerative changes, including severe canal canal and foraminal stenosis, with epidural hemorrhage and cord signal change. He did seem to have some worsening upper extremity strength since his initial evaluation at [facility] on 03/09/2025. He underwent decompressive and stabilization surgery on 03/11/2025. After surgery, his deltoid strength seemed to be weaker, as did his elbow flexion strength, particularly on the left side. Hand and lower extremity strength seem to remain intact. He also had some urinary retention during the course of his hospital stay. Reyes catheter had to be reinserted. He also had some cardiac sinus pauses during the course of his hospital stay and decrease in ejection fraction. Cardiology had considered a possible cardiac catheterization, though this was ultimately placed on hold as his upper extremity strength seemed to decrease in the few days since his initial evaluation. He ultimately did not have a cardiac catheterization. Cardiology recommended resuming his Eliquis as soon as feasible. He was started on aspirin for his history of coronary artery disease. He is to follow-up with cardiology as an outpatient. Currently, he denies neck or arm pain. Still feels that his arms are somewhat weak, particularly onthe left, though no different since his hospitalization. Denies numbness or tingling. Denies difficulties with his legs. Denies difficulties with bowel or bladder. He did have a recent fall. Ambulatory with rolling walker. Completed inpatient rehabilitation at [facility]. Review of systems: As in HPI. Medical History[1] Surgical History[2] Social History[3] Family History[4] OBJECTIVE: Medications: aspirin atorvastatin carvedilol doxazosin furosemide magnesium oxide melatonin simvastatin tamsulosin Current Medications[5] Allergies: Allergies[6] Exam: Exam performed and reviewed, changes as below. Vitals reviewed: No intake/output data recorded. No intake/output data recorded. Exam reviewed and updated. Accompanied by daughter today. Constitutional: In no apparent distress. Chest: Chest expansion symmetrical. Respirations regular and nonlabored. Extremities without edema. Skin warm and dry without pallor. Posterior neck incision well-approximated without edema, erythema, drainage. Neuro: GCS 15/15. Attention and memory mildly impaired. No dysarthria or aphasia. Sensation: Intact to light touch C5-T1 and L2-S1 dermatomes bilaterally. Musculoskeletal: Deltoid right 4-/5, left 2-3/5. Biceps right 4/5, left 4-/5. Triceps right 4+/5, left 4/5. Finger flexors 4+/5, finger abductors 4+/5. Hip flexors 5/5 bilaterally. Knee flexors and extensors 5/5 bilaterally. Ankle dorsal flexors 5/5 bilaterally. Ankle plantar flexors 5/5 bilaterally. Muscle tone without hyper or hypotonicity. Muscle bulk appropriate for age. Ambulatory with rolling walker. St. Johns J collar removed. Labs: No visits with results within 30 Day(s) from this visit. Latest known visit with results is: No results displayed because visit has over 200 results. Imaging: XR cervical spine 2 or 3 views 03/12/2025 Narrative HISTORY: A 74-year-old male with the history of the cervical spinal fusion. Postoperative evaluation of the hardware. TECHNIQUE: Cervical spine: AP and lateral views, 2 views COMPARISON: Comparison is made with the preoperative MRI examination of the cervical spine of 03/09/[address] scan of the cervical spine off 11/03/2018. FINDINGS: There is a surgical posterior spinal fusion from C3 to C7 with pedicular threaded screws and rods. Hardware appears satisfactory in position in AP and lateral views. Vertebral heights are normal. There are diffuse and advanced disc degenerative changes in the entire cervical spine. No spondylolisthesis is identified. No significant prevertebral soft tissue abnormality is seen. Impression 1. Surgical posterior spinal fusion from C3 to C7 with fixation screws and rods. Hardware appears satisfactory in position. Electronically signed: Chalo Butler. MR cervical spine wo contrast 03/09/2025 Narrative MR CERVICAL SPINE WO CONTRAST: 03/09/2025 PROVIDED HISTORY: * 74 years old Male * Spine fracture, cervical, traumatic * Evalute C5 fracture COMPARISON: None. TECHNIQUE: Multiplanar multisequence cervical spine protocol MR performed. Examination performed without the administration of contrast. FINDINGS: Motion degraded examination. Fracture of the posterior elements of C5, with involvement of the spinous process, and facet joints bilaterally, with osseous detail better evaluated on outside hospital CT cervical spine. Circumferential epidural collection extending from approximately C2 through the partially visualized thoracic spine measuring up to 6 mm in maximal thickness and causing extensive scalloping of the thecal sac, which combined with multifocal spondylotic changes resulting in high-grade spinal canal stenosis throughout the cervical spine with relative preservation at the craniocervical junction to approximately C2-C3 (where there is moderate/severe stenosis). Evaluation for underlying cord signal abnormality is limited due to motion artifact. Edema is noted in the paraspinal musculature and soft tissues extending from C2 through C6 along the course of the intraspinous ligaments and nuchal ligaments. Prevertebral edema measuring up to 8 mm in thickness from approximately C2 through the upper thoracic spine. Evaluation of the neural foramina extremely limited due to motion artifact. Multifocal degenerative changes resulting in high-grade foraminal stenosis at C2-C3 on the right, C3-C4 bilaterally, right C4-C5. At least mild/moderate foraminal stenosis throughout the remainder of the cervical spine within limitations of significant motion artifact Edema like signal along the inferior endplate of C4, possibly degenerative in nature versus posttraumatic, but no definite evidence of fracture of the C4 vertebral body. Edema like signal and angulation of the left C4 inferior articular process, may represent occult fracture (sagittal series 4, image 14). Minimal edema like signal along the left C3 articular process. Remainder of vertebrae appear to be intact. Degenerative changes around the craniocervical junction without definite evidence of disruption of the ligamentous stabilizers. Narrowing of the right vertebral artery from approximately C4-C6 in region of trauma, without definite loss of the flow void. No acute abnormality in the visualized intracranial compartment. Impression 1. Motion degraded examination. 2. C5 posterior element fracture, as more completely evaluated on outside hospital CT of 03/08/2025, with suggestion of additional C4 left inferior articular process fracture and associated disruption of the posterior ligamentous complex. 3. Extensive circumferential epidural collection possibly a combination of edema and/or hemorrhage throughout the cervical and partially visualized upper thoracic spinal, resulting in high-grade spinal canal stenosis from approximately C2-C3 to C7. Evaluation for cord signal abnormality limited due to excessive motion artifact. 4. Edema like signal in the dorsal paravertebral soft tissues with likely injury of the interspinous and nuchal ligaments. Associated prevertebral edema extending from C2 through the visualized upper thoracic spine. 5. C4 inferior endplate focal edema, possible developing degenerative change, versus posttraumatic sequelae, though no definite fracture line. THIS REPORT CONTAINS AN URGENT RESULT AND/OR RECOMMENDATION, WHICH REQUIRES THE ATTENTION OF THE LICENSED CAREGIVER RESPONSIBLE FOR THIS PATIENT. THEREFORE, I SPECIFICALLY DESIGNATED THIS REPORT TO BE TELEPHONED BY THE RADIOLOGY DEPARTMENT. FINDINGS WERE INSTRUCTED TO BE CALLED TO THE CLINICAL SERVICE ON 03/10/2025 7:01 AM Electronically signed: Karthik Jo. Impression: Degenerative cervical spinal stenosis status post PCDF C3-C7 on 03/11/[address] Shukla. C5-C6 fracture dislocation status post PCDF C3-C7. Plan: Discontinue St. Johns J collar. May increase activity as tolerated. Follow-up in about 3 months with x-rays cervical spine AP and lateral same day prior to appointmentto evaluate hardware and alignment. Follow-up sooner if new or worsening problems. [1] Past Medical History: Diagnosis Date Atrial fibrillation (CMS/HCC) BPH (benign prostatic hyperplasia) CAD (coronary artery disease) Dyslipidemia Heart failure (CMS/HCC) Hypertension [2] Past Surgical History: Procedure Laterality Date CERVICAL FUSION Bilateral 03/11/2025 C3-7, Dr. Shukla CORONARY ARTERY BYPASS GRAFT [3] Social History Tobacco Use Smoking status: Never Smokeless tobacco: Never Vaping Use Vaping status: Never Used Substance Use Topics Alcohol use: Yes Alcohol/week: 28.0 standard drinks of alcohol Types: 28 Cans of beer per week Comment: 4 beers per day Drug use: Never [4] Family History Problem Relation Name Age of Onset Coronary artery disease Mother [5] Current Outpatient Medications: apixaban (Eliquis) 5 mg tablet, Take 1 tablet (5 mg) by mouth two times daily. Do not start before March 19, 2025., Disp: , Rfl: aspirin 81 mg EC tablet, Take 1 tablet (81 mg) by mouth in the morning for 93 doses., Disp: , Rfl: atorvastatin (Lipitor) 40 mg tablet, Take 40 mg by mouth in the morning., Disp: , Rfl: carvedilol (Coreg) 25 mg tablet, Take 25 mg by mouth with breakfast and with evening meal. (Patienttaking differently: Take 12.5 mg by mouth with breakfast and with evening meal.), Disp: , Rfl: doxazosin (Cardura) 2 mg tablet, Take 2 mg by mouth at bedtime., Disp: , Rfl: furosemide (Lasix) 40 mg tablet, Take 40 mg by mouth in the morning., Disp: , Rfl: magnesium oxide (Mag-Ox) 400 mg tablet, Take 400 mg by mouth two times daily., Disp: , Rfl: melatonin 5 mg tablet, Take 5 mg by mouth at bedtime., Disp: , Rfl: simvastatin (Zocor) 20 mg tablet, Take 20 mg by mouth at bedtime. (Patient not taking: Reported on 04/22/2025), Disp: , Rfl: tamsulosin (Flomax) 0.4 mg 24 hr capsule, Take 0.4 mg by mouth in the morning., Disp: , Rfl: [6] No Known Allergies documented in this encounter Plan of Treatment Upcoming Encounters Date Type Department Care Team (Late st Contact Info) Description 06/29/2025 9:20 AM EDT Office Visit [facility] Cardiology [address] [place] [address] Kevin Coronado MD [address] [place] [address] [phone] 08/11/2025 11:15 AM EST Follow-Up [facility] Surgery Clinic [address] [place] [phone] Fatou Rider CNP [address] [place] [phone] Scheduled Orders Name Type Priority Associated Diagnoses Orde r Schedule XR cervical spine 2 or 3 views Imaging Routine Closed displaced fracture of fifth cervical vertebra with routine healing, unspecified fracture morphology, subsequent encounter Degenerative cervical spinal stenosis Expected: 08/06/2025, Expires: 05/06/2026 documented as of this encounter Visit Diagnoses Diagnosis Closed displaced fracture of fifth cervical vertebra with routine healing, unspecified fracture morphology, subsequent encounter- Primary Degenerative cervical spinal stenosis Spinal stenosis in cervical region documented in this encounter Care Teams Screening Specialist Relationship Specialty Start Date End Date Phillip Coy MD [address] [place] [address] PCP - General 03/09/25 documented as of this encounter
--- OUTSIDE RECORDS SUMMARY | 2025-05-11 07:02 | XMS_ITS ---
Author Organization [facility] [place] Address [address] [place] [address] Care Team Providers Care Loading Dock Helper Name Role Phone Saw Flores Primary Care Provider REASON FOR VISIT Fall- LMTCB w/daughter x2 Encounters Encounter Location Date Provider Diagnosis [facility] [address] [place] [address] 05/11/2025 Saw Flores Plan Of Treatment Next Appt Details Provider Name:Saw Flores, 08:30:00 AM, [address] [place], [address], Progress Notes * Isauro TATE WDOB: [birth year] (74 yo M)Acc No.[id number]:05/11/2025 UNLOCKED PROGRESS NOTE Patient: Isabella CHAVEZHelen Isauro Mason :1950 A ge:74 Y S ex:Male Address:[facility] [address] [facility] [address] * * Date:
[2025-05-12] VITALS (22 sets, daily range): BP systolic 65–134; BP diastolic 45–82; PULSE 66–80; TEMP 36.6–36.7; O2SAT 94–99; BMI 23.6; BMI 23.2
--- OUTSIDE RECORDS SUMMARY | 2025-05-12 03:53 | XMS_ITS | Continuity of Care Document ---
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 It does not include entries that were removed or entered in error. Problem Status Onset Date Problem Type Date of Resolution Comments Source Atrial fibrillation Active Condition [facility] Benign essential hypertension Active Condition 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 Coronary artery disease Active Condition Jul 29, 2024 Entered By: AME ACOSTA A Comment: History of 5 vessel CABG [facility] Hyperlipidemia (SCT [id number]) Active Condition [facility] Pulmonary hypertension Active Condition [facility] Shoulder pain Active Condition [facility] Diagnosis: ICD-10-CM Y93.9 Activity, unspecified Active Diagnosis [facility] Diagnosis: ICD-10-CM Z74.1 Need for assistance with personal care Active Diagnosis [facility] Diagnosis: ICD-10-CM Z51.81 Encounter for therapeutic drug level monitoring [facility] Diagnosis: ICD-10-CM I48.91 Unspecified atrial fibrillation Active Diagnosis [facility] Diagnosis: ICD-10-CM I25.10 Athscl heart disease of [place] coronary artery w/o ang pctrs Active Diagnosis [facility] Diagnosis: ICD-10-CM H52.223 Regular astigmatism, bilateral Active Diagnosis [facility] Diagnosis: ICD-10-CM I10 Essential (primary) hypertension Active Diagnosis [facility] Diagnosis: ICD-10-CM E78.5 Hyperlipidemia, unspecified Active Diagnosis [facility] Medications Combined list of outpatient medications from Department [facility] and [facility] facilities.Medications provided include 1) outpatient medications from the last 15 months, and 2) patient-reported medications. Medication Details Route Status Patient Instructions Prescription Expires Prescription Number Last Dispense Date Ordering Provider Order Date Order Qty Source APIXABAN 5MG TAB TAKE ONE TABLET BY MOUTH TWICE A DAY FOR PREVENTI ON OF BLOOD CLOTS DIRECTED BY THE [facility] EXT.[id number]) ORAL ACTIVE 03/04/2026 [id number] 5 Selvin HERNANDEZ R 2024 60 [facility] ATORVASTATI N CA 20MG TAB TAKE ONE TABLET BY MOUTH EVERY DAY FOR HIGH CHOLESTE ROL ORAL ACTIVE 01/31/2026 [id number] 5 KARLA,RE BOBY A 2024 90 [facility] ATORVASTATI N CA 20MG TAB TAKE ONE TABLET BY MOUTH EVERY DAY FOR HIGH CHOLESTE ROL ORAL DISCONT INUED 01/29/2025 [id number] 4 KARLA,RE BOBY A 2023 90 [facility] ATORVASTATI N CA 40MG TAB TAKE ONE TABLET BY MOUTH EVERY DAY ORAL ACTIVE KARLA,RE BOBY A 2021 [facility] CARVEDILOL 25MG TAB TAKE ONE TABLET BY MOUTH TWICE A DAY FOR RAPID VENTRICU LAR HEARTBEA T ORAL ACTIVE 02/17/2026 [id number] 5 KARLA,RE BOBY A 2024 180 [facility] FUROSEMIDE 20MG TAB TAKE ONE TABLET BY MOUTH IN THE MORNING FOR VISIBLE WATER RETENTIO N ORAL DISCONT INUED 01/27/2026 [id number] 5 KARLA,RE BOBY A 2024 90 [facility] FUROSEMIDE 40MG TAB TAKE ONE TABLET BY MOUTH EVERY DAY FOR EDEMA ORAL ACTIVE 02/17/2026 [id number] 5 KARLA,RE BOBY A 2024 90 [facility] LABETALOL HCL 100MG TAB TAKE ONE TABLET BY MOUTH TWICE A DAY FOR HIGH BLOOD PRESSURE (WITH FOOD) ORAL DISCONT INUED BY PROVIDE R 01/27/2026 [id number] 5 KARLA,RE BOBY A 2024 180 [facility] MAGNESIUM OXIDE 420MG TAB TAKE ONE TABLET BY MOUTH EVERY DAY FOR LOW AMOUNT OF MAGNESIU M IN THE BLOOD ORAL ACTIVE 02/17/2026 [id number] 5 KARLA,RE BOBY A 2024 100 [facility] SPIRONOLACT ONE 25MG TAB TAKE TWO TABLETS BY MOUTH EVERY DAY FOR HEART FAILURE ORAL ACTIVE 02/17/2026 [id number] 5 SORAIDA ACOSTA BOBY A 2024 180 [facility] TAMSULOSIN HCL 0.4MG CAP TAKE ONE CAPSULE BY MOUTH AT BEDTIME FOR LOWER URINARY TRACT SYMPTOMS ORAL ACTIVE 02/17/2026 [id number] 5 SORAIDA ACOSTA BOBY A 2024 90 [facility] Immunizations Combined list of available immunizations from the Department of Defense and Veterans Affairs facilities. Immunization Series Date Given Administered By Site Reaction Lot Number CVX Code Drug Test And Balance Engineer Status Comments Source RSV, BIVALENT, PROTEIN SUBUNIT RSVPREF, DILUENT RECONSTITUTED , 0.5 ML, PF 2024 JUAN DAVID NATARAJAN LEFT DELTO ID [id number] complet ed [facility], [facility] INFLUENZA, HIGH-DOSE, TRIVALENT, PF 2023 JUAN DAVID NATARAJAN LEFT DELTO ID [id number] 135 complet ed [facility] INFLUENZA, HIGH-DOSE, QUADRIVALENT 2022 KAYA CREWS RIGHT DELTO ID [id number] 197 complet ed [facility] [place], [facility] PNEUMOCOCCAL POLYSACCHARID E [id number] 2021 33 complet ed [facility] ZOSTER RECOMBINANT 2021 187 complet ed [facility] ZOSTER RECOMBINANT 2020 187 complet ed [facility] PNEUMOCOCCAL CONJUGATE PCV 13 1 2018 133 complet ed HISTORICA L INFORMATI ON - FROM OTHER REGISTRY, [facility] PNEUMOCOCCAL CONJUGATE PCV 13 2018 133 complet ed [facility] TDAP 2018 115 complet ed Paperwork received. [facility] Results Combined list of recent chemistry, hematology and other laboratory results from Department of Defense and Veterans Affairs, ranging from 15 months to all on record, depending upon the facility. Order Name Results Value Reference Range Date Interpretation Specimen Comments Source CBC LEUKOCYTES [#/VOLUME] IN BLOOD BY AUTOMATED COUNT 3.9 10*3/u L 3.6 - 11.0 01/19 Specimen Type: BLOOD No comment entered. Ordering Provider: JAYCEE ACOSTA CCA A Report Released Date/Time: January 19, 2025 08:01 AM Reporting Lab: [place] [phone] Performing Lab: [place] [phone] [facility] CBC ERYTHROCYTE S [#/VOLUME] IN BLOOD BY AUTOMATED COUNT 4.48 10*6/u L 4.47 - 5.83 01/19 Specimen Type: BLOOD No comment entered. Ordering Provider: JAYCEE ACOSTA CCA A Report Released Date/Time: January 19, 2025 08:01 AM Reporting Lab: [place] [phone] Performing Lab: [place] [id number] CBC HEMOGLOBIN [MASS/VOLUM E] IN BLOOD 14.2 g/dL 13.6 - 17.4 01/19 Specimen Type: BLOOD No comment entered. Ordering Provider: JAYCEE ACOSTA CCA A Report Released Date/Time: January 19, 2025 08:01 AM Reporting Lab: [place] [phone] Performing Lab: [place] [phone] [place] [address] CBC HEMATOCRIT [VOLUME FRACTION] OF BLOOD BY AUTOMATED COUNT 41.3 40.0 - 51.0 01/19 Specimen Type: BLOOD No comment entered. Ordering Provider: JAYCEE ACOSTA CCA A Report Released Date/Time: January 19, 2025 08:01 AM Reporting Lab: [place] [phone] Performing Lab: [place] [phone] [facility] CBC MCV [ENTITIC VOLUME] BY AUTOMATED COUNT 92.1 fL 80.0 - 96.0 01/19 Specimen Type: BLOOD No comment entered. Ordering Provider: JAYCEE ACOSTA CCA A Report Released Date/Time: January 19, 2025 08:01 AM Reporting Lab: [address] [address] Performing Lab: [place] [phone] [facility] CBC MCH [ENTITIC MASS] BY AUTOMATED COUNT 31.7 pg 27.0 - 31.0 01/19 H Specimen Type: BLOOD No comment entered. Ordering Provider: JAYCEE ACOSTA CCA A Report Released Date/Time: January 19, 2025 08:01 AM Reporting Lab: [place] [phone] Performing Lab: [place] [id number] CBC MCHC [MASS/VOLUM E] BY AUTOMATED COUNT 34.4 g/dL 31.5 - 36.5 01/19 Specimen Type: BLOOD No comment entered. Ordering Provider: JAYCEE ACOSTA CCA A Report Released Date/Time: January 19, 2025 08:01 AM Reporting Lab: [place] [phone] Performing Lab: [place] [id number] CBC PLATELETS [#/VOLUME] IN BLOOD BY AUTOMATED COUNT 134 10*3/u L 150 - 400 01/19 L Specimen Type: BLOOD No comment entered. Ordering Provider: JAYCEE ACOSTA CCA A Report Released Date/Time: January 19, 2025 08:01 AM Reporting Lab: [place] [phone] Performing Lab: [place] [id number] CBC LYMPHOCYTES /100 LEUKOCYTES IN BLOOD BY AUTOMATED COUNT 23.6 21.0 - 51.0 01/19 Specimen Type: BLOOD No comment entered. Ordering Provider: JAYCEE ACOSTA CCA A Report Released Date/Time: January 19, 2025 08:01 AM Reporting Lab: [place] [phone] Performing Lab: [place] [phone] [place] [address] CBC MONOCYTES/1 00 LEUKOCYTES IN BLOOD BY AUTOMATED COUNT 11.0 4.0 - 8.0 01/19 H Specimen Type: BLOOD No comment entered. Ordering Provider: JAYCEE ACOSTA CCA A Report Released Date/Time: January 19, 2025 08:01 AM Reporting Lab: [place] [phone] Performing Lab: [address] [phone] [facility] CBC NUCLEATED ERYTHROCYTE S/100 LEUKOCYTES [RATIO] IN BLOOD BY MANUAL COUNT 0.3 /100{W BCs} 01/19 Specimen Type: BLOOD No comment entered. Ordering Provider: JAYCEE ACOSTA CCA A Report Released Date/Time: January 19, 2025 08:01 AM Reporting Lab: [place] [phone] Performing Lab: [place] [phone] [place] [address] CBC ERYTHROCYTE DISTRIBUTIO N WIDTH [RATIO] BY AUTOMATED COUNT 14.1 11.2 - 15.8 01/19 Specimen Type: BLOOD No comment entered. Ordering Provider: JAYCEE ACOSTA CCA A Report Released Date/Time: January 19, 2025 08:01 AM Reporting Lab: [place] [phone] Performing Lab: [place] [phone] [place] [address] CBC NEUTROPHILS /100 LEUKOCYTES IN BLOOD BY AUTOMATED COUNT 63.2 54.0 - 78.0 01/19 Specimen Type: BLOOD No comment entered. Ordering Provider: JAYCEE ACOSTA CCA A Report Released Date/Time: January 19, 2025 08:01 AM Reporting Lab: [place] [phone] Performing Lab: [place] [phone] [place] [address] CBC EOSINOPHILS /100 LEUKOCYTES IN BLOOD BY AUTOMATED COUNT 1.6 0.0 - 3.0 01/19 Specimen Type: BLOOD No comment entered. Ordering Provider: JAYCEE ACOSTA CCA A Report Released Date/Time: January 19, 2025 08:01 AM Reporting Lab: [address] [phone] Performing Lab: [place] [id number] CBC BASOPHILS/1 00 LEUKOCYTES IN BLOOD BY AUTOMATED COUNT 0.6 0.0 - 3.0 01/19 Specimen Type: BLOOD No comment entered. Ordering Provider: JAYCEE ACOSTA CCA A Report Released Date/Time: January 19, 2025 08:01 AM Reporting Lab: [address] [phone] Performing Lab: [address] [address] [facility] CBC LYMPHOCYTES [#/VOLUME] IN BLOOD BY AUTOMATED COUNT 0.9 10*3/u L 0.8 - 5.0 01/19 Specimen Type: BLOOD No comment entered. Ordering Provider: JAYCEE ACOSTA CCA A Report Released Date/Time: January 19, 2025 08:01 AM Reporting Lab: [address] [phone] Performing Lab: [place] [phone] [facility] CBC NEUTROPHILS [#/VOLUME] IN BLOOD 2.5 10*3/u L 1.9 - 8.6 01/19 Specimen Type: BLOOD No comment entered. Ordering Provider: JAYCEE ACOSTA CCA A Report Released Date/Time: January 19, 2025 08:01 AM Reporting Lab: [place] [phone] Performing Lab: [place] [phone] [facility] CBC BASOPHILS [#/VOLUME] IN BLOOD BY AUTOMATED COUNT 0.0 10*3/u L 0.0 - 0.3 01/19 Specimen Type: BLOOD No comment entered. Ordering Provider: JAYCEE ACOSTA CCA A Report Released Date/Time: January 19, 2025 08:01 AM Reporting Lab: [address] [address] Performing Lab: [place] [phone] [facility] CBC MONOCYTES [#/VOLUME] IN BLOOD BY AUTOMATED COUNT 0.4 10*3/u L 0.1 - 0.9 01/19 Specimen Type: BLOOD No comment entered. Ordering Provider: JAYCEE ACOSTA CCA A Report Released Date/Time: January 19, 2025 08:01 AM Reporting Lab: [address] [phone] Performing Lab: [address] [phone] [facility] CBC EOSINOPHILS [#/VOLUME] IN BLOOD BY AUTOMATED COUNT 0.1 10*3/u L 0.0 - 0.3 01/19 Specimen Type: BLOOD No comment entered. Ordering Provider: JAYCEE ACOSTA CCA A Report Released Date/Time: January 19, 2025 08:01 AM Reporting Lab: [place] [phone] Performing Lab: [place] [phone] CBC PLATELET MEAN VOLUME [ENTITIC VOLUME] IN BLOOD BY AUTOMATED COUNT 9.2 fL 7.4 - 11.4 01/19 Specimen Type: BLOOD No comment entered. Ordering Provider: JAYCEE ACOSTA CCA A Report Released Date/Time: January 19, 2025 08:01 AM Reporting Lab: [place] [phone] Performing Lab: [place] [phone] COMPREHEN SIVE METABOLIC PANEL ALBUMIN [MASS/VOLUM [...] January 19, 2025 08:01 AM Reporting Lab: [place] [phone] Performing Lab: [place] [phone] [facility] COMPREHEN SIVE METABOLIC PANEL ALKALINE PHOSPHATASE [ENZYMATIC [...] January 19, 2025 08:01 AM Reporting Lab: [place] [phone] Performing Lab: [place] [phone] [facility] ALANINE AMINOTRANSF ERASE [ENZYMATIC ACTIVITY/VO [...] January 19, 2025 08:01 AM Reporting Lab: [place] [phone] Performing Lab: [place] [phone] [place] [address] COMPREHEN SIVE METABOLIC PANEL ASPARTATE AMINOTRANSF ERASE [...] January 19, 2025 08:01 AM Reporting Lab: [place] [phone] Performing Lab: [place] [phone] COMPREHEN SIVE METABOLIC PANEL UREA NITROGEN [MASS/VOLUM [...] January 19, 2025 08:01 AM Reporting Lab: [place] [phone] Performing Lab: [place] [phone] [facility] COMPREHEN SIVE METABOLIC PANEL CALCIUM [MASS/VOLUM E] [...] January 19, 2025 08:01 AM Reporting Lab: [address] [phone] Performing Lab: [place] [phone] [facility] COMPREHEN SIVE METABOLIC PANEL CREATININE [MASS/VOLUM E] [...] January 19, 2025 08:01 AM Reporting Lab: [place] [phone] Performing Lab: [address] COMPREHEN SIVE METABOLIC PANEL CARBON DIOXIDE, TOTAL [MOLES/VOLU ME] IN SERUM OR PLASMA 25 mmol/L 01/19 Specimen Type: PLASMA Comment: GLUCOSE The [...] January 19, 2025 08:01 AM Reporting Lab: [place] [phone] Performing Lab: [address] COMPREHEN SIVE METABOLIC PANEL GLUCOSE [MASS/VOLUM [...] January 19, 2025 08:01 AM Reporting Lab: [place] [phone] Performing Lab: [place] [phone] [facility] JANET SIVE METABOLIC PANEL PROTEIN [MASS/VOLUM E] IN [...] January 19, 2025 08:01 AM Reporting Lab: [place] [phone] Performing Lab: [place] [phone] [facility] COMPREHEN SIVE METABOLIC PANEL SODIUM [MOLES/VOLU ME] [...] January 19, 2025 08:01 AM Reporting Lab: [place] [phone] Performing Lab: [place] [phone] [facility] COMPREHEN SIVE METABOLIC PANEL CHLORIDE [MOLES/VOLU ME] [...] January 19, 2025 08:01 AM Reporting Lab: [place] [phone] Performing Lab: [place] [phone] [facility] COMPREHEN SIVE METABOLIC PANEL BILIRUBIN.T OTAL [MASS/VOLUM [...] January 19, 2025 08:01 AM Reporting Lab: [address] [address] Performing Lab: [place] [phone] [facility] COMPREHEN SIVE METABOLIC PANEL POTASSIUM [MOLES/VOLU ME] [...] January 19, 2025 08:01 AM Reporting Lab: [place] [phone] Performing Lab: [place] [phone] COMPREHEN SIVE METABOLIC PANEL ANION GAP IN SERUM OR PLASMA 13 mmol/L - 01/19 Specimen Type: PLASMA Comment: GLUCOSE The [...] January 19, 2025 08:01 AM Reporting Lab: [place] [phone] Performing Lab: [place] [phone] [facility] COMPREHEN SIVE METABOLIC PANEL GLOMERULAR FILTRATION RATE/1.73 [...] January 19, 2025 08:01 AM Reporting Lab: [address] [address] Performing Lab: [place] [phone] [facility] HEMOGLOBI N A1C HEMOGLOBIN A1C/HEMOGLO BIN.TOTAL IN [...] January 19, 2025 08:01 AM Reporting Lab: [address] [address] Performing Lab: [place] [phone] [facility] LIPID PROFILE CHOLESTEROL [MASS/VOLUM E] IN SERUM [...] January 19, 2025 08:01 AM Reporting Lab: [place] [phone] Performing Lab: [place] [phone] [facility] LIPID PROFILE CHOLESTEROL IN LDL [MASS/VOLUM E] [...] January 19, 2025 08:01 AM Reporting Lab: [place] [phone] Performing Lab: [place] [phone] [facility] LIPID PROFILE CHOLESTEROL IN HDL [MASS/VOLUM E] [...] January 19, 2025 08:01 AM Reporting Lab: [place] [phone] Performing Lab: [place] [phone] [facility] LIPID PROFILE TRIGLYCERID E [MASS/VOLUM E] IN [...] January 19, 2025 08:01 AM Reporting Lab: [place] [phone] Performing Lab: [place] [phone] PROSTATE SPECIFIC ANTIGEN PROSTATE SPECIFIC AG [MASS/VOLUM E] IN SERUM OR PLASMA 1.533 ng/mL 0.000 - 6.500 01/19 Specimen Type: SERUM Comment: TPSA Testing males >= 70 y/o is not recommended if there is a TPSA history of previously normal PSA testing. Assay performed on TPSA KidoZen using CMIA methodology . Patient results TPSA determined by assays using different manufacture rs or methods TPSA may not be comparable. Ordering Provider: JAYCEE ACOSTA CCA A Report Released Date/Time: January 19, 2025 08:01 AM Reporting Lab: [place] [phone] Performing Lab: [place] [phone] TSH THYROTROPIN [UNITS/VOLU ME] IN SERUM OR [...] January 19, 2025 08:01 AM Reporting Lab: [place] [phone] Performing Lab: [place] [phone] COMPREHEN SIVE METABOLIC PANEL ALBUMIN [MASS/VOLUM [...] Jul 31, 2023 04:00 PM Reporting Lab: [place] [phone] Performing Lab: [place] [phone] COMPREHEN SIVE METABOLIC PANEL ALKALINE PHOSPHATASE [...] Jul 31, 2023 04:00 PM Reporting Lab: [place] [phone] Performing Lab: [place] [phone] COMPREHEN SIVE METABOLIC PANEL ALANINE AMINOTRANSF ERASE [...] Jul 31, 2023 04:00 PM Reporting Lab: [place] [phone] Performing Lab: [address] COMPREHEN SIVE METABOLIC PANEL ASPARTATE AMINOTRANSF [...] Jul 31, 2023 04:00 PM Reporting Lab: [place] [phone] Performing Lab: [place] [phone] COMPREHEN SIVE METABOLIC PANEL UREA NITROGEN [MASS/VOLUM [...] Jul 31, 2023 04:00 PM Reporting Lab: [place] [phone] Performing Lab: [place] [phone] COMPREHEN SIVE METABOLIC PANEL CALCIUM [MASS/VOLUM E] [...] Jul 31, 2023 04:00 PM Reporting Lab: [place] [phone] Performing Lab: [place] [phone] [place] [address] COMPREHEN SIVE METABOLIC PANEL CREATININE [MASS/VOLUM E] IN SERUM OR PLASMA 1.0 mg/dL 0.70 - 1.30 01/28 Specimen Type: PLASMA Comment: TRIGLYCERID E REF RANGE: NORMAL <150 mg/dL BORDERLINE HIGH: 150-199 TRIGLYCERID E mg/dL HIGH: 200-499 mg/dL VERY HIGH: >=500 mg/dL CREATININE eGFR was calculated using the CKD-EPI 2020 equation. Ordering Provider: JAYCEE ACOSTA CCA Report Released Date/Time: Jul 31, 2023 04:00 PM Reporting Lab: [place] [phone] Performing Lab: [place] [phone] [place] [address] COMPREHEN SIVE METABOLIC PANEL CARBON DIOXIDE, TOTAL [MOLES/VOLU ME] IN SERUM OR PLASMA 30 mmol/L 21 - 32 01/28 Specimen Type: PLASMA Comment: TRIGLYCERID E REF RANGE: NORMAL <150 mg/dL BORDERLINE HIGH: 150-199 TRIGLYCERID E mg/dL HIGH: 200-499 mg/dL VERY HIGH: >=500 mg/dL CREATININE eGFR was calculated using the CKD-EPI 2020 equation. Ordering Provider: JAYCEE ACOSTA CCA Report Released Date/Time: Jul 31, 2023 04:00 PM Reporting Lab: [place] [phone] Performing Lab: [place] [phone] [place] [address] COMPREHEN SIVE METABOLIC PANEL GLUCOSE [MASS/VOLUM E] IN SERUM OR PLASMA 92 mg/dL 74 - 106 01/28 Specimen Type: PLASMA Comment: TRIGLYCERID E REF RANGE: NORMAL <150 mg/dL BORDERLINE HIGH: 150-199 TRIGLYCERID E mg/dL HIGH: 200-499 mg/dL VERY HIGH: >=500 mg/dL CREATININE eGFR was calculated using the CKD-EPI 2020 equation. Ordering Provider: JAYCEE ACOSTA CCA Report Released Date/Time: Jul 31, 2023 04:00 PM Reporting Lab: [place] [id number] Performing Lab: [place] [phone] [place] [address] COMPREHEN SIVE METABOLIC PANEL PROTEIN [MASS/VOLUM E] [...] Jul 31, 2023 04:00 PM Reporting Lab: [place] [phone] Performing Lab: [place] [phone] [place] [address] COMPREHEN SIVE METABOLIC PANEL SODIUM [MOLES/VOLU ME] [...] Jul 31, 2023 04:00 PM Reporting Lab: [place] [phone] Performing Lab: [place] [phone] [place] [address] COMPREHEN SIVE METABOLIC PANEL CHLORIDE [MOLES/VOLU ME] [...] Jul 31, 2023 04:00 PM Reporting Lab: [place] [phone] Performing Lab: [place] [phone] [facility] COMPREHEN SIVE METABOLIC PANEL BILIRUBIN.T OTAL [MASS/VOLUM [...] Jul 31, 2023 04:00 PM Reporting Lab: [place] [phone] Performing Lab: [place] [phone] [place] [address] COMPREHEN SIVE METABOLIC PANEL POTASSIUM [MOLES/VOLU ME] [...] Jul 31, 2023 04:00 PM Reporting Lab: [place] [phone] Performing Lab: [place] [phone] [place] [address] COMPREHEN SIVE METABOLIC PANEL ANION GAP IN [...] Jul 31, 2023 04:00 PM Reporting Lab: [place] [phone] Performing Lab: [place] [phone] [facility] COMPREHEN SIVE METABOLIC PANEL GLOMERULAR FILTRATION RATE/1.73 [...] Jul 31, 2023 04:00 PM Reporting Lab: [place] [phone] Performing Lab: [address] HEMOGLOBI N A1C HEMOGLOBIN A1C/HEMOGLO BIN.TOTAL [...] Jul 31, 2023 04:00 PM Reporting Lab: [place] [phone] Performing Lab: [place] [phone] LIPID PROFILE CHOLESTEROL [MASS/VOLUM E] IN [...] Jul 31, 2023 04:00 PM Reporting Lab: [place] [phone] Performing Lab: [place] [phone] [facility] LIPID PROFILE CHOLESTEROL IN LDL [MASS/VOLUM E] [...] Jul 31, 2023 04:00 PM Reporting Lab: [place] [phone] Performing Lab: [address] LIPID PROFILE CHOLESTEROL IN HDL [MASS/VOLUM E] IN SERUM OR PLASMA 80 mg/dL 40 - 60 01/28 H Specimen Type: PLASMA Comment: TRIGLYCERID E REF RANGE: NORMAL <150 mg/dL BORDERLINE HIGH: 150-199 TRIGLYCERID E mg/dL HIGH: 200-499 mg/dL VERY HIGH: >=500 mg/dL CREATININE eGFR was calculated using the CKD-EPI 2020 equation. Ordering Provider: JAYCEE ACOSTA CCA Report Released Date/Time: Jul 31, 2023 04:00 PM Reporting Lab: [place] [phone] Performing Lab: [place] [phone] LIPID PROFILE TRIGLYCERID E [MASS/VOLUM E] IN SERUM OR PLASMA 75 mg/dL 0 - 149 01/28 Specimen Type: PLASMA Comment: TRIGLYCERID E REF RANGE: NORMAL <150 mg/dL BORDERLINE HIGH: 150-199 TRIGLYCERID E mg/dL HIGH: 200-499 mg/dL VERY HIGH: >=500 mg/dL CREATININE eGFR was calculated using the CKD-EPI 2020 equation. Ordering Provider: JAYCEE ACOSTA CCA Report Released Date/Time: Jul 31, 2023 04:00 PM Reporting Lab: [place] [phone] Performing Lab: [place] [id number] TSH THYROTROPIN [UNITS/VOLU ME] IN SERUM OR PLASMA BY DETECTION LIMIT <= 0.005 MIU/L 2.822 u[IU]/ mL 0.55 - 4.78 01/28 Specimen Type: PLASMA Comment: TRIGLYCERID E REF RANGE: NORMAL <150 mg/dL BORDERLINE HIGH: 150-199 TRIGLYCERID E mg/dL HIGH: 200-499 mg/dL VERY HIGH: >=500 mg/dL CREATININE eGFR was calculated using the CKD-EPI 2020 equation. Ordering Provider: JAYCEE ACOSTA CCA Report Released Date/Time: Jul 31, 2023 04:00 PM Reporting Lab: [address] [phone] Performing Lab: [address] [phone] [facility], [facility] Vital Signs Combined list of inpatient and outpatient Vital Signs from Department of Defense and Veterans Affairs, ranging from 12 months to all on record, depending upon the facility. Vital Sign Value Date Comments Source SYSTOLIC BLOOD PRESSURE 150 02/16/2025 08:10:25 [facility] DIASTOLIC BLOOD PRESSURE 78 02/16/2025 08:10:25 [facility] PULSE OXIMETRY 96 02/16/2025 08:10:25 [facility] WEIGHT 194.4 02/16/2025 08:10:25 [facility] BMI 28 kg/m2 02/16/2025 08:10:25 [facility] PAIN 0 02/16/2025 08:10:25 [facility] TEMPERATURE 97.7 02/16/2025 08:10:25 [facility] PULSE 66 02/16/2025 08:10:25 [facility] RESPIRATION 20 02/16/2025 08:10:25 [facility] SYSTOLIC BLOOD PRESSURE 160 01/26/2025 08:00:51 [facility] DIASTOLIC BLOOD PRESSURE 110 01/26/2025 08:00:51 [facility] PULSE OXIMETRY 96 01/26/2025 08:00:51 [facility] WEIGHT 232 01/26/2025 08:00:51 [facility] BMI 34 kg/m2 01/26/2025 08:00:51 [facility] PAIN 0 01/26/2025 08:00:51 [facility] TEMPERATURE 98.1 01/26/2025 08:00:51 [facility] PULSE 95 01/26/2025 08:00:51 [facility] RESPIRATION 18 01/26/2025 08:00:51 [facility] SYSTOLIC BLOOD PRESSURE 158 07/29/2024 08:16:18 [facility] DIASTOLIC BLOOD PRESSURE 88 07/29/2024 08:16:18 [facility] PULSE OXIMETRY 95 07/29/2024 08:16:18 [facility] WEIGHT 208 07/29/2024 08:16:18 [facility] BMI 30 kg/m2 07/29/2024 08:16:18 [facility] PAIN 0 07/29/2024 08:16:18 [facility] TEMPERATURE 98.3 07/29/2024 08:16:18 [facility] PULSE 69 07/29/2024 08:16:18 [facility] RESPIRATION 16 07/29/2024 08:16:18 [facility] Encounters Combined list of: 1) Encounters from Department of Veterans Affairs facilities going backup to the last 18 months, not all [place] inpatient encounters are included; 2) Encounters from the Department of Defense facilities going backup to 280 months. Location Location Details Encounter Type Encounter Number Reason For Visit Attending Provider ADM Date DC Date Status Disposition Source [facility] OFFICE O/P EST LOW 20 MIN [id number] Diagnos is: ICD-10- CM E78.5 Hyperli pidemia , unspeci THERON Del Real A 01/28 MIRNA Alexis [facility] Outpatient Encounter [id number] 02/25 [place] [facility] Outpatient Encounter [id number] 07/29 [facility] Outpatient Encounter [id number] 07/29 [facility] OFFICE O/P EST MOD 30 MIN [id number] Diagnos is: ICD-10- CM I10 Essenti al (primar y) hyperte nsTHERON Benavides ECCA A 07/29 [place] [facility] Outpatient Encounter [id number] 10/14 [facility] Outpatient Encounter [id number] Diagnos is: ICD-10- CM Y93.9 Activit y, unspeci fied AMITA GRIFFIN K 10/15 [facility] COMPRE OPH EXAM EST PT 1/ [id number] Diagnos is: ICD-10- CM 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 Outpatient Encounter [id number] 02/05 [facility] CASE MANAGEMENT [id number] Diagnos is: ICD-10- CM Z74.1 Need for assista nce with persona l care AMITA GRIFFIN K 02/10 [place] [facility] Outpatient Encounter [id number] 02/16 [facility] OFFICE O/P EST HI 40 MIN [id number] Diagnos is: ICD-10- CM I48.91 Unspeci fied atrial fibrill atTHERON Benavides ECCA A 02/[address] [address] [facility] Outpatient Encounter [id number] HEMANTSELVIN ART L 02/16 [facility] NQHP OL DIG ASSMT&MGMT 11-20 [id number] Diagnos is: ICD-10- CM Z51.81 Encount er for therape utic drug level monitor Altaf Marquez 02/17 [facility] Outpatient Encounter [id number] [facility] Encounter [id number] 02/17 MIRNA Alexis [facility] Outpatient Encounter [id number] 02/17 [facility] Outpatient Encounter [id number] 02/19 [facility] Outpatient Encounter [id number] 03/03 [facility] MTMS BY PHARM MANAGER INTERVENTIONAL 15 MIN [id number] Diagnos is: ICD-10- CM Z51.81 Encount er for therape utic drug level monitor AUGUST Chapman 03/03 [facility] Outpatient Encounter [id number] 03/09 [facility] Outpatient Encounter [id number] MONSE FISHER 03/13 [facility] Outpatient Encounter [id number] 04/03 [facility] Outpatient Encounter [id number] 05/04 [facility] ASSMT/REAS SESSMENT [id number] Diagnos is: ICD-10- CM Z74.1 Need for assista nce with persona l care AMITA GRIFFIN 05/04 [place] Y [facility] Outpatient Encounter [id number] AMITA GRIFFIN 05/04 [facility] Outpatient Encounter [id number] Diagnos is: ICD-10- CM Y93.9 Activit y, unspeci fied AMITA GRIFFIN 05/[address] [address] [facility] Outpatient Encounter [id number] 05/06 [facility] Social History Combined list of available smoking, tobacco, and other social history from Department of Defense and Veterans Affairs facilities. Social History Type Response Date Comment Sourc e Tobacco smoking status TNIS VA-TOBACCO NEVER USED 07/29/20 [facility] History of tobacco use VA-TOBACCO NEVER USED 07/31/2023 [facility] History of tobacco use VA-TOBACCO NEVER USED 05/17/2022 [facility] History of tobacco use [place]-TOBACCO NEVER USED 05/17/2021 [facility] History of tobacco use VA-TOBACCO NEVER USED 01/15/2019 [facility] Plan of Care List of future care activities from Department of Veterans Affairs facilities. Additional future care activities may be listed in the Assessment and Plan section. Date/Time Care Activity Care Activity Detail Facili ty 07/27/2025 AMBULATORY - NONE AMBULATORY - NONE [facility]
--- OUTSIDE RECORDS SUMMARY | 2025-05-12 05:15 | XMS_ITS ---
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 Name Role Phone Saw Flores Primary Care Provider Allergies No Known Allergies REASON FOR VISIT F/U from [place] discharge, lightheadedness and couple falls since D/C, Initiate ppw for [facility] home placement- when needed Medications Medication SIG (Take, Route, Frequency, Duration) Notes Start Date End Date Status Atorvastatin Calcium 40 MG 1 tablet Oral ly Once a day for 90 days 05/12/2025 Active Magnesium 400 MG take one tablet Oral ly bid for 30 days 02/17/2025 Active Tamsulosin HCl 0.4 MG 1 capsule Orally O nce a day Active Furosemide 20 MG 1 tablet Orally Once a day for 90 days Active Senna 8.6 MG 2 tablets at bedtime as needed Orally Once a day for 30 days 04/27/2025 Active Melatonin 5 MG 1 tablet in the even ing Orally Once a day 05/12/2025 Active Eliquis 5 MG 1 tab Orally bid Active Carvedilol 6.25 MG 1 tablet with food O rally Twice a day for 90 days 05/12/2025 Active Aspirin 81 81 MG 1 tablet Orally Once a day 05/12/2025 Active Social History Tobacco Use: Social History Observation Description Date Details (start date - stop date) Never Smoker NA - NA Tobacco Control (Standard) Question Answer Notes Tobacco use: Nonsmoker Vital Signs Weight 160.2 lbs 05/12/2025 Height 69 in 05/12/2025 Blood pressure systolic 92 mm Hg 05/12/20 25 Blood pressure diastolic 58 mm Hg 025 BMI 23.65 kg/m2 05/12/2025 Encounters Encounter Location Date Provider Diagnosis [facility] [address] [place] [address] 05/12/2025 Saw Flores Hypertension I10 ; Atrial fibrillation I48.91 and CHF exacerbation I50.9 Assessments Encounter Date Diagnosis (ICD Code) Assessment Notes Treatment Notes Treatment Clinical Notes Section Notes 05/12/2025 Hypertension (ICD-10 - I10) 05/12/2025 Atrial fibrillation (ICD-10 - I48.91) 05/12/2025 CHF exacerbation (ICD-10 - I50.9) Plan Of Treatment Medication Medication Name Sig Start Date Stop Date Notes Atorvastatin Calcium 40 MG 1 tablet Oral ly Once a day for 90 days 05/12/2025 Furosemide 20 MG 1 tablet Orally Once a day for 90 days Carvedilol 6.25 MG 1 tablet with food O rally Twice a day for 90 days 05/12/2025 Doxazosin Mesylate 2 MG 1 tablet Orally Once a day 025 Next Appt Details Provider Name:Saw Flores, 08:30:00 AM, [address] [place], [address], Progress Notes * Isauro TATE WDOB: [birth year] (74 yo M)Acc No.[id number]:05/12/2025 UNLOCKED PROGRESS NOTE Progress Note Patient: Isauro RAE Provider: Citlaly Flores ([facility])MD :1950 A ge:74 Y S ex:Male Date:05/12/2025 [address] [id number] Check In:08:53 AM ESTCheck O ut:09:45 AM EST Subjective: * Chief Complaints: * 1 . F/U from [place] discharge. 2. lightheadedness and couple falls since D/C. 3. Initiate ppw for VA home placement- when needed. * HPI: G eneral: Gets in a hurry es[p light headed with standing up. * ROS: E ENT: hearing changes d enies. v isual changes d enies.?non-healing mouth sores d enies. s wollen glands or neck lumps d enies. h oarseness d enies. s ore throat d enies. d ifficulty swallowing d enies. n ose bleeds d enies. n hieu congestion d enies. e ar ache d enies. e ar discharge?denies. r inging in ears d enies. l ight sensitivity d enies. e ye pain d enies. b lurring d enies. e ye irritation d enies. d ouble vision d enies.?vision loss d enies. G eneral/Constitutional: Sweats: D enies. F atigue d enies. S leep problems d enies. A norexia d enies. M alaise d enies. W eight loss d enies.?Fatigue or Weakness d enies. F ever or Chills d enies. C ardiovascular: Shortness of Breath w/lying flat d enies. L ightheadedness/dizziness d enies. C hest tightness/ heavy pressure d enies. S welling of legs, ankles, or feet d enies. W aking up with shortness of breath d enies. C hest pain denies. P alpitations d enies. W eight gain d enies. R espiratory: Chronic or frequent cough d enies. C oughing up blood?denies. D ifficulty breathing d enies. P roductive cough d enies. S noring?denies. S hortness of breath that awakens from sleep (PND) d enies. C hest pain d enies. S putum production d enies. W heezing d enies. M usculoskeletal: Joint pain d enies. J oint Fluid d enies. B ack pain d enies. K nee pain d enies. N tessa pain d enies. J oint Stiffness d enies. M uscle cramps d enies. W eakness of muscles d enies. A rthritis d enies. M uscle aches d enies. P ain in shoulder(s) d enies. S wollen joints d enies. * Medical History: C HF, Edema, Afib. * Surgical History: C ABG 2010, Spinal Fusion with Screws- [facility] 02/2025. * Hospitalization/Major Diagno stic Procedure: F all 02/2025. * Family History: F ather: unknown. M other: , diagnosed with Diabetes mellitus without mention of complication, type II or unspecified type, not stated as uncontrolled, Unspecified essential hypertension, Unspecified heart disease. B rother(s): alive. S ister(s): alive. S on(s): alive.?Daughter(s): alive. 3 brother(s) , 1 sister(s) . 2 daughter(s) . . * Social History: T obacco Use: T obacco Control (Standard) T obacco use: N onsmoker * Medications: T aking Aspirin 81(Aspirin) 81 MG Tablet Delayed Release 1 tablet Orally Once a day , Taking Carvedilol 12.5 MG Tablet 1 tablet with food Orally Twice a day , Taking Eliquis(Apixaban) 5 MG Tablet 1 tab Orally bid , Taking Furosemide 40 MG Tablet 1 tablet Orally Once a day , Taking Magnesium 400 MG Capsule take one tablet Orally bid , Taking Melatonin 5 MG Tablet 1 tablet in the evening Orally Once a day , Taking Senna 8.6 MG Tablet 2 tablets at bedtime as needed Orally Once a day , Taking Tamsulosin HCl 0.4 MG Capsule 1 capsule Orally Once a day , Not-Taking/PRN Atorvastatin Calcium 40 MG Tablet 1 tablet Orally Once a day , Not-Taking/PRN Doxazosin Mesylate 2 MG Tablet 1 tablet Orally Once a day , Discontinued Cardura(Doxazosin Mesylate) 2 MG Tablet 1 tablet Orally Once a day , Discontinued Carvedilol 25 MG Tablet 1 tablet with food Orally Twice a day , Discontinued Simvastatin 20 MG Tablet 1 tablet in the evening Orally Once a day , Discontinued Spironolactone 50 MG Tablet 1 tab Orally daily , Medication List reviewed and reconciled with the patient * Allergies: N .K.D.A. Objective: * Vitals: W t:160.2lbs, Ht: 69 in, BP:92/58mm Hg, BMI:23.65Index, Ht-cm: 175.26 cm, Wt-k.67 kg. * Examination: P hysical Exam: GENERAL: w ell developed, well nourished, in no acute distress. HEAD: n ormocephalic/atraumatic. EYES: p upils equal, round and reactive to light, conjunctivae and sclerae normal. EARS: n o deformity or lesion of external ear, canals and TM appear normal bilaterally, TM's intact, not inflamed with normal light reflex, hearing grossly normal to conversational speech. NOSE: n o deformity, discharge, inflammation, or lesions.? MOUTH: m ucous membranes moist, normal oropharynx and posterior pharynx without lesions or exudates, tongue normal, dentition normal. NECK: n tessa supple, no masses or palpable cervical nodes, trachea midline, thyroid without nodules, masses, tenderness, or enlargement. CHEST: n o chest wall deformity, no chest wall tenderness.? LUNGS: n ormal respiratory effort and clear to auscultation, no wheezes, rales, or rhonchi, good air exchange. CARDIO: I rreg - Irreg. PULSES: n ormal capillary refill. ABDOMEN: s oft, non-distended, non-tender, no masses. MUSCULOSKELETAL: n o deformity or scoliosis noted, normal range of motion, joints normal, no erythema, edema, effusion, or ecchymosis. EXTREMITY: n o clubbing, cyanosis, edema, or deformity with normal ROM in both upper and lower bilateral extremities. NEUROLOGIC: g rossly normal. SKIN: n o rashes, ulcerations, or suspicious lesions. LYMPH NODES: n o cervical adenopathy, nodes normal. MENTAL STATUS: a lert and oriented x3, normal mood and affect. Assessment: * Assessment: 1. H ypertension - I10 (Primary) 2 . A trial fibrillation - I48.91 ? 3 . C HF exacerbation - I50.9 Plan: * Treatment: * * Electronic signature of Saw Flores MD, [phone] on 05/12/2025 at 06:35 PM EDT Sign off status: Pending Visit Status: C HK (Check Out) * Provider: Citlaly Flores ([facility])MD Date: 05/12/2025 Generated for Nish toro/Suellen/eTransmitting on: 05/12/2025 06:35 PM EDT History and Physical Notes * HPI (History of Present Illness) Category Sub-Category Detail Notes Category Not es General Gets in a hurry es[p light headed with standing up Examination Category Sub-Category Detail Notes Category Not es Physical Exam GENERAL: well developed, well nourished, in no acute distress HEAD: normocephalic/atraum atic EYES: pupils equal, round and reactive to light, conjunctivae and sclerae normal EARS: no deformity or lesi on of external ear, canals and TM appear normal bilaterally, TM's intact, not inflamed with normal light reflex, hearing grossly normal to conversational speech NOSE: no deformity, discha rge, inflammation, or lesions MOUTH: mucous membranes rosa m [address], normal oropharynx and posterior pharynx without lesions or exudates, tongue normal, dentition normal NECK: neck supple, no mass es or palpable cervical nodes, trachea midline, thyroid without nodules, masses, tenderness, or enlargement CHEST: no chest wall deform ity, no chest wall tenderness LUNGS: normal respiratory e ffort and clear to auscultation, no wheezes, rales, or rhonchi, good air exchange CARDIO: Irreg - Irreg PULSES: normal capillary ref ill ABDOMEN: soft, non-distended, non-tender, no masses RECTAL: MUSCULOSKELETAL: no deformity or scol iosis noted, normal range of motion, joints normal, no erythema, edema, effusion, or ecchymosis EXTREMITY: no clubbing, cyanosi s, edema, or deformity with normal ROM in both upper and lower bilateral extremities NEUROLOGIC: grossly normal SKIN: no rashes, ulceratio ns, or suspicious lesions LYMPH NODES: no cervical adenopat hy, nodes normal MENTAL STATUS: alert and oriented x 3, normal mood and affect
--- NOTE | 2025-05-12 17:55 | ECG_ITS ---
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: : 1950 Requested By: [id number] Order Number: [id number] Reading MD: LEBRON VAZQUEZ Measurements Intervals [place] Rate: 69 P: -[id number] ND: -[id number] QRS: -79 QRSD: 180 T: 51 QT: 468 QTc: 486 Interpretive Statements 45741 Atrial flutter with aberrant conduction, or ventricular premature complexes 2450 Right bundle branch block 7200 Abnormal left axis deviation 9150 abnormal ECG Compared to ECG 03/06/2025 15:21:07 Ventricular premature complex(es) now present Aberrant conduction of supraventricular beat(s) now present Left ventricular hypertrophy no longer present Electronically Signed On 05-13-2025 15:58:56 EDT by LEBRON VAZQUEZ
--- NOTE | 2025-05-12 17:55 | XR_ITS ---
The [address] [address] Patient Name: HOLLIE TATE MRN: [id number] date: 1950 Sex: M Assigned Patient Location: ER Current Patient Location: ER Accession/Order Number: [id number] Exam Date: 05/12/2025 18:05 Report Date: 05/12/2025 18:27 At the request of: CLARIBEL FAROOQ DO Procedure: XR chest 1V XR chest 1V 05/12/2025 6:09 PM SIGNS AND SYMPTOMS: Syncope, chest pain PROTOCOL: Frontal radiograph of the chest COMPARISON: 03/06/2025 FINDINGS: The trachea is midline. Sternotomy wires overlie the mediastinum. Fusion hardware is noted in the lower cervical spine. The heart and mediastinal structures are within normal limits. The lung parenchyma is clear. The bony thorax is intact. Degenerative changes are noted in the shoulders and thoracic spine. XR/XR chest 1V IMPRESSION: No acute cardiopulmonary pathology. Impression dictated by: Marko Scott M.D. 05/12/2025 6:27 PM Dictation Location: [place] [address] Electronically authenticated by: [id number] Date: 05/12/2025 18:27
--- NOTE | 2025-05-12 17:55 | ED.GENADUL1 ---
HPI HPI - General Adult General Chief complaint: Syncope Stated complaint: SYNCOPE Time Seen by Provider: 05/12/25 17:53 Source: patient Mode of arrival: ambulance Limitations: no limitations History of Present Illness HPI narrative: Patient is a 74-year-old male presenting to the emergency department via EMS for concerns of a syncopal event. Patient was opening up his refrigerator, states he felt lightheaded and briefly lost consciousness for a few seconds. His family was surrounding him, and caught him before he could fall. Patient has a history of atrial fibrillation on Eliquis. Has a history of CABG back in 2012. The patient states that he has had numerous episodes of syncope in the past. States he was just admitted to the hospital for 8 weeks for similar issue, and discharged a couple weeks ago. He denies any chest pain or shortness of breath. He had no palpitations, nausea, vomiting, abdominal pain, or any other symptoms. He is currently asymptomatic and is asking for food to eat. He did not hit his head. Related Data Home Medications ?Medication ?Instructions ?Recorded ?Confirmed atorvastatin 20 mg tablet (Lipitor) 40 mg PO DAILY 02/04/25 03/06/25 apixaban 5 mg tablet (Eliquis) 5 mg PO BID 03/06/25 03/06/25 carvedilol 25 mg tablet 25 mg PO Q12H 03/06/25 03/06/25 magnesium oxide 400 mg (241.3 mg 400 mg PO BID 03/06/25 03/07/25 magnesium) tablet spironolactone 50 mg tablet 50 mg PO DAILY 03/06/25 03/06/25 tamsulosin 0.4 mg capsule 0.4 mg PO DAILY 03/06/25 03/06/25 doxazosin 2 mg tablet 2 mg PO DAILY 03/07/25 03/07/25 furosemide 40 mg tablet 40 mg PO DAILY 03/07/25 03/07/25 Allergies Allergy/AdvReac Type Severity Reaction Status Date / Time No Known Drug Allergies Allergy Verified 03/06/25 15:25 Opioid HPI Opioid Management Most Recent Opioid Data: Last Pain Scale 9 03/08/25, 07:46 Last ORT Total Score 3 03/06/25, 23:47 Last ORT Risk Category Low Risk 03/06/25, 23:47 Ur Phencyclidine Scrn, (NEGATIVE) Negative 03/07/25, 03:40 Review of Systems ROS Status of ROS 10 or more systems reviewed and unremarkable except as noted in history and below [facility] Medical History (Updated 05/12/25 @ 19:17 by Dylon Michael DO) Acute heart failure with reduced ejection fraction and diastolic dysfunction ?I50.41 - Acute combined systolic (congestive) and diastolic (congestive) heart failure (ICD-10) Fall ?W19.XXXA - Unspecified fall, initial encounter (ICD-10) AMS (altered mental status) ?R41.82 - Altered mental status, unspecified (ICD-10) Orthostatic hypotension ?I95.1 - Orthostatic hypotension (ICD-10) Hyperbilirubinemia ?E80.6 - Other disorders of bilirubin metabolism (ICD-10) Elevated serum creatinine ?R79.89 - Other specified abnormal findings of blood chemistry (ICD-10) Thrombocytopenia ?D69.6 - Thrombocytopenia, unspecified (ICD-10) Alcohol abuse ?F10.10 - Alcohol abuse, uncomplicated (ICD-10) Atrial fibrillation, new onset ?I48.91 - Unspecified atrial fibrillation (ICD-10) Acute exacerbation of CHF (congestive heart failure) ?I50.9 - Heart failure, unspecified (ICD-10) CAD (coronary artery disease) ?I25.10 - Atherosclerotic heart disease of [place] coronary artery without angina pectoris (ICD-10) Hypercholesteremia ?E78.00 - Pure hypercholesterolemia, unspecified (ICD-10) Hypertension ?I10 - Essential (primary) hypertension (ICD-10) Surgical History (Updated 02/03/25 @ 21:10 by Zayra Davey RN) S/P CABG x 5 ?Z95.1 - Presence of aortocoronary bypass graft (ICD-10) Family History (Updated 02/03/25 @ 21:10 by Zayra Davey RN) Mother Heart disease Social History (Updated 03/06/25 @ 23:14 by Leona Casas) Within the past year, how often did you have a drink containing alcohol: 4 or more times a week Smoking status: Never smoker Second hand tobacco smoke exposure: No Non-prescribed substance use: denies use Known occupational exposures/hazards: No Highest level of school completed/degree received: high school graduate Do you want help with school or training: No Are you now , , , , never or living with a partner: don't know Little interest or pleasure in doing things: not at all Feeling down, depressed, or hopeless: not at all Feel stressed/tense/nervous/anxious/difficulty sleeping: not at all Do you think of yourself as: straight/heterosexual Gender Identity: male Exam Narrative Exam Narrative: CONSTITUTIONAL: Well-appearing, answering questions and following commands appropriately SKIN: Was warm and dry. EYES: No conjunctival pallor EARS, NOSE, THROAT: No JVD. RESPIRATORY: Clear to auscultation bilaterally, no wheezes, crackles, or stridor, no use of accessory muscles CARDIOVASCULAR: Normal rate rate and irregularly irregular rhythm. There is no S3, S4, murmur, rub. pulses are 2+ and symmetrical. GASTROINTESTINAL: Abdomen was soft, non-tender, and non-distended. There is no guarding or rebound tenderness MUSCULOSKELETAL: There was no lower extremity edema, erythema, or tenderness. NEUROLOGIC: Patient is awake and alert. Equal strength in all extremities. Facies were symmetrical. Constitutional Vital Signs, click to edit/add: Last Vital Signs Temp 97.8 F 05/12/25 17:51 Pulse 67 05/12/25 18:30 Resp 18 05/12/25 18:30 BP 126/72 05/12/25 18:05 Pulse Ox 96 05/12/25 18:30 O2 Del Method Room Air 05/12/25 18:11 Course Vital Signs Vital signs: Vital Signs Temperature 97.8 F 05/12/25 17:51 Pulse Rate 67 05/12/25 17:51 Respiratory Rate 16 05/12/25 17:51 Blood Pressure 130/82 05/12/25 17:51 Pulse Oximetry 97 05/12/25 17:51 Temperature 97.8 F 05/12/25 17:51 Pulse Rate 67 05/12/25 18:30 Respiratory Rate 18 05/12/25 18:30 Blood Pressure 126/72 05/12/25 18:05 Pulse Oximetry 96 05/12/25 18:30 Oxygen Delivery Method Room Air 05/12/25 18:11 Medical Decision Making MDM Narrative Medical decision making narrative: Patient is a 74-year-old male presenting to the emergency department via EMS for a syncopal event prior to arrival. Vital signs arrival are within normal limits. He is afebrile and hemodynamically stable. He is currently asymptomatic and has a normal physical examination. Upon arrival, we obtained orthostatic vital signs. While supine, he had a blood pressure of 126/68, 95/60 sitting up, then 60/48 while standing. Upon further questioning, patient states he has not drank water in over 24 hours. Clinically, I believe the patient's presentation is secondary to orthostatic hypotension. Patient was just hospitalized for the same issue, and discharged from the hospital 2 weeks ago. He states he had a thorough cardiac evaluation, and currently has a Holter monitor. I have lower suspicion for an emergent cardiogenic etiology. However, differential diagnosis includes, arrhythmia, ACS, orthostatic hypotension, vasovagal syncope, or other electrolyte/metabolic derangement. IV was established and cardiac workup was obtained.. 12 Lead EKG: Atrial fibrillation with controlled ventricular response. No ST segment elevations. Prolonged QRS duration with RSR prime configuration, consistent with right bundle branch block that is chronic. Unchanged compared to prior EKG from earlier this year. Final impression: Atrial fibrillation with controlled ventricular response and chronic right bundle branch block. No evidence of acute myocardial ischemia. Laboratory studies were unremarkable. No significant electrolyte or metabolic derangement. No evidence of acute kidney injury. No anemia, leukocytosis, or thrombocytopenia. No transaminitis or hyperbilirubinemia. Troponin and BNP not elevated. Chest x-ray independently reviewed/interpreted by myself demonstrated no acute cardiopulmonary process. On reevaluation, patient states he feels well and is asymptomatic. My shift is coming to an end. Signed out to the oncoming ED physician is pending reevaluation. If the patient is able to stand up and ambulate without feeling orthostatic, and his orthostatic vitals improved, he should be stable for discharge and outpatient follow-up. Lab Data Lab results reviewed: Yes I reviewed the patient's lab results Labs: Lab Results 05/12/25 Range/Units 18:15 WBC 7.3 (4.0-11.0) 10^3/uL RBC 4.21 L (4.70-6.10) 10^6/uL Hgb 13.1 L (14.0-18.0) g/dL Hct 39.0 L (42.0-54.0) % MCV 92.6 (80.0-94.0) fL MCH 31.1 (25.9-34.0) pg MCHC 33.6 (29.9-35.2) g/dL RDW 13.8 (11.0-15.0) % Plt Count 165 (150-450) 10^3/uL MPV 9.9 (9.5-13.5) fL Sodium 141 (136-145) mmol/L Potassium 4.4 (3.5-5.1) mmol/L Chloride 103 (98-107) mmol/L Carbon Dioxide 33.0 H (21.0-32.0) mmol/L Anion Gap 9.4 BUN 25.0 H (7.0-18.0) mg/dL Creatinine 1.15 (0.70-1.30) mg/dL Est GFR ( Amer) >60 (>=60 mL/min/1.73m^2) Est GFR (Non-Af Amer) >60 (>=60 mL/min/1.73m^2) BUN/Creatinine Ratio 21.7 Glucose 91 (74-106) mg/dL Calcium 8.6 (8.5-10.1) mg/dL Magnesium 2.4 (1.8-2.4) mg/dL Troponin I High Sens 14.6 (4.0-76.1) pg/mL NT-Pro-B Natriuret Pep 860.0 (<=1800.0) pg/mL Imaging Data Chest x-ray: Attestation: I personally reviewed and interpreted this imaging study as follows: Radiologist's impression: ITS Impressions Chest X-Ray 05/12/25 17:55 IMPRESSION: No acute cardiopulmonary pathology. Impression dictated by: Marko Scott M.D. 05/12/2025 6:27 PM Dictation Location: [place] [address] Electronically authenticated by: [id number] Y Date: 05/12/2025 18:27 ECG Data Attestation: I personally reviewed and interpreted this ECG as follows: Discharge Plan Discharge Patient Disposition: Still a Patient
--- NOTE | 2025-05-12 18:13 | PC.NURSE ---
lab at bedside for blood draw at this time.
[2025-05-12] MEDS: 0.9 % SODIUM CHLORIDE 1,000 ML 1000 ML IV (18:14)
[2025-05-12 18:21] LABS: Hematocrit 39.0 % (42.0-54.0); Hemoglobin 13.1 g/dL (14.0-18.0); Mean Corpuscular HGB Conc 33.6 g/dL (29.9-35.2); Mean Corpuscular Hemoglobin 31.1 pg (25.9-34.0); Mean Corpuscular Volume 92.6 fL (80.0-94.0); Platelet Count 165 10^3/uL (150-450); Red Blood Count 4.21 10^6/uL (4.70-6.10); White Blood Count 7.3 10^3/uL (4.0-11.0)
--- OUTSIDE RECORDS SUMMARY | 2025-05-12 18:35 | XMS_ITS | Encounter Summary ---
Author Organization [facility] Address [address] [place] [address] Phone Care Team Providers Care Tool Polishing Machine Operator Name Role Phone Ricardo Flores MD Primary Care Provider [phone] Encounter Details Date Type Department Care Team (Late st Contact Info) Description 02/09/2025 Scanned Document [facility] [address] [place] [address] Scanning, Generic Provider Social History Tobacco Use Types Packs/Day Years Used Date Smoking Tobacco: Never Assessed Sex and Gender Information Value Date Recorded Sex Assigned at Not on file Legal Sex Male 9:20 AM EDT Gender Identity Not on file Sexual Orientation Not on file documented as of this encounter Plan of Treatment Not on file documented as of this encounter Visit Diagnoses Not on filedocumented in this encounter Care Teams Tool Polishing Machine Operator Relationship Specialty Start Date End Date Ricardo Flores MD [address] [place] [address] PCP - General Family Medicine 02/06/25 documented as of this encounter
--- OUTSIDE RECORDS SUMMARY | 2025-05-12 18:35 | XMS_ITS | Encounter Summary ---
Author Organization [facility] Address [address] [address] Phone Care Team Providers Care Well Logging Captain Name Role Phone Ricardo Flores MD Primary Care Provider [phone] Encounter Details Date Type Department Care Team (Late st Contact Info) Description 02/05/2025 Scanned Document [facility] [address] [place] [address] Scanning, Generic Provider Social History [...] on filedocumented in this encounter Care Teams Well Logging Captain Relationship Specialty Start Date End Date Ricardo Flores MD [address] [place] [address] PCP - General Family Medicine 02/06/25 documented as of this encounter
--- OUTSIDE RECORDS SUMMARY | 2025-05-12 18:35 | XMS_ITS | Patient Health Record ---
Author Organization [facility] [place] Address [address] [place] [address] Care Team Providers Care Oracle Applications Analyst Name Role Phone Saw Flores Primary Care Provider Allergies No Known Allergies Results Component Value Reference Range Notes DRUG SCREEN RAPID (URINE) Reviewed date:02/04/2025 05:57:29 PM Interpretation: Performing Lab: Notes/Report: [facility] , Cannabinoid Screen Urine NEGATIVE NEGATIVE Phencyclidine Screen Urine NEGATIVE NEGATIVE Cocaine Screen Urine NEGATIVE NEGATIVE Methamphetamines Screen Urine NEGATIVE NEGATIVE Opiate Screen Urine NEGATIVE NEGATIVE Amphetamine Screen Urine NEGATIVE NEGATIVE Benzodiazepines Screen Urine NEGATIVE NEGATIVE Tricyclic Antidepressant Urine NEGATIVE NEGATIVE Methadone Screen Urine NEGATIVE NEGATIVE Barbiturates Screen Urine NEGATIVE NEGATIVE Oxycodone Screen Urine NEGATIVE NEGATIVE Buprenorphine Screen Urine NEGATIVE NEGATIVE DRUG CLASS TEST SYSTEM CUT-OFF CONCENTRATIONS ARE FOLLOWS: AMP (Amphetamine): 500 ng/mL BAR (Barbiturates): 200 ng/mL BZO (Benzodiazepines): 150 ng/mL BUP (Buprenorphine): 10 ng/mL JOSE J (Cocaine): 150 ng/mL mAMP (Methamphetamine): 500 ng/mL MTD (Methadone): 200 ng/mL OPI (Opiates): 100 ng/mL OXY (Oxycodone): 100 ng/mL PCP (Phencyclidine): 25 ng/mL THC (Cannabinoids): 50 ng/mL TCA (Trycyclic Antidepressants): 300 ng/mL Performing Lab: see note ML - [facility] LB MAGNESIUM Reviewed date:02/04/2025 09:13:34 AM Interpretation: Performing Lab: Notes/Report: [facility] , Magnesium 2.0 1.8-2.4 mg/dL Performing Lab: see note ML - [facility] LB UA (CLEAN or CATCH) MICROSCO PIC IF INDICATE Reviewed date:02/04/2025 05:57:29 PM Interpretation: Performing Lab: Notes/Report: [facility] , Color Urine LT. YELLOW YELLOW Clarity Urine CLEAR CLEAR Specific [place] Urine <=1.005 1.005-1.025 pH Urine 6.0 5.0-9.0 Protein Urine NEGATIVE NEG/TRACE mg/dL Glucose Urine UA NEGATIVE NEGATIVE mg/dL Bilirubin Urine NEGATIVE NEGATIVE Ketones Urine NEGATIVE NEGATIVE mg/dL Blood Urine NEGATIVE NEGATIVE Nitrite Urine NEGATIVE NEGATIVE Urobilinogen Urine 0.2 0.2-1.0 EU/dL Leukocyte Esterase Urine SMALL NEGATIVE Urine Microscopic Indicated YES Performing Lab: see note - [facility] LB URINE MICROSCOPIC ONLY Reviewed date:02/04/2025 05:57:29 PM Interpretation: Performing Lab: Notes/Report: [facility] , WBC Urine 5-10 NONE SEEN #/HPF RBC Urine 0-2 0-2 #/HPF Bacteria Urine SMALL NONE SEEN #/HPF Mucus Urine NONE SEEN NONE SEEN Squamous Epithelial Cell Urine RARE NONE/RARE #/LPF Crystals Seen? None Seen None Seen #/HPF Cast Seen? NONE SEEN NONE SEEN #/LPF [place]rine [place] [place] Performing Lab: see note - [facility] LB Prothrombin Time INR Reviewed date:02/04/2025 09:13:34 AM Interpretation: Performing Lab: Notes/Report: [facility] , Prothrombin Time 12.2 9.0-11.6 sec INR 1.17 DESIRED INR: 2.0-3.0 CONDITIONS NOT LISTED BELOW 2.5-3.5 FOR PROSTHETIC HEART VALVE REPLACEMENT 2.5-3.5 RECURRENT THROMBOSIS Performing Lab: see note - [facility] LB Troponin I High Sensitivity Reviewed date:02/04/2025 09:13:34 AM Interpretation: Performing Lab: Notes/Report: [facility] , Troponin I High Sensitivity 37.3 4.0-76.1 pg/mL CUT-OFF POINTS HAVE BEEN ESTABLISHED BASED ON THE FOURTH UNIVERSAL DEFINITION OF MYOCARDIAL INFARCTION. THE UPPER REFERENCE LIMIT (URL) OF TROPONIN, DEFINED THE 99TH PERCENTILE OF cTnI DISTRIBUTION IN A REFERENCE POPULATION, HAS BEEN CONFIRMED THE DECISION THRESHOLD FOR CA DIAGNOSIS. 99TH PERCENTILE = 76.2 PG/ML NOTE: HIGH-SENSITIVITY TROPONIN ASSAY IS NOT INTENDED TO BE USED IN ISOLATION BUT SHOULD BE INTERPRETED IN CONJUNCTION WITH OTHER DIAGNOSTIC AND CLINICAL INFORMATION. Performing Lab: see note ML - [facility] LB Ethanol Reviewed date:02/04/2025 09:13:34 AM Interpretation: Performing Lab: Notes/Report: [facility] , Ethanol <3 NOTE: 80 mg/dl is the legal limit for a blood alcohol level Performing Lab: see note ML - [facility] LB Urine Culture - [facility] Reviewed date:02/09/2025 03:43:55 PM Interpretation: Performing Lab: Notes/Report: [facility] , Urine Culture - [facility] See Below For Report Urine Culture - [facility] Testing performed at [facility] O:KLEBOX Isolated Urine Culture - [facility] [place] Count Organism: 1.1 Antibiotic Interpretation DINH Status Urine Culture - [facility] [address], [place] [address] Urine Culture - [facility] Testing performed at [facility] O:KLEBOX Isolated Urine Culture - [facility] [place] Count Organism: 1.1 Antibiotic Interpretation DINH Status Urine Culture - [facility] See Below For Report Urine Culture - [facility] Testing performed at [facility] O:KLEBOX Isolated Urine Culture - [facility] [place] Count Organism: 1.1 Antibiotic Interpretation DINH Status Urine Culture - [facility] See Below For Report Urine Culture - [facility] Testing performed at [facility] O:KLEBOX Isolated Urine Culture - [facility] [place] Count Organism: 1.1 Antibiotic Interpretation DINH Status Urine Culture - [facility] >100,000 Urine Culture - [facility] Testing performed at [facility] O:KLEBOX Isolated Urine Culture - [facility] [place] Count Organism: 1.1 Antibiotic Interpretation DINH Status Urine Culture - [facility] See Below For Report Urine Culture - [facility] Testing performed at [facility] O:KLE[place] Isolated Urine Culture - [facility] [place] Count Organism: 1.1 Antibiotic Interpretation DINH Status Urine Culture - [facility] Amikacin S F Urine Culture - [facility] Testing performed at [facility] O:KLEBOX Isolated Urine Culture - [facility] [place] Count Organism: 1.1 Antibiotic Interpretation DINH Status Urine Culture - [facility] Amoxicillin/Clavula keerthi S F Urine Culture - [facility] Testing performed at [facility] O:KLEBOX Isolated Urine Culture - [facility] [place] Count Organism: 1.1 Antibiotic Interpretation DINH Status Urine Culture - [facility] Aztreonam S F Urine Culture - [facility] Testing performed at [facility] O:KLE[place] Isolated Urine Culture - [facility] [place] Count Organism: 1.1 Antibiotic Interpretation DINH Status Urine Culture - [facility] Ceftazidime S F Urine Culture - [facility] Testing performed at [facility] O:KLE[place] Isolated Urine Culture - [facility] [place] Count Organism: 1.1 Antibiotic Interpretation DINH Status Urine Culture - [facility] Ceftazidime/Avibactam S F Urine Culture - [facility] Testing performed at [facility] O:KLEBOX Isolated Urine Culture - [facility] [place] Count Organism: 1.1 Antibiotic Interpretation DINH Status Urine Culture - [facility] Ceftolozane/Tazobac haney S F Urine Culture - [facility] Testing performed at [facility] O:KLE[place] Isolated Urine Culture - [facility] [place] Count Organism: 1.1 Antibiotic Interpretation DINH Status Urine Culture - [facility] Ciprofloxacin S F Urine Culture - [facility] Testing performed at [facility] O:KLE[place] Isolated Urine Culture - [facility] [place] Count Organism: 1.1 Antibiotic Interpretation DINH Status Urine Culture - [facility] Ertapenem S F Urine Culture - [facility] Testing performed at [facility] O:KLE[place] Isolated Urine Culture - [facility] [place] Count Organism: 1.1 Antibiotic Interpretation DINH Status Urine Culture - [facility] Gentamicin S F Urine Culture - [facility] Testing performed at [facility] O:KLE[place] Isolated Urine Culture - [facility] [place] Count Organism: 1.1 Antibiotic Interpretation DINH Status Urine Culture - [facility] Levofloxacin S F Urine Culture - [facility] Testing performed at [facility] O:KLE[place] Isolated Urine Culture - [facility] [place] Count Organism: 1.1 Antibiotic Interpretation DINH Status Urine Culture - [facility] Meropenem S F Urine Culture - [facility] Testing performed at [facility] O:[place]LE[place] Isolated Urine Culture - [facility] [place] Count Organism: 1.1 Antibiotic Interpretation DINH Status Urine Culture - [facility] Meropenem/Vaborbactam S F Urine Culture - [facility] Testing performed at [facility] O:[place]LE[place] Isolated Urine Culture - [facility] [place] Count Organism: 1.1 Antibiotic Interpretation DINH Status Urine Culture - [facility] Nitrofurantoin S F Urine Culture - [facility] Testing performed at [facility] O:[place]LE[place] Isolated Urine Culture - [facility] [place] Count Organism: 1.1 Antibiotic Interpretation DINH Status Urine Culture - [facility] Tetracycline S F Urine Culture - [facility] Testing performed at [facility] O:KLE[place] Isolated Urine Culture - [facility] [place] Count Organism: 1.1 Antibiotic Interpretation DINH Status Urine Culture - [facility] Tigecycline S F Urine Culture - [facility] Testing performed at [facility] O:KLE[place] Isolated Urine Culture - [facility] [place] Count Organism: 1.1 Antibiotic Interpretation DINH Status Urine Culture - [facility] Tobramycin S F Urine Culture - [facility] Testing performed at [facility] O:KLEBOX Isolated Urine Culture - [facility] [place] Count Organism: 1.1 Antibiotic Interpretation DINH Status Urine Culture - [facility] Ampicillin/Sulbactam I F Urine Culture - [facility] Testing performed at [facility] O:KLEBOX Isolated Urine Culture - [facility] [place] Count Organism: 1.1 Antibiotic Interpretation DINH Status Urine Culture - [facility] Cefazolin R F Urine Culture - [facility] Testing performed at [facility] O:KLEBOX Isolated Urine Culture - [facility] [place] Count Organism: 1.1 Antibiotic Interpretation DINH Status Urine Culture - [facility] Cefepime S F Urine Culture - [facility] Testing performed at [facility] O:KLEBOX Isolated Urine Culture - [facility] [place] Count Organism: 1.1 Antibiotic Interpretation DINH Status Urine Culture - [facility] Ceftriaxone S F Urine Culture - [facility] Testing performed at [facility] O:KLEBOX Isolated Urine Culture - [facility] [place] Count Organism: 1.1 Antibiotic Interpretation DINH Status Urine Culture - [facility] Cefuroxime S F Urine Culture - [facility] Testing performed at [facility] O:KLEBOX Isolated Urine Culture - [facility] [place] Count Organism: 1.1 Antibiotic Interpretation DINH Status Urine Culture - [facility] Piperacillin/Tazoba ctam S F Urine Culture - [facility] Testing performed at [facility] O:KLEBOX Isolated Urine Culture - [facility] [place] Count Organism: 1.1 Antibiotic Interpretation DINH Status Urine Culture - [facility] Trimethoprim/Sulfa S F Urine Culture - [facility] Testing performed at [facility] O:KLEBOX Isolated Urine Culture - [facility] [place] Count Organism: 1.1 Antibiotic Interpretation DINH Status Performing Lab: see note ML - [facility] LB SEE REPORT - Exchange Underwriting Consultant Id information not found for OBX-specific producer assistant legend ECG 12 lead Reviewed date:02/05/2025 08:31:49 PM Interpretation: Performing Lab: Notes/Report: Source Facility: [address] [place] [address] Electrocardiograph Report Signed Patient: HOLLIE TATE MR#: [id number] : 1950 Acct:[id number] Age/Sex: 74 / M ADM Date: 02/03/25 Loc: MS 218-[address]: Ekta Flores M.D. 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 Measurements Intervals Reading Rate: 87 P: -[id number] MA: -03944 QRS: 10 QRSD: 196 T: 172 QT: [...] Signed On 02-04-2025 21:41:09 EDT by JEWEL CHAN M.D. Dictated By: JEWEL CHAN Signed By: 02/04/252140 DD/ 1847 TD/TT: Hand Scudder: [place] [address] Electrocardiograph Report Signed Patient: MARNI TATE MR#: [id number] : 1950 Acct:[id number] Age/Sex: 74 / M ADM Date: 02/03/25 Loc: [place] 218-[address]: Chuck Flores M.D. 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 Measurements Intervals Reading Rate: 87 P: -33637 MA: -05483 QRS: 10 QRSD: 196 T: 172 QT: [...] d On 02-04-2025 21:41:09 EDT by JEWEL CHAN M.D. Dictated By: JEWEL CHAN Signed By: 02/04/252140 DD/ 46 TD/TT: Hand Scudder: BNP Reviewed date:02/04/2025 09:13:34 AM Interpretation: Performing Lab: Notes/Report: [facility] , NT Pro B Type Natriuretic Pept 9278.0 <=1800.0 pg/mL RESULTS CALLED TO AKILAH BEGUM RN @BY Leatha Abarca at 0625 Performing Lab: see note ML - [facility] LB CBC AUTO DIFF Reviewed date:02/04/2025 09:13:34 AM Interpretation: Performing Lab: Notes/Report: [facility] , White Blood Count 4.2 4.0-11.0 [...] Performing Lab: see note ML - [facility] LB MAGNESIUM Reviewed date:02/04/2025 09:13:34 AM Interpretation: Performing Lab: Notes/Report: [facility] , Magnesium 1.8 1.8-2.4 mg/dL Performing Lab: see note ML - [facility] LB PHOSPHORUS Reviewed date:02/04/2025 09:13:34 AM Interpretation: Performing Lab: Notes/Report: [facility] , Phosphorus 4.2 2.6-4.7 mg/dL Performing Lab: see note ML - [facility] LB PROF 14(COMP METB) Reviewed date:02/04/2025 09:13:34 AM Interpretation: Performing Lab: Notes/Report: [facility] , Sodium 139 136-145 mmol/L Potassium [...] 1.3 Performing Lab: see note ML - [facility] PTT Reviewed date:02/04/2025 09:13:34 AM Interpretation: Performing Lab: Notes/Report: [facility] , Partial Thromboplastin Time 34.5 22.3-36.2 sec Performing Lab: see note ML - [facility] T4 Reviewed date:02/04/2025 09:13:34 AM Interpretation: Performing Lab: Notes/Report: [facility] , T4 Thyroxine 8.10 4.50-12.10 ug/dL Performing Lab: see note ML - [facility] TSH Reviewed date:02/04/2025 09:13:34 AM Interpretation: Performing Lab: Notes/Report: [facility] , Thyroid Stimulating Hormone 3.368 0.358-3.740 uIU/mL Performing Lab: see note ML - [facility] LB Prothrombin Time INR Reviewed date:02/04/2025 09:13:34 AM Interpretation: Performing Lab: Notes/Report: [facility] , Prothrombin Time 13.0 9.0-11.6 sec INR 1.25 DESIRED INR: 2.0-3.0 CONDITIONS NOT LISTED BELOW 2.5-3.5 FOR PROSTHETIC HEART VALVE REPLACEMENT 2.5-3.5 RECURRENT THROMBOSIS Performing Lab: see note - [facility] Troponin I High Sensitivity Reviewed date:02/04/2025 09:13:34 AM Interpretation: Performing Lab: Notes/Report: [facility] , Troponin I High Sensitivity 35.3 4.0-76.1 pg/mL CUT-OFF POINTS HAVE BEEN ESTABLISHED BASED ON THE FOURTH UNIVERSAL DEFINITION OF MYOCARDIAL INFARCTION. THE UPPER REFERENCE LIMIT (URL) OF TROPONIN, DEFINED THE 99TH PERCENTILE OF cTnI DISTRIBUTION IN A REFERENCE POPULATION, HAS BEEN CONFIRMED THE DECISION THRESHOLD FOR CA DIAGNOSIS. 99TH PERCENTILE = 76.2 PG/ML NOTE: HIGH-SENSITIVITY TROPONIN ASSAY IS NOT INTENDED TO BE USED IN ISOLATION BUT SHOULD BE INTERPRETED IN CONJUNCTION WITH OTHER DIAGNOSTIC AND CLINICAL INFORMATION. Performing Lab: see note ML - [facility] LB ECG 12 lead Reviewed date:02/05/2025 08:31:49 PM Interpretation: Performing Lab: Notes/Report: Source Facility: [facility]-[address] [place] [address] Electrocardiograph Report Signed Patient: HOLLIE TATE MR#: [id number] : 1950 Acct:[id number] Age/Sex: 74 / M ADM Date: 02/03/25 Loc: MS 218- Attending Dr: Ekta Flores M.D. 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 Measurements Intervals Reading Rate: 84 P: MA: QRS: 163 QRSD: 193 T: -14 QT: [...] Signed On 02-04-2025 21:44:49 EDT by JEWEL CHAN M.D. Dictated By: JEWEL CHAN Signed By: 02/04/252144 DD/ 8 TD/TT: Hand Scudder: [facility] [place] [id number] Electrocardiograph Report Signed Patient: MARNI TATE MR#: [id number] : 1950 Acct:[id number] Age/Sex: 74 / M ADM Date: 02/03/25 Loc: MS 218- Attending Dr: Chuck Flores M.D. 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 Measurements Intervals Reading Rate: 84 P: MA: QRS: 163 QRSD: 193 T: -14 QT: [...] d On 02-04-2025 21:44:49 EDT by JEWEL CHAN M.D. Dictated By: JEWEL CHAN Signed By: 02/04/252144 DD/ 8 TD/TT: Hand Scudder: Troponin I High Sensitivity Reviewed date:02/04/2025 01:08:35 PM Interpretation: Performing Lab: Notes/Report: [facility] , Troponin I High Sensitivity 35.4 4.0-76.1 pg/mL CUT-OFF POINTS HAVE BEEN ESTABLISHED BASED ON THE FOURTH UNIVERSAL DEFINITION OF MYOCARDIAL INFARCTION. THE UPPER REFERENCE LIMIT (URL) OF TROPONIN, DEFINED THE 99TH PERCENTILE OF cTnI DISTRIBUTION IN A REFERENCE POPULATION, HAS BEEN CONFIRMED THE DECISION THRESHOLD FOR CA DIAGNOSIS. 99TH PERCENTILE = 76.2 PG/ML NOTE: HIGH-SENSITIVITY TROPONIN ASSAY IS NOT INTENDED TO BE USED IN ISOLATION BUT SHOULD BE INTERPRETED IN CONJUNCTION WITH OTHER DIAGNOSTIC AND CLINICAL INFORMATION. Performing Lab: see note - [facility] LB BNP Reviewed date:02/05/2025 08:31:48 PM Interpretation: Performing Lab: Notes/Report: [facility] , NT Pro B Type Natriuretic Pept 8699.0 <=1800.0 pg/mL RESULTS CALLED TO SATURNINO ROSALES RN AT 0551 Performing Lab: see note ML - [facility] LB CBC AUTO DIFF Reviewed date:02/05/2025 08:31:48 PM Interpretation: Performing Lab: Notes/Report: [facility] , White Blood Count 4.4 4.0-11.0 [...] Performing Lab: see note ML - [facility] LB PROF 14(COMP METB) Reviewed date:02/05/2025 08:31:49 PM Interpretation: Performing Lab: Notes/Report: [facility] , Sodium 141 136-145 mmol/L Potassium [...] 1.3 Performing Lab: see note ML - [facility] [place] Troponin I High Sensitivity Reviewed date:02/05/2025 08:31:49 PM Interpretation: Performing Lab: Notes/Report: [facility] , Troponin I High Sensitivity 30.8 4.0-76.1 pg/mL CUT-OFF POINTS HAVE BEEN ESTABLISHED BASED ON THE FOURTH UNIVERSAL DEFINITION OF MYOCARDIAL INFARCTION. THE UPPER REFERENCE LIMIT (URL) OF TROPONIN, DEFINED THE 99TH PERCENTILE OF cTnI DISTRIBUTION IN A REFERENCE POPULATION, HAS BEEN CONFIRMED THE DECISION THRESHOLD FOR CA DIAGNOSIS. 99TH PERCENTILE = 76.2 PG/ML NOTE: HIGH-SENSITIVITY TROPONIN ASSAY IS NOT INTENDED TO BE USED IN ISOLATION BUT SHOULD BE INTERPRETED IN CONJUNCTION WITH OTHER DIAGNOSTIC AND CLINICAL INFORMATION. Performing Lab: see note ML - [facility] LB BNP Reviewed date:03/07/2025 01:48:56 PM Interpretation: Performing Lab: Notes/Report: Comment Can you run frmo ER blood? [facility] , NT Pro B Type Natriuretic Pept 1011.0 <=1800.0 pg/mL Performing Lab: see note ML - [facility] LB CBC AUTO DIFF Reviewed date:03/07/2025 01:48:56 PM Interpretation: Performing Lab: Notes/Report: [facility] , White Blood Count 7.0 4.0-11.0 10 3/uL Red Blood Count 4.88 4.70-6.10 10 6/uL Hemoglobin 15.0 14.0-18.0 g/dL Hematocrit 43.4 42.0-54.0 % Mean Corpuscular Volume 88.9 80.0-94.0 fL Mean Corpuscular Hemoglobin 30.7 25.9-34.0 pg Mean Corpuscular HGB Conc 34.6 29.9-35.2 g/dL Red Cell Distribution Width 12.3 11.0-15.0 % Platelet Count 146 150-450 10 3/uL Mean Platelet Volume 10.2 9.5-13.5 fL Neutrophils Percent Auto 65.9 43.0-75.0 % Lymphocytes Percent Auto 21.6 20.5-60.0 % Monocytes Percent Auto 8.2 1.7-12.0 % Eosinophils Percent Auto 3.5 0.9-7.0 % Basophils Percent Auto 0.4 0.2-2.0 % Immature Granulocytes Pct Auto 0.4 0.0-0.5 % Neutrophils Absolute Auto 4.6 1.4-6.5 10 3/uL Lymphocytes Absolute Auto 1.5 1.2-3.8 10 3/uL Monocytes Absolute Auto 0.6 0.3-0.8 10 3/uL Eosinophils Absolute Auto 0.2 0.0-0.7 10 3/uL Basophils Absolute Auto 0.0 0.0-0.1 10 3/uL Immature Granulocytes Abs Auto 0.03 0.00-0.03 10 3/uL Performing Lab: see note ML - [facility] LB LACTATE or LACTIC ACID Reviewed date:03/07/2025 01:48:56 PM Interpretation: Performing Lab: Notes/Report: [facility] , Lactate/Lactic Acid 1.0 0.4-2.0 mmol/L Performing Lab: see note ML - [facility] LB MAGNESIUM Reviewed date:03/07/2025 01:48:56 PM Interpretation: Performing Lab: Notes/Report: [facility] , Magnesium 2.0 1.8-2.4 mg/dL Performing Lab: see note - [facility] PROF 14(COMP METB) Reviewed date:03/07/2025 01:48:56 PM Interpretation: Performing Lab: Notes/Report: [facility] , Sodium 139 136-145 mmol/L Potassium 4.6 3.5-5.1 mmol/L Chloride 100 98-107 mmol/L Carbon Dioxide 29.5 21.0-32.0 mmol/L Anion Gap 14.1 Glucose 120 74-106 mg/dL Blood Urea Nitrogen 26.0 7.0-18.0 mg/dL Creatinine 1.20 0.70-1.30 mg/dL Estimated GFR ( Ирина >60 >=60 mL/min/1.73m 2 Estimated GFR (Non- Edvorah 59 >=60 mL/min/1.73m 2 BUN Creatinine Ratio 21.7 Calcium 9.5 8.5-10.1 mg/dL Bilirubin Total 1.0 0.2-1.0 mg/dL Aspartate Amino Transferase 29 15-37 U/L Alanine Aminotransferase 36 16-63 U/L Alkaline Phosphatase 85 46-116 U/L Total Protein 7.2 6.4-8.2 g/dL Albumin Level 3.9 3.4-5.0 g/dL Globulin 3.3 Albumin Globulin Ratio 1.2 Performing Lab: see note - [facility] Prothrombin Time INR Reviewed date:03/07/2025 01:48:56 PM Interpretation: Performing Lab: Notes/Report: [facility] , Prothrombin Time 11.6 9.0-11.6 sec INR 1.11 DESIRED INR: 2.0-3.0 CONDITIONS NOT LISTED BELOW 2.5-3.5 FOR PROSTHETIC HEART VALVE REPLACEMENT 2.5-3.5 RECURRENT THROMBOSIS Performing Lab: see note - [facility] Troponin I High Sensitivity Reviewed date:03/07/2025 01:48:56 PM Interpretation: Performing Lab: Notes/Report: [facility] , Troponin I High Sensitivity 16.5 4.0-76.1 pg/mL CUT-OFF POINTS HAVE BEEN ESTABLISHED BASED ON THE FOURTH UNIVERSAL DEFINITION OF MYOCARDIAL INFARCTION. THE UPPER REFERENCE LIMIT (URL) OF TROPONIN, DEFINED THE 99TH PERCENTILE OF cTnI DISTRIBUTION IN A REFERENCE POPULATION, HAS BEEN CONFIRMED THE DECISION THRESHOLD FOR CA DIAGNOSIS. 99TH PERCENTILE = 76.2 PG/ML NOTE: HIGH-SENSITIVITY TROPONIN ASSAY IS NOT INTENDED TO BE USED IN ISOLATION BUT SHOULD BE INTERPRETED IN CONJUNCTION WITH OTHER DIAGNOSTIC AND CLINICAL INFORMATION. Performing Lab: see note ML - [facility] LB Ethanol Reviewed date:03/07/2025 01:48:56 PM Interpretation: Performing Lab: Notes/Report: [facility] , Ethanol <3 NOTE: 80 mg/dl is the legal limit for a blood alcohol level Performing Lab: see note ML - [facility] LB ECG 12 lead Reviewed date:03/07/2025 01:48:56 PM Interpretation: Performing Lab: Notes/Report: Source Facility: [facility]-[address] [place] [address] [place] [address] Electrocardiograph Report Signed Patient: HOLLIE TATE MR#: [id number] : 1950 Acct:[id number] Age/Sex: 74 / M ADM Date: 03/06/25 Loc: ER Attending Dr: Ordering Physician: Krista Bowers Date of Service: 03/06/25 Procedure(s): ECG 12 lead Accession Number(s): [id number] cc: [facility] [facility] Test Date: 2025-03-06 Pat Name: HOLLIE TATE Department: Room: - Gender: Male 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 Measurements Intervals Reading Rate: 67 P: -25225 MA: -68521 QRS: -72 QRSD: 176 T: 36 QT: 484 QTc: 500 Interpretive Statements 1250 Atrial flutter 2450 Right bundle branch block 5211 Minimal voltage criteria for LVH, may be normal variant 7200 Abnormal left axis deviation 9150 abnormal ECG Compared to ECG 02/04/2025 05:09:05 Left ventricular hypertrophy now present Left-axis deviation now present Aberrant conduction of supraventricular beat(s) no longer present Left posterior fascicular block no longer present Electronically Signed On 03-06-2025 19:38:06 EDT by JEWEL CHAN M.D. 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 Measurements Intervals Reading Rate: 67 P: -26410 MA: -97360 QRS: -72 QRSD: 176 T: 36 QT: 484 QTc: 500 Interpretive Statements 1250 Atrial flutter 2450 Right bundle br anch block 5211 Minimal voltage criteria for LVH, may be normal variant 7200 Abnormal left a xis deviation 9150 abnormal ECG Compared to ECG 02/04/2025 05:09:05 Left ventricular hypertrophy now present Left-axis deviation now present Aberrant conduction of supraventricular beat(s) no longer present Left posterior fasci cular block no longer present Electronically Susy d On 03-06-2025 19:38:06 EDT by JEWEL CHAN M.D. Dictated By: JEWEL CHAN Signed By: 03/06/251937 DD/ 1521 TD/TT: Hand Scudder: [place] chest 1V Reviewed date:03/07/2025 01:48:56 PM Interpretation: Performing Lab: Notes/Report: Source Facility: [place] [address] XRay Report Signed Patient: HOLLIE TATE MR#: [id number] : 1950 Acct:[id number] Age/Sex: 74 / M ADM Date: 03/06/25 Loc: ER Attending Dr: Ordering Physician: Krista Bowers Date of Service: 03/06/25 Procedure(s): XR chest 1V Accession Number(s): [id number] cc: Ekta Flores M.D.; Krista Bowers [place] [address] Patient Name: HOLLIE TATE MRN: [id number] date: 1950 Sex: M Assigned Patient Location: ED.MAIN Current Patient Location: ER Accession/Order Number: [id number] Exam Date: 03/06/2025 15:37 Report Date: 03/06/2025 15:38 At the request of: KRISTA BOWERS MD Procedure: XR chest 1V Plain film chest Single view HISTORY: Fell. Head injury. COMPARISON: 02/03/2025 FINDINGS: SUPPORT DEVICES: None POSTSURGICAL CHANGES: CABG. HEART: Within normal limits PULMONARY KELSEY: Within normal limits MEDIASTINUM: Unremarkable LUNGS AND PLEURA: No acute lung process, pleural effusion or pneumothorax identified. BONY STRUCTURES: Similar degenerative changes ADDITIONAL FINDINGS moderate right hemidiaphragm elevation unchanged XR/XR chest 1V IMPRESSION: No acute process. Impression dictated by: Randall Dang M.D. 03/06/2025 3:38 PM Dictation Location: [place] [address] Electronically authenticated by: [id number] Y Date: 03/06/2025 15:38 Dictated By: Randall Dang D.O. Signed By: 03/06/25 1541 DD/ 1538 TD/TT: Hand Scudder: [place] [address] XRay Report Signed Patient: MARNI TATE MR#: [id number] : 1950 Acct:[id number] Age/Sex: 74 / M ADM Date: 03/06/25 Loc: ER Attending Dr: Ordering Physician: Krista Bowers Date of Service: 03/06/25 Procedure(s): XR chest 1V Accession Number(s): [id number] cc: Ekta Flores M.D. ; Krista Bowers [place] [address] Patient Name: HOLLIE TATE MRN: [id number] date: 1950 Sex: M Assigned Patient Location: ED.MAIN Current Patient Loca tion: ER Accession/Order Numb er: [id number] Exam Date: 03/06/2025 15:37 Report Date: 03/06/2025 15:38 At the request of: KRISTA BOWERS MD Procedure: XR chest 1V Plain film chest Sin gle view HISTORY: Fell. Head injury. COMPARISON: 02/03/2025 FINDINGS: SUPPORT DEVICES: None POSTSURGICAL CHANGES : CABG. HEART: Within normal limits PULMONARY KELSEY: With in normal limits MEDIASTINUM: Unremarkable LUNGS AND PLEURA: No acute lung process, pleural effusion or pneumothorax identified. BONY STRUCTURES: Sim ilar degenerative changes ADDITIONAL FINDINGS moderate right hemidiaphragm elevation unchanged X R/XR chest 1V IMPRESSION: No acute process. Impression dictated by: Randall Dang M.D. 03/06/2025 3:38 PM Dictation Location: [place] [address] Electronically authenticated by: [id number] Y Date: 03/06/2025 15:38 Dictated By: Leon Dang D.O. Signed By: 03/06/25 1541 DD/ 1538 TD/TT: Hand Scudder: CT cervical spine wo con Reviewed date:03/07/2025 01:48:56 PM Interpretation: Performing Lab: Notes/Report: Source Facility: [place] [address] CT Scan Report Signed Patient: HOLLIE TATE MR#: [id number] : 1950 Acct:[id number] Age/Sex: 74 / M ADM Date: 03/06/25 Loc: ER Attending Dr: Ordering Physician: Krista Bowers Date of Service: 03/06/25 Procedure(s): CT cervical spine wo con Accession Number(s): [id number] cc: Ekta Flores M.D. The [place] [id number] Patient Name: HOLLIE TATE MRN: [id number] date: 1950 Sex: M Assigned Patient Location: ER Current Patient Location: ED.MAIN Accession/Order Number: [id number] Exam Date: 03/06/2025 15:38 Report Date: 03/06/2025 15:41 At the request of: KRISTA BOWERS MD Procedure: CT cervical spine wo con CT Cervical Spine withoutcontrast TECHNIQUE: Axial imaging with 2-D and 3-D reconstruction. The CT exam was performed using one or more the following dose reduction techniques: Automated exposure control, adjustment of the MA and/or Kv according to patient size, or use of the iterative reconstruction technique. COMPARISON: 11/03/2018 HISTORY: Fell. Head injury. Loss of consciousness. POST SURGERY CHANGES: None BONY ALIGNMENT: Straightening with mild degenerative listhesis. BONY SPINAL CANAL: Patent central bony canal FRACTURE: None BONY LESIONS: None SOFT TISSUES: Unremarkable DEGENERATIVE CHANGES: Similar Extensive multilevel spondylosis and facet degeneration. LUNG APICES: Unremarkable ADDITIONAL FINDINGS: CT/CT cervical spine wo con IMPRESSION: No acute process Impression dictated by: Randall Dang M.D. 03/06/2025 3:41 PM Dictation Location: [place] [address] Electronically authenticated by: [id number] Y Date: 03/06/2025 15:41 Dictated By: Randall Dang D.O. Signed By: 03/06/25 1544 DD/ 1541 TD/TT: Hand Scudder: [place] [address] CT Scan Report Signed Patient: MARNI TATE MR#: [id number] : 1950 Acct:[id number] Age/Sex: 74 / M ADM Date: 03/06/25 Loc: ER Attending Dr: Ordering Physician: Krista Bowers Date of Service: 03/06/25 Procedure(s): CT cer vical spine wo con Accession Number(s): [id number] cc: Ekta Flores M.D. The [place] [address] Patient Name: HOLLIE TATE MRN: [id number] date: 1950 Sex: M Assigned Patient Location: ER Current Patient Loca tion: ED.MAIN Accession/Order Numb er: [id number] Exam Date: 03/06/2025 15:38 Report Date: 03/06/2025 15:41 At the request of: KRISTA BOWERS MD Procedure: CT cervic al spine wo con CT Cervical Spine withoutcontrast TECHNIQUE: Axial david ging with 2-D and 3-D reconstruction. The CT exam was performed using one or more the following dose reduction techniques: Automated exposure control, adjustment of the MA and/or Kv according to patient size, or use of the iterative reconstruction technique. COMPARISON: 11/03/2018 HISTORY: Fell. Head injury. Loss of consciousness. POST SURGERY CHANGES : None BONY ALIGNMENT: Straightening with mild degenerative listhesis. BONY SPINAL CANAL: P atent central bony canal FRACTURE: None BONY LESIONS: None SOFT TISSUES: Unremarkable DEGENERATIVE CHANGES : Similar Extensive multilevel spondylosis and facet degeneration. LUNG APICES: Unremarkable ADDITIONAL FINDINGS: C T/CT cervical spine wo con IMPRESSION: No acute process Impression dictated by: Randall Dang M.D. 03/06/2025 3:41 PM Dictation Location: [place] [address] Electronically authenticated by: [id number] Y Date: 03/06/2025 15:41 Dictated By: Leon Dang D.O. Signed By: 03/06/25 1544 DD/ 1541 TD/TT: Hand Scudder: CT stroke head/brain wo con Reviewed date:03/07/2025 01:48:56 PM Interpretation: Performing Lab: Notes/Report: Source Facility: [place] [address] [place] [address] CT Scan Report Signed Patient: HOLLIE TATE MR#: [id number] : 1950 Acct:[id number] Age/Sex: 74 / M ADM Date: 03/06/25 Loc: ER Attending Dr: Ordering Physician: Krista Bowers Date of Service: 03/06/25 Procedure(s): CT stroke head/brain wo con Accession Number(s): [id number] cc: Ekta Flores M.D. The [place] [id number] Patient Name: HOLLIE TATE MRN: [facility]:[id number] date: 1950 Sex: M Assigned Patient Location: ER Current Patient Location: ER Accession/Order Number: [id number] Exam Date: 03/06/2025 15:31 Report Date: 03/06/2025 15:36 At the request of: KRISTA BOWERS MD Procedure: CT stroke head/brain wo con Unenhanced head CTstroke alert TECHNIQUE: Contiguous axial imaging of the head. The CT exam was performed using one or more the following dose reduction techniques: Automated exposure control, adjustment of the MA and/or Kv according to patient size, or use of the iterative reconstruction technique. COMPARISON: None HISTORY: Fell. Head injury. VENTRICLES: Within normal limits ATROPHY: Similar atrophy BRAIN PARENCHYMA: Decreased density of the white matter is most consistent with chronic small vessel disease. The bilateral frontal gliosis and encephalomalacia consistent with prior trauma. HEMORRHAGE: None HERNIATION: No mass effect or herniation INFARCTION: No recent vascular distribution infarction is seen. EXTRA-AXIAL FLUID COLLECTIONS None MIDBRAIN: Unremarkable ADELA: Unremarkable MEDULLA: Unremarkable SINUSES: Unremarkable ORBITS: Grossly unremarkable MASTOIDS: Unremarkable BONY STRUCTURES Intact ADDITIONAL FINDINGS: Atherosclerosis of carotid siphons and V4 segments CT/CT stroke head/brain wo con IMPRESSION: No acute findings. Chronic changes. 3:32 PM 03/06/2025 Impression dictated by: Randall Dang M.D. 03/06/2025 3:36 PM Dictation Location: [place] [address] Electronically authenticated by: [id number] Y Date: 03/06/2025 15:36 Dictated By: Randall Dang D.O. Signed By: 03/06/25 1539 DD/ 1536 TD/TT: Hand Scudder: The [address] [address] [address] Scan Report Signed Patient: MARNI TATE MR#: [id number] : 1950 Acct:[id number] Age/Sex: 74 / M ADM Date: 03/06/25 Loc: ER Attending Dr: Ordering Physician: Krista Bowers Date of Service: 03/06/25 Procedure(s): CT str huan head/brain wo con Accession Number(s): [id number] cc: Ekta Flores M.D. [address] [address] Patient Name: HOLLIE TATE MRN: [id number] date: 1950 Sex: M Assigned Patient Location: ER Current Patient Loca tion: ER Accession/Order Numb er: [id number] Exam Date: 03/06/2025 15:31 Report Date: 03/06/2025 15:36 At the request of: KRISTA BOWERS MD Procedure: CT stroke head/brain wo con Unenhanced head CTst roke alert TECHNIQUE: Contiguou s axial imaging of the head. The CT exam was performed using one or more th e following dose reduction techniques: Automated exposure control, adjustment of the MA and/or Kv according to patient size, or use of the iterative reconstruction technique. COMPARISON: None HISTORY: Fell. Head injury. VENTRICLES: Within n ormal limits ATROPHY: Similar atrophy BRAIN PARENCHYMA: Decreased density of the white matter is most consistent with chronic small v essel disease. The bilateral frontal gliosis and encephalomalacia consistent with prior trauma. HEMORRHAGE: None HERNIATION: No mass effect or herniation INFARCTION: No recen t vascular distribution infarction is seen. EXTRA-AXIAL FLUID COLLECTIONS None MIDBRAIN: Unremarkable ADELA: Unremarkable MEDULLA: Unremarkable SINUSES: Unremarkable ORBITS: Grossly unremarkable MASTOIDS: Unremarkable BONY STRUCTURES Intact ADDITIONAL FINDINGS: Atherosclerosis of carotid siphons and V4 segments C T/CT stroke head/brain wo con IMPRESSION: No acute findings. Chronic changes. 3:32 PM 03/06/2025 Impression dictated by: Randall Dang M.D. 03/06/2025 3:36 PM Dictation Location: [place] [address] Electronically authenticated by: [id number] Y Date: 03/06/2025 15:36 Dictated By: Leon Dang D.O. Signed By: 03/06/25 1539 DD/ 1536 TD/TT: Hand Scudder: BNP Reviewed date:03/07/2025 01:48:56 PM Interpretation: Performing Lab: Notes/Report: Comment ER blood or AM Blood, both is even better [facility] , NT Pro B Type Natriuretic Pept 3300.0 <=1800.0 pg/mL RESULTS CALLED TO MICHAEL KENNY RN Performing Lab: see note ML - [facility] LB CBC AUTO DIFF Reviewed date:03/07/2025 01:48:56 PM Interpretation: Performing Lab: Notes/Report: [facility] , White Blood Count 8.2 4.0-11.0 10 3/uL Red Blood Count 4.89 4.70-6.10 10 6/uL Hemoglobin 14.7 14.0-18.0 g/dL Hematocrit 42.9 42.0-54.0 % Mean Corpuscular Volume 87.7 80.0-94.0 fL Mean Corpuscular Hemoglobin 30.1 25.9-34.0 pg Mean Corpuscular HGB Conc 34.3 29.9-35.2 g/dL Red Cell Distribution Width 12.2 11.0-15.0 % Platelet Count 150 150-450 10 3/uL Mean Platelet Volume 10.4 9.5-13.5 fL Neutrophils Percent Auto 80.3 43.0-75.0 % Lymphocytes Percent Auto 11.5 20.5-60.0 % Monocytes Percent Auto 7.4 1.7-12.0 % Eosinophils Percent Auto 0.4 0.9-7.0 % Basophils Percent Auto 0.2 0.2-2.0 % Immature Granulocytes Pct Auto 0.2 0.0-0.5 % Neutrophils Absolute Auto 6.6 1.4-6.5 10 3/uL Lymphocytes Absolute Auto 1.0 1.2-3.8 10 3/uL Monocytes Absolute Auto 0.6 0.3-0.8 10 3/uL Eosinophils Absolute Auto 0.0 0.0-0.7 10 3/uL Basophils Absolute Auto 0.0 0.0-0.1 10 3/uL Immature Granulocytes Abs Auto 0.02 0.00-0.03 10 3/uL Performing Lab: see note ML - [facility] LB DRUG SCREEN RAPID (URINE) Reviewed date:03/07/2025 01:48:56 PM Interpretation: Performing Lab: Notes/Report: [facility] , Cannabinoid Screen Urine NEGATIVE NEGATIVE Phencyclidine Screen Urine NEGATIVE NEGATIVE Cocaine Screen Urine NEGATIVE NEGATIVE Methamphetamines Screen Urine NEGATIVE NEGATIVE Opiate Screen Urine NEGATIVE NEGATIVE Amphetamine Screen Urine NEGATIVE NEGATIVE Benzodiazepines Screen Urine NEGATIVE NEGATIVE Tricyclic Antidepressant Urine NEGATIVE NEGATIVE Methadone Screen Urine NEGATIVE NEGATIVE Barbiturates Screen Urine NEGATIVE NEGATIVE Oxycodone Screen Urine NEGATIVE NEGATIVE Buprenorphine Screen Urine NEGATIVE NEGATIVE DRUG CLASS TEST SYSTEM CUT-OFF CONCENTRATIONS ARE FOLLOWS: AMP (Amphetamine): 500 ng/mL BAR (Barbiturates): 200 ng/mL BZO (Benzodiazepines): 150 ng/mL BUP (Buprenorphine): 10 ng/mL JOSE J (Cocaine): 150 ng/mL mAMP (Methamphetamine): 500 ng/mL MTD (Methadone): 200 ng/mL OPI (Opiates): 100 ng/mL OXY (Oxycodone): 100 ng/mL PCP (Phencyclidine): 25 ng/mL THC (Cannabinoids): 50 ng/mL TCA (Trycyclic Antidepressants): 300 ng/mL Performing Lab: see note ML - [facility] LB MAGNESIUM Reviewed date:03/07/2025 01:48:56 PM Interpretation: Performing Lab: Notes/Report: [facility] , Magnesium 1.9 1.8-2.4 mg/dL Performing Lab: see note ML - [facility] LB PROF 14(COMP METB) Reviewed date:03/07/2025 01:48:56 PM Interpretation: Performing Lab: Notes/Report: [facility] , Sodium 138 136-145 mmol/L Potassium 4.6 3.5-5.1 mmol/L Chloride 101 98-107 mmol/L Carbon Dioxide 29.8 21.0-32.0 mmol/L Anion Gap 11.8 Glucose 122 74-106 mg/dL Blood Urea Nitrogen 29.0 7.0-18.0 mg/dL Creatinine 1.15 0.70-1.30 mg/dL Estimated GFR ( Ирина >60 >=60 mL/min/1.73m 2 Estimated GFR (Non- Devorah >60 >=60 mL/min/1.73m 2 BUN Creatinine Ratio 25.2 Calcium 9.1 8.5-10.1 mg/dL Bilirubin Total 1.4 0.2-1.0 mg/dL Aspartate Amino Transferase 33 15-37 U/L Alanine Aminotransferase 37 16-63 U/L Alkaline Phosphatase 84 46-116 U/L Total Protein 6.9 6.4-8.2 g/dL Albumin Level 3.7 3.4-5.0 g/dL Globulin 3.2 Albumin Globulin Ratio 1.2 Performing Lab: see note ML - [facility] LB UA (CLEAN or CATCH) PAINT ROLLER WINDER or M ICRO IF IND. Reviewed date:03/07/2025 01:48:56 PM Interpretation: Performing Lab: Notes/Report: [facility] , Color Urine LT. YELLOW YELLOW Clarity Urine CLEAR CLEAR Specific [place] Urine 1.010 1.005-1.025 pH Urine 5.5 5.0-9.0 Protein Urine NEGATIVE NEG/TRACE mg/dL Glucose Urine UA NEGATIVE NEGATIVE mg/dL Bilirubin Urine NEGATIVE NEGATIVE Ketones Urine NEGATIVE NEGATIVE mg/dL Blood Urine NEGATIVE NEGATIVE Nitrite Urine NEGATIVE NEGATIVE Urobilinogen Urine 0.2 0.2-1.0 EU/dL Leukocyte Esterase Urine NEGATIVE NEGATIVE Urine Microscopic Indicated NO Performing Lab: see note ML - [facility] LB CBC no Diff (Hemogram) (Not yet reviewed by provider) Interpretation: Performing Lab: Notes/Report: [facility] , White Blood Count 7.3 4.0-11.0 10 3/uL Red Blood Count 4.21 4.70-6.10 10 6/uL Hemoglobin 13.1 14.0-18.0 g/dL Hematocrit 39.0 42.0-54.0 % Mean Corpuscular Volume 92.6 80.0-94.0 fL Mean Corpuscular Hemoglobin 31.1 25.9-34.0 pg Mean Corpuscular HGB Conc 33.6 29.9-35.2 g/dL Red Cell Distribution Width 13.8 11.0-15.0 % Platelet Count 165 150-450 10 3/uL Mean Platelet Volume 9.9 9.5-13.5 fL Performing Lab: see note ML - [facility] LB XR chest 1V (Not yet reviewe d by provider) Interpretation: Performing Lab: Notes/Report: Source Facility: [facility] [place] [id number] XRay Report Signed Patient: HOLLIE TATE MR#: [id number] : 1950 Acct:[id number] Age/Sex: 74 / M ADM Date: Loc: ER Attending Dr: Ordering Physician: Claribel Farooq Date of Service: 05/12/25 Procedure(s): XR chest 1V Accession Number(s): [id number] cc: Ekta Flores M.D.; Claribel Farooq [place] [address] Patient Name: HOLLIE TATE MRN: [id number] date: 1950 Sex: M Assigned Patient Location: ER Current Patient Location: ER Accession/Order Number: [id number] Exam Date: 05/12/2025 18:05 Report Date: 05/12/2025 18:27 At the request of: CLARIBEL FAROOQ DO Procedure: XR chest 1V XR chest 1V 05/12/2025 6:09 PM SIGNS AND SYMPTOMS: Syncope, chest pain PROTOCOL: Frontal radiograph of the chest COMPARISON: 03/06/2025 FINDINGS: The trachea is midline. Sternotomy wires overlie the mediastinum. Fusion hardware is noted in the lower cervical spine. The heart and mediastinal structures are within normal limits. The lung parenchyma is clear. The bony thorax is intact. Degenerative changes are noted in the shoulders and thoracic spine. XR/XR chest 1V IMPRESSION: No acute cardiopulmonary pathology. Impression dictated by: Marko Scott M.D. 05/12/2025 6:27 PM Dictation Location: [place] [address] Electronically authenticated by: [id number] Y Date: 05/12/2025 18:27 Dictated By: Marko Scott M.D. Signed By: 05/12/251829 DD/ 26 TD/TT: Hand Scudder: [place] [address] XRay Report Signed Patient: MARNI TATE MR#: [id number] : 1950 Acct:[id number] Age/Sex: 74 / M ADM Date: Loc: ER Attending Dr: Ordering Physician: Claribel Farooq Date of Service: 05/12/25 Procedure(s): XR chest 1V Accession Number(s): [id number] cc: Ekta Flores M.D. ; Claribel Farooq [place] [address] Patient Name: HOLLIE TATE MRN: [id number] date: 1950 Sex: M Assigned Patient Location: ER Current Patient Loca tion: ER Accession/Order Numb er: [id number] Exam Date: 05/12/2025 18:05 Report Date: 05/12/2025 18:27 At the request of: CLARIBEL FAROOQ DO Procedure: XR chest 1V XR chest 1V 6:09 PM SIGNS AND SYMPTOMS: Syncope, chest pain PROTOCOL: Frontal radiograph of the chest COMPARISON: 03/06/2025 FINDINGS: The trachea is midli ne. Sternotomy wires overlie the mediastinum. Fusion hardware is noted in the lower cervical spine. The heart and mediastinal structures are withi n normal limits. The lung parenchyma is clear. The bony thorax is intact. Degenerative changes are noted in the shoulders and thoracic spine. X R/XR chest 1V IMPRESSION: No acute cardiopulmo nary pathology. Impression dictated by: Marko Scott M.D. 05/12/2025 6:27 PM Dictation Location: [place] [address] Electronically authenticated by: [id number] Y Date: 05/12/2025 18:27 Dictated By: Marko Scott M.D. Signed By: 05/12/251829 DD/ 26 TD/TT: Hand Scudder: Urine Culture - [facility] Reviewed date:03/02/2025 02:08:22 PM Interpretation: Performing Lab: Notes/Report: [facility] , Urine Culture - [facility] See Below For Report Urine Culture - [facility] <9,000 colonies/ml mixed Urine Culture - [facility] bacterial skin contaminants Urine Culture - [facility] <9,000 colonies/ml mixed Urine Culture - [facility] 2 Days Urine Culture - [facility] <9,000 colonies/ml mixed Urine Culture - [facility] Urine Culture - [facility] <9,000 colonies/ml mixed Urine Culture - [facility] Testing performed a [facility] Urine Culture - [facility] <9,000 colonies/ml mixed Urine Culture - [facility] [address] [place] [address] Urine Culture - [facility] <9,000 colonies/ml mixed Performing Lab: see note - [facility] LB UA RANDOM W or MICROSCOPIC Reviewed date:02/25/2025 07:56:51 PM Interpretation: Performing Lab: Notes/Report: [facility] , Color Urine LT. YELLOW YELLOW Clarity Urine CLEAR CLEAR Specific [place] Urine 1.015 1.005-1.025 pH Urine 6.0 5.0-9.0 Protein Urine NEGATIVE NEG/TRACE mg/dL Glucose Urine UA NEGATIVE NEGATIVE mg/dL Bilirubin Urine NEGATIVE NEGATIVE Ketones Urine NEGATIVE NEGATIVE mg/dL Blood Urine NEGATIVE NEGATIVE Nitrite Urine NEGATIVE NEGATIVE Urobilinogen Urine 0.2 0.2-1.0 EU/dL Leukocyte Esterase Urine NEGATIVE NEGATIVE WBC Urine 0-2 NONE SEEN #/HPF RBC Urine NONE SEEN 0-2 #/HPF Bacteria Urine TRACE NONE SEEN #/HPF Mucus Urine NONE SEEN NONE SEEN Squamous Epithelial Cell Urine RARE NONE/RARE #/LPF Crystals Seen? None Seen None Seen #/HPF Cast Seen? NONE SEEN NONE SEEN #/LPF Performing Lab: see note - [facility] LB CA echo doppler complete Reviewed date:02/05/2025 08:31:49 PM Interpretation: Performing Lab: Notes/Report: Source Facility: [place] [address] Cardiology Report Signed Patient: HOLLIE TATE MR#: [id number] : 1950 Acct:[id number] Age/Sex: 74 / M ADM Date: 02/03/25 Loc: [place] 218-[address]: Ekta Flores M.D. Ordering Physician: Ekta Flores M.D. Date of Service: 02/04/25 Procedure(s): CA echo doppler complete Accession Number(s): [id number] cc: Ekta Flores M.D. Patient Name: HOLLIE TATE MR#: [id number] : 1950 Exam Date: 02/04/2025 Ordering Doctor: DR EKTA FLORES . ECHOCARDIOGRAM REPORT PROCEDURE: CA ECHO DOPPLER COMPLETE INDICATIONS: Dyspnea, elevated BNP, [...] 50.48 ml, 50.48 ml Dictated by: Jewel Chan M.D. on 02/04/2025 at 19:08 Approved by: Jewel Chan M.D. on 02/04/2025 at 19:17 Dictated By: JEWEL CHAN Signed By: 02/04/251917 DD/ 16 TD/TT: Hand Scudder: [place] [address] Cardiology Report Signed Patient: MARNI TATE MR#: [id number] : 1950 Acct:[id number] Age/Sex: 74 / M ADM Date: 02/03/25 Loc: MS 218-[address]: Chuck Flores M.D. Ordering Physician: Ekta Flores M.D. Date of Service: 02/04/25 Procedure(s): CA ech o doppler complete Accession Number(s): [id number] cc: Ekta Flores M.D. Patient Name: HOLLIE TATE MR#: [id number] : 1950 Exam Date: 02/04/2025 Ordering Doctor: DR EKTA FLORES . ECHOCARDIOGRAM REPORT PROCEDURE: CA ECHO DOPPLER [...] aorta is normal in size. PULMONIC VALVE: Norm al thickness and mobility. No stenosis. Trivial regurgitation. [...] 50.48 ml, 50.48 ml Dictated by: Jewel Chan M.D. on 02/04/2025 at 19:08 Approved by: Jewel Chan M.D. on 02/04/2025 at 19:17 Dictated By: JEWEL CHAN Signed By: 02/04/251917 DD/ 16 TD/TT: Hand Scudder: Troponin I High Sensitivity Reviewed date:03/07/2025 01:48:56 PM Interpretation: Performing Lab: Notes/Report: [facility] , Troponin I High Sensitivity 19.4 4.0-76.1 pg/mL CUT-OFF POINTS HAVE BEEN ESTABLISHED BASED ON THE FOURTH UNIVERSAL DEFINITION OF MYOCARDIAL INFARCTION. THE UPPER REFERENCE LIMIT (URL) OF TROPONIN, DEFINED THE 99TH PERCENTILE OF cTnI DISTRIBUTION IN A REFERENCE POPULATION, HAS BEEN CONFIRMED THE DECISION THRESHOLD FOR CA DIAGNOSIS. 99TH PERCENTILE = 76.2 PG/ML NOTE: HIGH-SENSITIVITY TROPONIN ASSAY IS NOT INTENDED TO BE USED IN ISOLATION BUT SHOULD BE INTERPRETED IN CONJUNCTION WITH OTHER DIAGNOSTIC AND CLINICAL INFORMATION. Performing Lab: see note ML - [facility] LB Troponin I High Sensitivity Reviewed date:03/08/2025 12:08:55 PM Interpretation: Performing Lab: Notes/Report: [facility] [place] [facility] , Troponin I High Sensitivity 24.2 4.0-76.1 pg/mL CUT-OFF POINTS HAVE BEEN ESTABLISHED BASED ON THE FOURTH UNIVERSAL DEFINITION OF MYOCARDIAL INFARCTION. THE UPPER REFERENCE LIMIT (URL) OF TROPONIN, DEFINED THE 99TH PERCENTILE OF cTnI DISTRIBUTION IN A REFERENCE POPULATION, HAS BEEN CONFIRMED THE DECISION THRESHOLD FOR CA DIAGNOSIS. 99TH PERCENTILE = 76.2 PG/ML NOTE: HIGH-SENSITIVITY TROPONIN ASSAY IS NOT INTENDED TO BE USED IN ISOLATION BUT SHOULD BE INTERPRETED IN CONJUNCTION WITH OTHER DIAGNOSTIC AND CLINICAL INFORMATION. Performing Lab: see note ML - [facility] PROF 14(COMP METB) Reviewed date:03/08/2025 12:08:55 PM Interpretation: Performing Lab: Notes/Report: [facility] [place] [facility] , Sodium 141 136-145 mmol/L Potassium 4.4 3.5-5.1 mmol/L Chloride 104 98-107 mmol/L Carbon Dioxide 28.2 21.0-32.0 mmol/L Anion Gap 13.2 Glucose 112 74-106 mg/dL Blood Urea Nitrogen 35.0 7.0-18.0 mg/dL Creatinine 1.13 0.70-1.30 mg/dL Estimated GFR ( Ирина >60 >=60 mL/min/1.73m 2 Estimated GFR (Non- Devorah >60 >=60 mL/min/1.73m 2 BUN Creatinine Ratio 31.0 Calcium 9.2 8.5-10.1 mg/dL Bilirubin Total 1.2 0.2-1.0 mg/dL Aspartate Amino Transferase 26 15-37 U/L Alanine Aminotransferase 25 16-63 U/L Alkaline Phosphatase 77 46-116 U/L Total Protein 6.9 6.4-8.2 g/dL Albumin Level 3.7 3.4-5.0 g/dL Globulin 3.2 Albumin Globulin Ratio 1.2 Performing Lab: see note ML - [facility] MAGNESIUM Reviewed date:03/08/2025 12:08:55 PM Interpretation: Performing Lab: Notes/Report: [facility] [place] [facility] , Magnesium 2.2 1.8-2.4 mg/dL Performing Lab: see note ML - [facility] LB CBC AUTO DIFF Reviewed date:03/08/2025 12:08:55 PM Interpretation: Performing Lab: Notes/Report: [facility] [place] [facility] , White Blood Count 6.6 4.0-11.0 10 3/uL Red Blood Count 4.72 4.70-6.10 10 6/uL Hemoglobin 14.6 14.0-18.0 g/dL Hematocrit 42.1 42.0-54.0 % Mean Corpuscular Volume 89.2 80.0-94.0 fL Mean Corpuscular Hemoglobin 30.9 25.9-34.0 pg Mean Corpuscular HGB Conc 34.7 29.9-35.2 g/dL Red Cell Distribution Width 12.2 11.0-15.0 % Platelet Count 137 150-450 10 3/uL Mean Platelet Volume 10.5 9.5-13.5 fL Neutrophils Percent Auto 69.7 43.0-75.0 % Lymphocytes Percent Auto 19.6 20.5-60.0 % Monocytes Percent Auto 8.3 1.7-12.0 % Eosinophils Percent Auto 1.8 0.9-7.0 % Basophils Percent Auto 0.3 0.2-2.0 % Immature Granulocytes Pct Auto 0.3 0.0-0.5 % Neutrophils Absolute Auto 4.6 1.4-6.5 10 3/uL Lymphocytes Absolute Auto 1.3 1.2-3.8 10 3/uL Monocytes Absolute Auto 0.6 0.3-0.8 10 3/uL Eosinophils Absolute Auto 0.1 0.0-0.7 10 3/uL Basophils Absolute Auto 0.0 0.0-0.1 10 3/uL Immature Granulocytes Abs Auto 0.02 0.00-0.03 10 3/uL Performing Lab: see note ML - [facility] LB BNP Reviewed date:03/08/2025 12:08:55 PM Interpretation: Performing Lab: Notes/Report: [facility] [place] [facility] , NT Pro B Type Natriuretic Pept 3435.0 <=1800.0 pg/mL RESULTS CALLED TO MEHNAZ PRESTON RN at 0625 Performing Lab: see note ML - [facility] LB Reason For Referral No Information Medications Medication SIG (Take, Route, Frequency, Duration) Notes Start Date End Date Status Eliquis 5 MG 1 tab Orally bid Active Magnesium 400 MG take one tablet Oral ly bid for 30 days 02/17/2025 Active Carvedilol 6.25 MG 1 tablet with food O rally Twice a day for 90 days 05/12/2025 Active Tamsulosin HCl 0.4 MG 1 capsule Orally O nce a day Active Furosemide 20 MG 1 tablet Orally Once a day for 90 days Active Senna 8.6 MG 2 tablets at bedtime as needed Orally Once a day for 30 days 04/27/2025 Active Melatonin 5 MG 1 tablet in the even ing Orally Once a day 05/12/2025 Active Atorvastatin Calcium 40 MG 1 tablet Oral ly Once a day for 90 days 05/12/2025 Active Aspirin 81 81 MG 1 tablet Orally Once a day 05/12/2025 Active Immunizations Vaccine Route Administration Date Status Comme nts Abrysvo Unknown 01/26/2025 Administered Flu, Fluzone High-Dose (9066 2) 65 yrs and older, single-dose syringe (4741-6623) Unknown 07/29/2024 Administered Pneumococcal (Pneumovax 23) Unknown 05/17/2022 Administ ered Pneumococcal (Prevnar 13) Unknown 01/15/2019 Administer ed Pneumococcal (Prevnar 13) Unknown 06/05/2019 Administer ed Shingrix (Zoster) Unknown 05/17/2022 Administered Tdap Unknown 01/09/2019 Administered ZOSTER (SHINGLES) VACCINE (HZV) Unknown 05/17/2021 Admi nistered Social History Tobacco Use: Social History Observation Description Date Details (start date - stop date) Never Smoker NA - NA Tobacco Control (Standard) Question Answer Notes Tobacco use: Nonsmoker AUDIT-C (Standard) Question Answer Notes Did you have a drink contain ing alcohol in the past year? Yes How often did you have a dri nk containing alcohol in the past year? Monthly or less (1 point) How many drinks did you have on a typical day when you were drinking in the past year? 1 or 2 drinks (0 point) How often did you have six o r more drinks on one occasion in the past year? 4 or more times a week (4 points) Points 5 Interpretation Positive Problems Problem Type SNOMED Code ICD Code Onset Dates Problem Status W/U Status Risk Notes Problem Atrial fibrillation (09972196) Atrial fibrillation (I48.91) Active confirmed Problem Atrial flutter (3415180) Atrial flutter (I48.92) Active confirmed Problem Hypertension (56403279) Hypertension (I10) Active confirmed Problem Cervical radiculopathy (17595031) Cervical radiculopathy (M54.12) Active confirmed Problem Coronary artery disease (98619154) CAD (coronary artery disease) (I25.10) Active confirmed Problem Hypertension (25865003) HTN (hypertension) (I10) Active confirmed Problem Atrial fibrillation (12277877) A-fib (I48.91) Active confirmed Problem Hematuria (55777645) Hematuria (R31.9) Active c onfirmed Problem Alcohol abuse (84645226) Alcohol abuse (F10.10) Active confirmed Problem Thrombocytopenia (356989098) Thrombocytopenia (D69.6) Active confirmed Problem Hyperbilirubinemia (98945033) Hyperbilirubinemia (E80.6) Active confirmed Problem Exacerbation of congestive heart failure (00666082265152) CHF exacerbation (I50.9) Active confirmed Problem Benign prostatic hypertrophy without outflow obstruction (310962679) BPH (benign prostatic hypertrophy) (N40.0) Active confirmed Problem Pulmonary hypertension (27365764) Pulmonary HTN (I27.20) Active confirmed Vital Signs Blood pressure diastolic 58 mm Hg 05/12/2025 Height 69 in 05/12/2025 Blood pressure systolic 92 mm Hg 05/12/2025 Weight 160.2 lbs 05/12/2025 BMI 23.65 kg/m2 05/12/2025 Encounters Encounter Location Date Provider Diagnosis [facility] [address] [place] [address] 02/25/2025 Saw Flores Atrial flutter I48.9 2 ; Hematuria R31.9 ; BPH (benign prostatic hypertrophy) N40.0 ; Hypertension I10 and Urinary tract infection N39.0 [facility] [address] [place] [address] 05/12/2025 Saw Flores Hypertension I10 ; Atrial fibrillation I48.91 and CHF exacerbation I50.9 [facility] [address] [place] [address] 02/09/2025 Saw Flores [facility] [address] [place] [address] 02/25/2025 Saw Flores [facility] [address] [place] [address] 03/09/2025 Saw Flores [facility] [address] [place] [address] 04/27/2025 Saw Flores Atrial flutter I48.9 2 [facility] [address] [place] [address] 05/01/2025 Saw Flores [facility] [address] [place] [address] 05/11/2025 Saw Flores Assessments Encounter Date Diagnosis (ICD Code) Assessment Notes Treatment Notes Treatment Clinical Notes Section Notes 02/25/2025 Atrial flutter (ICD-10 - I48.92) 02/25/2025 Hematuria (ICD-10 - R31.9) 05/12/2025 Atrial fibrillation (ICD-10 - I48.91) 05/12/2025 Hypertension (ICD-10 - I10) 04/27/2025 Atrial flutter (ICD-10 - I48.92) 02/25/2025 BPH (benign prostatic hypertrophy) (ICD-10 - N40.0) 05/12/2025 CHF exacerbation (ICD-10 - I50.9) 02/25/2025 Hypertension (ICD-10 - I10) 02/25/2025 Urinary tract infection (ICD-10 - N39.0) Plan Of Treatment Pending Test Test Name Order Date Urinalysis Microscopic 02/25/2025 CULTURE URINE 02/25/2025 CBC no Diff (Hemogram) 05/12/2025 XR chest 1V 05/12/2025 Next Appt Details Provider Name:Saw Flores, 08:30:00 AM, [address] [place], [address], Insurance Providers Payer Name Payer Address Payer Phone Subscriber Number Group Number Insured Name Patient Relationship to Insured Coverage Start Date Coverage End Date [employer] MED[employer] ADV PLAN [address] [place] [address] [id number] Hollie Tate Self - patient is the insured MEDIC[place] [address] [place] [address] [phone] [id number] Hollie Tate Self - patient is the insured 7 Medical (General) History Medical History History ICD Code CHF edema afib Surgical History Surgery Date(Month/Year) Spinal Fusion with Screws- [facility] 02/2025 CABG 2010 Hospitalization History Reason Date(Month/Year) Fall 02/2025
--- OUTSIDE RECORDS SUMMARY | 2025-05-12 18:35 | XMS_ITS | Encounter Summary ---
Author Organization [facility] Address [address] [place] [address] Phone Care Team Providers Care Adoption Agent Name Role Phone Ricardo Flores MD Primary Care Provider [phone] Encounter Details Date Type Department Care Team (Late st Contact Info) Description 12/07/2024 Scanned Document [facility] [address] [place] [address] Scanning, Generic Provider Social History [...] on filedocumented in this encounter Care Teams Adoption Agent Relationship Specialty Start Date End Date Ricardo Flores MD [address] [place] [address] PCP - General Family Medicine 02/06/25 documented as of this encounter
--- OUTSIDE RECORDS SUMMARY | 2025-05-12 18:35 | XMS_ITS | Encounter Summary ---
Author Organization [facility] Address [address] [place] [address] Phone Care Team Providers Care Steel Erector Name Role Phone Ricardo Flores MD Primary Care Provider [phone] Encounter Details Date Type Department Care Team (Late st Contact Info) Description 02/10/2025 Scanned Document [facility] [address] [place] [address] Scanning, Generic Provider Social History [...] on filedocumented in this encounter Care Teams Steel Erector Relationship Specialty Start Date End Date Ricardo Flores MD [address] [place] [address] PCP - General Family Medicine 02/06/25 documented as of this encounter
--- OUTSIDE RECORDS SUMMARY | 2025-05-12 18:35 | XMS_ITS | Clinical Summary ---
Author Organization [facility] Address [address] [place] [address] Phone Care Team Providers Care Sheet Rock Sander Name Role Phone Ricardo Flores MD Primary Care Provider [phone] Encounters Date Type Department Care Team Description 03/19/2025 Scanned Document [facility] [address] [place] [address] Scanning, Generic Provider 02/10/2025 Scanned Document [facility] [address] [place] [address] Scanning, Generic Provider 02/09/2025 Scanned Document [facility] [address] [place] [address] Scanning, Generic Provider from Last 3 Months Social History Tobacco Use Types Packs/Day Years Used Date Smoking Tobacco: Never Assessed Sex and Gender Information Value Date Recorded Sex Assigned at Not on file Legal Sex Male 9:20 AM EDT Gender Identity Not on file Sexual Orientation Not on file Plan of Treatment Health Maintenance Due Date Last Done Comments CT Colonography 1949 Colonoscopy 1950 Colorectal Cancer Screening 1950 Creatinine Level 1949 FIT-DNA (Cologuard) 1949 FIT 1949 Lipid Panel 1950 Medicare Annual Wellness Vis it (AWV) 1950 Potassium Level 1949 Sigmoidoscopy 1949 Hepatitis C Screening 1967 Pneumococcal Vaccine (1 of 2 - PCV) 1968 DTaP/Tdap/Td Vaccines (1 - Tdap) 1971 Zoster Vaccines (1 of 2) 1999 RSV High Risk: (Elderly (60+ ) or Population) (1 - 1-dose 75+ series) 2024 COVID-19 Vaccine (1 - 2023-2 5 season) 2024 Influenza Vaccine (#1) 2025 Echocardiogram 02/07/2026 02/07/2025 Diabetes Screening 03/12/2026 03/12/2025 HIB Vaccines Aged Out No longer eligi [...] Comments ECHOCARDIOGRAM 02/07/2025 from Last 3 Months or Most Recently Relevant to Health Maintenance Results * Echocardiogram (02/07/2025) Narrative 02/07/2025 Ordered by an unspecified provider. us Generic Provider Scanning CV ECHO PROCEDURES Fin al Result from Last 3 Months or Most Recently Relevant to Health Maintenance Insurance [employer] MEDICARE ADVANTAGE [employer] MED[employer]ARE ADVANTAGE Care Teams Sheet Rock Sander Relationship Specialty Start Date End Date Ricardo Flores MD [address] [facility] [place] [address] PCP - General Family Medicine 02/06/25
--- OUTSIDE RECORDS SUMMARY | 2025-05-12 18:35 | XMS_ITS | Encounter Summary ---
Author Organization [facility] Address [address] [place] [address] Phone Care Team Providers Care Customer Professional Name Role Phone Ricardo Flores MD Primary Care Provider [phone] Encounter Details Date Type Department Care Team ([facility] Contact Info) Description 02/06/2025 Scanned Document [facility] [address] [place] [address] Scanning, Generic Provider Social History Tobacco Use Types Packs/Day Years Used Date Smoking Tobacco: Never Assessed Sex and Gender Information Value Date Recorded Sex Assigned at Not on file Legal Sex Male 9:20 AM EDT Gender Identity Not on file Sexual Orientation Not on file documented as of this encounter Plan of Treatment Scheduled Orders Name Type Priority Associated Diagnoses Orde r Schedule Ultrasound- OnBase Scan Imaging O rdered: 02/06/2025 documented as of this encounter Procedures Procedure Name Priority Date/Time Associated Diagnosis Comments OUTSIDE IMAGING SCAN 02/06/2025 documented in this encounter Results * OUTSIDE IMAGING SCAN (02/06/2025) Anatomical Region Laterality Modality Other Narrative 02/06/2025 Ordered by an unspecified provider. us Generic Provider Scanning OUTSIDE SCAN Final Result documented in this encounter Visit Diagnoses Not on filedocumented in this encounter Care Teams Customer Professional Relationship Specialty Start Date End Date Ricardo Flores MD [address] [place] [address] PCP - General Family Medicine 02/06/25 documented as of this encounter
--- OUTSIDE RECORDS SUMMARY | 2025-05-12 18:35 | XMS_ITS | Encounter Summary ---
Author Organization [facility] Address [address] [place] [address] Phone Care Team Providers Care Metal Trades Instructor Name Role Phone Ricardo Flores MD Primary Care Provider [phone] Encounter Details Date Type Department Care Team (Late st Contact Info) Description 03/19/2025 Scanned Document [facility] [address] [place] [address] Scanning, Generic Provider Social History [...] on filedocumented in this encounter Care Teams Metal Trades Instructor Relationship Specialty Start Date End Date Ricardo Flores MD [address] [place] [address] PCP - General Family Medicine 02/06/25 documented as of this encounter
--- OUTSIDE RECORDS SUMMARY | 2025-05-12 18:36 | XMS_ITS | Clinical Summary ---
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 Active doxazosin (Cardura) 2 mg tablet Take 2 mg by mouth at bedtime. Active furosemide (Lasix) 40 mg tablet Take 40 mg by mouth in the morning. Active magnesium oxide (Mag-Ox) 400 mg tablet Take 400 mg by mouth two times daily. Active simvastatin (Zocor) 20 mg tablet Take 20 mg by mouth at bedtime. Active tamsulosin (Flomax) 0.4 mg 24 hr capsule Take 0.4 mg by mouth in the morning. Active aspirin 81 mg EC tabletIndication s:Coronary artery disease involving dry creek coronary artery of dry creek heart without angina pectoris,Coronar y artery disease involving dry creek heart, unspecified vessel or lesion type, unspecified whether angina present Take 1 tablet (81 mg) by mouth in the morning for 93 doses. 03/18/20 25 025 Active apixaban (Eliquis) 5 mg tabletIndication s:Paroxysmal atrial fibrillation (CMS/HCC) Take 1 tablet (5 mg) by mouth two times daily. Do not start before March 19, 2025. 03/19/20 25 Active atorvastatin (Lipitor) 40 mg tablet Take 40 mg by mouth in the morning. Active melatonin 5 mg tablet Take 5 mg by mouth at bedtime. Active acetaminophen (Tylenol) 500 mg tabletIndication s:Traumatic closed fracture of C5 vertebra with minimal displacement, initial encounter (CMS/HCC) Take 2 tablets (1,000 mg) by mouth every 6 (six) hours. 03/18/20 25 025 bisacodyl (Dulcolax) 10 mg suppositoryIndic ations:Traumatic closed fracture of C5 vertebra with minimal displacement, initial encounter ([facility]) Insert 1 suppository (10 mg) into the rectum if needed each day for constipation. 03/18/20 25 025 Additional Information Patient not taking.Reported on 04/22/2025 methocarbamol (Robaxin) 500 mg tabletIndication s:Traumatic closed fracture of C5 vertebra with minimal displacement, initial encounter ([facility]) Take 1 tablet (500 mg) by mouth if needed in the morning, at noon, in the evening, and at bedtime for muscle spasms. 03/18/20 25 025 Discontinu ed(Therapy completed) sennosides-docus ate sodium (Chantell-Colace) 8.6-50 mg tabletIndication s:Traumatic closed fracture of C5 vertebra with minimal displacement, initial encounter ([facility]) Take 2 tablets by mouth if needed each day for constipation. 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 Cardiology [address] [place] [address] Rubi Chiu MA 04/23/[address] [facility] Cardiology [address] [place] [address] Rubi Chiu MA 04/22/2025 2:40 PM EDT Follow-Up [facility] Cardiology [address] [place] [address] Kevin Coronado MD Persistent atrial fibrillation (CMS/HCC) (Primary Dx) 04/22/[address] [facility] Cardiology [address] [place] [address] Rubi Chiu MA Atrial fibrillation, unspecified type (CMS/HCC) (Primary Dx) 03/31/2025 1:15 PM EDT Office Visit [facility] Surgery Clinic [address] [place] [address] Fatou Rider CNP Closed displaced fracture of fifth cervical vertebra with routine healing, unspecified fracture morphology, subsequent encounter (Primary Dx); Degenerative cervical spinal stenosis 03/23/2025 Telephone [facility] Urology [address] [place] [address] Tiffany Tolentino MA appointment (LMOM to schedule void trial ) 03/11/2025 2:14 PM EDT Anesthesia Event [facility] Main Operating Room [address] [place] [address] Bran Barrera MD Clemes, Raymond, MD 03/11/2025 1:00 PM EDT - 03/11/2025 5:30 PM EDT Surgery [facility] Main Operating Room [address] [place] [address] Silvino Shukla MD POSTERIOR C3-C7 LAMINECTOMY WITH INSTRUMENTED FUSION 03/11/2025 Travel 03/09/2025 6:34 AM EDT - 03/18/2025 11:21 AM EDT Hospital Encounter [facility] 5AB[facility] Surgery Stepdown [address] [place] [address] Donna Dominguez MD Oweis, Thomas D, MD Traumatic closed fracture of C5 vertebra with minimal displacement, initial encounter ([facility]) (Primary Dx); Preop cardiovascular exam; Acute combined systolic and diastolic heart failure (CMS/[facility]); Coronary artery disease involving dry creek coronary artery of dry creek heart without angina pectoris; Paroxysmal atrial fibrillation (CMS/[facility]); Urinary retention; Coronary artery disease involving dry creek heart, unspecified vessel or lesion type, unspecified whether angina present Discharge Disposition: Shelter [facility] (63) 03/09/2025 Travel from Last 3 Months Family History Medical History Relation Name Comments Coronary artery disease Mother Relation Name Status Comments Mother Social History Tobacco Use Types Packs/Day Years Used Date Smoking Tobacco: Never Smokeless Tobacco: Never Tobacco Cessation:Counseling Given: No Alcohol Use Standard Drinks/Week Comments Yes 28 (1 standard drink = 0.6 oz pu re alcohol) 4 beers per day [facility] Utilities Answer Date Recorded In the past 12 months has th e [employer], gas, oil, or water company threatened to shut off services in your [...] time in the past 12 m [facility], were you homeless or living in a assisted (including now)? No 03/09/2025 Hunger Vital Sign [...] not to disclose 2024 4:12 PM EDT Last Filed Vital Signs Vital Sign Reading Time Taken Comments Blood Pressure 110/68 05/06/2025 11:05 AM EDT Pulse 92 05/06/2025 11:05 AM EDT Temperature 36.2 C (97.2 F) 05/06/2025 11:05 AM EDT Respiratory Rate 23 03/18/2025 8:00 AM EDT Oxygen Saturation 98% 04/22/2025 2:31 PM EDT Inhaled Oxygen Concentration - - Weight 76.7 kg (169 lb) 05/06/2025 11:05 AM EDT Height 175.3 cm (5' 9 ) 05/06/2025 11:05 AM EDT Body Mass Index 24.96 05/06/2025 11:05 AM EDT Plan of Treatment Upcoming Encounters Date Type Department Care Team (Late st Contact Info) Description 06/29/2025 9:20 AM EDT Office Visit [facility] Cardiology [address] [place] [address] Kevin Coronado MD [address] [place] [address] 08/11/2025 11:15 AM EST Follow-Up [facility] Surgery Clinic [address] [place] [phone] Fatou Rider, EULALIA [address] [place] [phone] Health Maintenance Due Date Last Done Comments CT Colonography 1950 Colonoscopy 1950 Colorectal Cancer Screening 1950 FIT-DNA 1950 FIT 1950 FOBT 1950 Medicare Annual Wellness (AWV) 1950 Sigmoidoscopy 1950 COVID-19 Vaccine ( - 2023-2 5 season) 2024 Influenza Vaccine (#1) 2025 , 07/31/2023 Depression Screening 05/06/2026 05/06/2025 Fall Risk Screening 05/06/2026 05/06/2025 Adult Tetanus 01/09/2029 01/09/2019 Pneumococcal Vaccine: 50+ Years Completed 05/17/2022, 06/05/2019, 01/15/2019 Zoster Vaccines Completed 05/17/2022, 05/17/2021 HIB Vaccines Aged Out No longer eligi ble based on patient's age to complete this topic HPV Vaccines Aged Out No longer eligi ble based on patient's age to complete this topic IPV Vaccines Aged Out No longer eligi ble based on patient's age to complete this topic Meningococcal B Vaccine Aged Out No l onger eligible based on patient's age to complete this topic Meningococcal Vaccine Aged Out No lorenzo gunnar eligible based on patient's age to complete this topic Rotavirus Vaccines Aged Out No longer eligible based on patient's age to complete this topic Medical Devices Implanted Type Area Director On Air Device Identifier Shelf Expiration Date Model / Serial / Lot Ch[employer] Graf ton, 5cc - [id number] - [id number] Implanted:Qty: 1 on 03/11/2025 by Silvino Shukla MD at [facility] Bone N/A: Neck [employer] [id number] 08/25/2027 [id number] / [id number] / 20 Mm Jaren Implanted:Qty: 2 on 03/11/2025 by Silvino Shukla MD at [facility] Jaren N/A: Neck Medtronic [id number] / / 3.5 X 14 Mm Screws Implanted:Qty: 9 on 03/11/2025 by Silvino Shukla MD at [facility] Screw N/A: Neck Medtronic [id number] / / Set Screw Implanted:Qty: 10 on 03/11/2025 by Silvino Shukla MD at [facility] Screw N/A: Neck Medionics [id number] / / 4.0 X 16 Mm Screw Implanted:Qty: 1 on 03/11/2025 by Silvino Shukla MD at [facility] Screw N/A: Neck Medtronic [id number] / / Procedures Procedure Name Priority Date/Time Associated Diagnosis Comments CBC Pending Discharge 03/17/2025 3:3 7 AM EDT BASIC METABOLIC PANEL Pending Discharge 03/17/2025 3:37 AM EDT CBC Pending Discharge 03/16/2025 5:1 1 AM EDT BASIC METABOLIC PANEL Pending Discharge 03/16/2025 5:11 AM EDT MAGNESIUM Pending Discharge 03/15/2025 3:3 6 AM EDT PHOSPHORUS Pending Discharge 03/15/2025 3:3 6 AM EDT CBC Pending Discharge 03/15/2025 3:3 6 AM EDT BASIC METABOLIC PANEL Pending Discharge 03/15/2025 3:36 AM EDT MAGNESIUM Pending Discharge 03/14/2025 5:1 1 AM EDT PHOSPHORUS Pending Discharge 03/14/2025 5:1 1 AM EDT CBC Pending Discharge 03/14/2025 5:1 1 AM EDT BASIC METABOLIC PANEL Pending Discharge 03/14/2025 5:11 AM EDT MAGNESIUM Pending Discharge 03/13/2025 5:0 8 AM EDT PHOSPHORUS Pending Discharge 03/13/2025 5:0 8 AM EDT CBC Pending Discharge 03/13/2025 5:0 8 AM EDT BASIC METABOLIC PANEL Pending Discharge 03/13/2025 5:08 AM EDT POCT GLUCOSE METER UNSOLICITED RESULTS Routine 03/12/2025 11:09 AM EDT XR CERVICAL SPINE 2-3 VIEWS Routine 03/12/2025 8:36 AM EDT PHOSPHORUS Pending Discharge 03/12/2025 3:5 1 AM EDT MAGNESIUM Pending Discharge 03/12/2025 3:5 1 AM EDT CBC Pending Discharge 03/12/2025 3:5 1 AM EDT BASIC METABOLIC PANEL Pending Discharge 03/12/2025 3:51 AM EDT POCT PERFUSION PANEL UNSOLICITED RESULTS Routine 03/11/2025 7:16 PM EDT FL LESS THAN 1 HOUR INTRAOPERATIVE Routine 03/11/2025 6:14 PM EDT NC AN ELECTIVE ENDOTRACHEAL AIRWAY Routine 03/11/2025 2:26 PM EDT LAMINECTOMY, SPINE, CERVICAL, WITH POSTERIOR FUSION 03/11/2025 2:18 PM EDT Closed displaced fracture of fifth cervical vertebra, unspecified fracture morphology, initial encounter (CMS/[facility]) Special Needs prone on open Liu Gallegos Medtronic rep, NEED SSEP AND MEP, C armSSEP Notified #[id number] [employer] Notified SS ANESTHESIA ARTERIAL LINE PLACEMENT Routine 03/11/2025 11:45 AM EDT CTA HEART CORONARY W IV CONTRAST W OR WO FFRCT Routine 03/11/2025 11:34 AM EDT PHOSPHORUS Routine 03/11/2025 3:41 AM EDT MAGNESIUM Routine 03/11/2025 3:41 AM EDT CBC Routine 03/11/2025 3:41 AM EDT BASIC METABOLIC PANEL Routine 03/11/2025 3:41 AM EDT MRSA/MSSA DNA NASAL Routine 03/10/2025 7 :32 AM EDT PHOSPHORUS STAT Add-on 03/10/2025 5:35 AM EDT MAGNESIUM STAT Add-on 03/10/2025 5:35 AM EDT BASIC METABOLIC PANEL Routine 03/10/2025 5:35 AM EDT CBC Routine 03/10/2025 5:35 AM EDT VASC US CAROTID ARTERY DUPLEX BILATERAL STAT 03/09/2025 3:15 PM EDT B-TYPE NATRIURETIC PEPTIDE Routine 03/09/2025 2:41 PM EDT MR CERVICAL SPINE WO CONTRAST Routine 03/09/2025 2:23 PM EDT COMPLETE ECHO (TTE) W/ IMAGING AGENT STAT 03/09/2025 1:27 PM EDT XR PELVIS 1-2 VIEWS STAT 03/09/2025 12:22 PM EDT TYPE AND SCREEN Routine 03/09/2025 11:[address] TRANSFER OF OUTSIDE FILMS Routine 03/09/2025 9:17 AM EDT XR TRANSFER OF OUTSIDE FILMS Routine 03/09/2025 9:16 AM EDT HIGH SENSITIVITY TROPONIN I Add-On 03/09/2025 9:09 AM EDT BASIC METABOLIC PANEL STAT 03/09/2025 9:09 AM EDT PHOSPHORUS Routine 03/09/2025 9:09 AM EDT MAGNESIUM Routine 03/09/2025 9:09 AM EDT CBC STAT 03/09/2025 9:08 AM EDT ECG 12-LEAD Routine 03/09/2025 8:[address] TRANSFER OF OUTSIDE FILMS Routine 03/09/2025 8:19 AM EDT from Last 3 Months Results * (ABNORMAL) CBC (03/17/2025 3:37 AM EDT) Only the most recent of9 resultswithin the time period is included. Auto WBC 8.52 4.00 - 10.60 10*3/uL 03/17/2025 4:24 AM EDT [facility] ([facility]) RBC 4.33 4.20 - 5.70 10*6/uL 03/17/2025 4:24 AM EDT [facility] ([facility]) Hemoglobin 12.8(L) 13.0 - 17.0 g/dL 03/17/2025 4:24 AM EDT [facility] ([facility]) Hematocrit 38.2(L) 39.0 - 50.0 % 03/17/2025 4:24 AM EDT [facility] ([facility]) MCV 88.2 82.0 - 98.0 fL 03/17/2025 4:24 AM EDT [facility] ([facility]) MCH 29.6 27.0 - 33.0 pg 03/17/2025 4:24 AM EDT [facility] ([facility]) MCHC 33.5 32.0 - 35.0 g/dL 03/17/2025 4:24 AM EDT [facility] ([facility]) RDW 12.6 11.5 - 15.0 % 03/17/2025 4:24 AM EDT [facility] ([facility]) Platelets 157 150 - 400 10*3/uL 03/17/2025 4:24 AM EDT [facility] ([facility]) Blood Venous blood specimen / Unknown Venipuncture / Unknown 03/17/2025 3:37 AM EDT 03/17/2025 4:10 AM EDT us Ede Ross PA-C LAB BLOOD ORDERABLES Final Re sult [facility] ([facility]) [address] [place] [address] * (ABNORMAL) Basic metabolic panel (03/17/2025 3:37 AM EDT) Only the most recent of9 resultswithin the time period is included. Sodium 137 136 - 145 mmol/L 03/17/2025 4:34 AM EDT [facility] ([facility]) Potassium 4.2 3.5 - 5.1 mmol/L 03/17/2025 4:34 AM EDT [facility] ([facility]) Chloride 104 98 - 107 mmol/L 03/17/2025 4:34 AM EDT [facility] ([facility]) CO2 27 21 - 31 mmol/L 03/17/2025 4:34 AM EDT [facility] ([facility]) BUN 43(H) 7 - 25 mg/dL 03/17/2025 4:34 AM EDT [facility] ([facility]) Creatinine 0.81 0.70 - 1.30 mg/dL 03/17/2025 4:34 AM EDT [facility] ([facility]) Glucose 102(H) 70 - 100 mg/dL 03/17/2025 4:34 AM EDT [facility] ([facility]) Calcium 9.0 8.6 - 10.3 mg/dL 03/17/2025 4:34 AM EDT [facility] ([facility]) Anion Gap 10 7 - 20 mmol/L 03/17/2025 4:34 AM EDT [facility] ([facility]) eGFR 91.9 >60.0 mL/min/1. 73m*2 03/17/2025 4:34 AM EDT [facility] ([facility]) Comment:The [facility] s estimated glomerular filtration rate (eGFR) will no longer include consideration of race in its calculation. The [employer] s eGFR Task Force developed new recommendations for the estimation of the glomerular filtration rate in the [place] They recommend immediate implementation of the new equation refit without the race variable in all laboratories because the calculation does not include race. In addition to not including race in the calculation and reporting, it included diversity in its development, and has acceptable performance characteristics and potential consequences that do not disproportionately affect any one group of individuals. BUN/Creatinine Ratio 53.1 09/2024 4:34 AM EDT [facility] ([facility]) Blood Venous blood specimen / Unknown Venipuncture / Unknown 03/17/2025 3:37 AM EDT 03/17/2025 4:09 AM EDT Ede Ross PA-C LAB BLOOD ORDERABLES Final Re sult [facility]) [address] [place] [address] * Phosphorus (03/15/2025 3:36 AM EDT) Only the most recent of7 resultswithin the time period is included. Phosphorus 3.5 2.5 - 5.0 mg/dL 03/15/2025 4:16 AM EDT [facility] ([facility]) Blood Venous blood specimen / Unknown Venipuncture / Unknown 03/15/2025 3:36 AM EDT 03/15/2025 3:52 AM EDT Triston Bernabe PA-C LAB BLOOD ORDERABLES Final Resu lt [facility]) [address] [place] [address] * Magnesium (03/15/2025 3:36 AM EDT) Only the most recent of7 resultswithin the time period is included. Magnesium 2.4 1.9 - 2.7 mg/dL 03/15/2025 4:16 AM EDT [facility] ([facility]) Blood Venous blood specimen / Unknown Venipuncture / Unknown 03/15/2025 3:36 AM EDT 03/15/2025 3:52 AM EDT us Triston Bernabe PA-C LAB BLOOD ORDERABLES Final Resu lt Performing Organization Address [facility] Co de Phone Number [facility]) [address] [place] [address] * (ABNORMAL) POCT glucose meter (03/12/2025 11:09 AM EDT) Glucose POC 172(H) 70 - 105 mg/dL 03/12/2025 11:21 AM EDT [facility] ([facility]) Comment:lgoldi Blood Capillary blood specimen / Unknown 03/12/2025 11:09 AM EDT 03/12/2025 11:21 AM EDT Narrative [facility]) - 03/12/2025 11:21 AM EDT Waived Testing in the ED is performed under the ED CLIA certificate #[id number]. us Clay Julien MD LAB BLOOD ORDERABLES Final Res ult Performing Organization Address City/[facility] Co de Phone Number [facility]) [address] [place] [address] * XR cervical spine 2 or 3 views (03/12/2025 8:36 AM EDT) Anatomical Region Laterality Modality Spine, C-spine Computed Radiogr aphy 03/12/2025 8:40 AM EDT Impressions 03/12/2025 8:42 AM EDT 1. Surgical posterior spinal fusion from C3 to C7 with fixation screws and rods. Hardware appears satisfactory in position. Electronically signed: Chalo Butler. Narrative 03/12/2025 8:42 AM EDT HISTORY: A 74-year-old male with the history [...] significant prevertebral soft tissue abnormality is seen. Procedure Note Chalo Butler MD - 03/12/2025 HISTORY: A 74-year-old male with the history of the cervical spinalfusion. Postoperative evaluation of the hardware. TECHNIQUE: Cervical spine: AP and lateral views, 2 views COMPARISON: Comparison is made with the preoperative MRI examination ofthe cervical spine of 03/09/[address] scan of the cervical spine off11/03/2018. FINDINGS: There is a surgical posterior spinal fusion from C3 to C7with pedicular threaded screws and rods. Hardware appears satisfactory inposition in AP and lateral views. Vertebral heights are normal. There are diffuse and advanced discdegenerative changes in the entire cervical spine. No spondylolisthesis is identified.No significant prevertebral soft tissue abnormality is seen. IMPRESSION: 1.Surgical posterior spinal fusion from C3 to C7 with fixation screwsand rods. Hardware appears satisfactory in position. Electronically signed: Chalo Butler. Fatou Rider NUT CHOPPER IMG XR PROCEDURES Final Result * (ABNORMAL) POCT perfusion panel (03/11/2025 7:16 PM EDT) SO2 POC 100(H) 95 - 98 % 03/12/2025 12:22 AM EDT [facility] ([facility]) Sodium POC 139 138.0 - 146.0 mmol/L 03/12/2025 12:22 AM EDT [facility] ([facility]) Potassium POC 4.8 3.5 - 4.9 mmol/L 03/12/2025 12:22 AM EDT [facility] ([facility]) PO2 POC 203(H) 80 - 105 mmHg 03/12/2025 12:22 AM EDT [facility] ([facility]) pH POC 7.23(L) 7.31 - 7.41 03/12/2025 12:22 AM EDT [facility] ([facility]) TCO2 POC 28.0 21.0 - 29.0 mmol/L 03/12/2025 12:22 AM EDT [facility] ([facility]) Ionized Calcium POC 1.24 1.12 - 1.32 mmol/L 03/12/2025 12:22 AM EDT [facility] ([facility]) Hematocrit POC 37(L) 38 - 51 % 03/12/2025 12:22 AM EDT [facility] ([facility]) Hemoglobin POC 12.6 12.0 - 17.0 g/dL 03/12/2025 12:22 AM EDT [facility] ([facility]) Base Excess POC -3.0(L) -2.0 - 3.0 mmol/L 03/12/2025 12:22 AM EDT [facility] ([facility]) Glucose POC 117(H) 70 - 105 mg/dL 03/12/2025 12:22 AM EDT [facility] ([facility]) HCO3 POC 25.8 23.0 - 28.0 mmol/L 03/12/2025 12:22 AM EDT [facility] ([facility]) PCO2 POC 62.1(H) 41.0 - 51.0 mmHg 03/12/2025 12:22 AM EDT [facility] ([facility]) Blood Venous blood specimen / Unknown 03/11/2025 7:16 PM EDT 03/12/2025 12:22 AM EDT Clay Julien MD LAB POINT OF CARE TE ST DOCKED DEVICE UNSOLICITED RESULTS Final Result [facility] ([facility]) [address] [place] [address] * FL LESS THAN 1 HOUR INTRAOPERATIVE (03/11/2025 6:14 PM EDT) Anatomical Region Laterality Modality X-Ray Angiograph y 03/12/2025 2:31 AM EDT Impressions 03/12/2025 2:32 AM EDT Please refer to the operative note for clinical correlation. Electronically signed: Ida Browne. Narrative 03/12/2025 2:32 AM EDT Clinical information: C3-C7 laminectomy. TECHNIQUE: This dictation is made to confirm the use of fluoroscopy by the primary service. Fluoroscopy: Fluoroscopy time:2 seconds, air kerma Radiation dose 0.511 mGy, and 4 images. Procedure Note Ida Browne MD - 03/12/2025 Clinical information: C3-C7 laminectomy. TECHNIQUE: This dictation is made to confirm the use of fluoroscopy by the primaryservice. Fluoroscopy: Fluoroscopy time:2 seconds, air kerma Radiation dose 0.511 mGy, and 4images. IMPRESSION: Please refer to the operative note for clinical correlation. Electronically signed: Ida Browne. Silvino Shukla MD IMG FLUOROSCOPY PROCEDURES Venecia l Result * NC AN ELECTIVE ENDOTRACHEAL AIRWAY (03/11/2025 2:26 PM EDT) Luis Manuel York CAA - 03/11/2025 2:26 PM EDT SADIE Shrestha 03/11/2025 3:47 PM Airway Date/Time: 03/11/2025 2:26 PM Reason: elective Airway not difficult General Information and Staff Patient location during procedure: OR Anesthesiologist: Bran Barrera MD Resident/OXYACETYLENE TORCH OPERATOR/CAA: SADIE Shrestha Performed: resident/OXYACETYLENE TORCH OPERATOR/SADIE Patient Condition Indications for airway management: anesthesia Patient position: C-Collar. Sedation level: deep Final Airway Details Preoxygenated: yes Final airway type: endotracheal airway Successful airway: ETT Cuffed: yes Successful intubation technique: video laryngoscopy Adjuncts used in placement: intubating stylet Endotracheal tube insertion site: oral Blade: Morel Blade size: #3 ETT size (mm): 8.0 Cormack-Lehane Classification: grade I - full view of glottis Placement verified by: chest auscultation and capnometry Cuff volume (mL): 9 Measured from: lips ETT to lips (cm): 23 Number of attempts at approach: 1 Number of other approaches attempted: 0 Additional Comments C-Collar kept on patient. Surgeon monitored intubation. Neck maintained in-line without any manipulation. Bran Barrera MD ANESTHESIA ORDERABLES Final Result * ANESTHESIA ARTERIAL LINE PLACEMENT (03/11/2025 11:45 AM EDT) Bran Mckeon MD - 03/11/2025 11:45 AM EDT Bran Barrera MD 03/11/2025 1:13 PM Arterial Line: Date/Time: 03/11/2025 11:45 AM An arterial line was placed Procedure performed using surface landmarks.in the pre-op for the following indication(s): continuous blood pressure monitoring and blood sampling needed. A 20 G (size), 5 cm (length), Angiocath (type) catheter was placed, Seldinger technique used , into the Right radial artery, secured by tape and Tegaderm. Medications Administered lidocaine (XYLOCAINE) 1 % SubQ - infiltration 5 mL - 03/11/2025 11:45:00 AM Additional notes: Sterile precautions used, including, if applicable: Gloves, Hat, Mask, Skin prep, Sterile drape, VSS. Staffing Performed: resident/OXYACETYLENE TORCH OPERATOR/CAA Anesthesiologist: Bran Barrera MD Resident/OXYACETYLENE TORCH OPERATOR: Trina Riggs MD Performed by: Trina Riggs MD Authorized by: Bran Barrera MD Bran Barrera MD ANESTHESIA ORDERABLES Final Result * [facility] Heart Coronary W IV Contrast W or WO FFRct (03/11/2025 11:34 AM EDT) Anatomical Region Laterality Modality Heart Computed Tomogra phy 03/13/2025 6:00 AM EDT Impressions 03/13/2025 6:22 AM EDT 1. Severe calcified plaques in the [place] coronary arteries with severe stenosis in the RCA, LAD and left circumflex and moderate stenosis in the left main coronary artery.. Markedly elevated calcium scoring. However, patent CONTRERAS graft to distal LAD, saphenous vein graft to PDA and saphenous vein graft to obtuse marginal branch 2. Diffuse diminished global and regional wall motion and function of the LV. Ejection fraction of only 35% 3. Mediastinal clips and sternotomy from prior coronary artery bypass graft 4. Lower thoracic spondylosis. Electronically signed: Valdemar Hairston MD. Narrative 03/13/2025 6:22 AM EDT [facility] HEART CORONARY W IV CONTRAST W OR WO FFRCT 03/11/2025 11:09 AM CLINICAL INDICATIONS: Pain. Acute coronary syndrome. Prior AK. Wall motion abnormality. Evaluate left ventricular function and coronary artery stenosis, status post coronary artery bypass graft. TECHNOLOGIST COMMENTS: Chest pain QUESTION FOR RADIOLOGIST: Evaluate possible coronary artery stenosis PROTOCOL: Gated cardiac CTA and noncontrast calcium scoring CONTRAST: 100 mL Omnipaque 350 TECHNIQUE: Multidetector CT angiogram was obtained using retrospective ECG gating. Imaging was performed from the level of the clavicles to the level of the hemidiaphragms. In order to provide better evaluation of the anatomy and disease process, advanced off-line 3-D post-processing techniques, including 3-D volume rendered images, curvilinear analysis of the coronary arteries, stenosis calculation and ejection fraction evaluation were performed. Medication administered in preparation for the examination is located in nursing documentation. All CT scans at this facility use dose modulation, iterative reconstruction, and/or weight based dosing when appropriate to reduce radiation dose to as low as reasonably achievable COMPARISON: None. CORONARY ARTERY ANGIOGRAM FINDINGS: Stenoses are reported as maximum percentage diameter stenosis. Stenosis grading is reported using the following scheme: Normal: no stenosis Mild: 1-49% stenosis Moderate: 50-70% stenosis Severe: >70% stenosis Occluded Dominance of the coronary artery system: right with normal origins and course. Left Main: The left main is a normal caliber vessel which gives rise to the LAD and circumflex arteries The left main with calcified plaque. Moderate stenosis in the left main is suspected. Left Anterior Descending Artery: The proximal left anterior descending artery and first diagonal branch with significant calcified and noncalcified plaque. The mid-distal LAD, D2 and D3 branches with significant plaque. There is a no evidence of myocardial bridge in the LAD segment. Severe stenosis in the proximal and mid LAD is suggested Left Circumflex Artery: The left circumflex artery and its obtuse marginal branches with calcified plaque. The plaque is mainly seen in the proximal left circumflex which terminates as obtuse marginal branch and small posterolateral branch. Severe stenosis is suspected at the proximal left circumflex Right Coronary Artery: The right coronary artery and acute marginal branches with significant calcified plaque. There is suggestion of severe stenosis in the RCA proximal and mid segment There is patent bypass grafts seen. Patent CONTRERAS graft to distal LAD with adjacent metallic clips visualized. There is also patent saphenous vein graft from the anterior ascending aorta to the obtuse marginal branch and patent saphenous graft from the anterolateral aspect of the ascending aorta to the PDA Cardiac Morphology: The right atrium is normal. The right ventricle is normal. The left atrium is normal. The left ventricle is normal. The pericardium is normal and there is no pericardial effusion. Cardiac Function: {reported only if retrospective ECG gating has been used} The calculated left ventricular ejection fraction is 35%, the left ventricular end-diastolic volume is 143 mL, and the left ventricular end-systolic volume is 92 mL. Stroke volume is 51 mL. There is diffuse hypokinesis of the left ventricle. Cardiac Devices and Indwelling Central Venous Lines: No central lines or pacer devices EXTRACARDIAC FINDINGS: Other lung findings: Visualized part of the lungs appeared grossly unremarkable. Airway: Visualized part of the airway appear unremarkable Pleura: No pleural effusion, thickening, or pneumothorax in the visualized part of the pleura. Thoracic aorta and great vessels: Normal in diameter. Pulmonary arteries: Normal. Heart and pericardium: Normal. Lymph nodes: No enlarged thoracic lymph nodes. Thoracic spine: Bony spurring in the lower thoracic spine suggesting mild spondylosis. Chest wall: Sternotomy wires from prior coronary artery bypass graft and mediastinal clips are seen Visualized upper abdomen: Normal. Gated noncontrast calcium scoring part of the study demonstrate severe [place] coronary artery calcifications with calcium scoring more than 400 which could not be accurately estimated due to presence of adjacent metallic clips from the coronary artery bypass graft procedure Heart flow roadmap and FFR could not be performed due to the presence of bypass grafts Procedure Note Valdemar Hairston MD - 03/13/2025 [facility] HEART CORONARY W IV CONTRAST W OR WO FFRCT 03/11/2025 11:09 AM CLINICAL INDICATIONS: Pain. Acute coronary syndrome. Prior AK. Wallmotion abnormality. Evaluate left ventricular function and coronary arterystenosis, status post coronary artery bypass graft. TECHNOLOGIST COMMENTS: Chest pain QUESTION FOR RADIOLOGIST: Evaluate possible coronary artery stenosis PROTOCOL: Gated cardiac CTA and noncontrast calcium scoring CONTRAST: 100 mL Omnipaque 350 TECHNIQUE: Multidetector CT angiogram was obtained using retrospectiveECG gating. Imaging was performed from the level of the clavicles to the levelof the hemidiaphragms. In order to provide better evaluation of the anatomyand disease process, advanced off-line 3-D post-processing techniques,including 3-D volume rendered images, curvilinear analysis of the coronary arteries,stenosis calculation and ejection fraction evaluation were performed. Medication administered in preparation for the examination is located innursing documentation. All CT scans at this facility use dose modulation, iterativereconstruction, and/or weight based dosing when appropriate to reduce radiation dose to aslow as reasonably achievable COMPARISON: None. CORONARY ARTERY ANGIOGRAM FINDINGS: Stenoses are reported as maximum percentage diameter stenosis. Stenosis grading is reported using the following scheme: Normal: no stenosis Mild: 1-49% stenosis Moderate: 50-70% stenosis Severe: >70% stenosis Occluded Dominance of the coronary artery system: right with normal origins andcourse. Left Main: The left main is a normal caliber vessel which gives rise to the LAD and circumflex arteries The left main with calcified plaque. Moderate stenosisin the left main is suspected. Left Anterior Descending Artery: The proximal left anterior descending artery and first diagonal branchwith significant calcified and noncalcified plaque. The mid-distal LAD, D2 andD3 branches with significant plaque. There is a no evidence of myocardialbridge in the LAD segment. Severe stenosis in the proximal and mid LAD issuggested Left Circumflex Artery: The left circumflex artery and its obtuse marginal branches withcalcified plaque. The plaque is mainly seen in the proximal left circumflex which terminates as obtuse marginal branch and small posterolateral branch.Severe stenosis is suspected at the proximal left circumflex Right Coronary Artery: The right coronary artery and acute marginal branches with significantcalcified plaque. There is suggestion of severe stenosis in the RCA proximal andmid segment There is patent bypass grafts seen. Patent CONTRERAS graft to distal LAD with adjacent metallic clips visualized. There is also patent saphenous veingraft from the anterior ascending aorta to the obtuse marginal branch andpatent saphenous graft from the anterolateral aspect of the ascending aorta tothe PDA Cardiac Morphology: The right atrium is normal. The right ventricle is normal. The left atriumis normal. The left ventricle is normal. The pericardium is normal and thereis no pericardial effusion. Cardiac Function: {reported only if retrospective ECG gating has beenused} The calculated left ventricular ejection fraction is 35%, the leftventricular end-diastolic volume is 143 mL, and the left ventricular end-systolicvolume is 92 mL. Stroke volume is 51 mL. There is diffuse hypokinesis of the left ventricle. Cardiac Devices and Indwelling Central Venous Lines: No central lines orpacer devices EXTRACARDIAC FINDINGS: Other lung findings: Visualized part of the lungs appeared grosslyunremarkable. Airway: Visualized part of the airway appear unremarkable Pleura: No pleural effusion, thickening, or pneumothorax in the visualizedpart of the pleura. Thoracic aorta and great vessels: Normal in diameter. Pulmonary arteries: Normal. Heart and pericardium: Normal. Lymph nodes: No enlarged thoracic lymph nodes. Thoracic spine: Bony spurring in the lower thoracic spine suggestingmild spondylosis. Chest wall: Sternotomy wires from prior coronary artery bypass graft and mediastinal clips are seen Visualized upper abdomen: Normal. Gated noncontrast calcium scoring part of the study demonstrate severenative coronary artery calcifications with calcium scoring more than 400 whichcould not be accurately estimated due to presence of adjacent metallic clipsfrom the coronary artery bypass graft procedure Heart flow roadmap and FFR could not be performed due to the presence ofbypass grafts IMPRESSION: 1. Severe calcified plaques in the [place] coronary arteries with severestenosis in the RCA, LAD and left circumflex and moderate stenosis in the leftmain coronary artery.. Markedly elevated calcium scoring. However, patent LIMAgraft to distal LAD, saphenous vein graft to PDA and saphenous vein graft toobtuse marginal branch 2. Diffuse diminished global and regional wall motion and function of theLV. Ejection fraction of only 35% 3. Mediastinal clips and sternotomy from prior coronary artery bypassgraft 4. Lower thoracic spondylosis. Electronically signed: Valdemar Hairston MD. Morris Aguilar MD IM CT PROCEDURES Final Result * MRSA/MSSA DNA Nasal (03/10/2025 7:32 AM EDT) MSSA DNA Negative Negative 03/10/2025 3:45 PM EDT [facility] MRSA DNA Negative Negative 03/10/2025 3:45 PM EDT [facility] ([facility]) Swab Nasal structure / Unknown Non-blood Collection / Unknown 03/10/2025 7:32 AM EDT 03/10/2025 12:12 PM EDT Narrative [facility] ([facility] - 03/10/2025 3:45 PM EDT Testing methodology is an automated qualitative in vitro diagnostic test for the direct detection and differentiation of Staphylococcus aureus (SA) DNA and methicillin-resistant Staphylococcus aureus (MRSA) DNA from nasal swabs in patients at risk for nasal colonization. The test utilizes real-time polymerase chain reaction (PCR) for the amplification of MRSA/SA DNA and fluorogenic target-specific hybridization probes for the detection of the amplified DNA. A negative result does not preclude nasal colonization. Fatou Rider [facility] MICROBIOLOGY - GENERAL ORD ERABLES Final Result [facility] J[facility]) [address] [place] [address] * Vasc Us Carotid Artery Duplex Bilateral (03/09/2025 3:15 PM EDT) Anatomical Region Laterality Modality Neck Ultrasound 03/09/2025 3:14 PM EDT Impressions 03/12/2025 7:36 AM EDT Notes: Indication: syncope Image quality compromised due to C-collar and nurse having to hold patient's neck straight. Right: Calcified, irregular plaque with no significant ICA spectral Doppler or color flow disturbances: ICA 58/20 cm/sec; consistent with <50% diameter reduction. Antegrade vertebral artery flow. Left: Calcified, irregular plaque with no significant ICA spectral Doppler or color flow disturbances: ICA cm/sec; consistent with <50% diameter reduction. Antegrade vertebral artery flow. Elevated velocities in the distal CCA segment. Notes: Indication: syncope Image quality compromised due to C-collar and nurse having to hold patient's neck straight. Right: Calcified, irregular plaque with no significant ICA spectral Doppler or color flow disturbances: ICA 58/20 cm/sec; consistent with <50% diameter reduction. Antegrade vertebral artery flow. Left: Calcified, irregular plaque with no significant ICA spectral Doppler or color flow disturbances: ICA cm/sec; consistent with <50% diameter reduction. Antegrade vertebral artery flow. Elevated velocities in the distal CCA segment. Conclusions: Antegrade flow of bilateral vertebral arteries. Possible stenosis in the left vertebral arteries <50% stenosis in right internal carotid artery. <50% stenosis in left internal carotid artery. Narrative 03/12/2025 7:36 AM EDT Procedure: The carotid arteries, including common carotid, internal and external carotid artery were evaluated bilaterally. This was done using real-time imaging with velocity measurement, color Doppler, and spectral analysis. The vertebral arteries were evaluated bilaterally using color ultrasound and velocity measurement. Procedure: The carotid arteries, including common carotid, internal and external carotid artery were evaluated bilaterally. This was done using real-time imaging with velocity measurement, color Doppler, and spectral analysis. The vertebral arteries were evaluated bilaterally using color ultrasound and velocity measurement. Procedure Note Augustin Magallanes MD - 03/12/2025 Procedure: The carotid arteries, including common carotid, internal andexternal carotid artery were evaluated bilaterally. This was done usingreal-time imaging with velocity measurement, color Doppler, and spectralanalysis. The vertebral arteries were evaluated bilaterally using colorultrasound and velocity measurement. Procedure: The carotid arteries, including common carotid, internal andexternal carotid artery were evaluated bilaterally. This was done usingreal-time imaging with velocity measurement, color Doppler, and spectralanalysis. The vertebral arteries were evaluated bilaterally using colorultrasound and velocity measurement. IMPRESSION: Notes: Indication: syncope Image quality compromised due to C-collar and nurse having to holdpatient's neck straight. Right: Calcified, irregular plaque with no significant ICA spectralDoppler or color flow disturbances: ICA 58/20 cm/sec; consistent with <50%diameter reduction. Antegrade vertebral artery flow. Left: Calcified, irregular plaque with no significant ICA spectral Doppleror color flow disturbances: ICA cm/sec; consistent with <50% diameterreduction. Antegrade vertebral artery flow. Elevated velocities in thedistal CCA segment. Notes: Indication: syncope Image quality compromised due to C-collar and nurse having to holdpatient's neck straight. Right: Calcified, irregular plaque with no significant ICA spectralDoppler or color flow disturbances: ICA 58/20 cm/sec; consistent with <50%diameter reduction. Antegrade vertebral artery flow. Left: Calcified, irregular plaque with no significant ICA spectral Doppleror color flow disturbances: ICA cm/sec; consistent with <50% diameterreduction. Antegrade vertebral artery flow. Elevated velocities in thedistal CCA segment. Conclusions: Antegrade flow of bilateral vertebral arteries. Possiblestenosis in the left vertebral arteries <50% stenosis in right internal carotid artery. <50% stenosis in left internal carotid artery. us Ede Ross PA-C IMG CV VASCULAR PROCEDURES Fi nal Result * (ABNORMAL) B-type natriuretic peptide (03/09/2025 2:41 PM EDT) BNP 774(H) 0 - 100 pg/mL 03/09/2025 3:30 PM EDT [facility] ([facility]) Blood Venous blood specimen / Unknown Venipuncture / Unknown 03/09/2025 2:41 PM EDT 03/09/2025 3:01 PM EDT Ede Ross PA-C LAB BLOOD ORDERABLES Final Re sult [facility] ([facility]) [address] [place] [address] * MR cervical spine wo contrast (03/09/2025 2:23 PM EDT) Anatomical Region Laterality Modality Spine, C-spine Magnetic Resonan ce 03/10/2025 6:04 AM EDT Impressions 03/10/2025 7:01 AM EDT 1. Motion degraded examination. 2. C5 posterior [...] 03/10/2025 7:01 AM Electronically signed: Karthik Jo. Narrative 03/10/2025 7:01 AM EDT MR CERVICAL SPINE WO CONTRAST: 03/09/2025 PROVIDED [...] acute abnormality in the visualized intracranial compartment. Procedure Note Karthik Jo MD - 03/12/2025 MR CERVICAL SPINE WO CONTRAST: 03/09/2025 PROVIDED HISTORY: *74 years old Male *Spine fracture, cervical, traumatic *Evalute C5 fracture COMPARISON: None. TECHNIQUE: Multiplanar multisequence cervical spine protocol MR performed. Examination performed without the administration of contrast. FINDINGS: Motion degraded examination. Fracture of the posterior elements of C5, with involvement of thespinous process, and facet joints bilaterally, with osseous detail betterevaluated on outside hospital CT cervical spine. Circumferential epidural collection extending from approximately C2 through the partially visualized thoracicspine measuring up to 6 mm in maximal thickness and causing extensive scallopingof the thecal sac, which combined with multifocal spondylotic changesresulting in high-grade spinal canal stenosis throughout the cervical spine withrelative preservation at the craniocervical junction to approximately C2-C3 (wherethere is moderate/severe stenosis). Evaluation for underlying cord signalabnormality is limited due to motion artifact. Edema is noted in the paraspinal musculature and soft tissues extendingfrom C2 through C6 along the course of the intraspinous ligaments and nuchalligaments. Prevertebral edema measuring up to 8 mm in thickness from approximatelyC2 through the upper thoracic spine. Evaluation of the neural foramina extremely limited due to motionartifact. Multifocal degenerative changes resulting in high-grade foraminal stenosisat C2-C3 on the right, C3-C4 bilaterally, right C4-C5. At leastmild/moderate foraminal stenosis throughout the remainder of the cervical spine within limitations of significant motion artifact Edema like signal along the inferior endplate of C4, possibly degenerativein nature versus posttraumatic, but no definite evidence of fracture of theC4 vertebral body. Edema like signal and angulation of the left C4 inferior articular process, may represent occult fracture (sagittal series 4, image14). Minimal edema like signal along the left C3 articular process. Remainder of vertebrae appear to be intact. Degenerative changes aroundthe craniocervical junction without definite evidence of disruption of the ligamentous stabilizers. Narrowing of the right vertebral artery from approximately C4-C6 in regionof trauma, without definite loss of the flow void. No acute abnormality in the visualized intracranial compartment. IMPRESSION: 1.Motion degraded examination. 2.C5 posterior element fracture, as more completely [place] 03/08/20[place], with suggestion of additional C4 leftinferior articular process fracture and associated disruption of the posterior ligamentous complex. 3.Extensive circumferential epidural collection possibly a combinationof edema and/or hemorrhage throughout the cervical and partially visualizedupper thoracic spinal, resulting in high-grade spinal canal stenosis from approximately C2-C3 to C7. Evaluation for cord signal abnormality limiteddue to excessive motion artifact. 4.Edema like signal in the dorsal paravertebral soft tissues withlikely injury of the interspinous and nuchal ligaments. Associated prevertebraledema extending from C2 through the visualized upper thoracic spine. 5.C4 inferior endplate focal edema, possible developing degenerative change, versus posttraumatic sequelae, though no definite fracture line. THIS REPORT CONTAINS AN URGENT RESULT AND/OR RECOMMENDATION, WHICHREQUIRES THE ATTENTION OF THE LICENSED CAREGIVER RESPONSIBLE FOR THIS PATIENT. THEREFORE, I SPECIFICALLY DESIGNATED THIS REPORT TO BE TELEPHONED BY THE RADIOLOGY DEPARTMENT. FINDINGS WERE INSTRUCTED TO BE CALLED TO THE CLINICAL SERVICE ON 57:01 AM Electronically signed: Karthik Jo. Silvino Shukla MD IM MRI PROCEDURES Final Result * COMPLETE ECHO (TTE) W/ IMAGING AGENT (03/09/2025 1:27 PM EDT) Anatomical Region Laterality Modality Other 03/09/2025 12:5 6 PM EDT Narrative 03/09/2025 4:26 PM EDT 1 1 [facility] [address] [place] [address] [phone] (fax) Echocardiogram-[facility] Name: HOLLIE TATE Study Date: 03/09/2025 12:56 PM B/P: 174 mmHg/85 mmHg HR: 69 bpm Date of : 1950 Location: [facility] Height: 69 in. Age: 74 year(s) Patient Room: [facility] Weight: 172 lb. Gender: Male Patient Status: InPt BSA: 1.94 m2 Indication: Syncope, c-collar, CABG, pre-op Examination: Echocardiogram (Complete), Lumason Contrast Image Quality: Fair Patient Consent: Procedure explained to patient Exam Details Contrast: I.V. dose of Lumason Conclusions Left Ventricle: The left ventricle is moderately enlarged. Global left ventricular systolic function is moderately reduced. The EF is 30 % visually. Left ventricular wall thickness is increased. Regional wall motion abnormalities (see diagram). Right Ventricle: The right ventricle appears enlarged. Right ventricular systolic function appears reduced. Doppler studies suggest mildly elevated right sided pressures. Left Atrium: The left atrium is mildly enlarged. Right Atrium: Mobile echo density noted in the right atrium. Possible eustacain valve. Aortic Valve: Moderate to severe aortic valve regurgitation. Overall Conclusions: Due to suboptimal imaging Lumason contrast was administered for opacification and better delineation of endocardial borders. Unable to lie LLD due to c-collar. Measurements Left Ventricle Label Value Normal Value LVOTd 2.3 cm (19cm - 21cm) LVOT VTI 12.9 cm (18cm - 22cm) LVOT PGmax 2 mmHg LVEF visual 30 % LVDd, 2D 6.6 cm (4.2cm - 5.9cm) LVDs, 2D 5.64 cm (2.1cm - 4cm) IVSd, 2D 1.1 cm (0.6cm - 1.1cm) LVPWd, 2D 1.08 cm (0.6cm - 1cm) LV Mass, 2D ASE 324.53 g LV Mass Index, 2D ASE 167.3 g/m?? (50g/m?? - 102.4g/m??) RWT, MM 0.33 (0 - 0.42) LVSVI, 2D 37.6 ml/m2 LVOT PGmean 1 mmHg LVSV_LVOT 54 ml Right Ventricle Label Value Normal Value RVDd, 2D 4.6 cm (1.9cm - 3.8cm) TAPSE 1.1 cm Left Atrium Label Value Normal Value LA Volume, BP 78 ml (18ml - 58ml) LAESV index, BP 40.2 ml/m?? Right Atrium Label Value Normal Value RA Area 17.2 cm?? Aortic Valve Label Value Normal Value AV DVI 0.39 AV VTI 33.6 cm Mitral Valve Label Value Normal Value MV E Vmax 1.13 m/s MV A Vmax 0.73 m/s MV E/A 1.55 MV E/E' lateral 13.1 MV E' lateral 0.09 m/s Tricuspid Valve Label Value Normal Value RA Pressure 15 mmHg RVSP 43 mmHg TR Vmax 2.64 m/s Aorta Label Value Normal Value AoRoot, 2D 3.8 cm (1.4cm - 3.8cm) Great Vessels Label Value Normal Value IVC 2.5 cm (1.2cm - 2.3cm) Valvular Assessment LVOT 0.7 - 1.1 m/sec Aortic Valve 1.0 - 1.7 m/sec Mitral Valve 0.6 - 1.3 m/sec Tricuspid Valve 0.3 - 0.7 m/sec Pulmonic Valve 0.6 - 0.9 m/sec Regurgitation Mod-Sev Mild Trivial Trivial Stenosis No No No No Max Velocity 0.62 m/sec 1.61 m/s 1.13 m/sec 0.68 m/s Max Gradient 10.00 mmHg 2.00 mmHg Mean Gradient 6.00 mmHg Valve Area 1.6 cm?? Findings Left Ventricle: The left ventricle is moderately enlarged. Global left ventricular systolic function is moderately reduced. The EF is 30 % visually. Left ventricular wall thickness is increased. Regional wall motion abnormalities (see diagram). The basal anterior, basal anteroseptal, basal inferoseptal, mid anterior, mid anteroseptal, mid inferoseptal, apical anterior, apical septal, apical inferior, apical lateral and apex left ventricular wall segments are hypokinetic. The basal inferior, basal inferolateral, basal anterolateral, mid inferior, mid inferolateral and mid anterolateral left ventricular wall segments are akinetic. Right Ventricle: The right ventricle appears enlarged. Right ventricular systolic function appears reduced. Doppler studies suggest mildly elevated right sided pressures. Left Atrium: The left atrium is mildly enlarged. Right Atrium: Mobile echo density noted in the right atrium. Possible eustacain valve. The right atrium is normal in size. Mitral Valve: There is nonspecific thickening of the mitral valve leaflet. Mild mitral regurgitation. No mitral valve stenosis. There is mild mitral annular calcification. Aortic Valve: Mild aortic cusp calcification is noted. Moderate to severe aortic valve regurgitation. No aortic valve stenosis. Tricuspid Valve: Normal tricuspid valve. Trivial tricuspid regurgitation. No tricuspid valve stenosis. Pulmonic Valve: Normal pulmonary valve. Trivial pulmonary regurgitation. No pulmonic valve stenosis. Great Vessels: IVC: The IVC is dilated. Respiratory inspiration less than 50%. Pericardium: No pericardial effusion. Procedure Staff Reading Group: [facility] Consultant: MITCH Ferreira, RDCS Ordering Physician: EDE ROSS Wall Motion Scores -1 - hyperkinesia, 0 - not evaluated, 1 - normal, 2 - hypokinesia, 3 - akinesia, 4 - dyskinesia Procedure Note Philip Ortega MD - 03/09/2025 1 1 [facility] Heart Station [address] [place] [address] [phone] (fax) Echocardiogram-[facility] Name: HOLLIE TATE Study Date: 03/09/2025 12:56 PM B/P: 174 mmHg/85 mmHg HR: 69 bpm Date of : 1950 Location: [facility] Height: 69 in. Age: 74 year(s) Patient Room: 6102 Weight: 172 lb. Gender: Male Patient Status: InPt BSA: 1.94 m2 Indication: Syncope, c-collar, CABG, pre-op Examination: Echocardiogram (Complete), Lumason Contrast Image Quality: Fair Patient Consent: Procedure explained to patient Exam Details Contrast: I.V. dose of Lumason Conclusions Left Ventricle: The left ventricle is moderately enlarged. Global left ventricular systolic function is moderately reduced. The EF is 30 % visually. Left ventricular wall thickness is increased. Regional wall motion abnormalities (see diagram). Right Ventricle: The right ventricle appears enlarged. Right ventricular systolic function appears reduced. Doppler studies suggest mildly elevated right sided pressures. Left Atrium: The left atrium is mildly enlarged. Right Atrium: Mobile echo density noted in the right atrium. Possible eustacain valve. Aortic Valve: Moderate to severe aortic valve regurgitation. Overall Conclusions: Due to suboptimal imaging Lumason contrast was administered for opacification and better delineation of endocardial borders. Unable to lie LLD due to c-collar. Measurements Left Ventricle Label Value Normal Value LVOTd 2.3 cm (19cm - 21cm) LVOT VTI 12.9 cm (18cm - 22cm) LVOT PGmax 2 mmHg LVEF visual 30 % LVDd, 2D 6.6 cm (4.2cm - 5.9cm) LVDs, 2D 5.64 cm (2.1cm - 4cm) IVSd, 2D 1.1 cm (0.6cm - 1.1cm) LVPWd, 2D 1.08 cm (0.6cm - 1cm) LV Mass, 2D ASE 324.53 g LV Mass Index, 2D ASE 167.3 g/m?? (50g/m?? - 102.4g/m??) RWT, MM 0.33 (0 - 0.42) LVSVI, 2D 37.6 ml/m2 LVOT PGmean 1 mmHg LVSV_LVOT 54 ml Right Ventricle Label Value Normal Value RVDd, 2D 4.6 cm (1.9cm - 3.8cm) TAPSE 1.1 cm Left Atrium Label Value Normal Value LA Volume, BP 78 ml (18ml - 58ml) LAESV index, BP 40.2 ml/m?? Right Atrium Label Value Normal Value RA Area 17.2 cm?? Aortic Valve Label Value Normal Value AV DVI 0.39 AV VTI 33.6 cm Mitral Valve Label Value Normal Value MV E Vmax 1.13 m/s MV A Vmax 0.73 m/s MV E/A 1.55 MV E/E' lateral 13.1 MV E' lateral 0.09 m/s Tricuspid Valve Label Value Normal Value RA Pressure 15 mmHg RVSP 43 mmHg TR Vmax 2.64 m/s Aorta Label Value Normal Value AoRoot, 2D 3.8 cm (1.4cm - 3.8cm) Great Vessels Label Value Normal Value IVC 2.5 cm (1.2cm - 2.3cm) Valvular Assessment LVOT 0.7 - 1.1 m/sec Aortic Valve 1.0 - 1.7 m/sec Mitral Valve 0.6 - 1.3 m/sec Tricuspid Valve 0.3 - 0.7 m/sec Pulmonic Valve 0.6 - 0.9 m/sec Regurgitation Mod-Sev Mild Trivial Trivial Stenosis No No No No Max Velocity 0.62 m/sec 1.61 m/s 1.13 m/sec 0.68 m/s Max Gradient 10.00 mmHg 2.00 mmHg Mean Gradient 6.00 mmHg Valve Area 1.6 cm?? Findings Left Ventricle: The left ventricle is moderately enlarged. Global left ventricular systolic function is moderately reduced. The EF is 30 % visually. Left ventricular wall thickness is increased. Regional wall motion abnormalities (see diagram). The basal anterior, basal anteroseptal, basal inferoseptal, mid anterior, mid anteroseptal, mid inferoseptal, apical anterior, apical septal, apical inferior, apical lateral and apex left ventricular wall segments are hypokinetic. The basal inferior, basal inferolateral, basal anterolateral, mid inferior, mid inferolateral and mid anterolateral left ventricular wall segments are akinetic. Right Ventricle: The right ventricle appears enlarged. Right ventricular systolic function appears reduced. Doppler studies suggest mildly elevated right sided pressures. Left Atrium: The left atrium is mildly enlarged. Right Atrium: Mobile echo density noted in the right atrium. Possible eustacain valve. The right atrium is normal in size. Mitral Valve: There is nonspecific thickening of the mitral valve leaflet. Mild mitral regurgitation. No mitral valve stenosis. There is mild mitral annular calcification. Aortic Valve: Mild aortic cusp calcification is noted. Moderate to severe aortic valve regurgitation. No aortic valve stenosis. Tricuspid Valve: Normal tricuspid valve. Trivial tricuspid regurgitation. No tricuspid valve stenosis. Pulmonic Valve: Normal pulmonary valve. Trivial pulmonary regurgitation. No pulmonic valve stenosis. Great Vessels: IVC: The IVC is dilated. Respiratory inspiration less than 50%. Pericardium: No pericardial effusion. Procedure Staff Reading Group: [facility] Consultant: MITCH Ferreira, RDCS Ordering Physician: EDE ROSS Wall Motion Scores -1 - hyperkinesia, 0 - not evaluated, 1 - normal, 2 - hypokinesia, 3 - akinesia, 4 - dyskinesia us Ede Ross PA-C CV ECHO PROCEDURES Final Resu lt * XR pelvis 1 or 2 views (03/09/2025 12:22 PM EDT) Anatomical Region Laterality Modality Body, Pelvis Computed Radiogr aphy 03/09/2025 12:3 9 PM EDT Impressions 03/09/2025 12:45 PM EDT FINDINGS/IMPRESSION: * No acute fracture or traumatic malalignment by radiographic technique. CT is more sensitive to assess for acute fracture, if clinically warranted. * Mild degenerative changes bilateral hips. * Inferior approach catheter. Electronically signed: LINDA MORTON MD. Narrative 03/09/2025 12:45 PM EDT EXAM: XR PELVIS 1-2 VIEWS CLINICAL INDICATIONS: Trauma, pelvic pain Procedure Note Linda Morton MD - 03/09/2025 EXAM: XR PELVIS 1-2 VIEWS CLINICAL INDICATIONS: Trauma, pelvic pain IMPRESSION: FINDINGS/IMPRESSION: *No acute fracture or traumatic malalignment by radiographic technique.CT is more sensitive to assess for acute fracture, if clinically warranted. *Mild degenerative changes bilateral hips. *Inferior approach catheter. Electronically signed: LINDA MORTON MD. Ede Ross PA-C IMG XR PROCEDURES Final Resul t * Type and screen (03/09/2025 11:10 AM EDT) ABO Grouping O 03/09/2025 12:09 PM EDT [facility] Rh Type POS 03/09/2025 12:09 PM EDT [facility] Ab Scrn NEG 03/09/2025 12:09 PM EDT [facility] Blood Venous blood specimen / Unknown Venipuncture / Unknown 03/09/2025 11:10 AM EDT 03/09/2025 11:21 AM EDT Fatou Rider [facility] TEST ORDERABLES Final Result [facility] * CT transfer of outside films (03/09/2025 9:17 AM EDT) Only the most recent of2 resultswithin the time period is included. Narrative IMAGING - 03/09/2025 9:17 AM EDT This order has been auto-finalized and does not contain a result. Silvino Shukla MD IMG CT PROCEDURES Final Result IMAGING * XR transfer of outside films (03/09/2025 9:16 AM EDT) Narrative IMAGING - 03/09/2025 9:16 AM EDT This order has been auto-finalized and does not contain a result. Silvino Shukla MD IMG XR PROCEDURES Final Result IMAGING * (ABNORMAL) High Sensitivity Troponin I (03/09/2025 9:09 AM EDT) Pathologist [facility] High Sensitivity Troponin I 20(H) <20 ng/L 03/09/2025 2:36 PM EDT [facility] Blood Venous blood specimen / Unknown Venipuncture / Unknown 03/09/2025 9:09 AM EDT 03/09/2025 9:24 AM EDT Ede Ross PA-C LAB BLOOD ORDERABLES Final Re sult [facility] [address] [place] [address] * ECG 12 lead (03/09/2025 8:32 AM EDT) Pathologist [facility] Ventricular Rate 72 BPM GE MUSE Atrial Rate 267 BPM GE MUSE QRS DURATION 172 ms GE MUSE QT Interval 482 ms GE MUSE QTC CALCULATION(BAZE TT) 527 ms GE MUSE P [place] 71 degrees GE MUSE R-[place] -88 degrees GE MUSE T Wave [place] 29 degrees GE MUSE 03/09/2025 7:50 AM EDT 03/09/2025 10:11 AM EDT Impressions GE MUSE - 03/09/2025 10:11 AM EDT Atrial flutter with variable A-V block with premature ventricular or aberrantly conducted complexes Left axis deviation Right bundle branch block Inferior infarct , age undetermined Abnormal ECG No previous ECGs available Confirmed by Pina ORTEGA SAMER J. ([id number]) on 03/09/2025 10:11:08 AM Narrative Procedure Note Philip Ortega MD - 03/09/2025 IMPRESSION: Atrial flutter with variable A-V block with premature ventricular or aberrantly conducted complexes Left axis deviation Right bundle branch block Inferior infarct , age undetermined Abnormal ECG No previous ECGs available Confirmed by Pina ORTEGA, PHILIP Gold ([id number]) on 03/09/2025 10:11:08 AM us Neal Stanton PA-C ECG ORDERABLES Final Resul t JENNIFER HORVATH from Last 3 Months Insurance [employer] Advance Directives * Full Code (Latest Code Status on File) Date Activated Date Inactivated Comments 03/09/2025 7:34 AM 03/18/2025 1:22 PM Care Teams Joinery Machinist Relationship Specialty Start Date End Date Phillip Coy MD [address] [facility] [address] PCP - General 03/09/25
--- OUTSIDE RECORDS SUMMARY | 2025-05-12 18:36 | XMS_ITS | Clinical Summary ---
Author Organization [employer] Address [id number] [address] [place] [address] Care Team Providers Care X Ray Equipment Servicer Name Role Phone Unavailable Primary Care Provider Unavailabl e Encounters Date Type Department Care Team Description 05/05/2025 Telephone [facility] [address] [place] [address] Gregory Pereyra RN from Last 3 Months Social History Tobacco [...] Health Maintenance Due Date Last Done Comments Depression Screening 1961 Tobacco Screening 1961 Fall Risk Screening 2014 Influenza Vaccine 05/18/2025 07/29/2024, 07/31/2023 DTaP,Tdap and Td Vaccines (2 - Td or Tdap) 01/09/2029 01/09/2019 Zoster (Shingles) Vaccine Completed 05/17/2022, [employer] Not on file
--- OUTSIDE RECORDS SUMMARY | 2025-05-12 18:36 | XMS_ITS | Clinical Summary ---
Author Organization [facility] Address [address] [place] [address] Care Team Providers Care Hooker Operator Name Role Phone Unavailable Primary Care Provider [...]
--- OUTSIDE RECORDS SUMMARY | 2025-05-12 18:36 | XMS_ITS | Encounter Summary ---
Author Organization [facility] Address [address] [place] [address] Phone Care Team Providers Care Smoke Tester Name Role Phone Ricardo Flores MD Primary Care Provider [phone] Encounter Details Date Type Department Care Team ([facility] st Contact Info) Description 02/07/2025 Scanned Document [facility] [address] [place] [address] Scanning, Generic Provider Social History Tobacco Use Types Packs/Day Years Used Date Smoking Tobacco: Never Assessed Sex and Gender Information Value Date Recorded Sex Assigned at Not on file Legal Sex Male 9:20 AM EDT Gender Identity Not on file Sexual Orientation Not on file documented as of this encounter Plan of Treatment Not on file documented as of this encounter Procedures Procedure Name Priority Date/Time Associated Diagnosis Comments ECHOCARDIOGRAM 02/07/2025 documented in this encounter Results * Echocardiogram (02/07/2025) Narrative 02/07/2025 Ordered by an unspecified provider. us Generic Provider Scanning CV ECHO PROCEDURES Fin al Result documented in this encounter Visit Diagnoses Not on filedocumented in this encounter Care Teams Smoke Tester Relationship Specialty Start Date End Date Ricardo Flores MD [address] [place] [address] PCP - General Family Medicine 02/06/25 documented as of this encounter
--- OUTSIDE RECORDS SUMMARY | 2025-05-12 18:36 | XMS_ITS | Encounter Summary ---
Author Organization [employer] Address [facility] [id number] [address] [place] [address] Care Team Providers Care Device Test Engineer Name Role Phone Unavailable Primary Care Provider Unavailabl e Encounter Details Date Type Department Care Team (Late st Contact Info) Description 05/05/2025 Telephone [facility] [address] [place] [address] Gregory Pereyra RN Social History Tobacco Use Types Packs/Day Years Used Date Smoking Tobacco: Never Assessed Childcare Answer Date Recorded Childcare Unknown 02/26/2019 Employment Answer Date Recorded Employment Unknown 02/26/2019 Sex and Gender Information Value Date Recorded Sex Assigned at Not on file Legal Sex Male 11:29 AM EDT Gender Identity Not on file Sexual Orientation Not on file documented as of this encounter Miscellaneous Notes * Telephone Encounter - Gregory Pereyra RN - 05/05/2025 2:10 PM EDT Opened in error documented in this encounter Plan of Treatment Not on file documented as of this encounter Visit Diagnoses Not on filedocumented in this encounter
[2025-05-12 18:49] LABS: Anion Gap 9.4; Blood Urea Nitrogen 25.0 mg/dL (7.0-18.0); Calcium 8.6 mg/dL (8.5-10.1); Carbon Dioxide 33.0 mmol/L (21.0-32.0); Chloride 103 mmol/L (98-107); Estimated GFR (African America >60 (>=60 mL/min/1.73m^2); Estimated GFR (Non-African Ame >60 (>=60 mL/min/1.73m^2); Glucose 91 mg/dL (74-106); Magnesium 2.4 mg/dL (1.8-2.4); NT Pro B Type Natriuretic Pept 860.0 pg/mL (<=1800.0); Potassium 4.4 mmol/L (3.5-5.1); Sodium 141 mmol/L (136-145)
--- NOTE | 2025-05-12 19:27 | ED.SYNCOPE1 ---
HPI - Syncope General Chief Complaint: Syncope Stated Complaint: SYNCOPE Time Seen by Provider: 05/12/25 17:53 Source: patient Mode of arrival: ambulance Limitations: no limitations History of Present Illness HPI narrative: This 74-year-old male was signed out to me at shift change pending reevaluation. He presents for evaluation after he had a syncopal event at home. He has recently had 2 syncopal events over the past 2 days and was told that he has orthostatic hypotension. The patient is currently recovering from a syncopal event/fall in which he sustained a cervical spine fracture. He was seen at [facility] and had neck surgery at that time. His collar was removed on Sunday. The patient's daughter states that yesterday after physical therapy which she is participating in due to residual left-sided weakness after his neck fracture he had a syncopal event at home. She was with him and he collapsed under a table and was not injured at that time. Today after occupational therapy he had another syncopal event. He was seen at Dr. Flores's office and had blood pressure and Lasix medication adjustments. The patient had a low blood pressure upon arrival at 65/45 with a normal pulse. He is on Eliquis due to a history of A-fib a flutter. The monitor shows flutter waves. EKG is atrial flutter with aberrant conduction and occasional PVCs at 69 bpm, right bundle branch block is also noted, left axis deviation is noted. There is no acute ST segment elevation He is awake alert oriented. After liter of fluid his blood pressure is improved at the time of this dictation it is 119/65. Pulse is in the 60s. Patient and his family are agreeable to admission for observation and further evaluation. Related Data Home Medications ?Medication ?Instructions ?Recorded ?Confirmed atorvastatin 20 mg tablet (Lipitor) 40 mg PO DAILY 02/04/25 03/06/25 apixaban 5 mg tablet (Eliquis) 5 mg PO BID 03/06/25 03/06/25 carvedilol 25 mg tablet 25 mg PO Q12H 03/06/25 03/06/25 magnesium oxide 400 mg (241.3 mg 400 mg PO BID 03/06/25 03/07/25 magnesium) tablet spironolactone 50 mg tablet 50 mg PO DAILY 03/06/25 03/06/25 tamsulosin 0.4 mg capsule 0.4 mg PO DAILY 03/06/25 03/06/25 doxazosin 2 mg tablet 2 mg PO DAILY 03/07/25 03/07/25 furosemide 40 mg tablet 40 mg PO DAILY 03/07/25 03/07/25 Allergies Allergy/AdvReac Type Severity Reaction Status Date / Time No Known Drug Allergies Allergy Verified 03/06/25 15:25 [facility] Medical History (Updated 05/12/25 @ 19:33 by María Naranjo MD) Acute heart failure with reduced ejection fraction and diastolic dysfunction ?I50.41 - Acute combined systolic (congestive) and diastolic (congestive) heart failure (ICD-10) Fall ?W19.XXXA - Unspecified fall, initial encounter (ICD-10) AMS (altered mental status) ?R41.82 - Altered mental status, unspecified (ICD-10) Orthostatic hypotension ?I95.1 - Orthostatic hypotension (ICD-10) Hyperbilirubinemia ?E80.6 - Other disorders of bilirubin metabolism (ICD-10) Elevated serum creatinine ?R79.89 - Other specified abnormal findings of blood chemistry (ICD-10) Thrombocytopenia ?D69.6 - Thrombocytopenia, unspecified (ICD-10) Alcohol abuse ?F10.10 - Alcohol abuse, uncomplicated (ICD-10) Atrial fibrillation, new onset ?I48.91 - Unspecified atrial fibrillation (ICD-10) Acute exacerbation of CHF (congestive heart failure) ?I50.9 - Heart failure, unspecified (ICD-10) CAD (coronary artery disease) ?I25.10 - Atherosclerotic heart disease of [place] coronary artery without angina pectoris (ICD-10) Hypercholesteremia ?E78.00 - Pure hypercholesterolemia, unspecified (ICD-10) Hypertension ?I10 - Essential (primary) hypertension (ICD-10) Surgical History (Updated 02/03/25 @ 21:10 by Zayra Davey RN) S/P CABG x 5 ?Z95.1 - Presence of aortocoronary bypass graft (ICD-10) Family History (Updated 02/03/25 @ 21:10 by Zayra Davey RN) Mother Heart disease Social History (Updated 03/06/25 @ 23:14 by Leona Casas) Within the past year, how often did you have a drink containing alcohol: 4 or more times a week Smoking status: Never smoker Second hand tobacco smoke exposure: No Non-prescribed substance use: denies use Known occupational exposures/hazards: No Highest level of school completed/degree received: high school graduate Do you want help with school or training: No Are you now , , , , never or living with a partner: don't know Little interest or pleasure in doing things: not at all Feeling down, depressed, or hopeless: not at all Feel stressed/tense/nervous/anxious/difficulty sleeping: not at all Do you think of yourself as: straight/heterosexual Gender Identity: male Exam Constitutional Vital Signs, click to edit/add: Last Vital Signs Temp 97.8 F 05/12/25 17:51 Pulse 67 05/12/25 18:30 Resp 18 05/12/25 18:30 BP 126/72 05/12/25 18:05 Pulse Ox 96 05/12/25 18:30 O2 Del Method Room Air 05/12/25 18:11 Course Vital Signs Vital signs: Vital Signs Temperature 97.8 F 05/12/25 17:51 Pulse Rate 67 05/12/25 17:51 Respiratory Rate 16 05/12/25 17:51 Blood Pressure 130/82 05/12/25 17:51 Pulse Oximetry 97 05/12/25 17:51 Temperature 97.8 F 05/12/25 17:51 Pulse Rate 67 05/12/25 18:30 Respiratory Rate 18 05/12/25 18:30 Blood Pressure 126/72 05/12/25 18:05 Pulse Oximetry 96 05/12/25 18:30 Oxygen Delivery Method Room Air 05/12/25 18:11 MDM - Syncope Lab Data Labs: Lab Results 05/12/25 Range/Units 18:15 WBC 7.3 (4.0-11.0) 10^3/uL RBC 4.21 L (4.70-6.10) 10^6/uL Hgb 13.1 L (14.0-18.0) g/dL Hct 39.0 L (42.0-54.0) % MCV 92.6 (80.0-94.0) fL MCH 31.1 (25.9-34.0) pg MCHC 33.6 (29.9-35.2) g/dL RDW 13.8 (11.0-15.0) % Plt Count 165 (150-450) 10^3/uL MPV 9.9 (9.5-13.5) fL Sodium 141 (136-145) mmol/L Potassium 4.4 (3.5-5.1) mmol/L Chloride 103 (98-107) mmol/L Carbon Dioxide 33.0 H (21.0-32.0) mmol/L Anion Gap 9.4 BUN 25.0 H (7.0-18.0) mg/dL Creatinine 1.15 (0.70-1.30) mg/dL Est GFR ( Amer) >60 (>=60 mL/min/1.73m^2) Est GFR (Non-Af Amer) >60 (>=60 mL/min/1.73m^2) BUN/Creatinine Ratio 21.7 Glucose 91 (74-106) mg/dL Calcium 8.6 (8.5-10.1) mg/dL Magnesium 2.4 (1.8-2.4) mg/dL Troponin I High Sens 14.6 (4.0-76.1) pg/mL NT-Pro-B Natriuret Pep 860.0 (<=1800.0) pg/mL Discharge Plan Discharge Chief Complaint: Syncope Clinical Impression: Orthostatic hypotension, Syncope due to orthostatic hypotension, Atrial flutter Patient Disposition: Admitted as Observation Time of Disposition Decision: 19:32 Condition: Good
[2025-05-12] MEDS: 0.9 % SODIUM CHLORIDE 1,000 ML 125 ML IV (20:01)
--- NOTE | 2025-05-12 20:26 | PC.NURSE ---
pt transported to admitting room by this RN. daughter followed. bedside report given to Vielka LIN, all questions answered.
--- NOTE | 2025-05-12 21:36 | CT_ITS ---
[address] [address] Patient Name: HOLLIE TATE MRN: [id number] date: 1950 Sex: M Assigned Patient Location: [place] Current Patient Location: [place] Accession/Order Number: [id number] Exam Date: 05/12/2025 23:59 Report Date: 05/13/2025 08:23 At the request of: ROS ARANGO MD Procedure: CT head/brain wo con CT head/brain wo con 05/13/2025 6:08 AM SIGNS AND SYMPTOMS: ^Syncope TECHNIQUE:Multi-detector CT axial slices of the brain were obtained without IV contrast. CT was performed with one or more of the following dose reduction techniques: Automated exposure control, adjustment of the mA and/or kV according to patient size, or use of iterative reconstruction technique. COMPARISON: 03/06/2025 FINDINGS: There is no shift of the midline structures, acute intracranial bleeding, mass effects, or evidence of acute ischemia. Atherosclerotic changes are noted in the V4 segments of the vertebral arteries and intracranial segments of the internal carotid arteries. Gliosis and encephalomalacia is redemonstrated along the anterior aspects of the frontal and temporal lobes at the skull base suggesting a remote traumatic injury. There is similar age-related cortical atrophy. The ventricular system is normal in size. The brainstem and the cerebellum are unremarkable. The visualized intraorbital contents, the visualized paranasal sinuses, and the infratemporal soft tissues show no acute abnormality. The osseous structures in the skull base and the calvarium show no abnormality. Degenerative changes are noted in the temporomandibular joints, left greater than right. CT/CT head/brain wo con IMPRESSION: Similar gliosis and encephalomalacia along the base of the anterior frontal and temporal lobes suggesting a remote traumatic injury. No acute intracranial pathology. Similar age-related cortical atrophy. Impression dictated by: Marko Scott M.D. 05/13/2025 8:23 AM Dictation Location: [place] [address] Electronically authenticated by: [id number] Y Date: 05/13/2025 08:23
[2025-05-13] VITALS (19 sets, daily range): BP systolic 92–146; BP diastolic 46–73; PULSE 52–84; TEMP 36.4–36.7; O2SAT 92–96
[2025-05-13 05:53] LABS: Hematocrit 36.5 % (42.0-54.0); Hemoglobin 12.0 g/dL (14.0-18.0); Mean Corpuscular HGB Conc 32.9 g/dL (29.9-35.2); Mean Corpuscular Hemoglobin 30.7 pg (25.9-34.0); Mean Corpuscular Volume 93.4 fL (80.0-94.0); Platelet Count 147 10^3/uL (150-450); Red Blood Count 3.91 10^6/uL (4.70-6.10); White Blood Count 5.7 10^3/uL (4.0-11.0)
[2025-05-13 06:14] LABS: Alanine Aminotransferase 17 U/L (16-63); Albumin Globulin Ratio 1.1; Albumin Level 3.1 g/dL (3.4-5.0); Alkaline Phosphatase 101 U/L (46-116); Anion Gap 9.7; Aspartate Amino Transferase 12 U/L (15-37); Blood Urea Nitrogen 22.0 mg/dL (7.0-18.0); Calcium 8.7 mg/dL (8.5-10.1); Carbon Dioxide 29.3 mmol/L (21.0-32.0); Chloride 106 mmol/L (98-107); Estimated GFR (African America >60 (>=60 mL/min/1.73m^2); Estimated GFR (Non-African Ame >60 (>=60 mL/min/1.73m^2); Globulin 2.8 g/dL; Glucose 84 mg/dL (74-106); Potassium 4.0 mmol/L (3.5-5.1); Sodium 141 mmol/L (136-145); Total Protein 5.9 g/dL (6.4-8.2)
--- NOTE | 2025-05-13 08:00 | ECG_ITS ---
[facility] Test Date: 2025-05-13 Pat Name: HOLLIE TATE Department: Room: Gender: Male Curatorial Assistant: : 1950 Requested By: [id number] Order Number: [id number] Reading MD: LEBRON VAZQUEZ Measurements Intervals [place] Rate: 57 P: -88 NC: 195 QRS: -87 QRSD: 184 T: 61 QT: 470 QTc: 459 Interpretive Statements ATRIAL FLUTTER WITH SLOW VENTRICULAR RESPONSE MARKED LEFT AXIS DEVIATION [QRS AXIS < -30] RIGHT BUNDLE BRANCH BLOCK [120+ ms QRS DURATION, UPRIGHT V1, 40+ ms S IN I/aVL/V4/V5/V6] WARNING: DATA QUALITY MAY AFFECT INTERPRETATION Compared to ECG 05/12/2025 19:39:43 Aberrant conduction of supraventricular beat(s) no longer present Electronically Signed On 05-13-2025 16:00:45 EDT by LEBRON VAZQUEZ
--- NOTE | 2025-05-13 08:15 | CM.NOTE ---
Rounds made with Dr. Kasper, pt will discharge to home today. Pt denies any dizziness this AM, pt states he got up too fast. Pt will f/u with Dr. Flores.
--- NOTE | 2025-05-13 08:20 | CM.NOTE ---
Clarified pt's status with Dr. Kasper, pt OBS status and order was entered.
[2025-05-13 08:31] LABS: Glucose Urine UA NEGATIVE (NEGATIVE)
[2025-05-13 08:41] LABS: Cast Seen? SEEN #/LPF (NONE SEEN); Crystals Seen? None Seen #/HPF (None Seen); Urine Culture Indicated YES-FRMC
[2025-05-13] MEDS: CARVEDILOL 6.25 MG TABLET PO ×2 (08:54→17:04)
[2025-05-13] MEDS: TAMSULOSIN HCL 0.4 MG CAPSULE PO (08:54)
[2025-05-13] MEDS: APIXABAN 5 MG TABLET PO ×2 (08:54→21:07)
[2025-05-13] MEDS: FUROSEMIDE 20 MG TABLET PO (08:54)
[2025-05-13] MEDS: MAGNESIUM OXIDE 400 MG TABLET PO ×2 (08:54→21:07)
[2025-05-13] MEDS: ASPIRIN 81 MG TABLET.DR PO (08:54)
[2025-05-13] MEDS: SENNOSIDES 8.6 MG TABLET PO (08:54)
--- NOTE | 2025-05-13 09:57 | SWNOTE1 ---
Medicare Outpatient Observation Notice reviewed and discussed with patient. Pt. verbalized understanding and signed the form. Original given to patient and copy placed in patient?s chart.
--- NOTE | 2025-05-13 09:59 | SWNOTE1 ---
SW met with pt to discuss dc needs. Pt does live at home alone. Pt voiced he does have a walker at home and he does use it. SW did ask pt about his falls at home. He stated he is getting up too quickly and needs to slow down. SW asked if he had HH services coming in? Pt does have therapy and thinks it is from [facility], but advised SW to call his daughter, Laly. At this time pt does not voice any concerns about discharge. SW did call pt's daughter Laly. Laly did ask if pt was being discharged, SW advised that SW will check and is unsure at this time. Laly did have concerns about patient since he did have 2 falls at home while her and her sister were there. She stated he was at the [facility] and then discharged home and they are unsure if he is safe at home. She voiced she is unsure of the answer and is it pt's decision or do her and her sister need to step in. Pt does have [facility] coming in for therapy. They also have caregivers coming in thru the [place] Sunday-Sunday for 3 hours to assist with preparing meals, showering, and anything pt may need. SW to check with case management on discharge plans and reach back out to Laly. Laly will be here late morning or early afternoon.
--- NOTE | 2025-05-13 11:29 | PM.HP ---
HPI H&P: HPI History of Present Illness Chief complaint: SYNCOPE,HYPOTENSION Narrative: Mr. Saldivar is a 74-year-old gentleman who was sent to the emergency room for evaluation of near syncopal episode. Patient did not fall to the ground. No body injury. He was noted to have hypotension. He had received IV fluid in the emergency room department. This morning, the patient denies any chest pain, abdominal pain, nausea or vomiting. No headaches, loss of conscious or seizure. No bone or joint pain ache or discomfort. Is orthostatic vital signs are positive. Opioid HPI Opioid Management Most Recent Pain and Opioid Data: Last Pain Scale 9 03/08/25, 07:46 Last Pain Assessment 05/12/25, 21:00 Last ORT Total Score 0 05/12/25, 20:17 Last ORT Risk Category Low Risk 05/12/25, 20:17 Ur Phencyclidine Scrn, (NEGATIVE) Negative 03/07/25, 03:40 Review of Systems ROS Status of ROS 10 or more systems reviewed and unremarkable except as noted in history and below [facility] Medical History (Updated 05/13/25 @ 11:31 by Vonda Kasper MD) Acute heart failure with reduced ejection fraction and diastolic dysfunction ?I50.41 - Acute combined systolic (congestive) and diastolic (congestive) heart failure (ICD-10) Fall ?W19.XXXA - Unspecified fall, initial encounter (ICD-10) AMS (altered mental status) ?R41.82 - Altered mental status, unspecified (ICD-10) Orthostatic hypotension ?I95.1 - Orthostatic hypotension (ICD-10) Hyperbilirubinemia ?E80.6 - Other disorders of bilirubin metabolism (ICD-10) Elevated serum creatinine ?R79.89 - Other specified abnormal findings of blood chemistry (ICD-10) Thrombocytopenia ?D69.6 - Thrombocytopenia, unspecified (ICD-10) Alcohol abuse ?F10.10 - Alcohol abuse, uncomplicated (ICD-10) Atrial fibrillation, new onset ?I48.91 - Unspecified atrial fibrillation (ICD-10) Acute exacerbation of CHF (congestive heart failure) ?I50.9 - Heart failure, unspecified (ICD-10) CAD (coronary artery disease) ?I25.10 - Atherosclerotic heart disease of [place] coronary artery without angina pectoris (ICD-10) Hypercholesteremia ?E78.00 - Pure hypercholesterolemia, unspecified (ICD-10) Hypertension ?I10 - Essential (primary) hypertension (ICD-10) Surgical History (Updated 05/12/25 @ 20:43 by Vielka Tovar RN) H/O spinal fusion ?Z98.1 - Arthrodesis status (ICD-10) S/P CABG x 5 ?Z95.1 - Presence of aortocoronary bypass graft (ICD-10) Family History (Updated 05/12/25 @ 20:34 by Vielka Tovar RN) Mother Heart disease Family history of hypertension Social History (Updated 05/12/25 @ 20:35 by Vielka Tovar RN) Within the past year, how often did you have a drink containing alcohol: never Score interpretation: A score less than 4 is consistent with normal alcohol consumption. Smoking status: Never smoker Second hand tobacco smoke exposure: No Non-prescribed substance use: denies use Known occupational exposures/hazards: No Highest level of school completed/degree received: high school graduate Do you want help with school or training: No Are you now , , , , never or living with a partner: In a typical week, how many times do you talk on the telephone with family, friends, or neighbors: 3 or more times per week How often do you get together with friends or relatives: 3 or more times per week Little interest or pleasure in doing things: not at all Feeling down, depressed, or hopeless: not at all Feel stressed/tense/nervous/anxious/difficulty sleeping: not at all Do you think of yourself as: straight/heterosexual Gender Identity: male Meds Home Medications and Allergies Home Medications ?Medication ?Instructions ?Recorded ?Confirmed ?Type apixaban 5 mg tablet (Eliquis) 5 mg PO BID 03/06/25 05/12/25 History magnesium oxide 400 mg (241.3 mg 400 mg PO BID 03/06/25 05/12/25 History magnesium) tablet tamsulosin 0.4 mg capsule 0.4 mg PO .QHS 03/06/25 05/13/25 History aspirin 81 mg tablet,delayed 81 mg PO DAILY 05/12/25 05/12/25 History release (Adult Low Dose Aspirin) melatonin 5 mg capsule 5 mg PO HS PRN sleep 05/12/25 05/13/25 History sennosides 8.6 mg tablet (senna) 8.6 mg PO .QHS 05/12/25 05/13/25 History atorvastatin 40 mg tablet (Lipitor) 40 mg PO DAILY 05/13/25 05/13/25 History carvedilol 6.25 mg tablet (Coreg) 6.25 mg PO BID 05/13/25 05/13/25 History furosemide 20 mg tablet (Lasix) 20 mg PO DAILY 05/13/25 05/13/25 History Allergies Allergy/AdvReac Type Severity Reaction Status Date / Time No Known Drug Allergies Allergy Verified 03/06/25 15:25 Exam Narrative Exam Narrative: [pt is awake and alert. oriented to place, time and person HEENT: [place] conjunctiva and NL buccal mucosa Neck: Supple, no tenderness Endocrine: No Thyromegaly. Vascular: No JVD or carotid bruit. Lymphatic: No cervical lymphadenopathy. Chest: CTA no DTP. Heart RRR, no extra sound or murmur. Abd: Soft, no tenderness, no rebound and no rigidity. Increase abd girth therefore clinically I could not exclude the possibility of intra abd mass or organomegaly. LE: No cyanosis or clubbing, no varices or edema. Neuro: A A O. Nl speech, comprehension and attention. Nl and symetrical motor and tone examination through out. []] Constitutional Vital Signs, click to edit/add: Last Vital Signs Temp 98.1 F 05/13/25 08:02 Pulse 68 05/13/25 10:44 Resp 18 05/13/25 08:02 BP 146/73 H 05/13/25 08:26 Pulse Ox 92 L 05/13/25 08:02 O2 Del Method Room Air 05/13/25 08:02 Results Labs Labs: Short CBC 05/12/25 05/13/25 Range/Units 18:15 05:08 WBC 7.3 5.7 (4.0-11.0) 10^3/uL Hgb 13.1 L 12.0 L (14.0-18.0) g/dL Hct 39.0 L 36.5 L (42.0-54.0) % Plt Count 165 147 L (150-450) 10^3/uL BMP 05/12/25 05/13/25 18:15 05:08 Sodium 141 141 Potassium 4.4 4.0 Chloride 103 106 Carbon Dioxide 33.0 H 29.3 BUN 25.0 H 22.0 H Creatinine 1.15 0.98 Glucose 91 84 Calcium 8.6 8.7 Liver Function 05/13/25 Range/Units 05:08 Total Bilirubin 1.1 H (0.2-1.0) mg/dL AST 12 L (15-37) U/L ALT 17 (16-63) U/L Alkaline Phosphatase 101 (46-116) U/L Albumin 3.1 L (3.4-5.0) g/dL Urine 05/12/25 Range/Units 08:10 Urine Color Yellow (YELLOW) Urine Clarity Cloudy A (CLEAR) Urine pH 6.0 (5.0-9.0) Ur Specific [place] 1.020 (1.005-1.025) Urine Protein Trace (NEG/TRACE) mg/dL Urine Glucose (UA) Negative (NEGATIVE) mg/dL Assessment and Plan Assessment and Plan (1) Atrial flutter: (2) Syncope due to orthostatic hypotension: (3) Cardiomyopathy: (4) UTI (urinary tract infection): Plan Syncopal episode, no neurological deficit. Patient is orthostatic. Systolic blood pressure drops of 40 point Patient is on Flomax that could potentially cause or exaggerate orthostatic hypotension. My recommendation is to hold Flomax. May replace with Proscar to reduce risk of retention. Check cortisol level to rule out adrenal insufficiency. In addition his orthostatic hypotension could be exaggerated by cardiomyopathy in the setting of a flutter. His EF is 45% Rule out the possibility of cardiac dysrhythmia or bradycardia that may be causing his syncope Continue telemetry monitoring. Patient has received gentle IV fluid infusion I started the patient on midodrine. No clinical evidence of major sepsis or septic shock. No clinical evidence of hemorrhagic or hypovolemic shock. Could be an element of mild volume depletion causing him to have hypotension in the setting of low albumin and low hydrostatic pressure. PT OT eval and treatment. Rise from lying to sitting to standing in a slow and gradual fashion Consider initiation of lower extremities compression stocking. Consider initiation of abdominal belt. UTI Urine cultures pending. Start patient on ceftriaxone. Encephalomalacia and gliosis as well as old stroke seen on CT imaging. A flutter Rate is controlled. Continue Coreg, aspirin and Eliquis. These are preadmission medications Previous fall and cervical fracture status post intervention. Chronic medical conditions not listed above, incidental findings seen on labs and imaging. These would need to be addressed. Could be addressed when time and condition are appropriate. Could be addressed in the outpatient setting by PCP collaboration with other needed outpatient providers.
[2025-05-13] MEDS: 0.9 % SODIUM CHLORIDE 1,000 ML 70 ML IV (12:03)
[2025-05-13] MEDS: MIDODRINE HCL 5 MG TABLET PO ×2 (12:04→17:04)
--- NOTE | 2025-05-13 12:09 | SWNOTE1 ---
SW to review PT/OT once evals are complete.
--- NOTE | 2025-05-13 15:23 | SWNOTE1 ---
KAYY faxed PT/OT notes from today along with face sheet, ED note, and H&P to [facility].
[2025-05-13] MEDS: ATORVASTATIN CALCIUM 40 MG TABLET PO (21:07)
[2025-05-13] MEDS: FINASTERIDE 5 MG TABLET PO (21:07)
[2025-05-14] VITALS (26 sets, daily range): BP systolic 102–165; BP diastolic 54–83; PULSE 51–93; TEMP 36.4–36.6; O2SAT 93–96
--- NOTE | 2025-05-14 08:35 | CM.NOTE ---
Rounds made with Dr. Kasper, pt will discharge to home today with [facility] services. Pt will f/u with Dr. Sands.
[2025-05-14] MEDS: SENNOSIDES 8.6 MG TABLET PO (08:40)
[2025-05-14] MEDS: MAGNESIUM OXIDE 400 MG TABLET PO ×2 (08:40→21:34)
[2025-05-14] MEDS: APIXABAN 5 MG TABLET PO ×2 (08:41→21:34)
[2025-05-14] MEDS: ASPIRIN 81 MG TABLET.DR PO (08:41)
[2025-05-14] MEDS: FUROSEMIDE 20 MG TABLET PO (08:41)
[2025-05-14] MEDS: CARVEDILOL 6.25 MG TABLET PO ×2 (08:41→17:11)
--- NOTE | 2025-05-14 12:15 | CM.NOTE ---
Mk walker sent to Dr. Kasper regarding preliminary urine culture results.
[2025-05-14] MEDS: AMPICILLIN SODIUM/SULBACTAM NA 3 GM in 0.9 % SODIUM CHLORIDE 100 ML IV (12:39)
--- NOTE | 2025-05-14 13:41 | SWNOTE1 ---
Pt is medically stable for discharge. Daughter Laly was in hallway this morning. SW did let her know that pt did walk with PT/OT up and down the hallway and did stairs with therapy as well.
--- NOTE | 2025-05-14 14:26 | CM.NOTE ---
Called received from Dr. Kasper about pt's low cortisol level and doing ACTH stimulation test. Called pharmacy testing is available. Pt will not discharge to home. Pt will change to inpatient status and have ACTH stimulation test 05/15 d/t syncopal episodes.
--- NOTE | 2025-05-14 14:35 | P.PN_ITS ---
Progress Note: Subjective Subjective Interval history: Patient is feeling much better. No chest pain. No abdominal pain. Exam Narrative Exam Narrative: CONSTITUTIONAL: Well-appearing, answering questions and following commands appropriately SKIN: Was warm and dry. EYES: No conjunctival pallor EARS, NOSE, THROAT: No JVD. RESPIRATORY: Clear to auscultation bilaterally, no wheezes, crackles, or stridor, no use of accessory muscles CARDIOVASCULAR: Normal rate rate and irregularly irregular rhythm. There is no S3, S4, murmur, rub. pulses are 2+ and symmetrical. GASTROINTESTINAL: Abdomen was soft, non-tender, and non-distended. There is no guarding or rebound tenderness MUSCULOSKELETAL: There was no lower extremity edema, erythema, or tenderness. NEUROLOGIC: Patient is awake and alert. Equal strength in all extremities. Facies were symmetrical. Constitutional Vital Signs, click to edit/add: Last Vital Signs Temp 97.5 F L 05/14/25 11:29 Pulse 71 05/14/25 14:00 Resp 20 05/14/25 11:29 BP 134/56 05/14/25 11:38 Pulse Ox 95 05/14/25 11:29 O2 Del Method Room Air 05/14/25 11:29 Progress Note: A&P Assessment and Plan (1) Atrial flutter: (2) Syncope due to orthostatic hypotension: (3) Cardiomyopathy: (4) UTI (urinary tract infection): Plan Syncopal episode, no neurological deficit. Patient is orthostatic. Systolic blood pressure drops of 40 point Patient is on Flomax that could potentially cause or exaggerate orthostatic hypotension. My recommendation is to hold Flomax. May replace with Proscar to reduce risk of retention. Check cortisol level to rule out adrenal insufficiency. In addition his orthostatic hypotension could be exaggerated by cardiomyopathy in the setting of a flutter. His EF is 45% Rule out the possibility of cardiac dysrhythmia or bradycardia that may be causing his syncope Continue telemetry monitoring. Patient has received gentle IV fluid infusion I started the patient on midodrine. No clinical evidence of major sepsis or septic shock. No clinical evidence of hemorrhagic or hypovolemic shock. Could be an element of mild volume depletion causing him to have hypotension in the setting of low albumin and low hydrostatic pressure. PT OT eval and treatment. Rise from lying to sitting to standing in a slow and gradual fashion Consider initiation of lower extremities compression stocking. Consider initiation of abdominal belt. Cortisol came back low. I suspect the patient may have adrenal insufficiency. We will proceed with Cortrosyn stimulation test tomorrow morning. UTI Urine cultures pending. Start patient on ceftriaxone. Urine culture came back positive for Enterococcus. I switch his antibiotic to Unasyn. Final sensitivities pending. Patient will be discharged home on oral ampicillin or amoxicillin Encephalomalacia and gliosis as well as old stroke seen on CT imaging. A flutter Rate is controlled. Continue Coreg, aspirin and Eliquis. These are preadmis [place] medications Previous fall and cervical fracture status post intervention. Chronic medical conditions not listed above, incidental findings seen on labs and imaging. These would need to be addressed. Could be addressed when time and condition are appropriate. Could be addressed in the outpatient setting by PCP collaboration with other needed outpatient providers. I discussed his case with his daughter at the bedside. I provided her information about his disease, prognosis, expectation and trajectory. Answered all of her questions
--- NOTE | 2025-05-14 15:12 | SWNOTE1 ---
Pt is not discharging today.
[2025-05-14] MEDS: MIDODRINE HCL 5 MG TABLET 2.5 MG PO (17:24)
[2025-05-14] MEDS: FINASTERIDE 5 MG TABLET PO (21:34)
[2025-05-14] MEDS: ATORVASTATIN CALCIUM 40 MG TABLET PO (21:34)
[2025-05-14] MEDS: AMPICILLIN SODIUM/SULBACTAM NA 1.5 GM in 0.9 % SODIUM CHLORIDE 50 ML IV (21:34)
[2025-05-15] VITALS (10 sets, daily range): BP systolic 136–157; BP diastolic 76–88; PULSE 65–100; TEMP 36.5–36.7; O2SAT 93–94
[2025-05-15] MEDS: AMPICILLIN SODIUM/SULBACTAM NA 1.5 GM in 0.9 % SODIUM CHLORIDE 50 ML IV (05:10)
[2025-05-15] MEDS: SODIUM CHLORIDE 0.9% IVP (06:00)
[2025-05-15] MEDS: COSYNTROPIN IVP (06:00)
--- NOTE | 2025-05-15 08:15 | CM.NOTE ---
Rounds made with Dr. Kasper, pt will discharge to home today with [facility]. Pt has f/u scheduled with Dr. Flores.
[2025-05-15] MEDS: CARVEDILOL 6.25 MG TABLET PO (08:42)
[2025-05-15] MEDS: FUROSEMIDE 20 MG TABLET PO (08:42)
[2025-05-15] MEDS: ASPIRIN 81 MG TABLET.DR PO (08:42)
[2025-05-15] MEDS: SENNOSIDES 8.6 MG TABLET PO (08:42)
[2025-05-15] MEDS: APIXABAN 5 MG TABLET PO (08:42)
[2025-05-15] MEDS: MAGNESIUM OXIDE 400 MG TABLET PO (08:42)
--- NOTE | 2025-05-15 09:25 | P.DS_ITS ---
DS: Providers Provider Date of admission: 05/14/25 14:28 Primary care physician: Ricardo Flores MD Consults: 05/12/25 Consult to Dietitian Routine Reason for consultation: weight loss 5# in past 2 weeks Has provider been notified: Yes Consult to Dietitian Routine Reason for consultation: weight loss <5 lbs 05/13/25 11:24 Occupational Therapy Eval and Treat Routine Reason for consultation: Falls Physical Therapy Eval and Treat Routine Reason for consultation: Weakness DS: Diagnosis Discharge Diagnosis (1) Atrial flutter: (2) Syncope due to orthostatic hypotension: (3) Cardiomyopathy: (4) UTI (urinary tract infection): Plan As listed above, below and others that are not listed DS: Summary Hospital Course Hospital Course: Mr. Saldivar is a 75-year-old gentleman who came in after he felt dizzy and pa ssed out. He was found to have hypotension and significant orthostatic changes as well Syncopal episode, no neurological deficit. Patient is orthostatic. Systolic blood pressure drops of 40 point Mild dehydration associated with mild elevation of creatinine and bicarbonate level. Responded to IV fluid infusion. Patient is on Flomax that could potentially cause or exaggerate orthostatic hypotension. My recommendation is to hold Flomax. May replace with Proscar to reduce risk of retention. I informed the patient and his daughter about this. His daughter will get him an appointment to follow-up with his urologist. Check cortisol level to rule out adrenal insufficiency. Cortisol level came back low. Patient had ACTH stimulation test this morning. Result will not be available for a few days. I communicated this to his primary care doctor Mark yesterday. He will check the results next week and if positive that the patient would need to be started on Cortef. His hypotension also could have been exaggerated by active UTI Patient was treated with antibiotic as listed below In addition his orthostatic hypotension could be exaggerated by cardiomyopathy i n the setting of a flutter. His EF is 45% Rule out the possibility of cardiac dysrhythmia or bradycardia that may be causing his syncope Continue telemetry monitoring. No dysrhythmia seen on the monitor other than a chronic A-fib He is orthostatic hypotension could be related to blood pressure medication that he was taking at home Is a primary care doctor Mark had already reduced his blood pressure medication doses including Coreg down to 6.25 twice a day and Lasix down to 20 mg daily Further adjustment may be needed in the outpatient setting to keep him in a euvolemic state and to keep his systolic blood pressure between 130 and 145 Rise from lying to sitting to standing in a slow and gradual fashion Consider initiation of lower extremities compression stocking. Consider initiation of abdominal belt. Resolution of orthostatic changes at this morning. No need to continue midodrine at this time. UTI Urine cultures pending. Start patient on ceftriaxone. Urine culture came back positive for Enterococcus. I switch his antibiotic to Unasyn. Final sensitivities pending. Patient will be discharged home on oral ampicillin or amoxicillin Encephalomalacia and gliosis as well as old stroke seen on CT imaging. A flutter Rate is controlled. Continue Coreg, aspirin and Eliquis. These are preadmission medications Previous fall and cervical fracture status post intervention. Patient is to follow-up with the spine surgery team Chronic medical conditions not listed above, incidental findings seen on labs and imaging. These would need to be addressed. Could be addressed when time and condition are appropriate. Could be addressed in the outpatient setting by PCP collaboration with other needed outpatient providers. Patient has multiple complex medical issues as listed above and others that are not listed. All appear to be stable. I do not have any clear or strong clinical justification to extend inpatient hospitalization. Patient however will require close and frequent monitoring as well as additional work-up, investigation and therapeutic intervention that could take place from this point on post discharge. That is to prevent relapse, decompensation, rehospitalization and other medical implications. I instructed patient to ask her primary care doctor to obtain [facility] record entirely to address abnormalities seen on labs and imaging that I have and have not addressed during this hospitalization, follow-up on pen ding blood work, imaging and pathology is if available and to follow-up on needed medical care in the outpatient setting. Time Spent with Patient Time attestation: Total time spent providing and/or coordinating discharge services: Time spent: greater than 30 minutes Exam Narrative Exam Narrative: CONSTITUTIONAL: Well-appearing, answering questions and following commands appropriately SKIN: Was warm and dry. EYES: No conjunctival pallor EARS, NOSE, THROAT: No JVD. RESPIRATORY: Clear to auscultation bilaterally, no wheezes, crackles, or stridor, no use of accessory muscles CARDIOVASCULAR: Normal rate rate and irregularly irregular rhythm. There is no S3, S4, murmur, rub. pulses are 2+ and symmetrical. GASTROINTESTINAL: Abdomen was soft, non-tender, and non-distended. There is no guarding or rebound tenderness MUSCULOSKELETAL: There was no lower extremity edema, erythema, or tenderness. NEUROLOGIC: Patient is awake and alert. Equal strength in all extremities. Facies were symmetrical. Constitutional Vital Signs, click to edit/add: Last Vital Signs Temp 97.7 F 05/15/25 07:39 Pulse 100 H 05/15/25 08:09 Resp 20 05/15/25 07:39 BP 156/76 H 05/15/25 07:39 Pulse Ox 94 L 05/15/25 07:39 O2 Del Method Room Air 05/15/25 07:39 DS: Data Data Completed and Pending Labs on day of discharge: Labs from last 24 hours 05/13/25 05:08 Cortisol AM Sample 5.2 L Preliminary micro results at discharge 05/12/25 08:10 Urine Culture - Preliminary Urine,Clean Catch Pending - Specimen sent to [facility] Discharge Plan Discharge Disposition: Home, Self-Care Condition: Good Discharge Medications: New finasteride 5 mg Tablet 5 mg PO QHS Qty: 30 2RF amoxicillin-pot clavulanate 875-125 mg tablet 1 tab PO BID Qty: 12 0RF Continued Eliquis 5 mg tablet 5 mg PO BID magnesium oxide 400 mg (241.3 mg magnesium) tablet 400 mg PO BID aspirin [Adult Low Dose Aspirin] 81 mg tablet,delayed release (DR/EC) 81 mg PO DAILY sennosides [senna] 8.6 mg tablet 8.6 mg PO .QHS melatonin 5 mg capsule 5 mg PO HS PRN (Reason: sleep) carvedilol [Coreg] 6.25 mg tablet 6.25 mg PO BID Rx Instructions: must administer with a meal/food atorvastatin [Lipitor] 40 mg tablet 40 mg PO DAILY furosemide [Lasix] 20 mg tablet 20 mg PO DAILY Discontinued tamsulosin 0.4 mg capsule 0.4 mg PO .QHS Print Language: Portuguese Patient Instructions: Hypotension (DC) Activity Restrictions/Additional Instructions: I may not have addressed or treated all of your medical illnesses or the abnormal blood work or imaging studies during this hospitalization. Please ask your primary care provider to obtain [facility] records entirely to follow up on all of the abnormal physical, laboratory, and imaging findings that I have not addressed. Please return back to the emergency room or seek medical attention if your symptoms worsen or return. ACTH test is still not resulted yet. Please ask your primary care doctor to review pending report next week. Discharging you from [facility] does not mean that your medical care ends here and now. You may still need additional monitoring, work up, investigation, and treatment plan to be handled from this point on by out patient providers including your primary care provider and specialists. For any medication question, please contact your retail pharmacist or your primary care provider. Thank you. Forms: Portal Instructions Follow Up Appointments: 05/20 @ 10:45am with Dr. Flores [phone]
--- NOTE | 2025-05-15 09:53 | SWNOTE1 ---
Important Message from Medicare reviewed and discussed with patient. Pt. verbalized understanding and signed the form. Original given to patient and copy placed in patient?s chart. Pt voiced he is returning home today and is happy about this. He stated he needs to take his time getting up and moving around. KAYY advised that will send dc information to [facility] and they will be reaching out to him to coordinate a visit. He voiced understanding.
--- NOTE | 2025-05-15 10:21 | SWNOTE1 ---
KAYY faxed dc summary, dc med rec, CRF, and inpt order to [facility].
--- NOTE | 2025-05-16 14:35 | PC.NURSE ---
Urine culture received by lab -- melissa'd by Dr Cuellar, and no further tx is needed to treat this.
--- NOTE | 2025-05-20 13:56 | CM.DCFOLLOWU ---
1st attempt 05/20/25, no answer
== END 2025-05-15 10:42 | disposition home health service (06) | DRG 690 ==
LOC: ER 19:33 → MS 20:12
PROVIDERS: Student in an Organized Health Care Education/Training Program; Admitting Provider Internal Medicine; Emergency Provider Emergency Medicine; PCP Family Medicine; Visit Provider Internal Medicine
DX: N39.0 Urinary tract infection, site not specified (principal); I48.92 Unspecified atrial flutter; I50.40 Unspecified combined systolic (congestive) and diastolic (congestive) heart failure; I43 Cardiomyopathy in diseases classified elsewhere; I95.1 Orthostatic hypotension; Z79.01 Long term (current) use of anticoagulants; I48.91 Unspecified atrial fibrillation; I11.0 Hypertensive heart disease with heart failure; S12.9XXD Fracture of neck, unspecified, subsequent encounter; W19.XXXD Unspecified fall, subsequent encounter; Z91.81 History of falling; E78.00 Pure hypercholesterolemia, unspecified; I25.10 Atherosclerotic heart disease of native coronary artery without angina pectoris; Z95.1 Presence of aortocoronary bypass graft; Z79.899 Other long term (current) drug therapy; F10.11 Alcohol abuse, in remission; Z98.1 Arthrodesis status; Z79.82 Long term (current) use of aspirin; G93.89 Other specified disorders of brain; E86.0 Dehydration; B95.2 Enterococcus as the cause of diseases classified elsewhere
CPT/HCPCS: 36415; 70450; 71045; 80048; 80053; 81001; 82533; 83735; 83880; 84484; 85027; 87086; 87088; 87186; 93005; 96361; 96365; 97110; 97162; 97165; 97530; 99285; G0378; J0295; J0696; J0834

== ENCOUNTER 2025-05-28 09:35 | Outpatient (OUT) | payer MEDICARE, SELFPAY ==
[2025-05-28 10:32] LABS: Hematocrit 40.5 % (42.0-54.0); Hemoglobin 13.3 g/dL (14.0-18.0); Immature Granulocytes Abs Auto 0.01 10^3/uL (0.00-0.03); Immature Granulocytes Pct Auto 0.2 % (0.0-0.5); Lymphocytes Absolute Auto 2.2 10^3/uL (1.2-3.8); Mean Corpuscular HGB Conc 32.8 g/dL (29.9-35.2); Mean Corpuscular Hemoglobin 30.9 pg (25.9-34.0); Mean Corpuscular Volume 94.0 fL (80.0-94.0); Platelet Count 182 10^3/uL (150-450); Red Blood Count 4.31 10^6/uL (4.70-6.10); White Blood Count 5.9 10^3/uL (4.0-11.0)
[2025-05-28 11:28] LABS: Glucose Urine UA NEGATIVE (NEGATIVE)
[2025-05-28 12:05] LABS: Alanine Aminotransferase 19 U/L (16-63); Albumin Globulin Ratio 1.1; Albumin Level 3.7 g/dL (3.4-5.0); Alkaline Phosphatase 119 U/L (46-116); Anion Gap 12.8; Aspartate Amino Transferase 20 U/L (15-37); Blood Urea Nitrogen 17.0 mg/dL (7.0-18.0); Calcium 9.3 mg/dL (8.5-10.1); Carbon Dioxide 29.0 mmol/L (21.0-32.0); Chloride 106 mmol/L (98-107); Estimated GFR (African America >60 (>=60 mL/min/1.73m^2); Estimated GFR (Non-African Ame >60 (>=60 mL/min/1.73m^2); Free T3 2.01 pg/mL (2.18-3.98); Globulin 3.4 g/dL; Glucose 99 mg/dL (74-106); Potassium 3.8 mmol/L (3.5-5.1); Sodium 144 mmol/L (136-145); Thyroid Stimulating Hormone 3.660 uIU/mL (0.358-3.740); Total Protein 7.1 g/dL (6.4-8.2)
[2025-05-28 12:41] LABS: Cast Seen? NONE SEEN #/LPF (NONE SEEN); Crystals Seen? None Seen #/HPF (None Seen)
== END 2025-05-28 09:36 | disposition home or self-care (01) ==
LOC: LAB 09:37
PROVIDERS: PCP Family Medicine; Visit Provider Family Medicine
DX: N39.0 Urinary tract infection, site not specified (principal); D69.49 Other primary thrombocytopenia; E03.9 Hypothyroidism, unspecified
CPT/HCPCS: 36415; 80053; 81001; 84436; 84443; 84481; 85025; 87086; 87088; 87186